=== PATIENT | male | born 1945 | race Caucasian/White ===

== ENCOUNTER 2022-03-11 09:35 | Outpatient (CLI) | payer MEDICARE, SELFPAY ==
[2022-03-11 15:05] LABS: Free T4 Free Thyroxine* 0.89 ng/dL (0.70-1.85)
== END 2022-03-11 09:36 | disposition home or self-care (01) ==
PROVIDERS: PCP Internal Medicine; Visit Provider Internal Medicine
DX: E03.9 Hypothyroidism, unspecified (principal)
CPT/HCPCS: 84439; 84443

== ENCOUNTER 2022-08-12 10:30 | Outpatient (RCR) | payer MEDICARE, SELFPAY ==
--- NOTE | 2022-08-12 12:43 | PT.OPDNX ---
[facility] DISCHARGE SUMMARY PT [facility] Daily Note Start: 07/01/22 09:29 Freq: Status: Active Protocol: Document 08/12/22 12:33 MAYRA (Rec: 08/12/22 12:41 MAYRA [id number]) E-signed By Shanti Doshi, PT PT OP Daily Progress Note Visit Information Note Type Discharge Note Visit Number 7 Insurance Information Recert Due Date 09/23/22 Insurance Name [facility] Insurance Information/Comments [facility] Medical Diagnosis LUMBAR DDD 51.16 Treating Diagnosis DORSALGIA M54.9 STIFFNESS M25.60 Subjective Subjective PATIENT RETURNS AFTER BEING OUT OF TOWN FOR SEVERAL DAYS AND NOT GETTING TO HIS HEP LIKE HAD BEEN. HE STATES, I KNOW I FEEL SO GOOD AFTER LEAVING HERE. Pain Comments 0/10 Preferred Name DAVINA Precautions Treatment Precautions/Contraindications PATIENT HAS ALZHEIMER'S DEMENTIA Home Exercise Home Exercise Comments 07/06/22: REVISED HEP TO EXCLUDE PRONE HE HAS A DIFFICULT TIME CONCEPTUALIZING. ADDED STDG ROW, S'EXT, SKTC, DKTC, BRIDGE Objective Other/Pertinent Objective Posture Assessment: INCREASED THORACIC KYPHOSIS FWD TRUNK POSTURING DURING STDG AND SLUMPED DURING SEATED LUMBAR ROM Flexion: UNREMARKABLE repeated flexion: UNREMARKABLE Extension: UNREMARKABLE repeated ext: INCREASED DISCOMFORT R/L FLANK Right Sidebend: UNREMARKABLE Left Sidebend: UNREMARKABLE LOWER QUARTER SCREEN MMT: BLE 4+/5 X HIP EXT 4-/5 JOINT MOBILITY/PALPATION: L2-5 MIN HYPOMOBILITY; TENDERNESS ABOUT THE QUADRATUS LUMBORUM SPECIAL TESTS: Straight leg raise: (-) Crossed straight leg raise: (- ) Slump test: (-) Quadrant test: (-) SI/HIPI tests : RASHAD (+) FADIR (-) SCOUR (-) Gillet Test: (+) Standing forward bend Test: (- ) Gapping and Compression test: (-) Patient Instructed in Risks/Benefits Yes Therapeutic Exercise Therapeutic Exercise Minutes (minutes) 45 Therapeutic Exercise: To Restore TM 2.2 MPH 7MIN Functional Status SUPINE TRUNK ROTATION 4 X 10 SEC R/L SUPINE DKTC 3 X 30 SEC SUPINE BRIDGE 2 X 10 HOLD 5 STDG TB ROW (BLUE) X 15 STDG TB S'EXT (BLUE) X 15 TRUNK EXT X 15 50# LEG PRESS X 15 110# KNEE EXT X 15 3P Neuromuscular Re-Ed Neuromuscular Reeducation Comments TANDEM WALK 20FT X 2 SIDE STEP R/L X 20FT EA TANDEM WALKING 20 FT X 4 WALKING ON COLORED STONES OF VARYING HEIGHTS Treatment Minutes Timed Code Treatment Minutes 45 Total Treatment Time 45 Billing Units Therapeutic Exercise Units 3 Plan of Care Physical Therapy Goals 1. PATIENT WILL TOLERATE 30 MIN OF AMB DAILY W/PAIN RATING <2/10 IN 4-6 WEEKS. GOAL MET 07/29 2. PATIENT WILL DEMONSTRATED IMPROVED POSTURE AWARENESS AND CORE STRENGTH TO STD OR SIT FOR >30 MIN IN 4-6 WEEKS. GOAL MET 3. PATIENT WILL BE INDEPENDENT WITH HIS HEP WITH SUPERVISION PROVIDED BY SPOUSE D/T COGNITIVE CHALLENGES IN 4-6 WEEKS. GOAL MET Daily Plan of Care Discharge Recertification Information Provider Signature Shows Agreement With POC & Medical Necessity Discharge Note Discharge Summary PATIENT IS A 77 YO MALE PATIENT OF DR. JACINTO ROLLINS REFERRED TO PHYSICAL THERAP D/T BACK PAIN. 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 MR. DOUGLAS HAS PARTICIPATED IN A COMPREHENSIVE AND INDIVIDUALIZED PROGRAM TO ADDRESS SYMPTOM MGMT, POSTURE STRENGTHENING AND AWARENESS, FLEXIBILITY, AND GT. HE IS NOW PARTICIPATING IN A DAILY HOME PROGRAM THAT HIS NEEDS TO POWER PRESS TENDER HIM THROUGH D/T HIS COGNITIVE DEFICITS AND WILL BEGIN WORKING OUT WITH HIS AT [address]. HE VERBALIZED THE UNDERSTANDING THAT HIS PROGRAM MUST BE PERFORM DAILY AND AGREEABLE TO TRANSITIONING TO MACHINES AT THE WORKOUT CENTER. WE DEVELOPED A CONCISE AND APPROPRIATE PLAN FOR HIM TO MAINTAINED AND WITH HIM PERFORMING EA WITH MIRRORING AND VC NEEDED FOR TECHNIQUE. HE HAS MET ALL GOALS FOR PHYSICAL THERAPY AND WILL BE DISCHARGED TODAY WITH HIS INDIVIDUALIZED AND WRITTEN HEP. BOTH AND PATIENT VERBALIZED UNDERSTANDING TO ALL SKILLED INSTRUCTION AND AGREEABLE TO DISCHARGE TODAY. Date of First Visit for Therapy 07/01/22 Date of Last Visit for Therapy 08/12/22 Interventions Provided During Treatment Gait Training,Manual Therapy, Neuromuscular Re-Ed, Therapeutic Activities, Therapeutic Exercise Recommendations/Reason for Discharge Met All Therapy Goals Discharge Instructions CONTINUE WITH HIS HEP AND THE ASSISTANCE OF HIS
== END 2022-08-13 10:23 | disposition home or self-care (01) ==
PROVIDERS: PCP Internal Medicine; Visit Provider Internal Medicine
DX: M54.9 Dorsalgia, unspecified (principal); Z51.89 Encounter for other specified aftercare
CPT/HCPCS: 97110; 97112; 97162

== ENCOUNTER 2023-01-18 14:43 | Outpatient (CLI) | payer MEDICARE, SELFPAY | END 2023-01-18 14:44 | disposition home or self-care (01) | PROVIDERS: PCP Internal Medicine; Visit Provider Internal Medicine | DX: E03.9 Hypothyroidism, unspecified (principal); G31.84 Mild cognitive impairment of uncertain or unknown etiology | CPT/HCPCS: 80053; 84443 ==

== ENCOUNTER 2023-03-24 09:54 | Outpatient (CLI) | payer MEDICARE, SELFPAY ==
--- NOTE | 2023-03-24 10:15 | CRLHL7_ITS ---
For Patients: As a result of the Century Cures Act, medical imaging exams and procedure reports are released immediately into your electronic medical record. You may view this report before your referring provider. If you have questions, please contact your health care provider. INDICATION: Difficulty swallowing TECHNIQUE: Modified barium swallow. Fluoroscopic time 1.7 minutes. COMPARISON: None FINDINGS/IMPRESSION: No aspiration. No significant penetration. Mild residual barium in the valleculae and piriform sinuses. Dictated by Yan Haas MD @ 03/24/2023 10:41:16 AM (Electronically Signed)
--- OUTSIDE RECORDS SUMMARY | 2023-03-24 10:25 | XMS_ITS | Clinical Summary ---
Author Name Unknown Organization [facility] Address [address] [address] Phone Care Team Providers Care Gun Stocker Name Role Phone Unavailable Primary Care Provider Unavailabl e Allergies No known active allergies Medications Medication Sig Dispensed Refills Start Date End Date Status CHILDRENS ASPIRIN 81 MG chewable tablet 81, mg, ORAL, DAILY, 0, 0, 01/25/08 9:05:41, Substitution Permitted, current med (Hx), Constant Indicator 81.000 0 01/25/2008 Active fluticasone propionate (FLONASE) 50 MCG/ACT nasal spray Instill 2 Sprays nasally one time a day. Shake well before use; administer to both nostrils. 16 g 0 08/19/2012 Active albuterol HFA (PROAIR HFA, VENTOLIN HFA) 108 (90 BASE) MCG/ACT inhaler Inhale 2 Puffs into the lungs four times a day. Shake before using. 1 Inhaler 0 08/19/2012 Active guaiFENesin (MUCINEX) 600 MG 12 hour tablet Take 600 mg by mouth two times a day. Take with a full glass of water. Do not crush. 0 Active LORazepam (ATIVAN) 0.5 MG tabletIndications: Anxiety Use one as needed for anxiety 60 Tab 1 08/01/2013 Active levothyroxine (SYNTHROID) 75 MCG tablet Take 1 Tab by mouth one time a day. 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 Block. 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 08/08/2011 Immunizations Name Administration Dates Next Due Pneumovax 23 08/10/2011,12/25/2005 Tdap (7 years and older) 08/10/2011 Zoster Zostavax (Shingles) 07/28/2012 Surgical History Surgery Date Site/Laterality Comments BONE MARROW BIOPSY COLONOSCOPY 2007 POLYPECTOMY 2004 INGUINAL HERNIA REPAIR COLONOSCOPY 09/16/2012 5 yr follow up Medical History Medical History Date Comments Hypothyroidism Social History Tobacco Use Types Packs/Day Years Used Date Smoking Tobacco: Former Cigarettes Q uit: 08/05/2003 Smokeless Tobacco: Never Alcohol Use Standard Drinks/Week Comments No 0 (1 standard drink = 0.6 oz pur e alcohol) Sex and Gender Information Value Date Recorded Sex Assigned at Not on file Gender Identity Not on file Sexual Orientation Not on file Obstetrics History Last Filed Vital Signs Vital Sign Reading Time Taken Comments Blood Pressure 120/76 08/01/2013 11:03 AM CDT Pulse 49 08/01/2013 11:03 AM CDT Temperature 36.6 ??C (97.8 ??F) 09/16/2012 10:39 AM C DT Respiratory Rate 16 08/01/2013 11:03 AM CDT Oxygen Saturation 93% 09/16/2012 12:04 PM CDT Inhaled Oxygen Concentration - - Weight 86.8 kg (191 lb 4 oz) 08/01/2013 11:03 AM CDT Height 182.9 cm (6') 08/01/2013 11:03 AM CDT Body Mass Index 25.94 08/01/2013 11:03 AM CDT Plan of Treatment Health Maintenance Due Date Last Done Comments MEDICARE AWV 1945 COVID-19 Vaccine (#1) 1945 RSV Vaccination (60+ yrs) (Abrysvo/Arexvy) (1 - 1-dose 60+ series) 2003 Pneumococcal Vaccine: 65+ yr s (Standing Order) (2 of 2 - PCV) 08/09/2012 08/10/2011, 12/25/2005 Shingrix (Zoster recombinant ) vaccine (Standing Order) (1 of 2) 09/22/2012 COLONOSCOPY Q 5 YRS 09/16/2017 09/16/2012, 08/05/2007 (Previously completed) TETANUS (Standing Order) 08/09/2021 08/10/2011 Influenza Vaccine Seasonal (Standing Order) (#1) 2022 PERTUSSIS (Standing Order) Completed 08/10/2011 HPV Vaccine (Standing Order) Aged Out No longer eligible based on patient's age to complete this topic Hepatitis B Vaccine (Standin g Order) Aged Out No longer eligible b ased on patient's age to complete this topic
--- OUTSIDE RECORDS SUMMARY | 2023-03-24 10:25 | XMS_ITS | Encounter Summary ---
Author Name Unknown Organization [facility] Address [address] [address] Phone Care Team Providers Care Sociology Research Assistant Name Role Phone Pérez Villafuerte MD Primary Care Provider [phone] Leida Rooney RN Unavailable [phone] Encounter Details Date Type Department Care Team (Late st Contact Info) Description 02/15/2010 Scanned - Medical Reports HISTORY DEPARTMENT Provider, Hx Social History Tobacco Use Types Packs/Day Years Used Date Smoking Tobacco: Never Assessed Sex and Gender Information Value Date Recorded Sex Assigned at Not on file Gender Identity Not on file Sexual Orientation Not on file documented as of this encounter Plan of Treatment Not on file documented as of this encounter Visit Diagnoses Not on filedocumented in this encounter Care Teams Sociology Research Assistant Relationship Specialty Start Date End Date Pé[place] [address] [place] [phone] PCP - General 07/30/10 03/07/15 Leida Rooney RN Logistics System Engineer 08/06/11 06/16/15 documented as of this encounter
--- OUTSIDE RECORDS SUMMARY | 2023-03-24 10:25 | XMS_ITS | Continuity of Care Document ---
Author Name [facility] Organization [facility] Care Team Providers [employer] Administrator Name Role Phone [facility] Unavailable Unavailable Problems Combined list of problems from Department of Defense and Veterans Affairs facilities. It does not include entries that were removed or entered in error. Problem Status Onset Date Problem Type Date of Resolution Comments Source Acquired hypothyroidism Active Condition [facility] Anxiety Active Condition [facility] Bilateral metatarsalgia Active Condition [facility] Carcinoma of parotid gland Active Condition [facility] Chronic obstructive lung disease Active Condition [facility] Chronic Obstructive Pulmonary Disease Active Condition Oct 05 Entered By: SOCORRO BYERS Comment: FEV1(L) % PRED= 88, FEV1/FVC% ACTUAL= 60 [facility] Chronic pain of left foot Active Condition [facility] Congestion of nasal sinus Active Condition [facility] Edema Active Condition Feb 14 Entered By: SOCORRO BYERS Comment: ideopathic-n ml full w/u 2007 [facility] Enthesopathy of left foot Active Condition [facility] Health maintenance alteration Active Condition [facility] Hypothyroidism * (ICD-9-CM 244.9) Active Condition [facility] Keratosis, seborrheic Active Condition [facility] Osteoarthritis of ankle Active Condition [facility] Osteopenia * (ICD-9-CM 733.90) Active Condition [facility] Paraesthesia of foot Active Condition [facility] Personal History of Colonic Polyps (ICD-9-CM V12.72) Active Condition Oct 01 09 Entered By: SOCORRO BYERS Comment: scope 2007 nml-due 2013 [facility] Postsurgical Status of Cataract Extraction Active Condition [facility] Presbyopia Active Condition [facility] Primary degenerative dementia of the Alzheimer type, senile onset, with delusion Active Condition [facility] Rhinitis * (ICD-9-CM 472.0) Active Condition [facility] salivary cancer Active Condition Sep 27, 2007 Entered By: SOCORRO BYERS Comment: radical neck + radiation [facility] SENSORNEUR HEARING LOSS NOS Active Condition [facility] Wheezing Active Condition [facility] Tobacco Use Disorder * (ICD-9-CM 305.1) Inactive Condition 09/27/2007 [facility] Diagnosis: ICD-10-CM Z00.8 Encounter for other general examination Active Diagnosis [facility] Medications Combined list of outpatient medications from Department of Defense and Veterans Affairs facilities.Medications provided include 1) outpatient medications from the last 15 months, and 2) patient-reported medications. Medication Details Route Status Patient Instructions Prescription Expires Prescription Number Last Dispense Date Ordering Provider Order Date Source ASPIRIN TAB,EC TAKE BY MOUTH ORAL ACTIVE SHEN SHRESTHA 2004 [facility] CYANOCOBALA MIN 1000MCG TAB TAKE ONE TABLET BY MOUTH EVERY DAY FOR VITAMIN B12, FOR RED BLOOD CELLS ORALLY ACTIVE 11/19/2023 [id number] MASSIEL NGUYEN 2022 [facility] CYANOCOBALA MIN 1000MCG TAB TAKE ONE TABLET BY MOUTH EVERY DAY FOR VITAMIN B12, FOR RED BLOOD CELLS ORALLY DISCONT INUED 01/15/2023 [id number] MASSIEL NGUYEN 2021 [facility] DONEPEZIL HCL 10MG TAB TAKE ONE TABLET BY MOUTH EVERY DAY ORALLY ACTIVE MASSIEL NGUYEN 2021 [facility] GUAIFENESIN TAB TAKE 600MG DM BY MOUTH DAILY ORAL ACTIVE Giovanni BYERS 2012 [facility] LEVOTHYROXI NE NA 75MCG TAB (SYNTHROID) TAKE ONE TABLET BY MOUTH ORAL ACTIVE Giovanni BYERS 2012 [facility] LEVOTHYROXI NE NA 75MCG TAB (SYNTHROID) TAKE ONE TABLET BY MOUTH EVERY DAY ORALLY ACTIVE MASSIEL NGUYEN 2021 [facility] LORAZEPAM 0.5MG TAB TAKE ONE TABLET BY MOUTH PRN ORALLY ACTIVE MASSIEL NGUYEN 2021 [facility] LORAZEPAM 0.5MG TAB TAKE ONE TABLET BY MOUTH PRN ORAL ACTIVE Giovanni BYERS 2007 [facility] MEMANTINE HCL 10MG TAB TAKE ONE TABLET BY MOUTH ORALLY ACTIVE MASSIEL NGUYEN 2022 [facility] MULTIVITAMI N/MINERALS SENIOR FORMULA TAB TAKE ONE TABLET BY MOUTH ORAL ACTIVE SHEN SHRESTHA 2004 [facility] PSYLLIUM PWDR,ORAL TAKE 1 TEASPOON FUL BY MOUTH EVERY DAY ORALLY ACTIVE MASSIEL NGUYEN 2022 [facility] Immunizations Combined list of available immunizations from the Department of Defense and Veterans Affairs facilities. Immunization Series Date Given Administered By Site Reaction Lot Number CVX Code [facility] Status Comments Source TDAP 2022 115 complet ed [facility] COVID-19, MRNA, LNP-S, BIVALENT BOOSTER, PF, 30 MCG/0.3 ML DOSE 1 2021 300 complet [facility] INFLUENZA, UNSPECIFIED FORMULATION 2021 88 complet ed [facility] COVID-19 (PFIZER), MRNA, LNP-S, PF, 30 MCG/0.3 ML DOSE 2 2021 208 complet [facility] COVID-19 (PFIZER), MRNA, LNP-S, PF, 30 MCG/0.3 ML DOSE, SHANTELL-SUCROSE (AGES 12+ YEARS) 2021 217 complet [facility] ZOSTER RECOMBINANT [address] [facility] ZOSTER RECOMBINANT [address] [facility] COVID-19 (PFIZER), MRNA, LNP-S, PF, 30 MCG/0.3 ML DOSE 3 2020 208 complet [facility] INFLUENZA, INJECTABLE, QUADRIVALENT, PRESERVATIVE FREE 2020 150 complet ed [facility] COVID-19 ([employer]), MRNA, LNP-S, PF, 30 MCG/0.3 ML DOSE 2 2020 208 complet ed [facility] COVID-19 ([employer]), MRNA, LNP-S, PF, 30 MCG/0.3 ML DOSE 1 2020 208 complet ed [facility] INFLUENZA, RECOMBINANT, QUADRIVALENT, INJECTABLE, PRESERVATIVE FREE 2019 185 complet ed [facility] INFLUENZA, HIGH DOSE SEASONAL 2018 135 complet ed [facility] INFLUENZA, HIGH DOSE SEASONAL 2016 135 complet ed [facility] INFLUENZA, HIGH DOSE SEASONAL 2015 135 complet ed [facility] INFLUENZA, HIGH DOSE SEASONAL 2014 135 complet ed [facility] PNEUMOCOCCAL CONJUGATE PCV 13 2014 133 complet ed [employer] Lot# [id number] Exp 03/2016 [facility] PNEUMOCOCCAL CONJUGATE PCV 13 2014 133 complet ed [facility] INFLUENZA, SEASONAL, INJECTABLE 2013 141 complet ed [facility] INFLUENZA, SEASONAL, INJECTABLE 2013 141 complet ed [facility] TDAP 2012 115 complet ed [facility] INFLUENZA, UNSPECIFIED FORMULATION 2012 88 complet ed [facility] ZOSTER LIVE 2012 121 complet ed [facility] PNEUMOCOCCAL POLYSACCHARID E PPV23 2012 33 complet ed [facility] PNEUMOCOCCAL, UNSPECIFIED FORMULATION 2012 109 complet ed [facility] ZOSTER LIVE 2012 121 complet ed [facility] INFLUENZA, UNSPECIFIED FORMULATION 2011 88 complet ed [facility] ZOSTER LIVE 2011 121 complet ed [employer] #[id number] exp 05-13-12 [facility] PNEUMOCOCCAL POLYSACCHARID E PPV23 2011 33 complet ed [facility] TDAP 2011 115 complet ed [facility] TDAP 2010 115 complet ed [facility] PNEUMOCOCCAL POLYSACCHARID E PPV23 2009 33 complet ed [facility] NOVEL INFLUENZA-H1N 1-09, ALL FORMULATIONS 2008 128 complet ed [employer] [facility] INFLUENZA (HISTORICAL) 2008 88 complet ed [facility] INFLUENZA, SEASONAL, INJECTABLE 2008 141 complet ed [facility] INFLUENZA, UNSPECIFIED FORMULATION 2007 88 complet ed [employer], Lot #[id number], exp 2008 JL [facility] INFLUENZA, UNSPECIFIED FORMULATION 2006 88 complet ed lot# [id number] exp 08/29/07 [employer] [facility] INFLUENZA, UNSPECIFIED FORMULATION 2006 88 complet ed [facility] INFLUENZA, UNSPECIFIED FORMULATION 2005 88 complet ed [facility] PNEUMOCOCCAL POLYSACCHARID E PPV23 2005 33 complet ed [facility] INFLUENZA, UNSPECIFIED FORMULATION 2004 88 complet ed [employer] [id number] [facility] PNEUMOCOCCAL, UNSPECIFIED FORMULATION 2004 109 complet ed [facility] TD(ADULT) UNSPECIFIED FORMULATION 2004 139 complet ed [facility] INFLUENZA, UNSPECIFIED FORMULATION 2003 88 complet ed [facility] INFLUENZA, UNSPECIFIED FORMULATION 2003 88 complet ed [facility] Results Combined list of recent chemistry, hematology and other laboratory results from Department of Defense and Veterans Affairs, ranging from 15 months to all on record, depending upon the facility. Order Name Results Value Reference Range Date Interpretation Specimen Comments Source B 12 COBALAMIN (VITAMIN B12) [MASS/VOLU ME] IN SERUM OR PLASMA >2000 213 - 816 11/18 H Specimen Type: SERUM No comment entered. Ordering Provider: KEELY NGUYEN Report Released Date/Time: Jan 14, 2022 08:41 AM Reporting Lab: [facility] [address] Performing Lab: [facility] [address] [facility] FOLATE FOLATE [MASS/VOLU ME] IN SERUM OR PLASMA 8.6 7.0 11/18 Specimen Type: SERUM No comment entered. Ordering Provider: KEELY NGUYEN Report Released Date/Time: Jan 14, 2022 08:41 AM Reporting Lab: [facility] [address] Performing Lab: [facility] [address] [facility] CBC & DIFF LEUKOCYTES [#/VOLUME] IN BLOOD BY AUTOMATED COUNT 4.77 4.0 - 11.0 11/18 Specimen Type: BLOOD Comment: Automated Differentia l Performed Ordering Provider: KEELY NGUYEN Report Released Date/Time: Jan 14, 2022 08:41 AM Reporting Lab: [facility] [address] Performing Lab: [facility] [address] [facility] CBC & DIFF ERYTHROCYT ES [#/VOLUME] IN BLOOD BY AUTOMATED COUNT 3.06 4.6 - 6.2 11/18 L Specimen Type: BLOOD Comment: Automated Differentia l Performed Ordering Provider: KEELY NGUYEN Report Released Date/Time: Jan 14, 2022 08:41 AM Reporting Lab: [facility] [address] Performing Lab: [facility] [address] [facility] CBC & DIFF HEMOGLOBIN [MASS/VOLU ME] IN BLOOD 10.5 13.5 - 17.9 11/18 L Specimen Type: BLOOD Comment: Automated Differentia l Performed Ordering Provider: KEELY NGUYEN Report Released Date/Time: Jan 14, 2022 08:41 AM Reporting Lab: [facility] [address] Performing Lab: [facility] [address] [facility] CBC & DIFF HEMATOCRIT [VOLUME FRACTION] OF BLOOD BY AUTOMATED COUNT 33.3 41 - 54 11/18 L Specimen Type: BLOOD Comment: Automated Differentia l Performed Ordering Provider: KEELY NGUYEN Report Released Date/Time: Jan 14, 2022 08:41 AM Reporting Lab: [facility] [address] Performing Lab: [facility] [address] [facility] CBC & DIFF MCV [ENTITIC VOLUME] BY AUTOMATED COUNT 108.8 80 - 100 11/18 H Specimen Type: BLOOD Comment: Automated Differentia l Performed Ordering Provider: KEELY NGUYEN Report Released Date/Time: Jan 14, 2022 08:41 AM Reporting Lab: [facility] [address] Performing Lab: [facility] [address] [facility] CBC & DIFF MCH [ENTITIC MASS] BY AUTOMATED COUNT 34.3 27 - 33 11/18 H Specimen Type: BLOOD Comment: Automated Differentia l Performed Ordering Provider: KEELY NGUYEN Report Released Date/Time: Jan 14, 2022 08:41 AM Reporting Lab: [facility] [address] Performing Lab: [facility] [address] [facility] CBC & DIFF MCHC [MASS/VOLU ME] BY AUTOMATED COUNT 31.5 32.0 - 37.5 11/18 L Specimen Type: BLOOD Comment: Automated Differentia l Performed Ordering Provider: KEELY NGUYEN Report Released Date/Time: Jan 14, 2022 08:41 AM Reporting Lab: [facility] [address] Performing Lab: [facility] [address] [facility] CBC & DIFF PLATELETS [#/VOLUME] IN BLOOD BY AUTOMATED COUNT 134 150 - 400 11/18 L Specimen Type: BLOOD Comment: Automated Differentia l Performed Ordering Provider: KEELY NGUYEN Report Released Date/Time: Jan 14, 2022 08:41 AM Reporting Lab: [facility] [address] Performing Lab: [facility] [address] [facility] CBC & DIFF PLATELET MEAN VOLUME [ENTITIC VOLUME] IN BLOOD BY AUTOMATED COUNT 10.5 7.4 - 10.4 11/18 H Specimen Type: BLOOD Comment: Automated Differentia l Performed Ordering Provider: KEELY NGUYEN Report Released Date/Time: Jan 14, 2022 08:41 AM Reporting Lab: [facility] [address] Performing Lab: [facility] [address] [facility] CBC & DIFF NEUTROPHIL S/100 LEUKOCYTES IN BLOOD BY MANUAL COUNT 70.1 40.0 - 80.0 11/18 Specimen Type: BLOOD Comment: Automated Differentia l Performed Ordering Provider: KEELY NGUYEN Report Released Date/Time: Jan 14, 2022 08:41 AM Reporting Lab: [facility] [address] Performing Lab: [facility] [address] [facility] CBC & DIFF LYMPHOCYTE S/100 LEUKOCYTES IN BLOOD BY MANUAL COUNT 15.3 15.0 - 45.0 11/18 Specimen Type: BLOOD Comment: Automated Differentia l Performed Ordering Provider: KEELY NGUYEN Report Released Date/Time: Jan 14, 2022 08:41 AM Reporting Lab: [facility] [address] Performing Lab: [facility] [address] [facility] CBC & DIFF MONOCYTES/ 100 LEUKOCYTES IN BLOOD BY AUTOMATED COUNT 10.9 2.0 - 12.0 11/18 Specimen Type: BLOOD Comment: Automated Differentia l Performed Ordering Provider: KEELY NGUYEN Report Released Date/Time: Jan 14, 2022 08:41 AM Reporting Lab: [facility] [address] Performing Lab: [facility] [address] [facility] CBC & DIFF EOSINOPHIL S/100 LEUKOCYTES IN BLOOD BY AUTOMATED COUNT 2.1 0.0 - 6.0 11/18 Specimen Type: BLOOD Comment: Automated Differentia l Performed Ordering Provider: KEELY NGUYEN Report Released Date/Time: Jan 14, 2022 08:41 AM Reporting Lab: [facility] [address] Performing Lab: [facility] [address] [facility] CBC & DIFF BASOPHILS/ 100 LEUKOCYTES IN BLOOD BY MANUAL COUNT 0.6 0.0 - 2.0 11/18 Specimen Type: BLOOD Comment: Automated Differentia l Performed Ordering Provider: KEELY NGUYEN Report Released Date/Time: Jan 14, 2022 08:41 AM Reporting Lab: [facility] [address] Performing Lab: [facility] [address] [facility] CBC & DIFF ERYTHROCYT E DISTRIBUTI ON WIDTH [RATIO] BY AUTOMATED COUNT 13.8 11.5 - 14.5 11/18 Specimen Type: BLOOD Comment: Automated Differentia l Performed Ordering Provider: KEELY NGUYEN Report Released Date/Time: Jan 14, 2022 08:41 AM Reporting Lab: [facility] [address] Performing Lab: [facility] [address] [facility] CBC & DIFF LYMPHOCYTE S [#/VOLUME] IN BLOOD BY AUTOMATED COUNT 0.73 1.0 - 4.0 11/18 L Specimen Type: BLOOD Comment: Automated Differentia l Performed Ordering Provider: KEELY NGUYEN Report Released Date/Time: Jan 14, 2022 08:41 AM Reporting Lab: [facility] [address] Performing Lab: [facility] [address] [facility] CBC & DIFF MONOCYTES [#/VOLUME] IN BLOOD BY AUTOMATED COUNT 0.52 0.1 - 1.0 11/18 Specimen Type: BLOOD Comment: Automated Differentia l Performed Ordering Provider: KEELY NGUYEN Report Released Date/Time: Jan 14, 2022 08:41 AM Reporting Lab: [facility] [address] Performing Lab: [facility] [address] [facility] CBC & DIFF NEUTROPHIL S [#/VOLUME] IN BLOOD BY AUTOMATED COUNT 3.34 2.0 - 7.7 11/18 Specimen Type: BLOOD Comment: Automated Differentia l Performed Ordering Provider: KEELY NGUYEN Report Released Date/Time: Jan 14, 2022 08:41 AM Reporting Lab: [facility] [address] Performing Lab: [facility] [address] [facility] CBC & DIFF EOSINOPHIL S [#/VOLUME] IN BLOOD BY AUTOMATED COUNT 0.10 0 - 0.5 11/18 Specimen Type: BLOOD Comment: Automated Differentia l Performed Ordering Provider: KEELY NGUYEN Report Released Date/Time: Jan 14, 2022 08:41 AM Reporting Lab: [facility] [address] Performing Lab: [facility] [address] [facility] CBC & DIFF BASOPHILS [#/VOLUME] IN BLOOD BY AUTOMATED COUNT 0.03 0 - 0.2 11/18 Specimen Type: BLOOD Comment: Automated Differentia l Performed Ordering Provider: KEELY NGUYEN Report Released Date/Time: Jan 14, 2022 08:41 AM Reporting Lab: [facility] [address] Performing Lab: [facility] [address] [facility] CBC & DIFF IG(META,MY MAYA,PRO) 1.0 11/18 Specimen Type: BLOOD Comment: Automated Differentia l Performed Ordering Provider: KEELY NGUYEN Report Released Date/Time: Jan 14, 2022 08:41 AM Reporting Lab: [facility] [address] Performing Lab: [facility] [address] [facility] CBC & DIFF IMMATURE GRANULOCYT ES [PRESENCE] IN BLOOD BY AUTOMATED COUNT 0.05 0 - 0.1 11/18 Specimen Type: BLOOD Comment: Automated Differentia l Performed Ordering Provider: KEELY NGUYEN Report Released Date/Time: Jan 14, 2022 08:41 AM Reporting Lab: [facility] [address] Performing Lab: [facility] [address] [facility] CBC & DIFF LEUKOCYTES [#/VOLUME] IN BLOOD BY AUTOMATED COUNT 4.72 4.0 - 11.0 11/18 Specimen Type: BLOOD Comment: Automated Differentia l Performed Ordering Provider: KEELY NGUYEN Report Released Date/Time: Nov 18, 2022 02:10 PM Reporting Lab: [facility] [address] Performing Lab: [facility] [address] [facility] CBC & DIFF ERYTHROCYT ES [#/VOLUME] IN BLOOD BY AUTOMATED COUNT 3.07 4.6 - 6.2 11/18 L Specimen Type: BLOOD Comment: Automated Differentia l Performed Ordering Provider: KEELY NGUYEN Report Released Date/Time: Nov 18, 2022 02:10 PM Reporting Lab: [facility] [address] Performing Lab: [facility] [address] [facility] CBC & DIFF HEMOGLOBIN [MASS/VOLU ME] IN BLOOD 10.7 13.5 - 17.9 11/18 L Specimen Type: BLOOD Comment: Automated Differentia l Performed Ordering Provider: KEELY NGUYEN Report Released Date/Time: Nov 18, 2022 02:10 PM Reporting Lab: [facility] [address] Performing Lab: [facility] [address] [facility] CBC & DIFF HEMATOCRIT [VOLUME FRACTION] OF BLOOD BY AUTOMATED COUNT 33.0 41 - 54 11/18 L Specimen Type: BLOOD Comment: Automated Differentia l Performed Ordering Provider: KEELY NGUYEN Report Released Date/Time: Nov 18, 2022 02:10 PM Reporting Lab: [facility] [address] Performing Lab: [facility] [address] [facility] CBC & DIFF MCV [ENTITIC VOLUME] BY AUTOMATED COUNT 107.5 80 - 100 11/18 H Specimen Type: BLOOD Comment: Automated Differentia l Performed Ordering Provider: KEELY NGUYEN Report Released Date/Time: Nov 18, 2022 02:10 PM Reporting Lab: [facility] [address] Performing Lab: [facility] [address] [facility] CBC & DIFF MCH [ENTITIC MASS] BY AUTOMATED COUNT 34.9 27 - 33 11/18 H Specimen Type: BLOOD Comment: Automated Differentia l Performed Ordering Provider: KEELY NGUYEN Report Released Date/Time: Nov 18, 2022 02:10 PM Reporting Lab: [facility] [address] Performing Lab: [facility] [address] [facility] CBC & DIFF MCHC [MASS/VOLU ME] BY AUTOMATED COUNT 32.4 32.0 - 37.5 11/18 Specimen Type: BLOOD Comment: Automated Differentia l Performed Ordering Provider: KEELY NGUYEN Report Released Date/Time: Nov 18, 2022 02:10 PM Reporting Lab: [facility] [address] Performing Lab: [facility] [address] [facility] CBC & DIFF PLATELETS [#/VOLUME] IN BLOOD BY AUTOMATED COUNT 139 150 - 400 11/18 L Specimen Type: BLOOD Comment: Automated Differentia l Performed Ordering Provider: KEELY NGUYEN Report Released Date/Time: Nov 18, 2022 02:10 PM Reporting Lab: [facility] [address] Performing Lab: [facility] [address] [facility] CBC & DIFF PLATELET MEAN VOLUME [ENTITIC VOLUME] IN BLOOD BY AUTOMATED COUNT 10.3 7.4 - 10.4 11/18 Specimen Type: BLOOD Comment: Automated Differentia l Performed Ordering Provider: KEELY NGUYEN Report Released Date/Time: Nov 18, 2022 02:10 PM Reporting Lab: [facility] [address] Performing Lab: [facility] [address] [facility] CBC & DIFF NEUTROPHIL S/100 LEUKOCYTES IN BLOOD BY MANUAL COUNT 70.8 40.0 - 80.0 11/18 Specimen Type: BLOOD Comment: Automated Differentia l Performed Ordering Provider: KEELY NGUYEN Report Released Date/Time: Nov 18, 2022 02:10 PM Reporting Lab: [facility] [address] Performing Lab: [facility] [address] [facility] CBC & DIFF LYMPHOCYTE S/100 LEUKOCYTES IN BLOOD BY MANUAL COUNT 14.6 15.0 - 45.0 11/18 L Specimen Type: BLOOD Comment: Automated Differentia l Performed Ordering Provider: KEELY NGUYEN Report Released Date/Time: Nov 18, 2022 02:10 PM Reporting Lab: [facility] [address] Performing Lab: [facility] [address] [facility] CBC & DIFF MONOCYTES/ 100 LEUKOCYTES IN BLOOD BY AUTOMATED COUNT 11.9 2.0 - 12.0 11/18 Specimen Type: BLOOD Comment: Automated Differentia l Performed Ordering Provider: KEELY NGUYEN Report Released Date/Time: Nov 18, 2022 02:10 PM Reporting Lab: [facility] [address] Performing Lab: [facility] [address] [facility] CBC & DIFF EOSINOPHIL S/100 LEUKOCYTES IN BLOOD BY AUTOMATED COUNT 1.5 0.0 - 6.0 11/18 Specimen Type: BLOOD Comment: Automated Differentia l Performed Ordering Provider: KEELY NGUYEN Report Released Date/Time: Nov 18, 2022 02:10 PM Reporting Lab: [facility] [address] Performing Lab: [facility] [address] [facility] CBC & DIFF BASOPHILS/ 100 LEUKOCYTES IN BLOOD BY MANUAL COUNT 0.6 0.0 - 2.0 11/18 Specimen Type: BLOOD Comment: Automated Differentia l Performed Ordering Provider: KEELY NGUYEN Report Released Date/Time: Nov 18, 2022 02:10 PM Reporting Lab: [facility] [address] Performing Lab: [facility] [address] [facility] CBC & DIFF ERYTHROCYT E DISTRIBUTI ON WIDTH [RATIO] BY AUTOMATED COUNT 13.9 11.5 - 14.5 11/18 Specimen Type: BLOOD Comment: Automated Differentia l Performed Ordering Provider: KEELY NGUYEN Report Released Date/Time: Nov 18, 2022 02:10 PM Reporting Lab: [facility] [address] Performing Lab: [facility] [address] [facility] CBC & DIFF LYMPHOCYTE S [#/VOLUME] IN BLOOD BY AUTOMATED COUNT 0.69 1.0 - 4.0 11/18 L Specimen Type: BLOOD Comment: Automated Differentia l Performed Ordering Provider: KEELY NGUYEN Report Released Date/Time: Nov 18, 2022 02:10 PM Reporting Lab: [facility] [address] Performing Lab: [facility] [address] [facility] CBC & DIFF MONOCYTES [#/VOLUME] IN BLOOD BY AUTOMATED COUNT 0.56 0.1 - 1.0 11/18 Specimen Type: BLOOD Comment: Automated Differentia l Performed Ordering Provider: KEELY NGUYEN Report Released Date/Time: Nov 18, 2022 02:10 PM Reporting Lab: [facility] [address] Performing Lab: [facility] [address] [facility] CBC & DIFF NEUTROPHIL S [#/VOLUME] IN BLOOD BY AUTOMATED COUNT 3.34 2.0 - 7.7 11/18 Specimen Type: BLOOD Comment: Automated Differentia l Performed Ordering Provider: KEELY NGUYEN Report Released Date/Time: Nov 18, 2022 02:10 PM Reporting Lab: [facility] [address] Performing Lab: [facility] [address] [facility] CBC & DIFF EOSINOPHIL S [#/VOLUME] IN BLOOD BY AUTOMATED COUNT 0.07 0 - 0.5 11/18 Specimen Type: BLOOD Comment: Automated Differentia l Performed Ordering Provider: KEELY NGUYEN Report Released Date/Time: Nov 18, 2022 02:10 PM Reporting Lab: [facility] [address] Performing Lab: [facility] [address] [facility] CBC & DIFF BASOPHILS [#/VOLUME] IN BLOOD BY AUTOMATED COUNT 0.03 0 - 0.2 11/18 Specimen Type: BLOOD Comment: Automated Differentia l Performed Ordering Provider: KEELY NGUYEN Report Released Date/Time: Nov 18, 2022 02:10 PM Reporting Lab: [facility] [address] Performing Lab: [facility] [address] [facility] CBC & DIFF IG(META,MY MAYA,PRO) 0.6 11/18 Specimen Type: BLOOD Comment: Automated Differentia l Performed Ordering Provider: KEELY NGUYEN Report Released Date/Time: Nov 18, 2022 02:10 PM Reporting Lab: [facility] [address] Performing Lab: [facility] [address] [facility] CBC & DIFF IMMATURE GRANULOCYT ES [PRESENCE] IN BLOOD BY AUTOMATED COUNT 0.03 0 - 0.1 11/18 Specimen Type: BLOOD Comment: Automated Differentia l Performed Ordering Provider: KEELY NGUYEN Report Released Date/Time: Nov 18, 2022 02:10 PM Reporting Lab: [facility] [address] Performing Lab: [facility] [address] [facility] TSH W/REFLEX TO FREE T4 THYROTROPI N [UNITS/VOL UME] IN SERUM OR PLASMA 1.85 0.35 - 4.94 11/18 Specimen Type: PLASMA No comment entered. Ordering Provider: KEELY NGUYEN Report Released Date/Time: Nov 18, 2022 02:10 PM Reporting Lab: [facility] [address] Performing Lab: [facility] [address] [facility] COMPREHEN SIVE METABOLIC PANEL+MG CREATININE [MASS/VOLU ME] IN SERUM OR PLASMA 1.4 0.7 - 1.2 11/18 H Specimen Type: PLASMA Comment: Automated Differentia l Performed Ordering Provider: KEELY NGUYEN Report Released Date/Time: Nov 18, 2022 02:10 PM Reporting Lab: [facility] [address] Performing Lab: [facility] [address] [facility] COMPREHEN SIVE METABOLIC PANEL+MG UREA NITROGEN [MASS/VOLU ME] IN SERUM OR PLASMA 29 8 - 26 11/18 H Specimen Type: PLASMA Comment: Automated Differentia l Performed Ordering Provider: KEELY NGUYEN Report Released Date/Time: Nov 18, 2022 02:10 PM Reporting Lab: [facility] [address] Performing Lab: [facility] [address] [facility] COMPREHEN SIVE METABOLIC PANEL+MG GLUCOSE [MASS/VOLU ME] IN SERUM OR PLASMA 79 70 - 100 11/18 Specimen Type: PLASMA Comment: Automated Differentia l Performed Ordering Provider: KEELY NGUYEN Report Released Date/Time: Nov 18, 2022 02:10 PM Reporting Lab: [facility] [address] Performing Lab: [facility] [address] [facility] COMPREHEN SIVE METABOLIC PANEL+MG SODIUM [MOLES/VOL UME] IN SERUM OR PLASMA 138 136 - 145 11/18 Specimen Type: PLASMA Comment: Automated Differentia l Performed Ordering Provider: KEELY NGUYEN Report Released Date/Time: Nov 18, 2022 02:10 PM Reporting Lab: [facility] [address] Performing Lab: [facility] [address] [facility] COMPREHEN SIVE METABOLIC PANEL+MG POTASSIUM [MOLES/VOL UME] IN SERUM OR PLASMA 4.8 3.5 - 5.1 11/18 Specimen Type: PLASMA Comment: Automated Differentia l Performed Ordering Provider: KEELY NGUYEN Report Released Date/Time: Nov 18, 2022 02:10 PM Reporting Lab: [facility] [address] Performing Lab: [facility] [address] [facility] COMPREHEN SIVE METABOLIC PANEL+MG CHLORIDE [MOLES/VOL UME] IN SERUM OR PLASMA 105 98 - 107 11/18 Specimen Type: PLASMA Comment: Automated Differentia l Performed Ordering Provider: KEELY NGUYEN Report Released Date/Time: Nov 18, 2022 02:10 PM Reporting Lab: [facility] [address] Performing Lab: [facility] [address] [facility] COMPREHEN SIVE METABOLIC PANEL+MG CARBON DIOXIDE, TOTAL [MOLES/VOL UME] IN SERUM OR PLASMA 30 22 - 29 11/18 H Specimen Type: PLASMA Comment: Automated Differentia l Performed Ordering Provider: KEELY NGUYEN Report Released Date/Time: Nov 18, 2022 02:10 PM Reporting Lab: [facility] [address] Performing Lab: [facility] [address] [facility] COMPREHEN SIVE METABOLIC PANEL+MG CALCIUM [MASS/VOLU ME] IN SERUM OR PLASMA 9.5 8.4 - 10.2 11/18 Specimen Type: PLASMA Comment: Automated Differentia l Performed Ordering Provider: KEELY NGUYEN Report Released Date/Time: Nov 18, 2022 02:10 PM Reporting Lab: [facility] [address] Performing Lab: [facility] [address] [facility] COMPREHEN SIVE METABOLIC PANEL+MG PROTEIN [MASS/VOLU ME] IN SERUM OR PLASMA 7.2 6.0 - 8.3 11/18 Specimen Type: PLASMA Comment: Automated Differentia l Performed Ordering Provider: KEELY NGUYEN Report Released Date/Time: Nov 18, 2022 02:10 PM Reporting Lab: [facility] [address] Performing Lab: [facility] [address] [facility] COMPREHEN SIVE METABOLIC PANEL+MG ALBUMIN [MASS/VOLU ME] IN SERUM OR PLASMA 4.0 3.5 - 5.2 11/18 Specimen Type: PLASMA Comment: Automated Differentia l Performed Ordering Provider: KEELY NGUYEN Report Released Date/Time: Nov 18, 2022 02:10 PM Reporting Lab: [facility] [address] Performing Lab: [facility] [address] [facility] COMPREHEN SIVE METABOLIC PANEL+MG BILIRUBIN. TOTAL [MASS/VOLU ME] IN SERUM OR PLASMA 0.4 0.2 - 1.2 11/18 Specimen Type: PLASMA Comment: Automated Differentia l Performed Ordering Provider: KEELY NGUYEN Report Released Date/Time: Nov 18, 2022 02:10 PM Reporting Lab: [facility] [address] Performing Lab: [facility] [address] [facility] COMPREHEN SIVE METABOLIC PANEL+MG MAGNESIUM [MASS/VOLU ME] IN SERUM OR PLASMA 2.0 1.6 - 2.6 11/18 Specimen Type: PLASMA Comment: Automated Differentia l Performed Ordering Provider: KEELY NGUYEN Report Released Date/Time: Nov 18, 2022 02:10 PM Reporting Lab: [facility] [address] Performing Lab: [facility] [address] [facility] COMPREHEN SIVE METABOLIC PANEL+MG ANION GAP IN SERUM OR PLASMA 3 5 - 15 11/18 L Specimen Type: PLASMA Comment: Automated Differentia l Performed Ordering Provider: KEELY NGUYEN Report Released Date/Time: Nov 18, 2022 02:10 PM Reporting Lab: [facility] [address] Performing Lab: [facility] [address] [facility] COMPREHEN SIVE METABOLIC PANEL+MG ALKALINE PHOSPHATAS E [ENZYMATIC ACTIVITY/V OLUME] IN SERUM OR PLASMA 54 40 - 150 11/18 Specimen Type: PLASMA Comment: Automated Differentia l Performed Ordering Provider: KEELY NGUYEN Report Released Date/Time: Nov 18, 2022 02:10 PM Reporting Lab: [facility] [address] Performing Lab: [facility] [address] [facility] COMPREHEN SIVE METABOLIC PANEL+MG ALANINE AMINOTRANS FERASE [ENZYMATIC ACTIVITY/V OLUME] IN SERUM OR PLASMA 14 <55 - 55 11/18 Specimen Type: PLASMA Comment: Automated Differentia l Performed Ordering Provider: KEELY NGUYEN Report Released Date/Time: Nov 18, 2022 02:10 PM Reporting Lab: [facility] [address] Performing Lab: [facility] [address] [facility] COMPREHEN SIVE METABOLIC PANEL+MG ASPARTATE AMINOTRANS FERASE [ENZYMATIC ACTIVITY/V OLUME] IN SERUM OR PLASMA 20 <34 - 34 11/18 Specimen Type: PLASMA Comment: Automated Differentia l Performed Ordering Provider: KEELY NGUYEN Report Released Date/Time: Nov 18, 2022 02:10 PM Reporting Lab: [facility] [address] Performing Lab: [facility] [address] [facility] COMPREHEN SIVE METABOLIC PANEL+MG GLOMERULAR FILTRATION RATE/1.73 SQ M.PREDICTE D [VOLUME RATE/AREA] IN SERUM, PLASMA OR BLOOD BY CREATININE -BASED FORMULA (CKD-EPI 2020) 51 60 11/18 L Specimen Type: PLASMA Comment: Automated Differentia l Performed Ordering Provider: KEELY NGUYEN Report Released Date/Time: Nov 18, 2022 02:10 PM Reporting Lab: [facility] [address] Performing Lab: [facility] [address] [facility] PERIPHERA L SMEAR PATHOLOGI ST REVIEW ERYTHROCYT E MORPHOLOGY FINDING [IDENTIFIE R] IN BLOOD SLIDES MADE 01/13 Specimen Type: BLOOD No comment entered. Ordering Provider: KEELY NGUYEN Report Released Date/Time: Nov 27, 2021 09:58 AM Reporting Lab: [facility] [address] Performing Lab: [facility] [address] [facility] CBC & DIFF LEUKOCYTES [#/VOLUME] IN BLOOD BY AUTOMATED COUNT 4.85 4.0 - 11.0 01/13 Specimen Type: BLOOD Comment: Automated Differentia l Performed Ordering Provider: KEELY NGUYEN Report Released Date/Time: Nov 27, 2021 09:58 AM Reporting Lab: [facility] [address] Performing Lab: [facility] [address] [facility] CBC & DIFF ERYTHROCYT ES [#/VOLUME] IN BLOOD BY AUTOMATED COUNT 3.32 4.6 - 6.2 01/13 L Specimen Type: BLOOD Comment: Automated Differentia l Performed Ordering Provider: KEELY NGUYEN Report Released Date/Time: Nov 27, 2021 09:58 AM Reporting Lab: [facility] [address] Performing Lab: [facility] [address] [facility] CBC & DIFF HEMOGLOBIN [MASS/VOLU ME] IN BLOOD 11.7 13.5 - 17.9 01/13 L Specimen Type: BLOOD Comment: Automated Differentia l Performed Ordering Provider: KEELY NGUYEN Report Released Date/Time: Nov 27, 2021 09:58 AM Reporting Lab: [facility] [address] Performing Lab: [facility] [address] [facility] CBC & DIFF HEMATOCRIT [VOLUME FRACTION] OF BLOOD BY AUTOMATED COUNT 35.7 41 - 54 01/13 L Specimen Type: BLOOD Comment: Automated Differentia l Performed Ordering Provider: KEELY NGUYEN Report Released Date/Time: Nov 27, 2021 09:58 AM Reporting Lab: [facility] [address] Performing Lab: [facility] [address] [facility] CBC & DIFF MCV [ENTITIC VOLUME] BY AUTOMATED COUNT 107.5 80 - 100 01/13 H Specimen Type: BLOOD Comment: Automated Differentia l Performed Ordering Provider: KEELY NGUYEN Report Released Date/Time: Nov 27, 2021 09:58 AM Reporting Lab: [facility] [address] Performing Lab: [facility] [address] [facility] CBC & DIFF MCH [ENTITIC MASS] BY AUTOMATED COUNT 35.2 27 - 33 01/13 H Specimen Type: BLOOD Comment: Automated Differentia l Performed Ordering Provider: KEELY NGUYEN Report Released Date/Time: Nov 27, 2021 09:58 AM Reporting Lab: [facility] [address] Performing Lab: [facility] [address] [facility] CBC & DIFF MCHC [MASS/VOLU ME] BY AUTOMATED COUNT 32.8 32.0 - 37.5 01/13 Specimen Type: BLOOD Comment: Automated Differentia l Performed Ordering Provider: KEELY NGUYEN Report Released Date/Time: Nov 27, 2021 09:58 AM Reporting Lab: [facility] [address] Performing Lab: [facility] [address] [facility] CBC & DIFF PLATELETS [#/VOLUME] IN BLOOD BY AUTOMATED COUNT 142 150 - 400 01/13 L Specimen Type: BLOOD Comment: Automated Differentia l Performed Ordering Provider: KEELY NGUYEN Report Released Date/Time: Nov 27, 2021 09:58 AM Reporting Lab: [facility] [address] Performing Lab: [facility] [address] [facility] CBC & DIFF PLATELET MEAN VOLUME [ENTITIC VOLUME] IN BLOOD BY AUTOMATED COUNT 10.0 7.4 - 10.4 01/13 Specimen Type: BLOOD Comment: Automated Differentia l Performed Ordering Provider: KEELY NGUYEN Report Released Date/Time: Nov 27, 2021 09:58 AM Reporting Lab: [facility] [address] Performing Lab: [facility] [address] [facility] CBC & DIFF NEUTROPHIL S/100 LEUKOCYTES IN BLOOD BY MANUAL COUNT 72.5 01/13 Specimen Type: BLOOD Comment: Automated Differentia l Performed Ordering Provider: KEELY NGUYEN Report Released Date/Time: Nov 27, 2021 09:58 AM Reporting Lab: [facility] [address] Performing Lab: [facility] [address] [facility] CBC & DIFF LYMPHOCYTE S/100 LEUKOCYTES IN BLOOD BY MANUAL COUNT 10.9 01/13 Specimen Type: BLOOD Comment: Automated Differentia l Performed Ordering Provider: KEELY NGUYEN Report Released Date/Time: Nov 27, 2021 09:58 AM Reporting Lab: [facility] [address] Performing Lab: [facility] [address] [facility] CBC & DIFF MONOCYTES/ 100 LEUKOCYTES IN BLOOD BY AUTOMATED COUNT 13.4 01/13 Specimen Type: BLOOD Comment: Automated Differentia l Performed Ordering Provider: KEELY NGUYEN Report Released Date/Time: Nov 27, 2021 09:58 AM Reporting Lab: [facility] [address] Performing Lab: [facility] [address] [facility] CBC & DIFF EOSINOPHIL S/100 LEUKOCYTES IN BLOOD BY AUTOMATED COUNT 1.4 01/13 Specimen Type: BLOOD Comment: Automated Differentia l Performed Ordering Provider: KEELY NGUYEN Report Released Date/Time: Nov 27, 2021 09:58 AM Reporting Lab: [facility] [address] Performing Lab: [facility] [address] [facility] CBC & DIFF BASOPHILS/ 100 LEUKOCYTES IN BLOOD BY MANUAL COUNT 0.8 01/13 Specimen Type: BLOOD Comment: Automated Differentia l Performed Ordering Provider: KEELY NGUYEN Report Released Date/Time: Nov 27, 2021 09:58 AM Reporting Lab: [facility] [address] Performing Lab: [facility] [address] [facility] CBC & DIFF ERYTHROCYT E DISTRIBUTI ON WIDTH [RATIO] BY AUTOMATED COUNT 13.5 11.5 - 14.5 01/13 Specimen Type: BLOOD Comment: Automated Differentia l Performed Ordering Provider: KEELY NGUYEN Report Released Date/Time: Nov 27, 2021 09:58 AM Reporting Lab: [facility] [address] Performing Lab: [facility] [address] [facility] CBC & DIFF LYMPHOCYTE S [#/VOLUME] IN BLOOD BY AUTOMATED COUNT 0.53 1.0 - 4.0 01/13 L Specimen Type: BLOOD Comment: Automated Differentia l Performed Ordering Provider: KEELY NGUYEN Report Released Date/Time: Nov 27, 2021 09:58 AM Reporting Lab: [facility] [address] Performing Lab: [facility] [address] [facility] CBC & DIFF MONOCYTES [#/VOLUME] IN BLOOD BY AUTOMATED COUNT 0.65 0.1 - 1.0 01/13 Specimen Type: BLOOD Comment: Automated Differentia l Performed Ordering Provider: KEELY NGUYEN Report Released Date/Time: Nov 27, 2021 09:58 AM Reporting Lab: [facility] [address] Performing Lab: [facility] [address] [facility] CBC & DIFF NEUTROPHIL S [#/VOLUME] IN BLOOD BY AUTOMATED COUNT 3.51 2.0 - 7.7 01/13 Specimen Type: BLOOD Comment: Automated Differentia l Performed Ordering Provider: KEELY NGUYEN Report Released Date/Time: Nov 27, 2021 09:58 AM Reporting Lab: [facility] [address] Performing Lab: [facility] [address] [facility] CBC & DIFF EOSINOPHIL S [#/VOLUME] IN BLOOD BY AUTOMATED COUNT 0.07 0 - 0.5 01/13 Specimen Type: BLOOD Comment: Automated Differentia l Performed Ordering Provider: KEELY NGUYEN Report Released Date/Time: Nov 27, 2021 09:58 AM Reporting Lab: [facility] [address] Performing Lab: [facility] [address] [facility] CBC & DIFF BASOPHILS [#/VOLUME] IN BLOOD BY AUTOMATED COUNT 0.04 0 - 0.2 01/13 Specimen Type: BLOOD Comment: Automated Differentia l Performed Ordering Provider: KEELY NGUYEN Report Released Date/Time: Nov 27, 2021 09:58 AM Reporting Lab: [facility] [address] Performing Lab: [facility] [address] [facility] CBC & DIFF IG(META,MY MAYA,PRO) 1.0 01/13 Specimen Type: BLOOD Comment: Automated Differentia l Performed Ordering Provider: KEELY NGUYEN Report Released Date/Time: Nov 27, 2021 09:58 AM Reporting Lab: [facility] [address] Performing Lab: [facility] [address] [facility] CBC & DIFF IMMATURE GRANULOCYT ES [PRESENCE] IN BLOOD BY AUTOMATED COUNT 0.05 0 - 0.1 01/13 Specimen Type: BLOOD Comment: Automated Differentia l Performed Ordering Provider: KEELY NGUYEN Report Released Date/Time: Nov 27, 2021 09:58 AM Reporting Lab: [facility] [address] Performing Lab: [facility] [address] [facility] PERIPHERA L SMEAR PATHOLOGI ST REVIEW ERYTHROCYT E MORPHOLOGY FINDING [IDENTIFIE R] IN BLOOD SLIDES MADE 11/25 Specimen Type: BLOOD No comment entered. Ordering Provider: KEELY NGUYEN Report Released Date/Time: Nov 18, 2021 10:19 AM Reporting Lab: [facility] [address] Performing Lab: [facility] [address] [facility] FOLATE FOLATE [MASS/VOLU ME] IN SERUM OR PLASMA 9.0 7.0 11/25 Specimen Type: SERUM No comment entered. Ordering Provider: KEELY NGUYEN Report Released Date/Time: Nov 18, 2021 10:19 AM Reporting Lab: [facility] [address] Performing Lab: [facility] [address] [facility] Vital Signs Combined list of inpatient and outpatient Vital Signs from Department of [facility] and [facility], ranging from 12 months to all on record, depending upon the facility. Vital Sign Value Date Comments Source PULSE OXIMETRY 97% 11/18/2022 13:41:37 [facility] WEIGHT 164 11/18/2022 13:41:37 [facility] BMI 23kg/m2 11/18/2022 13:41:37 [facility] PAIN 0 11/18/2022 13:41:37 [facility] HEIGHT 70.5 11/18/2022 13:41:37 [facility] TEMPERATURE 97.2 11/18/2022 13:41:37 [facility] PULSE 46 11/18/2022 13:41:37 [facility] RESPIRATION 16 11/18/2022 13:41:37 [facility] Encounters Combined list of: 1) Encounters from [facility] facilities going back up to thelast 18 months. 2) Encounters from the Department of [facility] facilities going back up to 280 months. Location Location Details Encounter Type Encounter Number Reason For Visit Attending Provider ADM Date DC Date Status Disposition Source [place] [facility] Outpatient Encounter [id number] 11/14 [facility] OFFICE O/P EST MOD 30-39 MIN [id number] Diagnos is: ICD-10- CM Z00.8 Encount er for other general examina tion
Stuart NGUYEN 11/17 [facility] [place] [facility] Outpatient Encounter [id number] ERICKSON HUERTA 11[facility]17 [facility] [place] [facility] Outpatient Encounter [id number] MIGUEL LEMUS 11/24 [place] [facility] [place] [facility] Outpatient Encounter [id number] ABBE CONTRERAS 11/26 [place] [facility] [place] [facility] Outpatient Encounter [id number] 11/27 [place] [facility] [place] [facility] Outpatient Encounter [id number] 01/14 [place] [facility] [place] [facility] Out[place] Encounter [id number] CIABBE GALLAGHER M 01/14 [place] [facility] [place] [facility] Out[place] Encounter [id number] 03/11 [place] [facility] [place] [facility] Outpatient Encounter [id number] 07/23 [place] [facility] [place] [facility] Out[place] Encounter [id number] 07/23 [facility] OFFICE O/P EST MOD 30-39 MIN [id number] Diagnos is: ICD-10- CM Z00.8 Encount er for other general examina tion
Stuart NGUYEN 11/18 [facility] [place] [facility] Outpatient Encounter [id number] 12/15 [place] [facility] [place] [facility] Out[place] Encounter [id number] 01/15 [place] [facility] [place] [facility] Outpatient Encounter [id number] 01/29 [place] [facility] [place] [facility] Out[place] Encounter [id number] 02/02 [place] [facility] [place] [facility] Out[place] Encounter [id number] 02/03 [place] [facility] [place] [facility] Outpatient Encounter [id number] SCARLETT HOPPER M 02/03 [place] [facility] [place] [facility] Out[place] Encounter [id number] SCARLETT HOPPER M 02/03 [place] [facility] [place] [facility] Out[place] Encounter [id number] 03/09 [place] [facility] [place] [facility] Out[place] Encounter [id number] 03/11 [place] [facility] Social History Combined list of available smoking, tobacco, and other social history from Department of Defense and Veterans Affairs facilities. Social History Type Response Date Comment Source Tobacco smoking status [facility]-TOBACCO FORMER USER 11/18/2022 [facility] History of tobacco use [place]-TOBAC[place] QUIT 15 YRS OR MORE 11/18/2022 [facility] [place] of tobacco use [place] FORMER US[place] 11/17/2021 [facility] [place] of tobacco use [place] QU[place] 15 YRS OR MORE 11/14/2020 [facility] History of tobacco use [place] QU[place] 15 YRS OR MORE 11/08/2019 [facility] History of tobacco use [place]-TO[place] QUIT 15 YRS OR MORE 10/07/2018 [facility] History of tobacco use FORMER TOBACCO USER 7Y OR GREATER 09/29/2017 [facility] History of tobacco use FORMER TOBACCO USER 7Y OR GREATER 11/13/2016 [facility] History of tobacco use FORMER TOBACCO USER 7Y OR GREATER 10/16/2015 [facility] History of tobacco use FORMER TOBACCO USER 7Y OR GREATER 10/19/2014 [facility] History of tobacco use FORMER TOBACCO USER 7Y OR GREATER 10/11/2013 [facility] History of tobacco use FORMER TOBACCO USER 7Y OR GREATER 09/07/2012 [facility] History of tobacco use FORMER TOBACCO USE >1Y <7Y 10/27/2011 [facility] History of tobacco use FORMER TOBACCO USE >1Y <7Y 10/08/2010 [facility] History of tobacco use FORMER TOBACCO USE >1Y <7Y 10/01/2009 [facility] History of tobacco use FORMER TOBACCO USE >1Y <7Y 10/01/2008 [facility] History of tobacco use FORMER TOBACCO USE >1Y <7Y 09/29/2007 [facility] History of tobacco use FORMER TOBACCO USE >1Y <7Y 10/01/2006 [facility] History of tobacco use NON-TOBACCO USER 11/04/2004 quit 7 days ago per pt. [facility] History of tobacco use CURRENT TOBACCO USER 10/22/2004 smokes 5 cigarettes per day [facility] Advance Directives List of completed, amended, or rescinded Advance Directives on record at Department of Veterans Affairs facilities. An actual copy of the Directive is not included. Date Advance Directive Provider Source 11/27/2021 [facility] DIRECT[facility]
--- NOTE | 2023-03-24 13:55 | SLP.EVAL ---
Dr. Blair Please review, sign and return Thank you Angie Harrell, CLIENT APPLICATION SUPPORT ENGINEER CLIENT APPLICATION SUPPORT ENGINEER Eval CLIENT APPLICATION SUPPORT ENGINEER Jennal Start: 03/24/23 10:47 Freq: Status: Active Protocol: Document 03/24/23 10:47 [facility] (Rec: 03/24/23 11:01 [facility] [id number]) E-signed By Angie Harrell, YAZAN, CLIENT APPLICATION SUPPORT ENGINEER CLIENT APPLICATION SUPPORT ENGINEER System Review History & Reason For Referral Type of Speech Evaluation Modified Barium Swallow Evaluation Rehabilitation Order Evaluation Date of Order 03/11/23 Reason for Referral swallowing difficulty Medical Diagnosis dysphagia Treatment Diagnosis dysphagia Hearing Information Hearing Status somewhat hard of hearing. Vision Information Vision Status Patient is wearing glasses. Patient Orientation Orientation & Mental Status Patient has dementia. He just moved to the [facility] yesterday. CLIENT APPLICATION SUPPORT ENGINEER Initial Assessment/POC Subjective Information Subjective/Pain Comment Patient independently ambulated to the xray suite. His is with him. Caregiver's Name Aury - Assessment & Impression Assessment/Impression Patient is an 78 year old male referred for a modified barium swallow study due to difficulty swallowing. Because of his dementia, he has some difficulty reporting his symptoms. His reports that he doesn't cough with eating or drinking anything but is coughing up phlegm often. This has been happening for about 6 months. He does not have a history of reflux that she is aware of. He does have mild COPD. ORAL MOTOR FUNCTION AND DENTITION Patient able to move tongue and lips adequately. He has all his natural dentition except for a couple lower left back teeth. THIN LIQUID Patient took sips of thin liquid by cup. He was able to swallow with no penetration or aspiration. No residue noted with liquids. PUREE Patient given a teaspoon of puree. He exhibited some tongue pumping and slight delay in initiating a swallow. No penetration or aspiration occurred. There was a mild amount of residue in the vallecula after the swallow. A sip of thin liquids helped to clear this. MUFFIN AND COOKIE WITH BARIUM PUREE Patient given separate trials of muffin and cookie each mixed with barium puree. He was able to chew and swallow each although again some tongue pumping noted. No penetration or aspiration occurred. Mild residue in the vallecula occurred which patient could clear with a sip of thin liquid. IMPRESSIONS AND RECOMMENDATIONS Patient did not have penetration or aspiration on any trials of food or liquid. He has some vallecular residue with solids that he is able to clear with a sip of water. Recommend a regular diet with thin liquids. Due to his dementia, patient will need frequent cues to drink more water both to clear residue and to help thin phlegm. He seems resistant to doing this. The images and recommendations were reviewed with patient and his and questions answered. Therapist Signature & License # I Certify That Therapy Services Provided Therapist Signature & License Number Angie Harrell, [facility]-CLIENT APPLICATION SUPPORT ENGINEER, # [id number] Physician Signature Signature of Physician Indicates Medically Needed Services Physician Signature & Date Required Please Sign/Date Here Speech/Language Pathology Billing Units Billing Units Eval Swallow Motion Fluoro 1
== END 2023-03-24 09:55 | disposition home or self-care (01) ==
PROVIDERS: PCP Internal Medicine; Visit Provider Internal Medicine
DX: R13.10 Dysphagia, unspecified (principal)
CPT/HCPCS: 74230; 92611

== ENCOUNTER 2023-04-26 14:00 | Outpatient (REF) | payer MEDICARE, SELFPAY ==
[2023-04-26 14:34] LABS: Appearance Urine Clear (Clear); Bilirubin Urine Negative (Negative); Blood Urine Negative (Negative); Color Urine Yellow (Yellow); Glucose Urine Negative (Negative); Ketones Urine Negative (Negative); Leukocyte Esterase Urine Negative (Negative); Nitrite Urine Negative (Negative); Protein Urine Negative (Negative); Urobilinogen Urine 0.2 (0.2-1.0)
[2023-04-26 14:47] LABS: RBC Urine 0-2 (0-2); WBC Urine 0-2 (0-5)
== END 2023-04-26 14:01 | disposition home or self-care (01) ==
LOC: NPINS 14:00
PROVIDERS: PCP Internal Medicine; Visit Provider Internal Medicine
DX: R29.6 Repeated falls (principal)
CPT/HCPCS: 81001; 87086

== ENCOUNTER 2023-05-03 14:34 | Outpatient (CLI) | payer MEDICARE, SELFPAY | END 2023-05-03 14:35 | disposition home or self-care (01) | LOC: AMB 05-08 17:53 | PROVIDERS: PCP Internal Medicine; Visit Provider Emergency Medicine | DX: S79.912A Unspecified injury of left hip, initial encounter (principal); W18.30XA Fall on same level, unspecified, initial encounter; Y92.129 Unspecified place in nursing home as the place of occurrence of the external cause | CPT/HCPCS: A0425; A0429 ==

== ENCOUNTER 2023-05-03 15:00 | Inpatient (IN) | payer MEDICARE, SELFPAY ==
[2023-05-03] VITALS (22 sets, daily range): BP systolic 125–165; BP diastolic 75–108; PULSE 50–66; RESP 12–20; TEMP 36.6–36.8; O2SAT 88–98; BMI 25.1; BMI 22.8
--- NOTE | 2023-05-03 15:14 | XR_ITS ---
Final Report Patient: DAVINA DOUGLAS Facility:?[facility] Patient ID:?[id number] Site Patient ID:?[id number]. Site :?[id number] Study:?XRay Hip Left -05/03/2023 3:39:17 PM Ordering Physician:CHAVEZ Final Report: Indication: Fall with hip pain Technique: Three views Comparison: None Findings/Impression: No dislocation. Prominent soft tissue artifact overlying the pelvis. No displaced fracture seen although a v-shaped lucency is noted at the level of the intertrochanteric line. Configuration appears somewhat unusual for an overlying soft tissue artifact although again no clear cortical break is seen. Suggest CT pelvis for further evaluation of this finding. Dictated by Tim Barber MD @ 05/03/2023 4:02:12 PM (Electronic Signature)
[2023-05-03] MEDS: MORPHINE 4 MG/ML INJ IVP ×2 (15:25→18:16)
--- NOTE | 2023-05-03 16:41 | CT_ITS ---
Patient: DAVINA DOUGLAS Facility:?[facility] Patient ID:?[id number] Site Patient ID:?[id number]. Site :?[id number] Study:?CT-Hip Left WO-05/03/2023 4:57:28 PM Ordering Physician:CHAVEZ Final Report: Indication: Fall, hip fracture Technique: Multiple axial noncontrast CT images were obtained of the left lower extremity. Images were reconstructed with bony and soft tissue algorithms and reformatted in the coronal and sagittal planes. Please note that all CT scans at this facility use dose modulation, iterative reconstruction, and/or weight-based dosing when appropriate to reduce radiation dose to as low as reasonably achievable. Comparison: Same day radiograph. Findings: Localizer image: Moderate multilevel degenerative changes of the visualized spine. Bones: Osteopenia. Moderately comminuted mildly displaced left femoral intertrochanteric fracture. Joints: [id number] degenerative changes of the bilateral hips. Soft tissues: Moderate vascular calcification. Mild sigmoid colonic diverticulosis without CT evidence of acute diverticulitis. Moderate stool burden. Moderate surrounding soft tissue edema of the proximal hip musculature. Additional findings: None. Impression: Moderately comminuted mildly displaced left femoral intertrochanteric fracture. Please note that all CT scans at this facility use dose modulation, iterative reconstruction, and/or weight-based dosing when appropriate to reduce radiation dose to as low as reasonably achievable. Dictated by Tad Avery MD @ 05/03/2023 5:35:14 PM Signed by:?Tad Avery MD @05/03/2023 5:35:14 PM (Electronic Signature)
--- NOTE | 2023-05-03 17:11 | ED.GENADULT ---
HPI - General Adult General Date Seen: 05/03/23 Chief complaint: Hip Injury/Pain Stated complaint: Hip pain Time Seen by Provider: 05/03/23 15:15 Source: patient, family and RN notes reviewed Mode of arrival: EMS Limitations: no limitations History of Present Illness HPI narrative: The patient is an 78-year-old who had a mechanical fall just prior to coming in. Brought in by EMS with left hip pain. He denies other injuries, no reported head injury. His is here with him, he does have some mild cognitive impairment although he answers questions appropriately. Medications reviewed, I do not see any anticoagulation. Other medical history reviewed. No allergies. Related Data Home Medications Medication Instructions Recorded Confirmed mecobalamin (vitamin B12) 1,000 1,000 mcg PO DAILY 03/11/22 05/04/23 mcg chewable tablet quetiapine 50 mg tablet 50 mg PO BID 05/03/23 05/03/23 olanzapine 5 mg tablet (Zyprexa) 5 mg PO DAILY 05/04/23 05/04/23 sertraline 100 mg tablet 100 mg PO DAILY Anxiety 05/04/23 05/04/23 trazodone 50 mg tablet 25 mg PO HS PRN insomnia 05/04/23 05/04/23 Previous Rx's Medication Instructions Recorded albuterol sulfate 90 mcg/actuation See Rx Instructions .Route 02/03/22 aerosol inhaler .COMPLEX #8.5 ea fluorouracil 5 % topical cream 1 applic topical .1xw #40 grams 07/29/22 donepezil 10 mg tablet 10 mg PO DAILY Cognitive 01/18/23 Impairment #90 tabs memantine 10 mg tablet (Namenda) 10 mg PO BID Memory Loss #180 tabs 01/18/23 levothyroxine 75 mcg tablet See Rx Instructions .Route 03/19/23 .COMPLEX #90 tabs lorazepam 0.5 mg tablet 0.5 mg PO BID PRN agitation #30 04/16/23 tabs naproxen 250 mg tablet 250 mg PO BID PRN pain #60 tabs 04/30/23 Allergies Allergy/AdvReac Type Severity Reaction Status Date / Time No Known Drug Allergies Allergy Verified 05/03/23 15:09 Review of Systems Status of ROS: Reports: 10 or more systems reviewed and unremarkable except as noted in History and below PFSH PFSH Medical History Alzheimer disease ?G30.9 - Alzheimer's disease, unspecified (ICD-10) ?F02.80 - Dementia in other diseases classified elsewhere, unspecified severity, without behavioral disturbance, psychotic disturbance, mood disturbance, and anxiety (ICD-10) Agitation ?R45.1 - Restlessness and agitation (ICD-10) Dysphagia ?R13.10 - Dysphagia, unspecified (ICD-10) Actinic keratosis ?L57.0 - Actinic keratosis (ICD-10) Rosacea ?L71.9 - Rosacea, unspecified (ICD-10) Back Pain ?M54.9 - Dorsalgia, unspecified (ICD-10) Asthma ?J45.909 - Unspecified asthma, uncomplicated (ICD-10) Anxiety ?F41.9 - Anxiety disorder, unspecified (ICD-10) Macrocytosis ?D75.89 - Other specified diseases of blood and blood-forming organs (ICD-10) Hearing loss ?H91.90 - Unspecified hearing loss, unspecified ear (ICD-10) 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 He later worked in [employer]. He smoked less than a pack a day for 30 or 40 years, having quit 20 years ago. He quit alcohol altogether in 1979. His family would like him to be full code for the purpose of this hospital stay, and are considering DNR DNI after that. What is your current living situation?: I presently have a place to live Problems where you live: no known problems Problems where you live details: n/a In the past 12 months, utilities in danger of being shut off: no In past 12 months, lack of transportation kept you from medical appts, meetings, work, or getting things needed for daily living: no In the past 12 mos, have been you worried that your food would run out before you had money to buy more?: never true In the past 12 mos, the food you bought just didn't last and you didn't have money to buy more?: never true Smoking Status: Former smoker How often does anyone, including family, friends and others, physically hurt you: unable to answer How often does anyone, including family, friends and others, insult or talk down to you: unable to answer How often does anyone, including family, friends and others, threaten you with harm: unable to answer How often does anyone, including family, friends and others, scream or curse at you: unable to answer Little interest or pleasure in doing things: more than half the days Feeling down, depressed, or hopeless: more than half the days Exam Narrative: Exam Narrative: Vital signs as noted above. In general, an alert, nontoxic elderly male. Complains of severe pain with movement of the left leg. Head: Normocephalic, atraumatic. Eyes: Pupils are equal reactive. Extraocular movements are full. Conjunctivae are normal. ENT: Mucous membranes are moist. Delete Neck: Supple without lymphadenopathy. Heart: Bradycardic, no significant murmur. Lungs: Clear bilaterally. No increased work of breathing, crackles or wheezes. Abdomen: Soft and nontender. No organomegaly. Extremities: Well perfused. No edema. No calf tenderness. Pulses intact. Left leg is held in external rotation, distal CMS is intact. No significant tenderness to palpation of the thigh or hip. No obvious deformity. Neurologic: Patient is alert and oriented to person and place. Speech is fluent. Face is symmetric. Moves all extremities equally. Affect: Normal. Skin: Warm and dry. Well perfused. Const: Vital Signs, click to edit/add: Vital Signs - 24 hr 05/03/23 15:06 05/03/23 15:20 05/03/23 15:36 Temperature 97.9 F Pulse Rate 50 L Pulse Rate [Left P ulse Oximeter] 53 L Respiratory Rate 16 Blood Pressure Blood Pressure [Le ft Upper Arm] 125/75 Pulse Oximetry 98 95 97 Oxygen Delivery Me thod Room Air 05/03/23 15:37 05/03/23 15:38 05/03/23 16:00 Temperature Pulse Rate 52 L 53 L 56 L Pulse Rate [Left P ulse Oximeter] Respiratory Rate Blood Pressure 143/81 H Blood Pressure [Le ft Upper Arm] Pulse Oximetry 94 95 89 Oxygen Delivery Me thod 05/03/23 16:15 05/03/23 16:20 05/03/23 16:32 Temperature Pulse Rate 55 L 57 L Pulse Rate [Left P ulse Oximeter] 50 L Respiratory Rate 12 Blood Pressure Blood Pressure [Le ft Upper Arm] 162/83 H Pulse Oximetry 97 93 96 Oxygen Delivery Me thod Room Air 05/03/23 16:53 05/03/23 17:00 05/03/23 17:02 Temperature Pulse Rate 56 L 61 61 Pulse Rate [Left P ulse Oximeter] Respiratory Rate Blood Pressure 163/108 H Blood Pressure [Le ft Upper Arm] Pulse Oximetry 95 94 88 Oxygen Delivery Me thod 05/03/23 17:22 Temperature Pulse Rate 54 L Pulse Rate [Left P ulse Oximeter] Respiratory Rate Blood Pressure Blood Pressure [Le ft Upper Arm] Pulse Oximetry 98 Oxygen Delivery Me thod Documenting provider has reviewed patient's vital signs: yes Course Course ED Course: An IV was placed and he was given 4 mg of morphine prior to x-rays. X-rays by my review show an unusual jagged lucency through the intratrochanteric region of the left hip, although that line seems to continue past the bone, and the cortex appears intact. This is lucency is seen only on one view. The frog-leg view looks normal. Radiology read this similarly as an unusual lucency, recommended CT. CT scan by my review shows a minimally displaced intertrochanteric fracture, final radiology read as follows:Findings: Localizer image: Moderate multilevel degenerative changes of the visualized spine. Bones: Osteopenia. Moderately comminuted mildly displaced left femoral intertrochanteric fracture. Joints: [id number] degenerative changes of the bilateral hips. Soft tissues: Moderate vascular calcification. Mild sigmoid colonic diverticulosis without CT evidence of acute diverticulitis. Moderate stool burden. Moderate surrounding soft tissue edema of the proximal hip musculature. Additional findings: None. Impression: Moderately comminuted mildly displaced left femoral intertrochanteric fracture. Patient had an EKG which shows a normal sinus rhythm, ventricular rate of 60, he is sometimes bradycardic into the low 50s upper 40s. He is asymptomatic with that. He has not required further medication for pain. Orthopedics consulted, plan for admission to hospitalist service. Labs notable primarily for hemoglobin of 10.6, which is down about a g from December of 2022. Electrolytes and renal function within normal limits. INR is 1.0 9. Vital Signs Vital signs: Initial Vital Signs Temperature 97.9 F 05/03/23 15:06 Temperature Source Temporal Artery Scan 05/03/23 15:06 Pulse Rate 53 L 05/03/23 15:06 Respiratory Rate 16 05/03/23 15:06 Blood Pressure 125/75 05/03/23 15:06 Blood Pressure Mean 91 05/03/23 15:06 Blood Pressure Position Supine 05/03/23 15:06 Pulse Oximetry 98 05/03/23 15:06 Oxygen Delivery Method Room Air 05/03/23 15:06 Vital Signs Temperature 97.9 F 05/03/23 15:06 Pulse Rate 53 L 05/03/23 15:06 Respiratory Rate 16 05/03/23 15:06 Blood Pressure 125/75 05/03/23 15:06 Pulse Oximetry 98 05/03/23 15:06 Oxygen Delivery Method Room Air 05/03/23 15:06 Temperature 98.2 F 05/06/23 03:00 Pulse Rate 105 H 05/06/23 03:00 Respiratory Rate 16 05/06/23 03:00 Blood Pressure 133/86 05/06/23 03:00 Pulse Oximetry 93 05/06/23 03:00 Oxygen Delivery Method Room Air 05/06/23 03:00 Oxygen Flow Rate 1 05/05/23 23:00 Medications Administered Medications: Generic Name Dose Route Start Last Admin Trade Name Freq PRN Reason Stop Dose Admin Acetaminophen 650 mg 05/04/23 18:00 05/06/23 05:28 Acetaminophen 325 Mg Tablet PO 650 mg Q6H KAMI Administration Cyanocobalamin 1,000 mcg 05/03/23 21:52 05/05/23 08:02 Cyanocobalamin (Vitamin B-12) 500 Mcg Tablet PO 1,000 mcg DAILY KAMI Administration Donepezil HCl 10 mg 05/04/23 09:00 05/05/23 08:01 Donepezil 10 Mg Tablet PO 10 mg DAILY KAMI Administration Levothyroxine Sodium 75 mcg 05/04/23 07:00 05/06/23 05:27 Levothyroxine 75 Mcg Tablet PO 75 mcg DAILY@0700 KAMI Administration Lorazepam 0.5 mg 05/03/23 20:37 05/06/23 02:11 Lorazepam 0.5 Mg Tablet PO 0.5 mg BID PRN Administration agitation Memantine 10 mg 05/03/23 21:00 05/05/23 20:44 Memantine Hcl 10 Mg Tablet PO 10 mg BID KAMI Administration Olanzapine 5 mg 05/04/23 09:00 05/05/23 08:01 Olanzapine 5 Mg Tab.Rapdis PO 5 mg DAILY KAMI Administration Oxycodone HCl 2.5 - 10 mg 05/04/23 15:36 05/06/23 05:27 Oxycodone 5 Mg Tablet PO 10 mg Q2H PRN Administration Pain Rivaroxaban 10 mg 05/05/23 09:00 05/05/23 08:01 Rivaroxaban 10 Mg Tablet PO 10 mg DAILY KAMI Administration Sennosides 2 tab 05/04/23 21:00 05/05/23 20:44 Sennosides 1 Tab Tablet PO 2 tab BID KAMI Administration Sertraline HCl 100 mg 05/04/23 09:00 05/05/23 08:01 Sertraline 100 Mg Tablet PO 100 mg DAILY KAMI Administration Sodium Chloride 5 ml 05/03/23 21:00 05/05/23 20:45 Sodium Chloride 0.9 % (Flush) 10 Ml Syringe IVF 5 ml BID KAMI Administration Sodium Chloride 500 ml 05/04/23 15:36 05/05/23 14:26 0.9 % Sodium Chloride 500 Ml IV 500 ml Q4H PRN Administration Oliguria Trazodone HCl 25 mg 05/04/23 07:12 05/05/23 20:45 Trazodone Hcl 50 Mg Tablet PO 25 mg HS PRN Administration insomnia Discontinued Medications Generic Name Dose Route Start Last Admin Trade Name Freq PRN Reason Stop Dose Admin Acetaminophen 975 mg 05/03/23 19:16 05/03/23 20:24 Acetaminophen 325 Mg Tablet PO 975 mg Q6H PRN Administration Cefazolin Sodium 2 gm 05/04/23 13:09 05/04/23 13:35 Cefazolin 2 Gm Inj IVP 05/04/23 13:10 1 gm ONCE ONE Administration Hydromorphone HCl 0.5 - 1 mg 05/03/23 19:16 05/04/23 10:53 Hydromorphone 0.5 Mg/0.5 Ml Inj IVP 0.5 mg Q1H PRN Administration MODERATE-SEVERE PAIN Hydroxyzine Pamoate 25 mg 05/04/23 09:31 05/04/23 13:18 Hydroxyzine Pamoate 25 Mg Capsule PO 05/04/23 09:32 Not Given ONCE ONE Lactated Ringer's 1,000 mls @ 75 mls/hr 05/03/23 19:25 05/06/23 07:08 Lactated Ringers 1000 Ml IV Infused .[id number] KAMI Infusion Lactated Ringer's 1,000 mls @ 100 mls/hr 05/04/23 09:35 05/06/23 07:11 Lactated Ringers 1000 Ml IV Not Given .Q10H KAMI Lactated Ringer's 1,000 mls @ 75 mls/hr 05/04/23 15:36 05/06/23 07:08 Lactated Ringers 1000 Ml IV Infused .[id number] KAMI Infusion Cefazolin Sodium 1 gm/ Sodium 100 mls @ 200 mls/hr 05/04/23 20:00 05/06/23 07:08 Chloride IVPB 05/05/23 04:29 Infused Q8H KAMI Infusion Morphine Sulfate 4 mg 05/03/23 15:19 05/03/23 15:25 Morphine 4 Mg/Ml Inj IVP 05/03/23 15:20 4 mg ONCE ONE Administration Morphine Sulfate 4 mg 05/03/23 18:09 05/03/23 18:16 Morphine 4 Mg/Ml Inj IVP 05/03/23 18:10 4 mg ONCE ONE Administration Medical Decision Making Lab Data Labs: Lab Results 05/03/23 Range/Units 17:10 WBC 4.84 (4.50-11.00) K/uL RBC 3.08 L (4.30-5.90) m/uL Hgb 10.6 L (13.5-17.5) gm/dL Hct 33.6 L (37.0-53.0) % MCV 109 H (80-100) fL MCH 34 (26-34) pg MCHC 32 (32-36) gm/dL RDW Coeff of Anthony 13.8 (11.5-15.5) % Plt Count 191 (140-440) K/uL Neut % (Auto) 76.1 H (42.0-72.0) % Lymph % (Auto) 10.7 L (20-44) % [place] % (Auto) 10.1 (0.0-11.0) % Eos % (Auto) 1.0 (0.0-7.0) % Baso % (Auto) 0.4 (0.0-3.0) % Neut # (Auto) 3.70 (1.7-7.0) K/uL Lymph # (Auto) 0.50 L (0.90-2.90) K/uL [place] # (Auto) 0.50 (0.00-0.90) K/UL Eos # (Auto) 0.05 (0.00-0.50) K/uL Baso # (Auto) 0.02 (0.00-0.30) K/uL Abs Immat Gran (auto) 0.08 (0.00-0.30) K/uL Imm/Tot Granulo (auto) 1.7 % INR 1.09 (0.91-1.10) Sodium 139 (135-149) mmol/L Potassium 3.9 (3.6-5.1) mmol/L Chloride 103 (96-114) mmol/L Carbon Dioxide 26 (20-32) mmol/L Anion Gap 10 (7-15) mEq/L BUN 34 H (7-30) mg/dL Creatinine 1.2 (0.5-1.5) mg/dL Estimated Creat Clear 50.69 Estimated GFR 61 ml/min Glucose 104 (60-115) mg/dL Calcium 9.2 (8.4-10.6) mg/dL Total Bilirubin 0.4 (0.1-1.5) mg/dL Direct Bilirubin 0.2 (0.0-0.5) mg/dL AST 37 H (12-35) U/L ALT 36 (4-50) U/L Alkaline Phosphatase 110 (40-150) U/L Total Protein 7.5 (6.0-8.3) g/dL Albumin 4.3 (3.3-5.0) g/dL Discharge Plan Discharge Clinical Impression: Closed intertrochanteric fracture of left femur Patient Disposition: Admitted As Observation Condition: Stable Activity Level: Activity as Tolerated, Weight Bearing as Tolerated and Use Walker Activity Detail: Wound: ? Dressing is waterproof. May shower. Dressing to remain in place x 1 week; this will be removed by nursing staff at SNF at 7 days postop to perform a wound check. Nursing staff will notify our clinic with any concerns. Remove this dressing sooner if becomes saturated. ? Sutures are under the skin, will dissolve; allow surgical glue to come off naturally; do not scrub the wound or apply ointments/lotions ? Call our office with any redness that streaks, excessive drainage from the wound, or wound gapping. Ice/Elevate: ? Ice as needed for swelling and discomfort (ice pack); elevate extremity frequently above the heart. Motion/Exercise: ? Weight bear as tolerated operative extremity (walker/cane for ambulation assistance as needed) ? Per PT/OT. ? Straight leg raises daily: 1-2 sets of 10 reps Pain Medications: ? Oral narcotic as prescribed. Wean as tolerated. Additional acetaminophen and ibuprofen as needed. MICHELLE socks: ? Wear for 1 month, remove for 1 hour 3 times per day ? These are frustrating to take on/off, but are important for blood clot prevention for 1 month after surgery Blood Clot Prevention (DVT): ? Medication: 30 days of Xarelto. Dental: ? No elective dental work for 6 months post-op. If there is an urgent/emergent dental need, contact our office for an antibiotic prescription. Smoking/Alcohol: ? Do not smoke; do no drink alcohol especially when taking postoperative oral narcotic medication Referrals: ? Outpatient PT, OT per patient preference. Vaccines: ? No vaccines until 4-6 weeks postop Follow up: ? Ortho surgeon follow-up in 6 weeks; repeat radiographs AP pelvis, cross table lateral operative hip If there are any acute concerns regarding your surgery, please call our orthopedic clinic ([phone]) Discharge Diet: Regular
[2023-05-03 17:20] LABS: Basophils Absolute Auto 0.02 K/uL (0.00-0.30); Basophils Percent Auto 0.4 % (0.0-3.0); Eosinophils Absolute Auto 0.05 K/uL (0.00-0.50); Hematocrit 33.6 % (37.0-53.0); Hemoglobin* 10.6 gm/dL (13.5-17.5); Immature Granulocytes Abs Auto 0.08 K/uL (0.00-0.30); Immature Granulocytes Pct Auto 1.7 %; Lymphocytes Percent Auto 10.7 % (20-44); Mean Corpuscular HGB Conc 32 gm/dL (32-36); Mean Corpuscular Hemoglobin 34 pg (26-34); Mean Corpuscular Volume 109 fL (80-100); Monocytes Percent Auto 10.1 % (0.0-11.0); Neutrophils Percent Auto 76.1 % (42.0-72.0); Platelet Count* 191 K/uL (140-440); RDW Coefficient of Variation % 13.8 % (11.5-15.5); Red Blood Count 3.08 m/uL (4.30-5.90); White Blood Count* 4.84 K/uL (4.50-11.00)
[2023-05-03 17:24] LABS: Slide Review Reflex No
[2023-05-03 17:37] LABS: Albumin* 4.3 g/dL (3.3-5.0); Chloride* 103 mmol/L (96-114)
[2023-05-03 17:38] LABS: Potassium* 3.9 mmol/L (3.6-5.1); Sodium* 139 mmol/L (135-149)
[2023-05-03 17:40] LABS: Anion Gap 10 mEq/L (7-15); Carbon Dioxide* 26 mmol/L (20-32); Creatinine* 1.2 mg/dL (0.5-1.5); Est. Creatinine Clearance* 50.69; Estimated Glomerular Filt Rate 61 ml/min; Total Protein* 7.5 g/dL (6.0-8.3)
[2023-05-03 17:41] LABS: Alanine Aminotransferase* 36 U/L (4-50); Alkaline Phosphatase* 110 U/L (40-150); Aspartate Amino Transferase* 37 U/L (12-35); Bilirubin Direct* 0.2 mg/dL (0.0-0.5); Bilirubin Total* 0.4 mg/dL (0.1-1.5); Blood Urea Nitrogen* 34 mg/dL (7-30); Calcium* 9.2 mg/dL (8.4-10.6); Glucose* 104 mg/dL (60-115)
[2023-05-03 17:43] LABS: INR 1.09 (0.91-1.10); Prothrombin Time 14.8 Seconds
--- NOTE | 2023-05-03 19:26 | PM.IMHP1 ---
Hospitalist- H&P: HPI History of Present Illness Time Seen by Provider: 19:26 Date Seen: 05/03/23 Chief complaint: Hip pain Narrative: Myke Abrams is a 78 year old male with Alzheimer's dementia and history of parotid cancer who was in his usual state of health today when his left him in his room around 2 or 2:30 p.m. at [facility]. He was sitting in his chair watching TV at that time. One of his friends came to the room shortly after that and he fell either just before around that time, but nobody saw him fall. They called an ambulance and brought him over to ER because he was complaining of left hip pain and was unable to get up or ambulate. Review of Systems Status of ROS: Reports: unobtainable due to medical condition (dementia) PFSH PFSH Medical History Alzheimer disease ?G30.9 - Alzheimer's disease, unspecified (ICD-10) ?F02.80 - Dementia in other diseases classified elsewhere, unspecified severity, without behavioral disturbance, psychotic disturbance, mood disturbance, and anxiety (ICD-10) Agitation ?R45.1 - Restlessness and agitation (ICD-10) Dysphagia ?R13.10 - Dysphagia, unspecified (ICD-10) Actinic keratosis ?L57.0 - Actinic keratosis (ICD-10) Rosacea ?L71.9 - Rosacea, unspecified (ICD-10) Back Pain ?M54.9 - Dorsalgia, unspecified (ICD-10) Asthma ?J45.909 - Unspecified asthma, uncomplicated (ICD-10) Anxiety ?F41.9 - Anxiety disorder, unspecified (ICD-10) Macrocytosis ?D75.89 - Other specified diseases of blood and blood-forming organs (ICD-10) Hearing loss ?H91.90 - Unspecified hearing loss, unspecified ear (ICD-10) 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 - Personal history of malignant neoplasm of other sites of lip, oral cavity, and pharynx (ICD-10) Hypothyroidism ?E03.9 - Hypothyroidism, unspecified (ICD-10) Health care directive on file (08/08/20) ?Z78.9 - Other specified health status (ICD-10) Surgical History History of parotid gland removal ?Z90.49 - Acquired absence of other specified parts of digestive tract (ICD-10) History of cataract surgery ?Z98.49 - Cataract extraction status, unspecified eye (ICD-10) Social History (Updated 05/03/23 @ 20:07 by Nina Chilel MD) Narrative: Moved to [facility] in January 2023. 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 He later worked in [employer]. He smoked less than a pack a day for 30 or 40 years, having quit 20 years ago. He quit alcohol altogether in 1979. His family would like him to be full code for the purpose of this hospital stay, and are considering DNR DNI after that. What is your current living situation?: I presently have a place to live Problems where you live: no known problems Problems where you live details: n/a In the past 12 months, utilities in danger of being shut off: no In past 12 months, lack of transportation kept you from medical appts, meetings, work, or getting things needed for daily living: no In the past 12 mos, have been you worried that your food would run out before you had money to buy more?: never true In the past 12 mos, the food you bought just didn't last and you didn't have money to buy more?: never true Smoking Status: Former smoker How often does anyone, including family, friends and others, physically hurt you: unable to answer How often does anyone, including family, friends and others, insult or talk down to you: unable to answer How often does anyone, including family, friends and others, threaten you with harm: unable to answer How often does anyone, including family, friends and others, scream or curse at you: unable to answer Little interest or pleasure in doing things: more than half the days Feeling down, depressed, or hopeless: more than half the days Meds Home Medications and Allergies Home Medications Medication Instructions Recorded Confirmed Type albuterol 90 mcg/actuation aerosol 2 spray inhalation Q4H PRN 10/10/21 05/03/23 History inhaler mecobalamin (vitamin B12) 1,000 1,000 mcg PO QDAY 03/11/22 05/03/23 History mcg chewable tablet quetiapine 50 mg tablet 50 mg PO BID 05/03/23 05/03/23 History Home Medication Comments: We have reached out to [employer] [facility]jonathan for a current medication list and have not received a response yet at the time of this dictation. Allergies Allergy/AdvReac Type Severity Reaction Status Date / Time No Known Drug Allergies Allergy Verified 05/03/23 15:09 Exam Narrative: Exam Narrative: General: No acute distress. Awake, alert, oriented to self, place, and situation. HEENT: Normocephalic atraumatic, pupils equally round and reactive to light and accommodation. Oropharynx clear. Mucous membranes are moist. No cervical lymphadenopathy, thyromegaly or carotid bruits. No JVD. Cardiovascular: Regular rate and rhythm. No murmurs, gallops, or rubs. Chest: No increased work of breathing. Clear to auscultation bilaterally. No crackles or wheezes. Abdomen: Bowel sounds present. Soft, nondistended, nontender. No hepatosplenomegaly or masses. Extremities: Left lower extremity is shortened and internally rotated. No edema, no cyanosis or clubbing. Skin: No jaundice, no pallor, no rashes. Const: Vital Signs, click to edit/add: Vital Signs - 24 hr 05/03/23 15:06 05/03/23 15:20 05/03/23 15:36 Temperature 97.9 F Pulse Rate 50 L Pulse Rate [Left P ulse Oximeter] 53 L Respiratory Rate 16 Blood Pressure Blood Pressure [Le ft Arm] Blood Pressure [Le ft Upper Arm] 125/75 Pulse Oximetry 98 95 97 Oxygen Delivery Me thod Room Air 05/03/23 15:37 05/03/23 15:38 05/03/23 16:00 Temperature Pulse Rate 52 L 53 L 56 L Pulse Rate [Left P ulse Oximeter] Respiratory Rate Blood Pressure 143/81 H Blood Pressure [Le ft Arm] Blood Pressure [Le ft Upper Arm] Pulse Oximetry 94 95 89 Oxygen Delivery Me thod 05/03/23 16:15 05/03/23 16:20 05/03/23 16:32 Temperature Pulse Rate 55 L 57 L Pulse Rate [Left P ulse Oximeter] 50 L Respiratory Rate 12 Blood Pressure Blood Pressure [Le ft Arm] Blood Pressure [Le ft Upper Arm] 162/83 H Pulse Oximetry 97 93 96 Oxygen Delivery [facility] Room Air 05/03/23 16:53 05/03/23 17:00 05/03/23 17:02 Temperature Pulse Rate 56 L 61 61 Pulse Rate [Left P ulse Oximeter] Respiratory Rate Blood Pressure 163/108 H Blood Pressure [Le ft Arm] Blood Pressure [Le ft Upper Arm] Pulse Oximetry 95 94 88 Oxygen Delivery [facility] 05/03/23 17:22 05/03/23 17:40 05/03/23 17:45 Temperature Pulse Rate 54 L 60 59 L Pulse Rate [Left P ulse Oximeter] Respiratory Rate Blood Pressure Blood Pressure [Le ft Arm] Blood Pressure [Le ft Upper Arm] Pulse Oximetry 98 96 92 Oxygen Delivery [facility] 05/03/23 18:02 05/03/23 18:03 05/03/23 18:16 Temperature Pulse Rate 57 L 55 L 55 L Pulse Rate [Left P ulse Oximeter] Respiratory Rate Blood Pressure 142/87 H Blood Pressure [Le ft Arm] Blood Pressure [Le ft Upper Arm] Pulse Oximetry 93 93 98 Oxygen Delivery [facility] 05/03/23 18:34 05/03/23 18:45 05/03/23 19:10 Temperature 98.2 F Pulse Rate 52 L 52 L Pulse Rate [Left P ulse Oximeter] 55 L Respiratory Rate 18 Blood Pressure Blood Pressure [Le ft Arm] 165/87 H Blood Pressure [Le ft Upper Arm] Pulse Oximetry 93 98 96 Oxygen Delivery [facility] Room Air Hospitalist - H&P: Result Labs Labs: Short CBC 05/03/23 Range/Units 17:10 WBC 4.84 (4.50-11.00) K/uL Hgb 10.6 L (13.5-17.5) gm/dL Hct 33.6 L (37.0-53.0) % Plt Count 191 (140-440) K/uL BMP 05/03/23 17:10 Sodium 139 Potassium 3.9 Chloride 103 Carbon Dioxide 26 BUN 34 H Creatinine 1.2 Glucose 104 Calcium 9.2 Liver Function 05/03/23 Range/Units 17:10 Total Bilirubin 0.4 (0.1-1.5) mg/dL Direct Bilirubin 0.2 (0.0-0.5) mg/dL AST 37 H (12-35) U/L ALT 36 (4-50) U/L Alkaline Phosphatase 110 (40-150) U/L Albumin 4.3 (3.3-5.0) g/dL Study: XRay Hip Left -05/03/2023 3:39:17 PM Ordering Physician: JOSH Final Report: Indication: Fall with hip pain Technique: Three views Comparison: None Findings/Impression: No dislocation. Prominent soft tissue artifact overlying the pelvis. No displaced fracture seen although a v-shaped lucency is noted at the level of the intertrochanteric line. Configuration appears somewhat unusual for an overlying soft tissue artifact although again no clear cortical break is seen. Suggest CT pelvis for further evaluation of this finding. Dictated by Tim Barber MD @ 05/03/2023 4:02:12 PM (Electronic Signature) Study: CT Hip Left WO-05/03/2023 4:57:28 PM Ordering Physician: JOSH Final Report: Indication: Fall, hip fracture Technique: Multiple axial noncontrast CT images were obtained of the left lower extremity. Images were reconstructed with bony and soft tissue algorithms and reformatted in the coronal and sagittal planes. Please note that all CT scans at this facility use dose modulation, iterative reconstruction, and/or weight-based dosing when appropriate to reduce radiation dose to as low as reasonably achievable. Comparison: Same day radiograph. Findings: Localizer image: Moderate multilevel degenerative changes of the visualized spine. Bones: Osteopenia. Moderately comminuted mildly displaced left femoral intertrochanteric fracture. Joints: [id number] degenerative changes of the bilateral hips. Soft tissues: Moderate vascular calcification. Mild sigmoid colonic diverticulosis without CT evidence of acute diverticulitis. Moderate stool burden. Moderate surrounding soft tissue edema of the proximal hip musculature. Additional findings: None. Impression: Moderately comminuted mildly displaced left femoral intertrochanteric fracture. Please note that all CT scans at this facility use dose modulation, iterative reconstruction, and/or weight-based dosing when appropriate to reduce radiation dose to as low as reasonably achievable. Dictated by Tad Avery MD @ 05/03/2023 5:35:14 PM (Electronic Signature) Assessment and Plan Assessment and plan (1) Closed intertrochanteric fracture of left femur: Problem comment: - NPO after midnight, planning surgery tomorrow. Will give gentle IVF overnight. Status: Acute (2) Fall: Problem comment: - Unwitnessed - place near the nurses station with fall precautions - may need rehab, have PT and OT evaluate after surgery Status: Acute (3) Alzheimer disease: Problem comment: - His states in the past he had been busy all night, pacing, anxious, no hitting or aggression, then recently started olanzapine and these behaviors have stopped. Status: Chronic (4) Anemia: Problem comment: - Macrocytic anemia of unclear etiology. Obtain B12, folate, iron studies. Recheck Hgb in the morning. Status: Acute
[2023-05-03] MEDS: HYDROmorphone 0.5 mg/0.5 ml inj IVP ×2 (20:19→21:28)
[2023-05-03] MEDS: ACETAMINOPHEN 325 MG TABLET 975 MG PO (20:24)
[2023-05-03] MEDS: LACTATED RINGERS 1000 ML 1,000 ML 75 ML IV (20:29)
[2023-05-03] MEDS: SODIUM CHLORIDE 0.9 % (FLUSH) 10 ML SYRINGE 5 ML IVF (21:30)
[2023-05-03] MEDS: MEMANTINE HCL 10 MG TABLET PO (23:34)
[2023-05-03] MEDS: CYANOCOBALAMIN (VITAMIN B-12) 500 MCG TABLET 1000 MCG PO (23:37)
[2023-05-04] VITALS (20 sets, daily range): BP systolic 85–144; BP diastolic 50–86; PULSE 52–82; RESP 12–16; TEMP 36–36.9; O2SAT 93–99
[2023-05-04] MEDS: HYDROmorphone 0.5 mg/0.5 ml inj IVP ×5 (00:09→10:53)
[2023-05-04 06:26] LABS: Basophils Absolute Auto 0.01 K/uL (0.00-0.30); Basophils Percent Auto 0.1 % (0.0-3.0); Eosinophils Absolute Auto 0.03 K/uL (0.00-0.50); Eosinophils Percent Auto 0.4 % (0.0-7.0); Hematocrit 30.8 % (37.0-53.0); Hemoglobin* 9.7 gm/dL (13.5-17.5); Immature Granulocytes Abs Auto 0.05 K/uL (0.00-0.30); Immature Granulocytes Pct Auto 0.6 %; Lymphocytes Percent Auto 2.8 % (20-44); Mean Corpuscular HGB Conc 32 gm/dL (32-36); Mean Corpuscular Hemoglobin 34 pg (26-34); Mean Corpuscular Volume 109 fL (80-100); Monocytes Percent Auto 11.6 % (0.0-11.0); Neutrophils Percent Auto 84.5 % (42.0-72.0); Platelet Count* 146 K/uL (140-440); RDW Coefficient of Variation % 13.7 % (11.5-15.5); Red Blood Count 2.84 m/uL (4.30-5.90); White Blood Count* 7.87 K/uL (4.50-11.00)
[2023-05-04 06:51] LABS: Slide Review Reflex No
[2023-05-04 06:55] LABS: Chloride* 103 mmol/L (96-114); Iron* 44 ug/dL (49-181); Sodium* 137 mmol/L (135-149)
[2023-05-04 06:56] LABS: Potassium* 3.7 mmol/L (3.6-5.1)
[2023-05-04 06:58] LABS: Creatinine* 0.7 mg/dL (0.5-1.5); Est. Creatinine Clearance* 60.97; Estimated Glomerular Filt Rate 93 ml/min
[2023-05-04 06:59] LABS: Anion Gap 5 mEq/L (7-15); Blood Urea Nitrogen* 28 mg/dL (7-30); Calcium* 9.1 mg/dL (8.4-10.6); Carbon Dioxide* 29 mmol/L (20-32); Glucose* 105 mg/dL (60-115)
[2023-05-04 07:04] LABS: Percent Iron Saturation 18 % (20-50); Total Iron Binding Capacity 251 ug/dL (261-462)
--- NOTE | 2023-05-04 07:31 | PC.NURSE ---
Patient alert, pleasant and cooperative. Baseline dementia. Arrived to med/surg at 1850 accompanied by his . Son and grandson visited.? Unable to rate pain. Moaned out in pain and grasped left hip with movement. PRN Dilauded given. Catheter placed. Patient pulled IV out of right forearm; catheter intact. New 20 gauge IV placed in right forearm with tubigrip applied. Patient slept well. NPO after midnight.?
[2023-05-04 07:48] LABS: Vitamin B12* > 1000 pg/mL (243-894)
--- NOTE | 2023-05-04 09:15 | P.IMPN_ITS ---
Progress Note: A&P Assessment and plan (1) Closed intertrochanteric fracture of left femur: Problem details: - scheduled for surgery with Dr. Muñiz late morning 05/04/23 Status: Acute (2) Fall: Problem details: - Unwitnessed - place near the nurses station with fall precautions - may need rehab, have PT and OT evaluate after surgery Status: Acute (3) Alzheimer disease: Problem details: - His states in the past he had been busy all night, pacing, anxious, no hitting or aggression, then recently started olanzapine and these behaviors have stopped - continue home medications Status: Chronic (4) Anemia: Problem details: - Macrocytic anemia of unclear etiology, follow B12/folate/iron studies, follow Hgb Status: Acute Plan - surgery today - updated at bedside, questions answered Subjective Date Seen: 05/04/23 Interval history: Myke is an 78 yo male with history of dementia who presented to the hospital yesterday after a fall at [facility]. Imaging exhibited a moderately comminuted mildly displaced left femoral intratrochanteric fracture. He will have surgery with Dr. Muñiz today. Patient is unable to provide any history today. is present and notes that he has never had any anesthetic or operative complications during previous procedures. EKG obtained upon admission shows no acute abnormalities. Overnight, patient noted to have clinical signs of WENDI, he is being monitored closely given need for narcotic pain medications. Exam Narrative: Exam Narrative: GEN: Patient is cachectic, laying in bed, sleeping and wearing supplemental O2 CV: RRR, No concerning murmurs R: Appears to have sleep apnea while laying in bed (vs iatrogenic from pain medications), no wheezing Skin: No concerning skin lesions or rashes on exposed skin, limited exam Const: Vital Signs, click to edit/add: Vital Signs - 24 hr 05/03/23 15:06 05/03/23 15:20 05/03/23 15:36 Temperature 97.9 F Pulse Rate 50 L Pulse Rate [Left P ulse Oximeter] 53 L Respiratory Rate 16 Blood Pressure Blood Pressure [Le ft Arm] Blood Pressure [Le ft Upper Arm] 125/75 Pulse Oximetry 98 95 97 Oxygen Delivery Me thod Room Air Oxygen Flow Rate 05/03/23 15:37 05/03/23 15:38 05/03/23 16:00 Temperature Pulse Rate 52 L 53 L 56 L Pulse Rate [Left P ulse Oximeter] Respiratory Rate Blood Pressure 143/81 H Blood Pressure [Le ft Arm] Blood Pressure [Le ft Upper Arm] Pulse Oximetry 94 95 89 Oxygen Delivery Me thod Oxygen Flow Rate 05/03/23 16:15 05/03/23 16:20 05/03/23 16:32 Temperature Pulse Rate 55 L 57 L Pulse Rate [Left P ulse Oximeter] 50 L Respiratory Rate 12 Blood Pressure Blood Pressure [Le ft Arm] Blood Pressure [Le ft Upper Arm] 162/83 H Pulse Oximetry 97 93 96 Oxygen Delivery Me thod Room Air Oxygen Flow Rate 05/03/23 16:53 05/03/23 17:00 05/03/23 17:02 Temperature Pulse Rate 56 L 61 61 Pulse Rate [Left P ulse Oximeter] Respiratory Rate Blood Pressure 163/108 H Blood Pressure [Le ft Arm] Blood Pressure [Le ft Upper Arm] Pulse Oximetry 95 94 88 Oxygen Delivery Me thod Oxygen Flow Rate 05/03/23 17:22 05/03/23 17:40 05/03/23 17:45 Temperature Pulse Rate 54 L 60 59 L Pulse Rate [Left P ulse Oximeter] Respiratory Rate Blood Pressure Blood Pressure [Le ft Arm] Blood Pressure [Le ft Upper Arm] Pulse Oximetry 98 96 92 Oxygen Delivery Me thod Oxygen Flow Rate 05/03/23 18:02 05/03/23 18:03 05/03/23 18:16 Temperature Pulse Rate 57 L 55 L 55 L Pulse Rate [Left P ulse Oximeter] Respiratory Rate Blood Pressure 142/87 H Blood Pressure [Le ft Arm] Blood Pressure [Le ft Upper Arm] Pulse Oximetry 93 93 98 Oxygen Delivery Me thod Oxygen Flow Rate 05/03/23 18:34 05/03/23 18:45 05/03/23 19:10 Temperature 98.2 F Pulse Rate 52 L 52 L Pulse Rate [Left P ulse Oximeter] 55 L Respiratory Rate 18 Blood Pressure Blood Pressure [Le ft Arm] 165/87 H Blood Pressure [Le ft Upper Arm] Pulse Oximetry 93 98 96 Oxygen Delivery Me thod Room Air Oxygen Flow Rate 05/03/23 23:00 05/03/23 23:00 05/04/23 02:21 Temperature 97.9 F 96.8 F L Pulse Rate Pulse Rate [Left P ulse Oximeter] 66 61 Respiratory Rate 16 20 16 Blood Pressure Blood Pressure [Le ft Arm] 151/93 H 144/86 H Blood Pressure [Le ft Upper Arm] Pulse Oximetry 96 96 94 Oxygen Delivery Me thod Room Air Room Air Room Air Oxygen Flow Rate 1 Labs Labs: Laboratory Results - last 24 hr 05/03/23 05/04/23 17:10 05:46 WBC 4.84 7.87 RBC 3.08 L 2.84 L Hgb 10.6 L 9.7 L Hct 33.6 L 30.8 L MCV 109 H 109 H MCH 34 34 MCHC 32 32 RDW Coeff of Anthony 13.8 13.7 Plt Count 191 146 Neut % (Auto) 76.1 H 84.5 H Lymph % (Auto) 10.7 L 2.8 L Braxton % (Auto) 10.1 11.6 H Eos % (Auto) 1.0 0.4 Baso % (Auto) 0.4 0.1 Neut # (Auto) 3.70 6.70 Lymph # (Auto) 0.50 L 0.20 L Braxton # (Auto) 0.50 0.90 Eos # (Auto) 0.05 0.03 Baso # (Auto) 0.02 0.01 Abs Immat Gran (auto) 0.08 0.05 Imm/Tot Granulo (auto) 1.7 0.6 INR 1.09 Sodium 139 137 Potassium 3.9 3.7 Chloride 103 103 Carbon Dioxide 26 29 Anion Gap 10 5 L BUN 34 H 28 Creatinine 1.2 0.7 Estimated Creat Clear 50.69 60.97 Estimated GFR 61 93 Glucose 104 105 Calcium 9.2 9.1 Iron 44 L TIBC 251 L % Saturation 18 L Total Bilirubin 0.4 Direct Bilirubin 0.2 AST 37 H ALT 36 Alkaline Phosphatase 110 Total Protein 7.5 Albumin 4.3 Vitamin B12 > 1000 H
[2023-05-04] MEDS: LACTATED RINGERS 1000 ML 1,000 ML 75 ML IV ×2 (10:07→18:50)
--- NOTE | 2023-05-04 11:41 | W.ANESCHARGE ---
Anesthesia Charges Start Date/Time Anesthesia Start Date: 05/04/23 Anesthesia Start Time: 13:17 Stop Date/Time Anesthesia Stop Date: 05/04/23 Anesthesia Stop Time: 14:46 Summary Extremes of Age - Over 70 or under 1: MDA
--- NOTE | 2023-05-04 12:45 | XR_ITS ---
Patient: DAVINA Appiah FLORESADAABBIE Facility:?[facility] Patient ID:?[id number] Site Patient ID:?[id number]. Site :?[id number] Study:?XRay-Extremity Left FEMUR-05/04/2023 2:35:57 PM Ordering Physician:ALEXANDRA Final Report: Indication: Intra op left femur Technique: Four fluoroscopic images of the left proximal femur. Fluoroscopic time 86.0 seconds. IMPRESSION: Fluoroscopic guidance for open reduction internal fixation of proximal left femoral fracture. Dictated by Yan Haas MD @ 05/05/2023 8:45:30 AM Signed by:?Yan Haas MD @05/05/2023 8:45:30 AM (Electronic Signature)
[2023-05-04] MEDS: CEFAZOLIN 2 GM INJ IVP (13:35)
--- NOTE | 2023-05-04 14:26 | P.NB_ITS ---
Nerve Block Nerve Block Time Seen by Provider: 13:33 Date Seen: 05/04/23 Type of block requested by surgeon for post-operative analgesia: JENSEN/LFCN Side: left Time out performed: Yes Verification of patient name: Yes Verification of date of : Yes Site marking: site marked Name of person performing procedure: Be Continuous monitoring Was continuous monitoring of O2 sat, B/P, monitor and storage bin tender, recorded every 15 minutes?: Yes Procedure Checklist: sterile prep, needles and gloves Ultrasound guided. Images saved: Yes Medications given in 5ml increments after negative aspiration: Ropivicaine %: 0.5 mL: 30 Needle gauge: 20 Decadron (mg): 10 Precedex (mcg): 25 Patient tolerated procedure well: Yes Additional comments: Needle noted below psoas tendon needle noted adjacent to LFCN Block Charges Block Charge (with Pro Fee): Other Periph Nerve Block Use of Ultrasound Machine for Block: Yes- US Guidance/pain block
--- NOTE | 2023-05-04 14:31 | PM.ORCN ---
History of Present Illness HPI Date Seen: 05/04/23 Chief complaint: Hip pain Narrative: The patient is an 78-year-old with dementia who fell yesterday sustaining a nondisplaced, incomplete left intertrochanteric hip fracture. He was admitted for treatment. He has been medically cleared for surgery today. He has never injured this hip for had surgery on it previously. His provides the history. Review of Systems Narrative: The patient's denies: Fever, night sweats, shaking chills, nausea, vomiting, diarrhea, chest pain, chest pressure, shortness of breath, no rash, no change in hearing or vision, no issues with bleeding or clotting PFSH PFSH Medical History Alzheimer disease ?G30.9 - Alzheimer's disease, unspecified (ICD-10) ?F02.80 - Dementia in other diseases classified elsewhere, unspecified severity, without behavioral disturbance, psychotic disturbance, mood disturbance, and anxiety (ICD-10) Agitation ?R45.1 - Restlessness and agitation (ICD-10) Dysphagia ?R13.10 - Dysphagia, unspecified (ICD-10) Actinic keratosis ?L57.0 - Actinic keratosis (ICD-10) Rosacea ?L71.9 - Rosacea, unspecified (ICD-10) Back Pain ?M54.9 - Dorsalgia, unspecified (ICD-10) Asthma ?J45.909 - Unspecified asthma, uncomplicated (ICD-10) Anxiety ?F41.9 - Anxiety disorder, unspecified (ICD-10) Macrocytosis ?D75.89 - Other specified diseases of blood and blood-forming organs (ICD-10) Hearing loss ?H91.90 - Unspecified hearing loss, unspecified ear (ICD-10) 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 He later worked in [employer]. He smoked less than a pack a day for 30 or 40 years, having quit 20 years ago. He quit alcohol altogether in 1979. His family would like him to be full code for the purpose of this hospital stay, and are considering DNR DNI after that. What is your current living situation?: I presently have a place to live Problems where you live: no known problems Problems where you live details: n/a In the past 12 months, utilities in danger of being shut off: no In past 12 months, lack of transportation kept you from medical appts, meetings, work, or getting things needed for daily living: no In the past 12 mos, have been you worried that your food would run out before you had money to buy more?: never true In the past 12 mos, the food you bought just didn't last and you didn't have money to buy more?: never true Smoking Status: Former smoker How often does anyone, including family, friends and others, physically hurt you: unable to answer How often does anyone, including family, friends and others, insult or talk down to you: unable to answer How often does anyone, including family, friends and others, threaten you with harm: unable to answer How often does anyone, including family, friends and others, scream or curse at you: unable to answer Little interest or pleasure in doing things: more than half the days Feeling down, depressed, or hopeless: more than half the days Meds Home Medications and Allergies Home Medications Medication Instructions Recorded Confirmed Type mecobalamin (vitamin B12) 1,000 1,000 mcg PO DAILY 03/11/22 05/04/23 History mcg chewable tablet quetiapine 50 mg tablet 50 mg PO BID 05/03/23 05/03/23 History olanzapine 5 mg tablet (Zyprexa) 5 mg PO DAILY 05/04/23 05/04/23 History sertraline 100 mg tablet 100 mg PO DAILY Anxiety 05/04/23 05/04/23 History trazodone 50 mg tablet 25 mg PO HS PRN insomnia 05/04/23 05/04/23 History Allergies Allergy/AdvReac Type Severity Reaction Status Date / Time No Known Drug Allergies Allergy Verified 05/03/23 15:09 Ortho Exam Narrative Exam Narrative: The patient is somnolent, supine in the hospital bed. The skin about the left hip is intact. The left foot is pink and warm. Const Vital Signs, click to edit/add: Vital Signs - 24 hr 05/03/23 15:06 05/03/23 15:20 05/03/23 15:36 Temperature 97.9 F Pulse Rate 50 L Pulse Rate [Left Pulse Oximeter] 53 L Respiratory Rate 16 Blood Pressure Blood Pressure [Left Arm] Blood Pressure [Left Upper Arm] 125/75 Pulse Oximetry 98 95 97 Oxygen Delivery Method Room Air Oxygen Flow Rate 05/03/23 15:37 05/03/23 15:38 05/03/23 16:00 Temperature Pulse Rate 52 L 53 L 56 L Pulse Rate [Left Pulse Oximeter] Respiratory Rate Blood Pressure 143/81 H Blood Pressure [Left Arm] Blood Pressure [Left Upper Arm] Pulse Oximetry 94 95 89 Oxygen Delivery Method Oxygen Flow Rate 05/03/23 16:15 05/03/23 16:20 05/03/23 16:32 Temperature Pulse Rate 55 L 57 L Pulse Rate [Left Pulse Oximeter] 50 L Respiratory Rate 12 Blood Pressure Blood Pressure [Left Arm] Blood Pressure [Left Upper Arm] 162/83 H Pulse Oximetry 97 93 96 Oxygen Delivery Method Room Air Oxygen Flow Rate 05/03/23 16:53 05/03/23 17:00 05/03/23 17:02 Temperature Pulse Rate 56 L 61 61 Pulse Rate [Left Pulse Oximeter] Respiratory Rate Blood Pressure 163/108 H Blood Pressure [Left Arm] Blood Pressure [Left Upper Arm] Pulse Oximetry 95 94 88 Oxygen Delivery Method Oxygen Flow Rate 05/03/23 17:22 05/03/23 17:40 05/03/23 17:45 Temperature Pulse Rate 54 L 60 59 L Pulse Rate [Left Pulse Oximeter] Respiratory Rate Blood Pressure Blood Pressure [Left Arm] Blood Pressure [Left Upper Arm] Pulse Oximetry 98 96 92 Oxygen Delivery Method Oxygen Flow Rate 05/03/23 18:02 05/03/23 18:03 05/03/23 18:16 Temperature Pulse Rate 57 L 55 L 55 L Pulse Rate [Left Pulse Oximeter] Respiratory Rate Blood Pressure 142/87 H Blood Pressure [Left Arm] Blood Pressure [Left Upper Arm] Pulse Oximetry 93 93 98 Oxygen Delivery Method Oxygen Flow Rate 05/03/23 18:34 05/03/23 18:45 05/03/23 19:10 Temperature 98.2 F Pulse Rate 52 L 52 L Pulse Rate [Left Pulse Oximeter] 55 L Respiratory Rate 18 Blood Pressure Blood Pressure [Left Arm] 165/87 H Blood Pressure [Left Upper Arm] Pulse Oximetry 93 98 96 Oxygen Delivery Method Room Air Oxygen Flow Rate 05/03/23 23:00 05/03/23 23:00 05/04/23 02:21 Temperature 97.9 F 96.8 F L Pulse Rate Pulse Rate [Left Pulse Oximeter] 66 61 Respiratory Rate 16 20 16 Blood Pressure Blood Pressure [Left Arm] 151/93 H 144/86 H Blood Pressure [Left Upper Arm] Pulse Oximetry 96 96 94 Oxygen Delivery Method Room Air Room Air Room Air Oxygen Flow Rate 1 05/04/23 07:45 05/04/23 07:45 05/04/23 07:45 Temperature 97.9 F Pulse Rate Pulse Rate [Left Pulse Oximeter] 61 52 L Respiratory Rate 16 16 16 Blood Pressure Blood Pressure [Left Arm] 114/76 Blood Pressure [Left Upper Arm] Pulse Oximetry 95 94 Oxygen Delivery Method OxyMask Room Air Oxygen Flow Rate 1 1 Results Labs Labs: Laboratory Results - last 48 hr 05/03/23 05/04/23 17:10 05:46 WBC 4.84 7.87 RBC 3.08 L 2.84 L Hgb 10.6 L 9.7 L Hct 33.6 L 30.8 L MCV 109 H 109 H MCH 34 34 MCHC 32 32 RDW Coeff of Anthony 13.8 13.7 Plt Count 191 146 Neut % (Auto) 76.1 H 84.5 H Lymph % (Auto) 10.7 L 2.8 L Arthur % (Auto) 10.1 11.6 H Eos % (Auto) 1.0 0.4 Baso % (Auto) 0.4 0.1 Neut # (Auto) 3.70 6.70 Lymph # (Auto) 0.50 L 0.20 L Arthur # (Auto) 0.50 0.90 Eos # (Auto) 0.05 0.03 Baso # (Auto) 0.02 0.01 Abs Immat Gran (auto) 0.08 0.05 Imm/Tot Granulo (auto) 1.7 0.6 INR 1.09 Sodium 139 137 Potassium 3.9 3.7 Chloride 103 103 Carbon Dioxide 26 29 Anion Gap 10 5 L BUN 34 H 28 Creatinine 1.2 0.7 Estimated Creat Clear 50.69 60.97 Estimated GFR 61 93 Glucose 104 105 Calcium 9.2 9.1 Iron 44 L TIBC 251 L % Saturation 18 L Total Bilirubin 0.4 Direct Bilirubin 0.2 AST 37 H ALT 36 Alkaline Phosphatase 110 Total Protein 7.5 Albumin 4.3 Vitamin B12 > 1000 H Diagnostic results Additional Comments: An AP pelvis and cross-table lateral view of the left hip show a nondisplaced, incomplete intertrochanteric fracture. CT scan of the pelvis confirms the fracture. There is no pre-existing hip joint arthritis, no obvious pathologic lesion. Assessment and Plan Assessment and plan (1) Closed intertrochanteric fracture of left femur: Problem comment: - scheduled for surgery with Dr. Muñiz late morning 05/04/23 Status: Acute Total time spent: Total time spent is greater than 50% in coordination of care (as documented) at patient's floor/unit and/or counseling patient: (2) Fall: Problem comment: - Unwitnessed - place near the nurses station with fall precautions - may need rehab, have PT and OT evaluate after surgery Status: Acute Total time spent: Total time spent is greater than 50% in coordination of care (as documented) at patient's floor/unit and/or counseling patient: (3) Alzheimer disease: Problem comment: - His states in the past he had been busy all night, pacing, anxious, no hitting or aggression, then recently started olanzapine and these behaviors have stopped - continue home medications Status: Chronic Total time spent: Total time spent is greater than 50% in coordination of care (as documented) at patient's floor/unit and/or counseling patient: (4) Anemia: Problem comment: - Macrocytic anemia of unclear etiology, follow B12/folate/iron studies, follow Hgb Status: Acute Total time spent: Total time spent is greater than 50% in coordination of care (as documented) at patient's floor/unit and/or counseling patient: Plan Assessment: Left hip nondisplaced, incomplete intertrochanteric fracture Plan: He has been medically cleared for surgery. Therefore, we will plan to take him to the operating room today for fixation of his hip fracture.
--- NOTE | 2023-05-04 14:34 | P.ORPRC_ITS ---
Procedure Note Date of procedure: 05/04/23 Procedure: PREOPERATIVE DIAGNOSIS: Left hip 2 part intertrochanteric fracture POSTOPERATIVE DIAGNOSIS: Left hip 2 part intertrochanteric fracture NAME OF OPERATION: Left hip fracture ORIF SURGEON: Ryan Muñiz MD COMMERCIAL PRODUCER: TABBY Hector IMPLANTS: Synthes intramedullary hip screw 12 mm x 170 mm with a 105 mm lag screw and a 40 mm distal interlocking screw ANESTHESIA: Spinal ESTIMATED BLOOD LOSS: 10 mL COMPLICATIONS: None SPECIMENS: None DRAINS: None PREOPERATIVE ANTIBIOTICS: Ancef 1 gram INDICATIONS: The patient is a 78-year-old who fell yesterday sustaining a nondisplaced, incomplete intertrochanteric fracture of the left hip. They were admitted for workup and care. They have been medically cleared for surgery. The risks, benefits and expected outcomes were discussed in detail. These included but were not limited to: Infection, bleeding, injury to blood vessel or nerve, venous thromboembolism. All questions were answered to their satisfaction. Use of an certified first assistant was necessary for patient positioning and safety, soft tissue retraction and closure, dressing application, and transfer of the patient to and from the hospital bed to the fracture table. PROCEDURE: Spinal anesthesia was administered. The patient was placed supine on the fracture table. The left lower extremity was prepped and draped in the usual sterile fashion. The limb was placed in longitudinal traction. Our provisional reduction was confirmed with the C-arm. The guide pin was placed percutaneously to the tip of the greater trochanter. It was advanced into the canal. Its placement was confirmed with the image intensifier in both AP and lateral views. We then made a stab incision around the guide pin. The soft tissue sleeve was advanced to the tip of the trochanter. The opening reamer was used. We made an incision over the flare of the greater trochanter. Dissection was carried with the Reddy elevator to the lateral cortex. A bone hook was placed over the calcar to obtain an anatomic reduction. The intramedullary nail was placed. We held the fracture reduced with the bone hook and the guide pin was taken to the subchondral bone of the femoral head on both the AP and lateral views. It was placed in the center, center aspect of the head. The drill and the tap were used. We placed the 105 mm lag screw. We removed the bone hook. Our reduction remains anatomic. Traction was released. The lag screw was set to dynamic mode. That is it was not locked. We placed a 40 mm distal interlocking screw. This construct was imaged in the AP and lateral views and was felt to be well placed with an anatomic reduction. The wounds were irrigated with normal saline. They were closed with Vicryl deep and Monocryl in the skin. A dry dressing was applied. Sponge and needle counts were correct x2. The patient tolerated the procedure well. There were no apparent complications. They were carefully transferred to the hospital bed and taken to the postanesthesia care unit in satisfactory condition. PLAN: The patient will be mobilized with physical therapy. They may weightbear as tolerates on the left lower extremity. Xarelto will be used for DVT prophylaxis. They will be discharged to a intermediate once medically appropriate.
--- NOTE | 2023-05-04 14:45 | W.ANESCHARGE ---
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
--- NOTE | 2023-05-04 15:11 | PC.SOCIAL ---
Discharge planning- Met with pt's to discuss discharge plans. Informed pt's that pt will have therapy evaluations tomorrow morning and recommendations will be made. Pt's anticipates that pt will need a higher level of care during pt's recovery time (SNF rehab). Provided pt's with a listing of area SNF's. Pt's will review the list this evening. Social work will follow up with pt and pt's tomorrow after discharge recommendations have been made.
--- NOTE | 2023-05-04 15:30 | SUR.PHASEI ---
patient discharged per anesthesia (hoa chavez)
[2023-05-04] MEDS: CEFAZOLIN 1 GM in 0.9 % SODIUM CHLORIDE Mini-bag 100 ML IVPB (19:34)
[2023-05-04] MEDS: MEMANTINE HCL 10 MG TABLET PO (21:56)
[2023-05-04] MEDS: SENNOSIDES 1 TAB TABLET 2 TAB PO (21:56)
[2023-05-04] MEDS: ACETAMINOPHEN 325 MG TABLET 650 MG PO (23:59)
[2023-05-05 03:30] VITALS: BP 120/83; PULSE 65; RESP 14; TEMP 37.1; O2SAT 93
[2023-05-05] MEDS: CEFAZOLIN 1 GM in 0.9 % SODIUM CHLORIDE Mini-bag 100 ML IVPB (03:34)
[2023-05-05] MEDS: ACETAMINOPHEN 325 MG TABLET 650 MG PO ×3 (06:00→18:07)
[2023-05-05] MEDS: LEVOTHYROXINE 75 MCG TABLET PO (06:01)
[2023-05-05 06:37] LABS: Immature Granulocytes Abs Auto 0.06 K/uL (0.00-0.30); Immature Granulocytes Pct Auto 0.9 %; Lymphocytes Percent Auto 4.7 % (20-44); Mean Corpuscular HGB Conc 32 gm/dL (32-36); Mean Corpuscular Hemoglobin 35 pg (26-34); Mean Corpuscular Volume 109 fL (80-100); Monocytes Percent Auto 9.6 % (0.0-11.0); Neutrophils Percent Auto 84.8 % (42.0-72.0); Platelet Count* 134 K/uL (140-440); RDW Coefficient of Variation % 13.6 % (11.5-15.5); Red Blood Count 2.58 m/uL (4.30-5.90); White Blood Count* 6.85 K/uL (4.50-11.00)
--- NOTE | 2023-05-05 06:38 | PC.NURSE ---
Pt alert and oriented to self only. Afebrile. Pt denies SOB, chest pain, and N/V. Pt denies pain but yells out when being repositioned, pain managed with scheduled medications. Pt?s aguilar is patent and draining. Pt?s left hip dressing is CDI. Pt titrated from 1L of O2 via nasal cannula to room air maintaining O2 stats 90-93%.?Pt was turned and repositioned throughout night. Pt slept throughout most of night.?
[2023-05-05 07:11] LABS: Chloride* 101 mmol/L (96-114); Potassium* 4.4 mmol/L (3.6-5.1); Sodium* 135 mmol/L (135-149)
[2023-05-05 07:13] LABS: Creatinine* 0.7 mg/dL (0.5-1.5); Est. Creatinine Clearance* 59.84; Estimated Glomerular Filt Rate 93 ml/min
[2023-05-05 07:14] LABS: Anion Gap 4 mEq/L (7-15); Blood Urea Nitrogen* 21 mg/dL (7-30); Carbon Dioxide* 30 mmol/L (20-32); Glucose* 103 mg/dL (60-115)
[2023-05-05 07:15] LABS: Calcium* 9.4 mg/dL (8.4-10.6)
[2023-05-05 07:27] LABS: Slide Review Reflex No
[2023-05-05 07:30] VITALS: BP 122/77; PULSE 71; RESP 18; TEMP 36.6; O2SAT 97
[2023-05-05] MEDS: OLANZapine 5 MG TAB.RAPDIS PO (08:01)
[2023-05-05] MEDS: SERTRALINE 100 MG TABLET PO (08:01)
[2023-05-05] MEDS: DONEPEZIL 10 MG TABLET PO (08:01)
[2023-05-05] MEDS: MEMANTINE HCL 10 MG TABLET PO ×2 (08:01→20:44)
[2023-05-05] MEDS: RIVAROXABAN 10 MG TABLET PO (08:01)
[2023-05-05] MEDS: CYANOCOBALAMIN (VITAMIN B-12) 500 MCG TABLET 1000 MCG PO (08:02)
[2023-05-05] MEDS: SENNOSIDES 1 TAB TABLET 2 TAB PO ×2 (08:03→20:44)
--- NOTE | 2023-05-05 09:15 | P.ORPN_ITS ---
Subjective Subjective Time Seen by Provider: 07:50 Date Seen: 05/05/23 Principal diagnosis: Day 1 s/p left hip fracture ORIF Interval history: Myke is resting comfortably in his bed. History is limited and unreliable due to dementia and Alzheimer disease. Patient reports no left hip pain. Pain is well managed with Tylenol and icing only. Denies: chest pain, SOB, fever, chills, numbness/tingling distally. Unsure on date of last BM. Denies flatulence postoperatively. Prior to this admission, patient resides at memory care unit at [facility]. No acute concerns. Ortho Exam Narrative Exam Narrative: Incision/Dressing: Dressing appears clean and dry. No drainage present. Mepilex intact. Left hip appears moderately swollen but supple with no obvious erythema, fluctuance or excessive warmth. No ecchymosis or erythematous streaking. Warmth around the wound is appropriate. Ice is being utilized as needed. CMS: Intact distally with 2+ Dorsalis pedis and Posterior Tibial pulses. 5/5 motor strength dorsal and plantar flexion. Confirmed sensation distally. Calf: Bilateral calves are supple, with no swelling, pain, tenderness, eryth osman, discoloration or coolness to the touch. Constitutional: Patient is alert and oriented x3. Patient is in no acute distress and converses without labored breathing. Patient is pleasant and cooperative. History is unreliable and unclear due to dementia status. Const Vital Signs, click to edit/add: Vital Signs - 24 hr 05/04/23 14:42 05/04/23 14:45 05/04/23 14:50 Temperature 97.9 F 97.9 F 97.9 F Pulse Rate 82 78 73 Pulse Rate [Left Pulse Oximeter] Respiratory Rate 12 12 12 Blood Pressure 93/54 L 85/50 L 94/63 Blood Pressure [Left Arm] Pulse Oximetry 99 95 97 Oxygen Delivery Method OxyMask OxyMask OxyMask Oxygen Flow Rate 6 6 6 05/04/23 14:55 05/04/23 15:00 05/04/23 15:05 Temperature 97.9 F 97.9 F 97.9 F Pulse Rate 72 71 72 Pulse Rate [Left Pulse Oximeter] Respiratory Rate 12 12 12 Blood Pressure 93/69 99/65 111/71 Blood Pressure [Left Arm] Pulse Oximetry 97 97 94 Oxygen Delivery Method OxyMask Nasal Cannula Nasal Cannula Oxygen Flow Rate 6 2 2 05/04/23 15:10 05/04/23 15:30 05/04/23 15:45 Temperature 97.4 F L 96.9 F L 97 F L Pulse Rate 72 67 60 Pulse Rate [Left Pulse Oximeter] Respiratory Rate 12 16 16 Blood Pressure 100/62 122/81 105/84 Blood Pressure [Left Arm] Pulse Oximetry 98 95 96 Oxygen Delivery Method Room Air Nasal Cannula Nasal Cannula Oxygen Flow Rate 1 1 05/04/23 16:00 05/04/23 16:15 05/04/23 16:30 Temperature 97 F L 97 F L 97.1 F L Pulse Rate 63 61 63 Pulse Rate [Left Pulse Oximeter] Respiratory Rate 16 16 16 Blood Pressure 119/82 117/80 106/71 Blood Pressure [Left Arm] Pulse Oximetry 99 99 97 Oxygen Delivery Method Nasal Cannula Nasal Cannula Nasal Cannula Oxygen Flow Rate 1 1 1 05/04/23 17:00 05/04/23 17:30 05/04/23 18:30 Temperature 97.5 F L 97.9 F 97.9 F Pulse Rate 62 67 66 Pulse Rate [Left Pulse Oximeter] Respiratory Rate 16 16 16 Blood Pressure 124/75 111/75 125/78 Blood Pressure [Left Arm] Pulse Oximetry 95 99 99 Oxygen Delivery Method Nasal Cannula Nasal Cannula Nasal Cannula Oxygen Flow Rate 1 1 1 05/04/23 20:22 05/04/23 21:02 05/04/23 23:55 Temperature 98 F 98.4 F Pulse Rate 57 L 62 Pulse Rate [Left Pulse Oximeter] Respiratory Rate 14 14 14 Blood Pressure 114/75 113/73 Blood Pressure [Left Arm] Pulse Oximetry 99 93 Oxygen Delivery Method Nasal Cannula Nasal Cannula Oxygen Flow Rate 1 1 05/04/23 23:55 05/05/23 03:30 Temperature 98.7 F Pulse Rate Pulse Rate [Left Pulse Oximeter] 65 Respiratory Rate 14 14 Blood Pressure Blood Pressure [Left Arm] 120/83 Pulse Oximetry 93 93 Oxygen Delivery Method Nasal Cannula Room Air Oxygen Flow Rate 0.5 Assessment and Plan Assessment and plan (1) Status post-operative repair of hip fracture: Problem details: DOS: 05/04/23, Dr. Muñiz Status: Acute Assessment and Plan: Myke is doing well and appears comfortable. No acute concerns. Discharge date and location is unknown at this time. Anticipate patient will required SNF placement. Wound: ? Dressing is waterproof. May shower. Dressing to remain in place x 1 week; this will be removed by nursing staff at [facility] at 7 days postop to perform a wound check. Nursing staff will notify our clinic with any concerns. Remove this dressing sooner if becomes saturated. ? Sutures are under the skin, will dissolve; allow surgical glue to come off naturally; do not scrub the wound or apply ointments/lotions ? Call our office with any redness that streaks, excessive drainage from the wound, or wound gapping. Ice/Elevate: ? Ice as needed for swelling and discomfort (ice pack); elevate extremity frequently above the heart. Motion/Exercise: ? Weight bear as tolerated operative extremity (walker/cane for ambulation assistance as needed) ? Per PT/OT. ? Straight leg raises daily: 1-2 sets of 10 reps Pain Medications: ? Oral narcotic as prescribed. Wean as tolerated. Additional acetaminophen as needed. MICHELLE socks: ? Wear for 1 month, remove for 1 hour 3 times per day ? These are frustrating to take on/off, but are important for blood clot prevention for 1 month after surgery Blood Clot Prevention (DVT): ? Medication: 30 days of Xarelto. Dental: ? No elective dental work for 6 months post-op. If there is an urgent/emergent dental need, contact our office for an antibiotic prescription. Smoking/Alcohol: ? Do not smoke; do no drink alcohol especially when taking postoperative oral narcotic medication Referrals: ? Outpatient PT, OT per patient preference. Vaccines: ? No vaccines until 4-6 weeks postop Follow up: ? Ortho surgeon follow-up in 6 weeks; repeat radiographs AP pelvis, cross table lateral operative hip If there are any acute concerns regarding your surgery, please call our orthopedic clinic ([phone])
--- NOTE | 2023-05-05 10:39 | P.IMPN_ITS ---
Progress Note: A&P Assessment and plan (1) Status post-operative repair of hip fracture: Problem details: - L intertrochanteric ORIF with Dr. Muñiz on 05/04/23 - pain control and prophylaxis per Orthopedic Surgery team Status: Acute (2) Alzheimer disease: Problem details: - His states in the past he had been busy all night, pacing, anxious, no hitting or aggression, then recently started olanzapine and these behaviors have stopped - continue home medications and redirection Status: Chronic Plan - per above, appreciate input from therapies regarding d/c planning - Aury updated at bedside, questions answered Subjective Date Seen: 05/05/23 Interval history: Myke was admitted to the hospital on 05/02 after a mechanical fall at home ([facility]), sustained a L intertochanteric fracture. Had an ORIF with Dr. Muñiz of Orthopedic Surgery on 05/04/23, no anesthetic or surgical complications during procedure. Preoperatively, patient was hypoxic with severe pain. This morning, patient is feeling much better and tolerating room air; he is awake and answering questions appropriately, cognitive impairment evident. Exam Narrative: Exam Narrative: GEN: Alert and oriented, sitting comfortably in bed HEENT: EOMIs bilaterally, no scleral icterus CV: RRR, No concerning murmurs R: LCTA bilaterally without concerning wheezing, air movement adequate Ext: wearing Eddie Hose bilaterally Skin: No concerning skin lesions or rashes on exposed skin Neuro: Nonfocal Psych: Appropriate for cognitive impairment, no agitation Const: Vital Signs, click to edit/add: Vital Signs - 24 hr 05/04/23 14:42 05/04/23 14:45 05/04/23 14:50 Temperature 97.9 F 97.9 F 97.9 F Pulse Rate 82 78 73 Pulse Rate [Left P ulse Oximeter] Respiratory Rate 12 12 12 Blood Pressure 93/54 L 85/50 L 94/63 Blood Pressure [Le ft Arm] Pulse Oximetry 99 95 97 Oxygen Delivery Me thod OxyMask OxyMask OxyMask Oxygen Flow Rate 6 6 6 05/04/23 14:55 05/04/23 15:00 05/04/23 15:05 Temperature 97.9 F 97.9 F 97.9 F Pulse Rate 72 71 72 Pulse Rate [Left P ulse Oximeter] Respiratory Rate 12 12 12 Blood Pressure 93/69 99/65 111/71 Blood Pressure [Le ft Arm] Pulse Oximetry 97 97 94 Oxygen Delivery Me thod OxyMask Nasal Cannula Nasal Cannula Oxygen Flow Rate 6 2 2 05/04/23 15:10 05/04/23 15:30 05/04/23 15:45 Temperature 97.4 F L 96.9 F L 97 F L Pulse Rate 72 67 60 Pulse Rate [Left P ulse Oximeter] Respiratory Rate 12 16 16 Blood Pressure 100/62 122/81 105/84 Blood Pressure [Le ft Arm] Pulse Oximetry 98 95 96 Oxygen Delivery Me thod Room Air Nasal Cannula Nasal Cannula Oxygen Flow Rate 1 1 05/04/23 16:00 05/04/23 16:15 05/04/23 16:30 Temperature 97 F L 97 F L 97.1 F L Pulse Rate 63 61 63 Pulse Rate [Left P ulse Oximeter] Respiratory Rate 16 16 16 Blood Pressure 119/82 117/80 106/71 Blood Pressure [Le ft Arm] Pulse Oximetry 99 99 97 Oxygen Delivery Me thod Nasal Cannula Nasal Cannula Nasal Cannula Oxygen Flow Rate 1 1 1 05/04/23 17:00 05/04/23 17:30 05/04/23 18:30 Temperature 97.5 F L 97.9 F 97.9 F Pulse Rate 62 67 66 Pulse Rate [Left P ulse Oximeter] Respiratory Rate 16 16 16 Blood Pressure 124/75 111/75 125/78 Blood Pressure [Le ft Arm] Pulse Oximetry 95 99 99 Oxygen Delivery Me thod Nasal Cannula Nasal Cannula Nasal Cannula Oxygen Flow Rate 1 1 1 05/04/23 20:22 05/04/23 21:02 05/04/23 23:55 Temperature 98 F 98.4 F Pulse Rate 57 L 62 Pulse Rate [Left P ulse Oximeter] Respiratory Rate 14 14 14 Blood Pressure 114/75 113/73 Blood Pressure [Le ft Arm] Pulse Oximetry 99 93 Oxygen Delivery Me thod Nasal Cannula Nasal Cannula Oxygen Flow Rate 1 1 05/04/23 23:55 05/05/23 03:30 Temperature 98.7 F Pulse Rate Pulse Rate [Left P ulse Oximeter] 65 Respiratory Rate 14 14 Blood Pressure Blood Pressure [Le ft Arm] 120/83 Pulse Oximetry 93 93 Oxygen Delivery Me thod Nasal Cannula Room Air Oxygen Flow Rate 0.5 Labs Labs: Laboratory Results - last 24 hr 05/05/23 05:36 WBC 6.85 RBC 2.58 L Hgb 9.0 L Hct 28.0 L MCV 109 H MCH 35 H MCHC 32 RDW Coeff of Anthony 13.6 Plt Count 134 L Neut % (Auto) 84.8 H Lymph % (Auto) 4.7 L Yates % (Auto) 9.6 Eos % (Auto) 0.0 Baso % (Auto) 0.0 Neut # (Auto) 5.80 Lymph # (Auto) 0.30 L Yates # (Auto) 0.70 Eos # (Auto) 0.00 Baso # (Auto) 0.00 Abs Immat Gran (auto) 0.06 Imm/Tot Granulo (auto) 0.9 Sodium 135 Potassium 4.4 Chloride 101 Carbon Dioxide 30 Anion Gap 4 L BUN 21 Creatinine 0.7 Estimated Creat Clear 59.84 Estimated GFR 93 Glucose 103 Calcium 9.4
[2023-05-05] MEDS: OXYCODONE 5 MG TABLET PO ×3 (10:47→20:44)
[2023-05-05 11:30] VITALS: BP 95/59; PULSE 59; RESP 18; TEMP 36.6; O2SAT 95
--- NOTE | 2023-05-05 13:38 | PC.SOCIAL ---
Discharge planning- Per therapy, Pt will need a SNF for rehab. Met with pt and pt's . Pt's would like SNF's in the following order 1. [facility], 2. [facility], 3. [facility]. Pt's is open to other SNF's if there isn't any openings at the discussed SNF's. Contacted the following SNF's for possible placement. 1. [facility]- No male beds this week. 2. [facility]- No male beds this week. 3. [facility]- Contacted Trino in admissions to inquire on bed availability. There are openings, faxed referral to [phone]. 4. [facility]- Contacted Lanie in admissions to inquire on bed availability. There are openings, faxed referral to [phone]. Social work will follow up as needed.
[2023-05-05] MEDS: 0.9 % SODIUM CHLORIDE 500 ML IV (14:26)
[2023-05-05 15:00] VITALS: BP 107/62; PULSE 63; RESP 16; TEMP 36.6; O2SAT 95
--- NOTE | 2023-05-05 15:23 | PC.NURSE ---
PATIENT AFEBRILE. DRESSING TO HIP CDI. ALERT THIS AM BUT ORIENTED TO SELF ONLY. FREQUENT REORIENTATION PROVIDED. PLEASANT AND COOPERATIVE. DENIED PAIN AT REST, BUT INCREASE IN PAIN WITH MOVEMENT. RECEIVING PRN OXYCODONE AND SCHEDULED TYLENOL. TOLERATING REGULAR DIET WITH NO C/O N/V. UP WITH A2, WALKER AND GAIT BELT. ABLE TO PIVOT TO RECLINER FROM BED WITH MAX ASSIST. PATIENT HESITANT TO BEAR WEIGHT TO LEFT LEG AND NEEDS REDIRECTION WITH WALKER USE. ACTIVE ICE TO HIP. PATIENT'S EMERY DC'D AT 1000. PATIENT'S STATES HE IS INCONTINENT BASELINE. AT 1400, PATIENT HAD NOT VOIDED AGAIN/ BLADDER SCAN SHOWED 35ML. NORMAL SALINE 500ML BOLUS STARTED.
[2023-05-05 19:00] VITALS: BP 112/64; PULSE 79; RESP 18; TEMP 36.8; O2SAT 95
--- NOTE | 2023-05-05 19:20 | PC.NURSE ---
End of Shift ([id number]): Patient pleasant and cooperative. Afebrile. Denies pain at rest. PRN Oxycodone x1 for pain with activity. Up to chair and commode with 2 assist and Helen Erazo. Tolerating regular diet with no nausea. Dressings to left hip C/D/I.
[2023-05-05] MEDS: SODIUM CHLORIDE 0.9 % (FLUSH) 10 ML SYRINGE 5 ML IVF (20:45)
[2023-05-05] MEDS: TRAZODONE HCL 50 MG TABLET 25 MG PO (20:45)
[2023-05-05 21:04] LABS: Folate, Serum 8.7 ng/mL (>=5.9)
[2023-05-05 23:00] VITALS: BP 101/64; PULSE 71; RESP 18; TEMP 36.6; O2SAT 95
[2023-05-06] MEDS: OXYCODONE 5 MG TABLET PO ×3 (02:10→09:44)
[2023-05-06] MEDS: LORazepam 0.5 MG TABLET PO (02:11)
[2023-05-06 03:00] VITALS: BP 133/86; PULSE 105; RESP 16; TEMP 36.8; O2SAT 93
[2023-05-06] MEDS: LEVOTHYROXINE 75 MCG TABLET PO (05:27)
[2023-05-06] MEDS: ACETAMINOPHEN 325 MG TABLET 650 MG PO ×2 (05:28→12:08)
[2023-05-06 06:20] LABS: Basophils Absolute Auto 0.03 K/uL (0.00-0.30); Basophils Percent Auto 0.5 % (0.0-3.0); Eosinophils Percent Auto 1.7 % (0.0-7.0); Hematocrit 29.7 % (37.0-53.0); Hemoglobin* 9.5 gm/dL (13.5-17.5); Immature Granulocytes Abs Auto 0.11 K/uL (0.00-0.30); Immature Granulocytes Pct Auto 1.8 %; Lymphocytes Percent Auto 8.9 % (20-44); Mean Corpuscular HGB Conc 32 gm/dL (32-36); Mean Corpuscular Hemoglobin 35 pg (26-34); Mean Corpuscular Volume 109 fL (80-100); Monocytes Percent Auto 8.9 % (0.0-11.0); Neutrophils Percent Auto 78.2 % (42.0-72.0); Platelet Count* 149 K/uL (140-440); RDW Coefficient of Variation % 13.8 % (11.5-15.5); Red Blood Count 2.72 m/uL (4.30-5.90); White Blood Count* 6.05 K/uL (4.50-11.00)
--- NOTE | 2023-05-06 06:20 | PC.NURSE ---
End of shift [id number]: Patient alert, oriented to self and date only. Restless throughout the shift, patient rolling around in bed, kicking of covers and mumbling. Pain to left hip reported, pain appears to be managed with medication and ice applied to hip. Patient did remove IV to hand, catheter intact, MD updated and ok to keep IV out. Patient also removed distal dressing to left hip, incision free of signs of infection and well approximated, new dressing applied by Michelle Hector RN. Transfers with min assist of 1-2 with Helen Fisher, remained continent of urine through the night. Requires frequent reorientation and redirection due to dementia.
[2023-05-06 06:34] LABS: Slide Review Reflex No
[2023-05-06 06:46] LABS: Chloride* 102 mmol/L (96-114)
[2023-05-06 06:47] LABS: Potassium* 4.3 mmol/L (3.6-5.1); Sodium* 136 mmol/L (135-149)
[2023-05-06 06:49] LABS: Est. Creatinine Clearance* 62.75; Estimated Glomerular Filt Rate 76 ml/min
[2023-05-06 06:50] LABS: Anion Gap 1 mEq/L (7-15); Blood Urea Nitrogen* 29 mg/dL (7-30); Calcium* 9.3 mg/dL (8.4-10.6); Carbon Dioxide* 33 mmol/L (20-32); Glucose* 80 mg/dL (60-115)
[2023-05-06 07:00] VITALS: BP 110/62; PULSE 56; RESP 18; TEMP 36.4; O2SAT 94
[2023-05-06] MEDS: DONEPEZIL 10 MG TABLET PO (09:43)
[2023-05-06] MEDS: CYANOCOBALAMIN (VITAMIN B-12) 500 MCG TABLET 1000 MCG PO (09:44)
[2023-05-06] MEDS: SERTRALINE 100 MG TABLET PO (09:44)
[2023-05-06] MEDS: MEMANTINE HCL 10 MG TABLET PO (09:44)
[2023-05-06] MEDS: RIVAROXABAN 10 MG TABLET PO (09:45)
[2023-05-06] MEDS: SENNOSIDES 1 TAB TABLET 2 TAB PO (09:45)
[2023-05-06 11:00] VITALS: BP 103/79; PULSE 62; RESP 18; TEMP 36.3; O2SAT 95
--- NOTE | 2023-05-06 11:39 | P.DS_ITS ---
"DS: Providers Provider Date Seen: 05/06/23 Date of admission: 05/03/23 19:16 Primary care physician: Ed Blair MD Admitting Clinician: Nina Chilel MD Consults: PT, OT, Orthopedic Surgery, Attending Physician on discharge: Yoli Morocho MD Date of Discharge: 05/06/23 DS: Diagnosis Discharge Diagnosis (1) Status post-operative repair of hip fracture: Status: Acute Problem details: - L intertrochanteric ORIF with Dr. Muñiz on 05/04/23 - pain control and prophylaxis per Orthopedic Surgery team (2) Alzheimer disease: Status: Chronic Problem details: - His states in the past he had been busy all night, pacing, anxious, no hitting or aggression, then recently started olanzapine and these behaviors have stopped - continue home medications and redirection, patient did well during stay (3) Anemia: Status: Acute Problem details: - chronic macrocytic anemia, mild decrease in baseline Hgb 2/2 acute blood loss from surgery DS: Summary Hospital Course Hospital Course: Myke is a pleasant 78 yo male who was admitted to the hospital on 05/02 after a mechanical fall at home ([id number] [employer] [facility]), sustaining a L intertochanteric fracture. He had an uncomplicated ORIF with Dr. Muñiz of Orthopedic Surgery on 05/04/23, no anesthetic or surgical complications during procedure. Preoperatively, patient had poor pain control and hypoxia. Postoperatively, patient has been doing exceptionally well. Pain has been well controlled and he did not require any supplemental oxygen. He will require TCU stay upon discharge, medically appropriate for [facility] on 05/06/23. Comorbidities remained stable, no evidence of aggression or agitation noted. Status at Discharge Functional status at discharge: uses cane/walker Overall status at discharge: patient is progressing back to baseline Time Spent with Patient Time attestation: Total time spent providing and/or coordinating discharge services: Time spent: Greater than 30 minutes Specific discharge activities: Consultation with multidisciplinary team, updates, medication reconciliation Exam Narrative: Exam Narrative: Myke is resting comfortably in bedside chair Pulse palpates as RRR Breathing comfortably without tachypnea or hypoxia Abdomen is soft and nontender Wearing Eddie hose bilaterally No focal neurological deficits No agitation or anxiety, pleasant and answering questions appropriately Const: Vital Signs, click to edit/add: Vital Signs - 24 hr 05/05/23 15:00 05/05/23 15:00 05/05/23 15:00 Temperature 97.8 F Pulse Rate [Left P ulse Oximeter] 63 63 Respiratory Rate 16 16 Blood Pressure [Le ft Arm] 107/62 Blood Pressure [Ri ght Arm] Pulse Oximetry 95 95 Oxygen Delivery Me thod Room Air Room Air Oxygen Flow Rate 05/05/23 19:00 05/05/23 23:00 05/05/23 23:00 Temperature 98.2 F Pulse Rate [Left P ulse Oximeter] 79 71 Respiratory Rate 18 18 18 Blood Pressure [Le ft Arm] 112/64 Blood Pressure [Ri ght Arm] Pulse Oximetry 95 95 Oxygen Delivery Me thod Room Air Nasal Cannula Oxygen Flow Rate 1 05/05/23 23:00 05/06/23 03:00 05/06/23 07:00 Temperature 97.9 F 98.2 F Pulse Rate [Left P ulse Oximeter] 71 105 H 56 L Respiratory Rate 18 16 18 Blood Pressure [Le ft Arm] 101/64 133/86 Blood Pressure [Ri ght Arm] Pulse Oximetry 95 93 Oxygen Delivery Me thod Nasal Cannula Room Air Oxygen Flow Rate 1 05/06/23 07:00 05/06/23 07:00 Temperature 97.5 F L Pulse Rate [Left P ulse Oximeter] 56 L Respiratory Rate 18 18 Blood Pressure [Le ft Arm] Blood Pressure [Ri ght Arm] 110/62 Pulse Oximetry 94 94 Oxygen Delivery Me thod Room Air Room Air Oxygen Flow Rate DS: Data Data Completed and Pending Labs on day of discharge: Labs from last 24 hours 05/06/23 05/04/23 05:50 05:46 WBC 6.05 RBC 2.72 L Hgb 9.5 L Hct 29.7 L MCV 109 H MCH 35 H MCHC 32 RDW Coeff of Anthony 13.8 Plt Count 149 Neut % (Auto) 78.2 H Lymph % (Auto) 8.9 L [place] % (Auto) 8.9 Eos % (Auto) 1.7 Baso % (Auto) 0.5 Neut # (Auto) 4.70 Lymph # (Auto) 0.50 L [place] # (Auto) 0.50 Eos # (Auto) 0.10 Baso # (Auto) 0.03 Abs Immat Gran (auto) 0.11 Imm/Tot Granulo (auto) 1.8 Sodium 136 Potassium 4.3 Chloride 102 Carbon Dioxide 33 H Anion Gap 1 L BUN 29 Creatinine 1.0 Estimated Creat Clear 62.75 Estimated GFR 76 Glucose 80 Calcium 9.3 RBC Fol Lora for Serum 8.7 Discharge Plan Discharge Disposition: Xfer [facility] Date of Admission: 05/03/23 19:16 Attending Provider on Discharge: Yoli Morocho Consulting Providers: Ryan Muñiz Primary Care Provider: Ed Blair Condition: Stable Anticipated Discharge Date/Time: 05/06/23 11:44 Discharge Medications: New trazodone 50 mg Tablet 25 mg PO HS PRN (Reason: insomnia) Qty: 30 0RF sertraline 100 mg Tablet 100 mg PO DAILY Qty: 30 0RF olanzapine 5 mg Tablet,Disintegrating 5 mg PO HS Qty: 30 0RF sennosides [Senna Lax] 8.6 mg Tablet 8.6 mg PO BID Qty: 20 0RF acetaminophen 325 mg Tablet 650 mg PO Q6H Qty: 60 0RF bisacodyl 10 mg Suppository 10 mg [place] DAILY PRN (Reason: Constipation) Qty: 30 0RF oxycodone 5 mg Tablet 2.5 - 10 mg PO Q2H PRN (Reason: Pain) Qty: 30 0RF Xarelto 10 mg Tablet 10 mg PO DAILY Qty: 28 0RF Rx Instructions: 28 days, stop on 4/3 Continued memantine [Namenda] 10 mg tablet 10 mg PO BID Qty: 180 3RF donepezil 10 mg tablet 10 mg PO DAILY Qty: 90 3RF quetiapine 50 mg tablet 50 mg PO BID albuterol sulfate 90 mcg/actuation HFA aerosol inhaler See Rx Instructions .ROUTE .COMPLEX Qty: 8.5 1RF Dose Instruction: INHALE 2 PUFFS BY MOUTH EVERY 6 HOURS NEEDED FOR SHORTNESS OF BREATH OR WHEEZING Rx Instructions: INHALE 2 PUFFS BY MOUTH EVERY 6 HOURS NEEDED FOR SHORTNESS OF BREATH OR WHEEZING levothyroxine 75 mcg tablet See Rx Instructions .ROUTE .COMPLEX Qty: 90 1RF Dose Instruction: TAKE 1 TABLET BY MOUTH EVERY DAY Rx Instructions: TAKE 1 TABLET BY MOUTH EVERY DAY lorazepam 0.5 mg tablet 0.5 mg PO BID PRN (Reason: agitation) Qty: 30 0RF Held fluorouracil 5 % cream 1 applic topical .1xw Qty: 40 0RF Hold Instructions: Resume on 06/07/23. [facility]: apply topically to affected area once every 7 days naproxen 250 mg tablet 250 mg PO BID PRN (Reason: pain) Qty: 60 0RF Hold Instructions: Resume on 06/07/23. Hold while on postoperative blood thinners Discontinued mecobalamin (vitamin B12) 1,000 mcg tablet,chewable 1,000 mcg PO DAILY trazodone 50 mg tablet 25 mg PO HS PRN (Reason: insomnia) sertraline 100 mg tablet 100 mg PO DAILY olanzapine [Zyprexa] 5 mg tablet 5 mg PO DAILY Discharge Orders: Discharge Order (Routine); Ordered 05/06/23 Ordered By: Yoli Morocho Activity Level: Activity as Tolerated, Weight Bearing as Tolerated and Use Walker Activity Detail: per therapies Discharge Diet: Regular Follow Up Appointments: Ed Blair MD [Primary Care Provider] - (Please have Aury make an appt with Dr. Blair 1-2 weeks after SNF stay) Forms: [employer] Info Instructions Admit to: SNF Discharge Potential: Fair Length of Stay: 30-90 days Can use facility standing orders?: Yes Code Status: DNR/DNI TEDs: Bilateral Knee Rehab Potential: Fair Therapy: Physical Therapy and Occupational Therapy Therapy Orders: Evaluate and Treat Therapy Orders Additional Information: ORIF of L intertrochanteric fracture on 05/03 Oxygen: No Urinary Catheter: No Glucose Checks: n/a Next INR: n/a Orders are good >30 days: Yes Signature: Yoli Morocho MD"
--- NOTE | 2023-05-06 11:56 | PC.SOCIAL ---
Addendum entered by POLLO Silverio 05/06/23 12:12: Discharge orders secure e-mailed to Miriam Urbina in admissions at [facility] at 12:05 pm. Charge nurse will set EMS transportation for 2:00 pm. Original Note: Discharge planning- Follow up phone call to [facility] and left a voicemail with Miriam Curiel in admissions at [phone]. Received a phone call from Miriam Curiel at [facility] informing that pt has been accepted for admission and they can take pt today. [facility] is offering a shared room. Phone call to pt's to provide update. Informed that pt will go in shared room. Pt's agrees to plan. Pt will qualify to transport via non-emergency EMS due to hip fracture. Informed pt's that this worker will provide her with an update on the time of transport, when time is available. Provided update to charge nurse and MD. Completed preadmission screening. Confirmation #[id number]. Provided copy of PAS to Trino at [facility]. Social work will follow up as needed.
--- NOTE | 2023-05-06 15:08 | PC.NURSE ---
Nursing discharge note [id number]: Pt is alert & oriented to self and birthday. Pt is aware he is not at home but forgetful on what hospital he is in and why he is here. Ax2 with gait belt and 2ww in the room. Pt has been continent of urine throughout the day. at bedside late morning. No IV access Ok?d by . Left hip dressing C/D/I no drainage noted. Ice applied intermittently throughout the morning. Pt reports left hip pain is better than it was yesterday but unable to rate it on the 1/10 scale. PRN oxycodone given last @ 0945. Scheduled Zyprexa order changed to be given at bedtime to hopefully reduce the confusion and restlessness overnight. Discharge education reviewed with patient?s who verbalized understanding. Pt discharged to [facility] via non-emergent EMS at 1500. ?
--- NOTE | 2023-05-06 15:15 | PC.NURSE ---
Called and spoke with Jade, the nurse at [facility]. Provided her with a nurse-nurse report on patient's medical condition and hospital stay following surgery. All of her questions were answered appropriately and she verbalized understanding.
== END 2023-05-06 15:00 | DRG 481 ==
LOC: ED 17:55 → MEDSURG 18:52
PROVIDERS: Family Medicine; Admitting Provider Orthopaedic Surgery; Emergency Provider Emergency Medicine; PCP Internal Medicine; Visit Provider Family Medicine
PROC: 0QS706Z Reposition Left Upper Femur with Intramedullary Internal Fixation Device, Open Approach (ICD-10-PCS; CPT 27245; principal; 2023-05-04 12:45)
DX: S72.142A Displaced intertrochanteric fracture of left femur, initial encounter for closed fracture (principal); D62 Acute posthemorrhagic anemia; G89.18 Other acute postprocedural pain; G30.9 Alzheimer's disease, unspecified; F02.80 Dementia in other diseases classified elsewhere, unspecified severity, without behavioral disturbance, psychotic disturbance, mood disturbance, and anxiety; W19.XXXA Unspecified fall, initial encounter; Y92.129 Unspecified place in nursing home as the place of occurrence of the external cause; D53.9 Nutritional anemia, unspecified; E03.9 Hypothyroidism, unspecified
CPT/HCPCS: 01210; 36415; 64450; 73502; 73551; 73700; 76000; 76942; 80048; 80076; 82607; 82746; 83540; 83550; 85025; 85610; 93005; 94761; 97116; 97161; 97165; 97530; 97535; 99100; 99284; 99285; A9270; C1713; J0690; J1100; J1170; J2250; J2270; J2371; J2405; J2704; J2795; J3490; J7030; J7120

== ENCOUNTER 2023-05-06 14:57 | Outpatient (CLI) | payer MEDICARE, SELFPAY | END 2023-05-06 14:58 | disposition home or self-care (01) | LOC: AMB 05-14 16:14 | PROVIDERS: PCP Internal Medicine; Visit Provider Emergency Medicine | DX: S72.142S Displaced intertrochanteric fracture of left femur, sequela (principal); Z98.890 Other specified postprocedural states | CPT/HCPCS: A0425; A0428 ==

== ENCOUNTER 2023-06-08 18:23 | Inpatient (IN) | payer MEDICARE, SELFPAY ==
[2023-06-08] VITALS (8 sets, daily range): BP systolic 66–113; BP diastolic 51–71; PULSE 60–92; RESP 13–20; TEMP 35.9–36.3; O2SAT 86–94; BMI 24.0; BMI 20.6
--- NOTE | 2023-06-08 18:43 | ED_ITS ---
HPI - Weakness General Time Seen by Provider: 18:43 Date Seen: 06/08/23 Chief complaint: Weakness Stated complaint: Weakness, High BP, altered mental status Time Seen by Provider: 06/08/23 18:43 Source: patient, family, RN notes reviewed and old records reviewed Mode of arrival: ambulatory Limitations: no limitations History of Present Illness HPI Narrative: 78-year-old male with history of Alzheimer's disease who comes in today with altered mental status. Reviewed most recent admission from May 02 when patient was admitted with left femur fracture status post ORIF, also chronic anemia. Spouse provides entire history. Apparently she was with him earlier today he was weaker than usual little bit confused, this evening much worse. Does have dementia but normally is ambulatory, conversant, hdls-no-vugaxozn symptoms and some sundowning. Today's quite different. She notes that he drank fluids today, he has a cough today which is not usual for him. No noted fever. No known falls. Related Data Home Medications Medication Instructions Recorded Confirmed quetiapine 50 mg tablet 50 mg PO BID 05/03/23 05/03/23 Previous Rx's Medication Instructions Recorded albuterol sulfate 90 mcg/actuation See Rx Instructions .Route 02/03/22 aerosol inhaler .COMPLEX #8.5 ea fluorouracil 5 % topical cream 1 applic topical .1xw #40 grams 07/29/22 donepezil 10 mg tablet 10 mg PO DAILY Cognitive 01/18/23 Impairment #90 tabs memantine 10 mg tablet (Namenda) 10 mg PO BID Memory Loss #180 tabs 01/18/23 levothyroxine 75 mcg tablet See Rx Instructions .Route 03/19/23 .COMPLEX #90 tabs lorazepam 0.5 mg tablet 0.5 mg PO BID PRN agitation #30 04/16/23 tabs naproxen 250 mg tablet 250 mg PO BID PRN pain #60 tabs 04/30/23 acetaminophen 325 mg tablet 650 mg (2 x 325 mg) PO Q6H #60 tabs 05/06/23 bisacodyl 10 mg rectal suppository 10 mg ND DAILY PRN Constipation 05/06/23 #30 ea oxycodone 5 mg tablet 2.5 - 10 mg (0.5 - 2 x 5 mg) PO 05/06/23 Q2H PRN Pain #30 tabs rivaroxaban 10 mg tablet (Xarelto) 10 mg PO DAILY #28 tabs 05/06/23 sennosides 8.6 mg tablet (Senna 8.6 mg PO BID #20 tabs 05/06/23 Lax) sertraline 100 mg tablet 100 mg PO DAILY #30 tabs 05/06/23 trazodone 50 mg tablet 25 mg (1/2 x 50 mg) PO HS PRN 05/06/23 insomnia #30 tabs olanzapine 5 mg disintegrating 5 mg PO HS #30 tabs 06/02/23 tablet Allergies Allergy/AdvReac Type Severity Reaction Status Date / Time No Known Drug [facility]ergies [facility]03[facility]23 [facility] Fall ?W19.XXXA - Unspecified fall, initial encounter (ICD-10) Anemia ?D64.9 - Anemia, unspecified (ICD-10) Alzheimer disease ?G30.9 - Alzheimer's disease, unspecified (ICD-10) ?F02.80 - Dementia in other diseases classified elsewhere, unspecified severity, without behavioral disturbance, psychotic disturbance, mood disturbance, and anxiety (ICD-10) Agitation ?R45.1 - Restlessness and agitation (ICD-10) Dysphagia ?R13.10 - Dysphagia, unspecified (ICD-10) Actinic keratosis ?L57.0 - Actinic keratosis (ICD-10) Rosacea ?L71.9 - Rosacea, unspecified (ICD-10) Back Pain ?M54.9 - Dorsalgia, unspecified (ICD-10) Asthma ?J45.909 - Unspecified asthma, uncomplicated (ICD-10) Anxiety ?F41.9 - Anxiety disorder, unspecified (ICD-10) Macrocytosis ?D75.89 - Other specified diseases of blood and blood-forming organs (ICD-10) Hearing loss ?H91.90 - Unspecified hearing loss, unspecified ear (ICD-10) 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 He later worked in [employer]. He smoked less than a pack a day for 30 or 40 years, having quit 20 years ago. He quit alcohol altogether in 1979. His family would like him to be full code for the purpose of this hospital stay, and are considering DNR DNI after that. What is your current living situation?: I presently have a place to live Problems where you live: no known problems Problems where you live details: n/a In the past 12 months, utilities in danger of being shut off: no In past 12 months, lack of transportation kept you from medical appts, meetings, work, or getting things needed for daily living: no In the past 12 mos, have been you worried that your food would run out before you had money to buy more?: never true In the past 12 mos, the food you bought just didn't last and you didn't have money to buy more?: never true Smoking Status: Former smoker How often does anyone, including family, friends and others, physically hurt you : unable to answer How often does anyone, including family, friends and others, insult or talk down to you: unable to answer How often does anyone, including family, friends and others, threaten you with harm: unable to answer How often does anyone, including family, friends and others, scream or curse at you: unable to answer Little interest or pleasure in doing things: more than half the days Feeling down, depressed, or hopeless: more than half the days Exam Narrative: Exam Narrative: General: Well-developed and well-nourished, no acute distress Head: Atraumatic and normocephalic Eyes: Pupils are equal reactive, extraocular motions intact, conjunctiva clear ENT: External nose and ears are normal, posterior pharynx without erythema or exudate Neck: No midline cervical tenderness, full spontaneous range of motion the neck, trachea midline, no adenopathy Heart: Regular rate and rhythm no murmurs or thrills Lungs: Clear to auscultation bilaterally without wheezes or crackles Abdomen: Soft, nontender, nondistended with active bowel sounds Musculoskeletal: No tenderness, deformity, or edema Neurologic: Resting with eyes closed, opens eyes to voice, cough no verbal responses but follows commands in 10 Psych: Mood and affect are appropriate Skin: No rashes Const: Vital Signs, click to edit/add: Vital Signs - 24 hr 06/08/23 18:34 06/08/23 18:45 06/08/23 19:10 Temperature 97.4 F L Pulse Rate [Right Pulse Oximeter] 91 75 Respiratory Rate 18 Blood Pressure [Ri ght Upper Arm] 66/51 L 98/55 L Pulse Oximetry 86 L 89 94 Oxygen Delivery Me thod Room Air Room Air Nasal Cannula Oxygen Flow Rate 2 06/08/23 20:10 Temperature Pulse Rate [Right Pulse Oximeter] Respiratory Rate Blood Pressure [Ri ght Upper Arm] 102/65 Pulse Oximetry Oxygen Delivery Me thod Oxygen Flow Rate Course Course ED Course: Patient seen and examined, reviewed prior admission record from April 2023. Patient presents today with altered mentation and decreased responsiveness alertness. On exam here, he will open eyes to voice but does not verbally express himself. He has a coarse cough but lungs are clear. No tachycardia but quite hypotensive on initial exam. Concern for possible sepsis, dehydration, electrolyte disturbance, GI bleed or anemia. Patient does have Xarelto in his medication list but spouse says he is not taking any blood thinners. Labs ordered along with CT scan of the head, chest, abdomen, and pelvis for source of possible GI bleed infection. Additionally IV fluids are initiated. Reevaluation(s) Time of Reevaluation #1: 19:24 Reevaluation #1: Labs ordered and independently interpreted by me with normal venous blood gas, lactate 2.7, creatinine 1.2. Patient is already given IV fluids, will order antibiotics due to hypotension, altered mentation, and elevated lactate with concern for sepsis. Time of Reevaluation #2: 19:53 Reevaluation #2: Labs ordered and independently interpreted by me with white blood cell count 29.7, hemoglobin 10.3. In conjunction with elevated lactate, patient does meet sepsis criteria. IV fluid bolus and antibiotics already initiated. CT scan of the chest independently interpreted by me with, there is a left lower lobe infiltrate consistent with pneumonia which likely is the source of patient's symptoms today. Discussed diagnosis and plan with patient's spouse. Confirmed DNR/DNI status. CT scan of the abdomen and pelvis independently interpreted by me with gallbladder distention but no stones or wall thickening, large volume of stool in the rectum, prostatic enlargement but no thickening of the bladder wall to suggest acute cystitis. Urinalysis is pending. Check with nursing, patient has not gotten any fluids yet nor have antibiotics been started. Time of Reevaluation #3: 20:11 Reevaluation #3: Care discussed with Kenna Ash PA-C hospitalist for admission. Additional Reevaluation(s): 20:34 Care discussed with radiologist, head CT demonstrates chronic hygroma versus chronic subdural, no acute findings. Patient did have a fall about a month ago, no head CT was done at that time but patient has not had abrupt c hange in his mentation recently. Vital Signs Vital signs: Initial Vital Signs Temperature 97.4 F L 06/08/23 18:34 Temperature Source Temporal Artery Scan 06/08/23 18:34 Pulse Rate 91 06/08/23 18:34 Pulse Rhythm Regular 06/08/23 18:34 Pulse Strength 3+ Normal 06/08/23 18:34 Respiratory Rate 18 06/08/23 18:34 Blood Pressure 66/51 L 06/08/23 18:34 Blood Pressure Mean 56 L 06/08/23 18:34 Blood Pressure Position Sitting 06/08/23 18:34 Pulse Oximetry 86 L 06/08/23 18:34 Oxygen Delivery Method Room Air 06/08/23 18:34 Vital Signs Temperature 97.4 F L 06/08/23 18:34 Pulse Rate 91 06/08/23 18:34 Respiratory Rate 18 06/08/23 18:34 Blood Pressure 66/51 L 06/08/23 18:34 Pulse Oximetry 86 L 06/08/23 18:34 Oxygen Delivery Method Room Air 06/08/23 18:34 Temperature 97.4 F L 06/08/23 18:34 Pulse Rate 75 06/08/23 18:45 Respiratory Rate 18 06/08/23 18:34 Blood Pressure 102/65 06/08/23 20:10 Pulse Oximetry 94 06/08/23 19:10 Oxygen Delivery Method Nasal Cannula 06/08/23 19:10 Oxygen Flow Rate 2 06/08/23 19:10 Medications Administered Medications: Generic Name Dose Route Start Last Admin Trade Name Freq PRN Reason Stop Dose Admin Piperacillin Sod/Tazobactam 100 mls @ 100 mls/hr 06/08/23 19:25 06/08/23 20:19 Sod 3.375 gm/ Sodium Chloride IVPB 06/08/23 19:26 100 mls/hr ONCE ONE Administration Sodium Chloride 1,000 mls @ 6,000 mls/hr 06/08/23 20:11 06/08/23 20:20 0.9 % Sodium Chloride 1000 Ml IV 06/08/23 20:20 6,000 mls/hr .Q10M KAMI Administration MDM - Weakness Lab Data Labs: Lab Results 06/08/23 06/08/23 06/08/23 Range/Units 18:55 18:59 19:05 WBC 29.70 H* (4.50-11.00) K/uL RBC 2.98 L (4.30-5.90) m/uL Hgb 10.3 L (13.5-17.5) gm/dL Hct 32.6 L (37.0-53.0) % MCV 109 H (80-100) fL MCH 35 H (26-34) pg MCHC 32 (32-36) gm/dL RDW Coeff of Anthony 14.6 (11.5-15.5) % Plt Count 224 (140-440) K/uL Neut % (Auto) 90.9 H (42.0-72.0) % Lymph % (Auto) 1.2 L (20-44) % [place] % (Auto) 6.9 (0.0-11.0) % Eos % (Auto) 0.0 (0.0-7.0) % Baso % (Auto) 0.1 (0.0-3.0) % Neut # (Auto) 27.00 H (1.7-7.0) K/uL Lymph # (Auto) 0.40 L (0.90-2.90) K/uL [place] # (Auto) 2.00 H (0.00-0.90) K/UL Eos # (Auto) 0.00 (0.00-0.50) K/uL Baso # (Auto) 0.00 (0.00-0.30) K/uL Abs Immat Gran (auto) 0.30 (0.00-0.30) K/uL Imm/Tot Granulo (auto) 0.9 % Diff Slide Review Acceptable Review (Acceptable) VBG pH 7.381 (7.32-7.43) VBG pCO2 45 (40-50) mmHG VBG pO2 53.1 H (25-47) mmHG VBG HCO3 27 (21-28) mmol/L Sodium 135 (135-149) mmol/L Potassium 3.8 (3.6-5.1) mmol/L Chloride 102 (96-114) mmol/L Carbon Dioxide 26 (20-32) mmol/L Anion Gap 7 (7-15) mEq/L BUN 28 (7-30) mg/dL Creatinine 1.0 (0.5-1.5) mg/dL Estimated Creat Clear 62.75 Estimated GFR 76 ml/min Glucose 141 H (60-115) mg/dL Lactate 2.7 H (0.5-1.9) mmol/L Calcium 9.5 (8.4-10.6) mg/dL Magnesium 1.7 (1.5-2.6) mg/dL Total Bilirubin 0.9 (0.1-1.5) mg/dL Direct Bilirubin 0.1 (0.0-0.5) mg/dL AST 35 (12-35) U/L ALT 29 (4-50) U/L Alkaline Phosphatase 126 (40-150) U/L NT-Pro-B Natriuret Pep 242 pg/mL Total Protein 7.2 (6.0-8.3) g/dL Albumin 3.8 (3.3-5.0) g/dL SARS-CoV-2 (PCR) Negative SARS-CoV-2 (Negative) Influenza Type A (PCR) Negative PCR FLU A (Negative) Influenza Type B (PCR) Negative PCR FLU B (Negative) RSV (PCR) Negative PCR RSV (Negative) POC Creatinine (0.6-1.3) mg/dl POC Troponin I 0.01 (0.01-0.04) ng/ml 06/08/23 Range/Units 19:15 WBC (4.50-11.00) K/uL RBC (4.30-5.90) m/uL Hgb (13.5-17.5) gm/dL Hct (37.0-53.0) % MCV (80-100) fL MCH (26-34) pg MCHC (32-36) gm/dL RDW Coeff of Anthony (11.5-15.5) % Plt Count (140-440) K/uL Neut % (Auto) (42.0-72.0) % Lymph % (Auto) (20-44) % [place] % (Auto) (0.0-11.0) % Eos % (Auto) (0.0-7.0) % Baso % (Auto) (0.0-3.0) % Neut # (Auto) (1.7-7.0) K/uL Lymph # (Auto) (0.90-2.90) K/uL [place] # (Auto) (0.00-0.90) K/UL Eos # (Auto) (0.00-0.50) K/uL Baso # (Auto) (0.00-0.30) K/uL Abs Immat Gran (auto) (0.00-0.30) K/uL Imm/Tot Granulo (auto) % Diff Slide Review (Acceptable) VBG pH (7.32-7.43) VBG pCO2 (40-50) mmHG VBG pO2 (25-47) mmHG VBG HCO3 (21-28) mmol/L Sodium (135-149) mmol/L Potassium (3.6-5.1) mmol/L Chloride (96-114) mmol/L Carbon Dioxide (20-32) mmol/L Anion Gap (7-15) mEq/L BUN (7-30) mg/dL Creatinine (0.5-1.5) mg/dL Estimated Creat Clear Estimated GFR ml/min Glucose (60-115) mg/dL Lactate (0.5-1.9) mmol/L Calcium (8.4-10.6) mg/dL Magnesium (1.5-2.6) mg/dL Total Bilirubin (0.1-1.5) mg/dL Direct Bilirubin (0.0-0.5) mg/dL AST (12-35) U/L ALT (4-50) U/L Alkaline Phosphatase (40-150) U/L NT-Pro-B Natriuret Pep pg/mL Total Protein (6.0-8.3) g/dL Albumin (3.3-5.0) g/dL SARS-CoV-2 (PCR) (Negative) Influenza Type A (PCR) (Negative) Influenza Type B (PCR) (Negative) RSV (PCR) (Negative) POC Creatinine 1.2 (0.6-1.3) mg/dl POC Troponin I (0.01-0.04) ng/ml Critical Care Time Critical Care Time Critical Care Time: Yes (Sepsis, multiple fluid boluses and multiple an tibiotics, admission) Attestation: The patient required my highest level preparedness to intervene emergently and I personally spent this critical care time directly and personally managing the patient. This critical care time included: Obtaining a history; Examining the patient; Pulse oximetry; Ordering and reviewing of studies; Arranging urgent treatment with development of a management plan; Evaluation of patients response to treatment; Frequent reassessment discussions with other providers. This critical care time was performed to assess and manage the high probability of imminent life-threatening deterioration that could result in multiorgan failure. It was exclusive of separate billable procedures and treating other patients and teaching time. Total Critical Care Time in Minutes: 90 Discharge Plan Discharge Clinical Impression: Dementia, Community acquired pneumonia, DNI (do not intubate), Sepsis Patient Disposition: Admitted As Observation Condition: Guarded
--- NOTE | 2023-06-08 18:58 | CT_ITS ---
Patient: DAVINA ROBINSZAY Facility:?[facility] RIS Patient ID:?[id number] Site Patient ID:?[id number]. Site :?[id number] Study:?CT-Chest/Abd/Pelvis w/ 84cc [id number] 8:01:01 PM Ordering Physician:Nell Nguyễn Final Report: INDICATION: Sepsis TECHNIQUE: CT chest, abdomen and pelvis acquired with 84 milliliters of Isovue 370 IV contrast. COMPARISON: None. FINDINGS: CHEST: Cardiovascular structures: Heart size is borderline enlarged. Right ventricular enlargement is noted.. Thoracic aorta and main pulmonary artery are normal in caliber. Mediastinum and willy: No mass or adenopathy. Lungs and pleura: Left lower lobe patchy consolidation. Diffuse subpleural subtle linear opacities likely scarring. No pleural effusion or pneumothorax. Chest wall and axilla: No mass or adenopathy. Bones: Subacute left 9th and 8th lateral rib fractures. Multiple subacute right posterior and lateral rib fractures in the lower ribs. ABDOMEN AND PELVIS: Liver: Unremarkable. Gallbladder and bile ducts: Gallbladder is distended. No gallstones identified. No significant wall thickening or enhancement. No significant pericholecystic fluid. No biliary ductal dilation. Pancreas: Unremarkable. Spleen: Unremarkable. Adrenal glands: Unremarkable. Kidneys: Probable bilateral parapelvic cysts. No definite hydronephrosis or hydroureter. No renal or ureteral stones. GI tract: Small rectal stool ball is noted. Scattered colonic diverticuli. No evidence of diverticulitis. Appendix is not well visualized. No bowel obstruction. Vascular structures: Dilated abdominal aorta measuring up to 34 millimeters in diameter. Moderate calcific atherosclerosis. Lymph nodes: Unremarkable. Miscellaneous: Unremarkable. No free air or significant free fluid. Pelvic Organs: Enlarged nodular prostate indenting the base of the bladder. Bladder is unremarkable. Enlarged seminal vesicles. Bones: Left proximal femoral fixation screw and mavis. Diffuse demineralization of the visualized bones. Moderate diffuse degenerative changes. IMPRESSION: 1. Left lower lobe consolidation likely related to pneumonia, or aspiration. 2. Distended gallbladder without gallstones. 3. Subacute left and right rib fractures. 4. Prostatomegaly. Please note that all CT scans at this facility use dose modulation, iterative reconstruction, and/or weight-based dosing when appropriate to reduce radiation dose to as low as reasonably achievable. Dictated by Kolby Lopez MD @ 06/08/2023 9:00:47 PM Signed by:?Kolby Lopez MD @06/08/2023 9:00:47 PM (Electronic Signature)
--- NOTE | 2023-06-08 18:58 | CT_ITS ---
Patient: DAVINA DOUGLAS Facility:?[facility] R[facility] Patient ID:?[id number] Site Patient ID:?[id number]. Site :?[id number] Study:?CT-Head w/o-06/08/2023 7:40:51 PM Ordering Physician:Nell Nguyễn Final Report: INDICATION: Altered mental status. TECHNIQUE: Noncontrast CT images of the brain. COMPARISON: None. FINDINGS: Artifact degrades image quality. Nearly holohemispheric, hypoattenuating subdural collections measuring up to 15mm on the left and 12 mm on the right. There is mass effect on subjacent parenchyma and 2 mm rightward midline shift. The supratentorial ventricular system is relatively diminutive in size. Meredith-white differentiation is maintained. Scattered hypoattenuation in the supratentorial white matter, typical for mild chronic microvascular ischemic changes. No acute intracranial hemorrhage. Intracranial atherosclerotic calcifications. Thinning of the ocular lenses. The calvarium is intact. The paranasal sinuses and mastoid air cells are clear. IMPRESSION: 1. 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 Mass effect results in 2 mm rightward midline shift. 2. No acute intracranial hemorrhage. Please note that all CT scans at this facility use dose modulation, iterative reconstruction, and/or weight-based dosing when appropriate to reduce radiation dose to as low as reasonably achievable. Dictated by Hermes Thompson MD @ 06/08/2023 8:38:16 PM Signed by:?Hermes Thompson MD @06/08/2023 8:38:16 PM (Electronic Signature)
--- OUTSIDE RECORDS SUMMARY | 2023-06-08 19:08 | XMS_ITS | Continuity of Care Document ---
Author Name [facility] Organization [facility] Care Team Providers Care Car Ferry Master Name Role Phone [facility] Unavailable Unavailable Problems Combined list of problems from Department of Defense and Veterans Affairs facilities. It does not include entries that were removed or entered in error. Problem Status Onset Date Problem Type Date of Resolution Comments Source Exposure to potentially hazardous substance ([facility] [id number]) Active 05/07/19 24 Condition May 07, 2023 Entered By: ABHILASH PETER [facility]: [facility] Documentation Initiative [facility] Acquired hypothyroidism Active Condition [facility] Anxiety Active Condition [facility] Bilateral metatarsalgia Active Condition [facility] Carcinoma of parotid gland Active Condition [facility] Chronic obstructive lung disease Active Condition [facility] Chronic Obstructive Pulmonary Disease Active Condition Oct 05 08 Entered By: ISIDRA BYERS Comment: FEV1(L) % PRED= 88, FEV1/FVC% ACTUAL= 60 [facility] Chronic pain of left foot Active Condition [facility] Congestion of nasal sinus Active Condition [facility] Edema Active Condition Feb 14 08 Entered By: ISIDRA BYERS Comment: ideopathic-nml full w/u 2007 [facility] Enthesopathy of left foot Active Condition [facility] Health maintenance alteration Active Condition [facility] Hypothyroidism * (ICD-9-CM 244.9) Active Condition [facility] Keratosis, seborrheic Active Condition [facility] Osteoarthritis of ankle Active Condition [facility] Osteopenia * (ICD-9-CM 733.90) Active Condition . [facility] Paraesthesia of foot Active Condition [facility] Personal History of Colonic Polyps (ICD-9-CM V12.72) Active Condition Oct 01 09 Entered By: IISDRA BYERS Comment: scope 2008 nml-due 2012 [facility] Postsurgical Status of Cataract Extraction Active Condition [facility] Presbyopia Active Condition [facility] Primary degenerative dementia of the Alzheimer type, senile onset, with delusion Active Condition [facility] Rhinitis * (ICD-9-CM 472.0) Active Condition [facility] salivary cancer Active Condition Sep 27, 2007 Entered By: ISIDRA BYERS Comment: radical neck + radiation [facility] SENSORNEUR HEARING LOSS NOS Active Condition [facility] Wheezing Active Condition [facility] Tobacco Use Disorder * (ICD-9-CM 305.1) Inactive Condition 09/27/2007 [facility] Diagnosis: ICD-10-CM R53.1 Weakness Active Diagnosis [facility] Diagnosis: ICD-10-CM Z00.8 Encounter for other general examination Active Diagnosis [facility] Medications Combined list of outpatient medications from Department of Defense and Veterans Affairs facilities.Medications provided include 1) outpatient medications from the last 15 months, and 2) patient-reported medications. Medication Details Route Status Patient Instructions Prescription Expires Prescription Number Last Dispense Date Ordering Provider Order Date Source ASPIRIN TAB,EC TAKE BY MOUTH ORAL ACTIVE SHEN SHRESTHA 2004 [facility] CYANOCOBALA MIN 1000MCG TAB TAKE ONE TABLET BY MOUTH EVERY DAY FOR VITAMIN B12, FOR RED BLOOD CELLS ORALLY ACTIVE 11/19/2023 [id number] MASSIEL NGUYEN 2022 [facility] DONEPEZIL HCL 10MG TAB TAKE ONE TABLET BY MOUTH EVERY DAY ORALLY ACTIVE MASSIEL NGUYEN 2021 [facility] GUAIFENESIN TAB TAKE 600MG DM BY MOUTH DAILY ORAL ACTIVE Giovanni BYERS 2012 [facility] LEVOTHYROXI NE NA 75MCG TAB (SYNTHROID) TAKE ONE TABLET BY MOUTH ORAL ACTIVE Giovanni BYERS 2012 [facility] LEVOTHYROXI NE NA 75MCG TAB (SYNTHROID) TAKE ONE TABLET BY MOUTH EVERY DAY ORALLY ACTIVE MASSIEL NGUYEN 2021 [facility] LORAZEPAM 0.5MG TAB TAKE ONE TABLET BY MOUTH PRN ORALLY ACTIVE MASSIEL NGUYEN 2021 [facility] LORAZEPAM 0.5MG TAB TAKE ONE TABLET BY MOUTH PRN ORAL ACTIVE Giovanni BYERS 2007 [facility] MEMANTINE HCL 10MG TAB TAKE ONE TABLET BY MOUTH ORALLY ACTIVE MASSIEL NGUYEN 2022 [facility] MULTIVITAMI N/MINERALS SENIOR FORMULA TAB TAKE ONE TABLET BY MOUTH ORAL ACTIVE SHEN SHRESTHA 2004 [facility] PSYLLIUM PWDR,ORAL TAKE 1 TEASPOON FUL BY MOUTH EVERY DAY ORALLY ACTIVE MASSIEL NGUYEN 2022 [facility] Immunizations Combined list of available immunizations from the Department of Defense and Veterans Affairs facilities. Immunization Series Date Given Administered By Site Reaction Lot Number CVX Code Drug Stitching Machine Setter Status Comments Source TDAP 2022 115 complet ed [facility] COVID-19, MRNA, LNP-S, BIVALENT BOOSTER, PF, 30 MCG/0.3 ML DOSE 1 2021 300 complet ed [facility] INFLUENZA, UNSPECIFIED FORMULATION 2021 88 complet ed [facility] COVID-19 (PFIZER), MRNA, LNP-S, PF, 30 MCG/0.3 ML DOSE 2 2021 208 complet ed [facility] COVID-19 (PFIZER), MRNA, LNP-S, PF, 30 MCG/0.3 ML DOSE, SHANTELL-SUCROSE (AGES 12+ YEARS) 2021 217 complet ed [facility] ZOSTER RECOMBINANT 2 2021 187 complet ed [facility] ZOSTER RECOMBINANT 1 2020 187 complet ed [facility] COVID-19 (PFIZER), MRNA, LNP-S, PF, 30 MCG/0.3 ML DOSE 3 2020 208 complet ed [facility] INFLUENZA, INJECTABLE, QUADRIVALENT, PRESERVATIVE FREE 2020 150 complet ed [facility] COVID-19 (TouchTen), MRNA, LNP-S, PF, 30 MCG/0.3 ML DOSE 2 2020 208 complet ed [facility] COVID-19 (TouchTen), MRNA, LNP-S, PF, 30 MCG/0.3 ML DOSE 1 2020 208 complet ed [facility] INFLUENZA, RECOMBINANT, QUADRIVALENT, INJECTABLE, PRESERVATIVE FREE 2019 185 complet ed [facility] INFLUENZA, HIGH DOSE SEASONAL 2018 135 complet ed [facility] INFLUENZA, HIGH DOSE SEASONAL 2016 135 complet ed [facility] INFLUENZA, HIGH DOSE SEASONAL 2015 135 complet ed [facility] INFLUENZA, HIGH DOSE SEASONAL 2014 135 complet ed [facility] PNEUMOCOCCAL CONJUGATE PCV 13 2014 133 complet ed [employer] Lot# [id number] Exp 03/2016 [facility] PNEUMOCOCCAL CONJUGATE PCV 13 2014 133 complet ed [facility] INFLUENZA, SEASONAL, INJECTABLE 2013 141 complet ed [facility] INFLUENZA, SEASONAL, INJECTABLE 2013 141 complet ed [facility] TDAP 2012 115 complet ed [facility] INFLUENZA, UNSPECIFIED FORMULATION 2012 88 complet ed [facility] ZOSTER LIVE 2012 121 complet ed [facility] PNEUMOCOCCAL POLYSACCHARID E PPV23 2012 33 complet ed [facility] PNEUMOCOCCAL, UNSPECIFIED FORMULATION 2012 109 complet ed [facility] ZOSTER LIVE 2012 121 complet ed [facility] INFLUENZA, UNSPECIFIED FORMULATION 2011 88 complet ed [facility] ZOSTER LIVE 2011 121 complet ed [employer] co #[id number] exp 05-13-12 [facility] PNEUMOCOCCAL POLYSACCHARID E PPV23 2011 33 complet ed [facility] TDAP 2011 115 complet ed [facility] TDAP 2010 115 complet ed [facility] PNEUMOCOCCAL POLYSACCHARID E PPV23 2009 33 complet ed [facility] NOVEL INFLUENZA-H1N 1-09, ALL FORMULATIONS 2008 128 complet ed [employer] [facility] INFLUENZA (HISTORICAL) 2008 88 complet ed [facility] INFLUENZA, SEASONAL, INJECTABLE 2008 141 complet ed [facility] INFLUENZA, UNSPECIFIED FORMULATION 2007 88 complet ed [employer], Lot #[id number] AA, exp 2008 JL [facility] INFLUENZA, UNSPECIFIED FORMULATION 2006 88 complet ed lot# [id number] exp 08/29/07 [employer] [facility] INFLUENZA, UNSPECIFIED FORMULATION 2006 88 complet ed [facility] INFLUENZA, UNSPECIFIED FORMULATION 2005 88 complet ed [facility] PNEUMOCOCCAL POLYSACCHARID E PPV23 2005 33 complet ed [facility] INFLUENZA, UNSPECIFIED FORMULATION 2004 88 complet ed [employer] [id number] [facility] PNEUMOCOCCAL, UNSPECIFIED FORMULATION 2004 109 complet ed [facility] TD(ADULT) UNSPECIFIED FORMULATION 2004 139 complet ed [facility] INFLUENZA, UNSPECIFIED FORMULATION 2003 88 complet ed [facility] INFLUENZA, UNSPECIFIED FORMULATION 2003 88 complet ed [facility] Results Combined list of recent chemistry, hematology [...] Jan 14, 2022 08:41 AM Reporting Lab: [facility] [address] Performing Lab: [facility] [address] [facility] FOLATE FOLATE [MASS/VOLU ME] IN SERUM OR PLASMA 8.6 7.0 11/18 Specimen Type: SERUM No comment entered. Ordering Provider: KEELY NGUYEN Report Released Date/Time: Jan 14, 2022 08:41 AM Reporting Lab: [facility] [address] Performing Lab: [facility] [address] [facility] CBC & DIFF LEUKOCYTES [#/VOLUME] IN BLOOD BY AUTOMATED COUNT 4.77 4.0 - 11.0 11/18 Specimen Type: BLOOD Comment: Automated Differentia l Performed Ordering Provider: KEELY NGUYEN Report Released Date/Time: Jan 14, 2022 08:41 AM Reporting Lab: [facility] [address] Performing Lab: [facility] [address] [facility] CBC & DIFF ERYTHROCYT ES [#/VOLUME] IN BLOOD BY AUTOMATED COUNT 3.06 4.6 - 6.2 11/18 L Specimen Type: BLOOD Comment: Automated Differentia l Performed Ordering Provider: KEELY NGUYEN Report Released Date/Time: Jan 14, 2022 08:41 AM Reporting Lab: [facility] [address] Performing Lab: [facility] [address] [facility] CBC & DIFF HEMOGLOBIN [MASS/VOLU ME] IN BLOOD 10.5 13.5 - 17.9 11/18 L Specimen Type: BLOOD Comment: Automated Differentia l Performed Ordering Provider: KEELY NGUYEN Report Released Date/Time: Jan 14, 2022 08:41 AM Reporting Lab: [facility] [address] Performing Lab: [facility] [address] [facility] CBC & DIFF HEMATOCRIT [VOLUME FRACTION] OF BLOOD BY AUTOMATED COUNT 33.3 41 - 54 11/18 L Specimen Type: BLOOD Comment: Automated Differentia l Performed Ordering Provider: KEELY NGUYEN Report Released Date/Time: Jan 14, 2022 08:41 AM Reporting Lab: [facility] [address] Performing Lab: [facility] [address] [facility] CBC & DIFF MCV [ENTITIC VOLUME] BY AUTOMATED COUNT 108.8 80 - 100 11/18 H Specimen Type: BLOOD Comment: Automated Differentia l Performed Ordering Provider: KEELY NGUYEN Report Released Date/Time: Jan 14, 2022 08:41 AM Reporting Lab: [facility] [address] Performing Lab: [facility] [address] [facility] CBC & DIFF MCH [ENTITIC MASS] BY AUTOMATED COUNT 34.3 27 - 33 11/18 H Specimen Type: BLOOD Comment: Automated Differentia l Performed Ordering Provider: KEELY NGUYEN Report Released Date/Time: Jan 14, 2022 08:41 AM Reporting Lab: [facility] [address] Performing Lab: [facility] [address] [facility] CBC & DIFF MCHC [MASS/VOLU ME] BY AUTOMATED COUNT 31.5 32.0 - 37.5 11/18 L Specimen Type: BLOOD Comment: Automated Differentia l Performed Ordering Provider: KEELY NGUYEN Report Released Date/Time: Jan 14, 2022 08:41 AM Reporting Lab: [facility] [address] Performing Lab: [facility] [address] [facility] CBC & DIFF PLATELETS [#/VOLUME] IN BLOOD BY AUTOMATED COUNT 134 150 - 400 11/18 L Specimen Type: BLOOD Comment: Automated Differentia l Performed Ordering Provider: KEELY NGUYEN Report Released Date/Time: Jan 14, 2022 08:41 AM Reporting Lab: [facility] [address] Performing Lab: [facility] [address] [facility] CBC & DIFF PLATELET MEAN VOLUME [ENTITIC VOLUME] IN BLOOD BY AUTOMATED COUNT 10.5 7.4 - 10.4 11/18 H Specimen Type: BLOOD Comment: Automated Differentia l Performed Ordering Provider: KEELY NGUYEN Report Released Date/Time: Jan 14, 2022 08:41 AM Reporting Lab: [facility] [address] Performing Lab: [facility] [address] [facility] CBC & DIFF NEUTROPHIL S/100 LEUKOCYTES IN BLOOD BY MANUAL COUNT 70.1 40.0 - 80.0 11/18 Specimen Type: BLOOD Comment: Automated Differentia l Performed Ordering Provider: KEELY NGUYEN Report Released Date/Time: Jan 14, 2022 08:41 AM Reporting Lab: [facility] [address] Performing Lab: [facility] [address] [facility] CBC & DIFF LYMPHOCYTE S/100 LEUKOCYTES IN BLOOD BY MANUAL COUNT 15.3 15.0 - 45.0 11/18 Specimen Type: BLOOD Comment: Automated Differentia l Performed Ordering Provider: KEELY NGUYEN Report Released Date/Time: Jan 14, 2022 08:41 AM Reporting Lab: [facility] [address] Performing Lab: [facility] [address] [facility] CBC & DIFF MONOCYTES/ 100 LEUKOCYTES IN BLOOD BY AUTOMATED COUNT 10.9 2.0 - 12.0 11/18 Specimen Type: BLOOD Comment: Automated Differentia l Performed Ordering Provider: KEELY NGUYEN Report Released Date/Time: Jan 14, 2022 08:41 AM Reporting Lab: [facility] [address] Performing Lab: [facility] [address] [facility] CBC & DIFF EOSINOPHIL S/100 LEUKOCYTES IN BLOOD BY AUTOMATED COUNT 2.1 0.0 - 6.0 11/18 Specimen Type: BLOOD Comment: Automated Differentia l Performed Ordering Provider: KEELY NGUYEN Report Released Date/Time: Jan 14, 2022 08:41 AM Reporting Lab: [facility] [address] Performing Lab: [facility] [address] [facility] CBC & DIFF BASOPHILS/ 100 LEUKOCYTES IN BLOOD BY MANUAL COUNT 0.6 0.0 - 2.0 11/18 Specimen Type: BLOOD Comment: Automated Differentia l Performed Ordering Provider: KEELY NGUYEN Report Released Date/Time: Jan 14, 2022 08:41 AM Reporting Lab: [facility] [address] Performing Lab: [facility] [address] [facility] CBC & DIFF ERYTHROCYT E DISTRIBUTI ON WIDTH [RATIO] BY AUTOMATED COUNT 13.8 11.5 - 14.5 11/18 Specimen Type: BLOOD Comment: Automated Differentia l Performed Ordering Provider: KEELY NGUYEN Report Released Date/Time: Jan 14, 2022 08:41 AM Reporting Lab: [facility] [address] Performing Lab: [facility] [address] [facility] CBC & DIFF LYMPHOCYTE S [#/VOLUME] IN BLOOD BY AUTOMATED COUNT 0.73 1.0 - 4.0 11/18 L Specimen Type: BLOOD Comment: Automated Differentia l Performed Ordering Provider: KEELY NGUYEN Report Released Date/Time: Jan 14, 2022 08:41 AM Reporting Lab: [facility] [address] Performing Lab: [facility] [address] [facility] CBC & DIFF MONOCYTES [#/VOLUME] IN BLOOD BY AUTOMATED COUNT 0.52 0.1 - 1.0 11/18 Specimen Type: BLOOD Comment: Automated Differentia l Performed Ordering Provider: KEELY NGUYEN Report Released Date/Time: Jan 14, 2022 08:41 AM Reporting Lab: [facility] [address] Performing Lab: [facility] [address] [facility] CBC & DIFF NEUTROPHIL S [#/VOLUME] IN BLOOD BY AUTOMATED COUNT 3.34 2.0 - 7.7 11/18 Specimen Type: BLOOD Comment: Automated Differentia l Performed Ordering Provider: KEELY NGUYEN Report Released Date/Time: Jan 14, 2022 08:41 AM Reporting Lab: [facility] [address] Performing Lab: [facility] [address] [facility] CBC & DIFF EOSINOPHIL S [#/VOLUME] IN BLOOD BY AUTOMATED COUNT 0.10 0 - 0.5 11/18 Specimen Type: BLOOD Comment: Automated Differentia l Performed Ordering Provider: KEELY NGUYEN Report Released Date/Time: Jan 14, 2022 08:41 AM Reporting Lab: [facility] [address] Performing Lab: [facility] [address] [facility] CBC & DIFF BASOPHILS [#/VOLUME] IN BLOOD BY AUTOMATED COUNT 0.03 0 - 0.2 11/18 Specimen Type: BLOOD Comment: Automated Differentia l Performed Ordering Provider: KEELY NGUYEN Report Released Date/Time: Jan 14, 2022 08:41 AM Reporting Lab: [facility] [address] Performing Lab: [facility] [address] [facility] CBC & DIFF IG(META,MY MAYA,PRO) 1.0 11/18 Specimen Type: BLOOD Comment: Automated Differentia l Performed Ordering Provider: KEELY NGUYEN Report Released Date/Time: Jan 14, 2022 08:41 AM Reporting Lab: [facility] [address] Performing Lab: [facility] [address] [facility] CBC & DIFF IMMATURE GRANULOCYT ES [PRESENCE] IN BLOOD BY AUTOMATED COUNT 0.05 0 - 0.1 11/18 Specimen Type: BLOOD Comment: Automated Differentia l Performed Ordering Provider: KEELY NGUYEN Report Released Date/Time: Jan 14, 2022 08:41 AM Reporting Lab: [facility] [address] Performing Lab: [facility] [address] [facility] CBC & DIFF LEUKOCYTES [#/VOLUME] IN BLOOD BY AUTOMATED COUNT 4.72 4.0 - 11.0 11/18 Specimen Type: BLOOD Comment: Automated Differentia l Performed Ordering Provider: KEELY NGUYEN Report Released Date/Time: Nov 18, 2022 02:10 PM Reporting Lab: [facility] [address] Performing Lab: [facility] [address] [facility] CBC & DIFF ERYTHROCYT ES [#/VOLUME] IN BLOOD BY AUTOMATED COUNT 3.07 4.6 - 6.2 11/18 L Specimen Type: BLOOD Comment: Automated Differentia l Performed Ordering Provider: KEELY NGUYEN Report Released Date/Time: Nov 18, 2022 02:10 PM Reporting Lab: [facility] [address] Performing Lab: [facility] [address] [facility] CBC & DIFF HEMOGLOBIN [MASS/VOLU ME] IN BLOOD 10.7 13.5 - 17.9 11/18 L Specimen Type: BLOOD Comment: Automated Differentia l Performed Ordering Provider: KEELY NGUYEN Report Released Date/Time: Nov 18, 2022 02:10 PM Reporting Lab: [facility] [address] Performing Lab: [facility] [address] [facility] CBC & DIFF HEMATOCRIT [VOLUME FRACTION] OF BLOOD BY AUTOMATED COUNT 33.0 41 - 54 11/18 L Specimen Type: BLOOD Comment: Automated Differentia l Performed Ordering Provider: KEELY NGUYEN Report Released Date/Time: Nov 18, 2022 02:10 PM Reporting Lab: [facility] [address] Performing Lab: [facility] [address] [facility] CBC & DIFF MCV [ENTITIC VOLUME] BY AUTOMATED COUNT 107.5 80 - 100 11/18 H Specimen Type: BLOOD Comment: Automated Differentia l Performed Ordering Provider: KEELY NGUYEN Report Released Date/Time: Nov 18, 2022 02:10 PM Reporting Lab: [facility] [address] Performing Lab: [facility] [address] [facility] CBC & DIFF MCH [ENTITIC MASS] BY AUTOMATED COUNT 34.9 27 - 33 11/18 H Specimen Type: BLOOD Comment: Automated Differentia l Performed Ordering Provider: KEELY NGUYEN Report Released Date/Time: Nov 18, 2022 02:10 PM Reporting Lab: [facility] [address] Performing Lab: [facility] [address] [facility] CBC & DIFF MCHC [MASS/VOLU ME] BY AUTOMATED COUNT 32.4 32.0 - 37.5 11/18 Specimen Type: BLOOD Comment: Automated Differentia l Performed Ordering Provider: KEELY NGUYEN Report Released Date/Time: Nov 18, 2022 02:10 PM Reporting Lab: [facility] [address] Performing Lab: [facility] [address] [facility] CBC & DIFF PLATELETS [#/VOLUME] IN BLOOD BY AUTOMATED COUNT 139 150 - 400 11/18 L Specimen Type: BLOOD Comment: Automated Differentia l Performed Ordering Provider: KEELY NGUYEN Report Released Date/Time: Nov 18, 2022 02:10 PM Reporting Lab: [facility] [address] Performing Lab: [facility] [address] [facility] CBC & DIFF PLATELET MEAN VOLUME [ENTITIC VOLUME] IN BLOOD BY AUTOMATED COUNT 10.3 7.4 - 10.4 11/18 Specimen Type: BLOOD Comment: Automated Differentia l Performed Ordering Provider: KEELY NGUYEN Report Released Date/Time: Nov 18, 2022 02:10 PM Reporting Lab: [facility] [address] Performing Lab: [facility] [address] [facility] CBC & DIFF NEUTROPHIL S/100 LEUKOCYTES IN BLOOD BY MANUAL COUNT 70.8 40.0 - 80.0 11/18 Specimen Type: BLOOD Comment: Automated Differentia l Performed Ordering Provider: KEELY NGUYEN Report Released Date/Time: Nov 18, 2022 02:10 PM Reporting Lab: [facility] [address] Performing Lab: [facility] [address] [facility] CBC & DIFF LYMPHOCYTE S/100 LEUKOCYTES IN BLOOD BY MANUAL COUNT 14.6 15.0 - 45.0 11/18 L Specimen Type: BLOOD Comment: Automated Differentia l Performed Ordering Provider: KEELY NGUYEN Report Released Date/Time: Nov 18, 2022 02:10 PM Reporting Lab: [facility] [address] Performing Lab: [facility] [address] [facility] CBC & DIFF MONOCYTES/ 100 LEUKOCYTES IN BLOOD BY AUTOMATED COUNT 11.9 2.0 - 12.0 11/18 Specimen Type: BLOOD Comment: Automated Differentia l Performed Ordering Provider: KEELY NGUYEN Report Released Date/Time: Nov 18, 2022 02:10 PM Reporting Lab: [facility] [address] Performing Lab: [facility] [address] [facility] CBC & DIFF EOSINOPHIL S/100 LEUKOCYTES IN BLOOD BY AUTOMATED COUNT 1.5 0.0 - 6.0 11/18 Specimen Type: BLOOD Comment: Automated Differentia l Performed Ordering Provider: KEELY NGUYEN Report Released Date/Time: Nov 18, 2022 02:10 PM Reporting Lab: [facility] [address] Performing Lab: [facility] [address] [facility] CBC & DIFF BASOPHILS/ 100 LEUKOCYTES IN BLOOD BY MANUAL COUNT 0.6 0.0 - 2.0 11/18 Specimen Type: BLOOD Comment: Automated Differentia l Performed Ordering Provider: KEELY NGUYEN Report Released Date/Time: Nov 18, 2022 02:10 PM Reporting Lab: [facility] [address] Performing Lab: [facility] [address] [facility] CBC & DIFF ERYTHROCYT E DISTRIBUTI ON WIDTH [RATIO] BY AUTOMATED COUNT 13.9 11.5 - 14.5 11/18 Specimen Type: BLOOD Comment: Automated Differentia l Performed Ordering Provider: KEELY NGUYEN Report Released Date/Time: Nov 18, 2022 02:10 PM Reporting Lab: [facility] [address] Performing Lab: [facility] [address] [facility] CBC & DIFF LYMPHOCYTE S [#/VOLUME] IN BLOOD BY AUTOMATED COUNT 0.69 1.0 - 4.0 11/18 L Specimen Type: BLOOD Comment: Automated Differentia l Performed Ordering Provider: KEELY NGUYEN Report Released Date/Time: Nov 18, 2022 02:10 PM Reporting Lab: [facility] [address] Performing Lab: [facility] [address] [facility] CBC & DIFF MONOCYTES [#/VOLUME] IN BLOOD BY AUTOMATED COUNT 0.56 0.1 - 1.0 11/18 Specimen Type: BLOOD Comment: Automated Differentia l Performed Ordering Provider: KEELY NGUYEN Report Released Date/Time: Nov 18, 2022 02:10 PM Reporting Lab: [facility] [address] Performing Lab: [facility] [address] [facility] CBC & DIFF NEUTROPHIL S [#/VOLUME] IN BLOOD BY AUTOMATED COUNT 3.34 2.0 - 7.7 11/18 Specimen Type: BLOOD Comment: Automated Differentia l Performed Ordering Provider: KEELY NGUYEN Report Released Date/Time: Nov 18, 2022 02:10 PM Reporting Lab: [facility] [address] Performing Lab: [facility] [address] [facility] CBC & DIFF EOSINOPHIL S [#/VOLUME] IN BLOOD BY AUTOMATED COUNT 0.07 0 - 0.5 11/18 Specimen Type: BLOOD Comment: Automated Differentia l Performed Ordering Provider: KEELY NGUYEN Report Released Date/Time: Nov 18, 2022 02:10 PM Reporting Lab: [facility] [address] Performing Lab: [facility] [address] [facility] CBC & DIFF BASOPHILS [#/VOLUME] IN BLOOD BY AUTOMATED COUNT 0.03 0 - 0.2 11/18 Specimen Type: BLOOD Comment: Automated Differentia l Performed Ordering Provider: KEELY NGUYEN Report Released Date/Time: Nov 18, 2022 02:10 PM Reporting Lab: [facility] [address] Performing Lab: [facility] [address] [facility] CBC & DIFF IG(META,MY MAYA,PRO) 0.6 11/18 Specimen Type: BLOOD Comment: Automated Differentia l Performed Ordering Provider: KEELY NGUYEN Report Released Date/Time: Nov 18, 2022 02:10 PM Reporting Lab: [facility] [address] Performing Lab: [facility] [address] [facility] CBC & DIFF IMMATURE GRANULOCYT ES [PRESENCE] IN BLOOD BY AUTOMATED COUNT 0.03 0 - 0.1 11/18 Specimen Type: BLOOD Comment: Automated Differentia l Performed Ordering Provider: KEELY NGUYEN Report Released Date/Time: Nov 18, 2022 02:10 PM Reporting Lab: [facility] [address] Performing Lab: [facility] [address] [facility] TSH W/REFLEX TO FREE T4 THYROTROPI N [UNITS/VOL UME] IN SERUM OR PLASMA 1.85 0.35 - 4.94 11/18 Specimen Type: PLASMA No comment entered. Ordering Provider: KEELY NGUYEN Report Released Date/Time: Nov 18, 2022 02:10 PM Reporting Lab: [facility] [address] Performing Lab: [facility] [address] [facility] COMPREHEN SIVE METABOLIC PANEL+MG CREATININE [MASS/VOLU ME] IN SERUM OR PLASMA 1.4 0.7 - 1.2 11/18 H Specimen Type: PLASMA Comment: Automated Differentia l Performed Ordering Provider: KEELY NGUYEN Report Released Date/Time: Nov 18, 2022 02:10 PM Reporting Lab: [facility] [address] Performing Lab: [facility] [address] [facility] COMPREHEN SIVE METABOLIC PANEL+MG UREA NITROGEN [MASS/VOLU ME] IN SERUM OR PLASMA 29 8 - 26 11/18 H Specimen Type: PLASMA Comment: Automated Differentia l Performed Ordering Provider: KEELY NGUYEN Report Released Date/Time: Nov 18, 2022 02:10 PM Reporting Lab: [facility] [address] Performing Lab: [facility] [address] [facility] COMPREHEN SIVE METABOLIC PANEL+MG GLUCOSE [MASS/VOLU ME] IN SERUM OR PLASMA 79 70 - 100 11/18 Specimen Type: PLASMA Comment: Automated Differentia l Performed Ordering Provider: KEELY NGUYEN Report Released Date/Time: Nov 18, 2022 02:10 PM Reporting Lab: [facility] [address] Performing Lab: [facility] [address] [facility] COMPREHEN SIVE METABOLIC PANEL+MG SODIUM [MOLES/VOL UME] IN SERUM OR PLASMA 138 136 - 145 11/18 Specimen Type: PLASMA Comment: Automated Differentia l Performed Ordering Provider: KEELY NGUYEN Report Released Date/Time: Nov 18, 2022 02:10 PM Reporting Lab: [facility] [address] Performing Lab: [facility] [address] [facility] COMPREHEN SIVE METABOLIC PANEL+MG POTASSIUM [MOLES/VOL UME] IN SERUM OR PLASMA 4.8 3.5 - 5.1 11/18 Specimen Type: PLASMA Comment: Automated Differentia l Performed Ordering Provider: KEELY NGUYEN Report Released Date/Time: Nov 18, 2022 02:10 PM Reporting Lab: [facility] [address] Performing Lab: [facility] [address] [facility] COMPREHEN SIVE METABOLIC PANEL+MG CHLORIDE [MOLES/VOL UME] IN SERUM OR PLASMA 105 98 - 107 11/18 Specimen Type: PLASMA Comment: Automated Differentia l Performed Ordering Provider: KEELY NGUYEN Report Released Date/Time: Nov 18, 2022 02:10 PM Reporting Lab: [facility] [address] Performing Lab: [facility] [address] [facility] COMPREHEN SIVE METABOLIC PANEL+MG CARBON DIOXIDE, TOTAL [MOLES/VOL UME] IN SERUM OR PLASMA 30 22 - 29 11/18 H Specimen Type: PLASMA Comment: Automated Differentia l Performed Ordering Provider: KEELY NGUYEN Report Released Date/Time: Nov 18, 2022 02:10 PM Reporting Lab: [facility] [address] Performing Lab: [facility] [address] [facility] COMPREHEN SIVE METABOLIC PANEL+MG CALCIUM [MASS/VOLU ME] IN SERUM OR PLASMA 9.5 8.4 - 10.2 11/18 Specimen Type: PLASMA Comment: Automated Differentia l Performed Ordering Provider: KEELY NGUYEN Report Released Date/Time: Nov 18, 2022 02:10 PM Reporting Lab: [facility] [address] Performing Lab: [facility] [address] [facility] COMPREHEN SIVE METABOLIC PANEL+MG PROTEIN [MASS/VOLU ME] IN SERUM OR PLASMA 7.2 6.0 - 8.3 11/18 Specimen Type: PLASMA Comment: Automated Differentia l Performed Ordering Provider: KEELY NGUYEN Report Released Date/Time: Nov 18, 2022 02:10 PM Reporting Lab: [facility] [address] Performing Lab: [facility] [address] [facility] COMPREHEN SIVE METABOLIC PANEL+MG ALBUMIN [MASS/VOLU ME] IN SERUM OR PLASMA 4.0 3.5 - 5.2 11/18 Specimen Type: PLASMA Comment: Automated Differentia l Performed Ordering Provider: KEELY NGUYEN Report Released Date/Time: Nov 18, 2022 02:10 PM Reporting Lab: [facility] [address] Performing Lab: [facility] [address] [facility] COMPREHEN SIVE METABOLIC PANEL+MG BILIRUBIN. TOTAL [MASS/VOLU ME] IN SERUM OR PLASMA 0.4 0.2 - 1.2 11/18 Specimen Type: PLASMA Comment: Automated Differentia l Performed Ordering Provider: KEELY NGUYEN Report Released Date/Time: Nov 18, 2022 02:10 PM Reporting Lab: [facility] [address] Performing Lab: [facility] [address] [facility] COMPREHEN SIVE METABOLIC PANEL+MG MAGNESIUM [MASS/VOLU ME] IN SERUM OR PLASMA 2.0 1.6 - 2.6 11/18 Specimen Type: PLASMA Comment: Automated Differentia l Performed Ordering Provider: KEELY NGUYEN Report Released Date/Time: Nov 18, 2022 02:10 PM Reporting Lab: [facility] [address] Performing Lab: [facility] [address] [facility] COMPREHEN SIVE METABOLIC PANEL+MG ANION GAP IN SERUM OR PLASMA 3 5 - 15 09/20 /2023 L Specimen Type: PLASMA Comment: Automated Differentia l Performed Ordering Provider: KEELY NGUYEN Report Released Date/Time: Nov 18, 2022 02:10 PM Reporting Lab: [facility] [address] Performing Lab: [facility] [address] [facility] COMPREHEN SIVE METABOLIC PANEL+MG ALKALINE PHOSPHATAS E [ENZYMATIC ACTIVITY/V OLUME] IN SERUM OR PLASMA 54 40 - 150 11/18 Specimen Type: PLASMA Comment: Automated Differentia l Performed Ordering Provider: KEELY NGUYEN Report Released Date/Time: Nov 18, 2022 02:10 PM Reporting Lab: [facility] [address] Performing Lab: [facility] [address] [facility] COMPREHEN SIVE METABOLIC PANEL+MG ALANINE AMINOTRANS FERASE [ENZYMATIC ACTIVITY/V OLUME] IN SERUM OR PLASMA 14 <55 - 55 11/18 Specimen Type: PLASMA Comment: Automated Differentia l Performed Ordering Provider: KEELY NGUYEN Report Released Date/Time: Nov 18, 2022 02:10 PM Reporting Lab: [facility] [address] Performing Lab: [facility] [address] [facility] COMPREHEN SIVE METABOLIC PANEL+MG ASPARTATE AMINOTRANS FERASE [ENZYMATIC ACTIVITY/V OLUME] IN SERUM OR PLASMA 20 <34 - 34 11/18 Specimen Type: PLASMA Comment: Automated Differentia l Performed Ordering Provider: KEELY NGUYEN Report Released Date/Time: Nov 18, 2022 02:10 PM Reporting Lab: [facility] [address] Performing Lab: [facility] [address] [facility] COMPREHEN SIVE METABOLIC PANEL+MG GLOMERULAR FILTRATION RATE/1.73 SQ M.PREDICTE D [VOLUME RATE/AREA] IN SERUM, PLASMA OR BLOOD BY CREATININE -BASED FORMULA (CKD-EPI 2020) 51 60 11/18 L Specimen Type: PLASMA Comment: Automated Differentia l Performed Ordering Provider: KEELY NGUYEN Report Released Date/Time: Nov 18, 2022 02:10 PM Reporting Lab: [facility] [address] Performing Lab: [facility] [address] [facility] PERIPHERA L SMEAR PATHOLOGI ST REVIEW ERYTHROCYT E MORPHOLOGY FINDING [IDENTIFIE R] IN BLOOD SLIDES MADE 01/13 Specimen Type: BLOOD No comment entered. Ordering Provider: KEELY NGUYEN Report Released Date/Time: Nov 27, 2021 09:58 AM Reporting Lab: [facility] [address] Performing Lab: [facility] [address] [facility] CBC & DIFF LEUKOCYTES [#/VOLUME] IN BLOOD BY AUTOMATED COUNT 4.85 4.0 - 11.0 01/13 Specimen Type: BLOOD Comment: Automated Differentia l Performed Ordering Provider: KEELY NGUYEN Report Released Date/Time: Nov 27, 2021 09:58 AM Reporting Lab: [facility] [address] Performing Lab: [facility] [address] [facility] CBC & DIFF ERYTHROCYT ES [#/VOLUME] IN BLOOD BY AUTOMATED COUNT 3.32 4.6 - 6.2 01/13 L Specimen Type: BLOOD Comment: Automated Differentia l Performed Ordering Provider: KEELY NGUYEN Report Released Date/Time: Nov 27, 2021 09:58 AM Reporting Lab: [facility] [address] Performing Lab: [facility] [address] [facility] CBC & DIFF HEMOGLOBIN [MASS/VOLU ME] IN BLOOD 11.7 13.5 - 17.9 01/13 L Specimen Type: BLOOD Comment: Automated Differentia l Performed Ordering Provider: KEELY NGUYEN Report Released Date/Time: Nov 27, 2021 09:58 AM Reporting Lab: [facility] [address] Performing Lab: [facility] [address] [facility] CBC & DIFF HEMATOCRIT [VOLUME FRACTION] OF BLOOD BY AUTOMATED COUNT 35.7 41 - 54 01/13 L Specimen Type: BLOOD Comment: Automated Differentia l Performed Ordering Provider: KEELY NGUYEN Report Released Date/Time: Nov 27, 2021 09:58 AM Reporting Lab: [facility] [address] Performing Lab: [facility] [address] [facility] CBC & DIFF MCV [ENTITIC VOLUME] BY AUTOMATED COUNT 107.5 80 - 100 01/13 H Specimen Type: BLOOD Comment: Automated Differentia l Performed Ordering Provider: KEELY NGUYEN Report Released Date/Time: Nov 27, 2021 09:58 AM Reporting Lab: [facility] [address] Performing Lab: [facility] [address] [facility] CBC & DIFF MCH [ENTITIC MASS] BY AUTOMATED COUNT 35.2 27 - 33 01/13 H Specimen Type: BLOOD Comment: Automated Differentia l Performed Ordering Provider: KEELY NGUYEN Report Released Date/Time: Nov 27, 2021 09:58 AM Reporting Lab: [facility] [address] Performing Lab: [facility] [address] [facility] CBC & DIFF MCHC [MASS/VOLU ME] BY AUTOMATED COUNT 32.8 32.0 - 37.5 01/13 Specimen Type: BLOOD Comment: Automated Differentia l Performed Ordering Provider: KEELY NGUYEN Report Released Date/Time: Nov 27, 2021 09:58 AM Reporting Lab: [facility] [address] Performing Lab: [facility] [address] [facility] CBC & DIFF PLATELETS [#/VOLUME] IN BLOOD BY AUTOMATED COUNT 142 150 - 400 01/13 L Specimen Type: BLOOD Comment: Automated Differentia l Performed Ordering Provider: KEELY NGUYEN Report Released Date/Time: Nov 27, 2021 09:58 AM Reporting Lab: [facility] [address] Performing Lab: [facility] [address] [facility] CBC & DIFF PLATELET MEAN VOLUME [ENTITIC VOLUME] IN BLOOD BY AUTOMATED COUNT 10.0 7.4 - 10.4 01/13 Specimen Type: BLOOD Comment: Automated Differentia l Performed Ordering Provider: KEELY NGUYEN Report Released Date/Time: Nov 27, 2021 09:58 AM Reporting Lab: [facility] [address] Performing Lab: [facility] [address] [facility] CBC & DIFF NEUTROPHIL S/100 LEUKOCYTES IN BLOOD BY MANUAL COUNT 72.5 01/13 Specimen Type: BLOOD Comment: Automated Differentia l Performed Ordering Provider: KEELY NGUYEN Report Released Date/Time: Nov 27, 2021 09:58 AM Reporting Lab: [facility] [address] Performing Lab: [facility] [address] [facility] CBC & DIFF LYMPHOCYTE S/100 LEUKOCYTES IN BLOOD BY MANUAL COUNT 10.9 01/13 Specimen Type: BLOOD Comment: Automated Differentia l Performed Ordering Provider: KEELY NGUYEN Report Released Date/Time: Nov 27, 2021 09:58 AM Reporting Lab: [facility] [address] Performing Lab: [facility] [address] [facility] CBC & DIFF MONOCYTES/ 100 LEUKOCYTES IN BLOOD BY AUTOMATED COUNT 13.4 01/13 Specimen Type: BLOOD Comment: Automated Differentia l Performed Ordering Provider: KEELY NGUYEN Report Released Date/Time: Nov 27, 2021 09:58 AM Reporting Lab: [facility] [address] Performing Lab: [facility] [address] [facility] CBC & DIFF EOSINOPHIL S/100 LEUKOCYTES IN BLOOD BY AUTOMATED COUNT 1.4 01/13 Specimen Type: BLOOD Comment: Automated Differentia l Performed Ordering Provider: KEELY NGUYEN Report Released Date/Time: Nov 27, 2021 09:58 AM Reporting Lab: [facility] [address] Performing Lab: [facility] [address] [facility] CBC & DIFF BASOPHILS/ 100 LEUKOCYTES IN BLOOD BY MANUAL COUNT 0.8 01/13 Specimen Type: BLOOD Comment: Automated Differentia l Performed Ordering Provider: KEELY NGUYEN Report Released Date/Time: Nov 27, 2021 09:58 AM Reporting Lab: [facility] [address] Performing Lab: [facility] [address] [facility] CBC & DIFF ERYTHROCYT E DISTRIBUTI ON WIDTH [RATIO] BY AUTOMATED COUNT 13.5 11.5 - 14.5 01/13 Specimen Type: BLOOD Comment: Automated Differentia l Performed Ordering Provider: KEELY NGUYEN Report Released Date/Time: Nov 27, 2021 09:58 AM Reporting Lab: [facility] [address] Performing Lab: [facility] [address] [facility] CBC & DIFF LYMPHOCYTE S [#/VOLUME] IN BLOOD BY AUTOMATED COUNT 0.53 1.0 - 4.0 01/13 L Specimen Type: BLOOD Comment: Automated Differentia l Performed Ordering Provider: KEELY NGUYEN Report Released Date/Time: Nov 27, 2021 09:58 AM Reporting Lab: [facility] [address] Performing Lab: [facility] [address] [facility] CBC & DIFF MONOCYTES [#/VOLUME] IN BLOOD BY AUTOMATED COUNT 0.65 0.1 - 1.0 01/13 Specimen Type: BLOOD Comment: Automated Differentia l Performed Ordering Provider: KEELY NGUYEN Report Released Date/Time: Nov 27, 2021 09:58 AM Reporting Lab: [facility] [address] Performing Lab: [facility] [address] [facility] CBC & DIFF NEUTROPHIL S [#/VOLUME] IN BLOOD BY AUTOMATED COUNT 3.51 2.0 - 7.7 01/13 Specimen Type: BLOOD Comment: Automated Differentia l Performed Ordering Provider: KEELY NGUYEN Report Released Date/Time: Nov 27, 2021 09:58 AM Reporting Lab: [facility] [address] Performing Lab: [facility] [address] [facility] CBC & DIFF EOSINOPHIL S [#/VOLUME] IN BLOOD BY AUTOMATED COUNT 0.07 0 - 0.5 01/13 Specimen Type: BLOOD Comment: Automated Differentia l Performed Ordering Provider: KEELY NGUYEN Report Released Date/Time: Nov 27, 2021 09:58 AM Reporting Lab: [facility] [address] Performing Lab: [facility] [address] [facility] CBC & DIFF BASOPHILS [#/VOLUME] IN BLOOD BY AUTOMATED COUNT 0.04 0 - 0.2 01/13 Specimen Type: BLOOD Comment: Automated Differentia l Performed Ordering Provider: KEELY NGUYEN Report Released Date/Time: Nov 27, 2021 09:58 AM Reporting Lab: [facility] [address] Performing Lab: [facility] [address] [facility] CBC & DIFF IG(META,MY MAYA,PRO) 1.0 01/13 Specimen Type: BLOOD Comment: Automated Differentia l Performed Ordering Provider: KEELY NGUYEN Report Released Date/Time: Nov 27, 2021 09:58 AM Reporting Lab: [facility] [address] Performing Lab: [facility] [address] [facility] CBC & DIFF IMMATURE GRANULOCYT ES [PRESENCE] IN BLOOD BY AUTOMATED COUNT 0.05 0 - 0.1 01/13 Specimen Type: BLOOD Comment: Automated Differentia l Performed Ordering Provider: KEELY NGUYEN Report Released Date/Time: Nov 27, 2021 09:58 AM Reporting Lab: [facility] [address] Performing Lab: [facility] [address] [facility] PERIPHERA L SMEAR PATHOLOGI ST REVIEW ERYTHROCYT E MORPHOLOGY FINDING [IDENTIFIE R] IN BLOOD SLIDES MADE 11/25 Specimen Type: BLOOD No comment entered. Ordering Provider: KEELY NGUYEN Report Released Date/Time: Nov 18, 2021 10:19 AM Reporting Lab: [facility] [address] Performing Lab: [facility] [address] [facility] B 12 COBALAMIN (VITAMIN B12) [MASS/VOLU ME] IN SERUM OR PLASMA 311 213 - 816 11/25 Specimen Type: SERUM No comment entered. Ordering Provider: KEELY NGUYEN Report Released Date/Time: Nov 18, 2021 10:19 AM Reporting Lab: [facility] [address] Performing Lab: [facility] [address] [facility] Vital Signs Combined list of inpatient and outpatient Vital Signs from [facility] and [facility], ranging from 12 months to all on [...] months. 2) Encounters from the Department of [facility] facilities going back up to 280 months. Location Location Details Encounter Type Encounter Number Reason For Visit Attending Provider ADM Date DC Date Status Disposition Source [facility] Outpatient Encounter [id number] 01/14 [facility] [place] [facility] Outpatient Encounter [id number] ABBE CONTRERAS 01/14 [facility] [place] [facility] Outpatient Encounter [id number] 03/11 [facility] [place] [facility] Outpatient Encounter [id number] 07/23 [facility] [place] [facility] [place] Encounter [id number] 07[facility]23 [facility] OFFICE O/P EST MOD 30-39 MIN [id number] Diagnos is: ICD-10- CM Z00.8 Encount er for other general examina tion
Stuart NGUYEN 11/18 [facility] [facility] Outpatient Encounter [id number] 12/15 [facility] [place] [facility]counter [id number] 01/15 [facility] [place] [facility] Encounter [id number] 01/29 [facility] [place] [facility] [place] Encounter [id number] 02/02 [place] [facility] [place] [facility] [place] Encounter [id number] 02/03 [facility] [place] [facility] Out[place] Encounter [id number] SCARLETT HOPPER 02/03 [place] [facility] [place] [facility] Outpatient Encounter [id number] RUCHI SCARLETT M 02/03 [facility] [place] [facility] Out[facility] Encounter [id number] 03/09 [place] [facility] [place] [facility] Out[place] Encounter [id number] 03/11 [place] [facility] [place] [facility] Outpatient Encounter [id number] 05/11 [facility] [place] [facility] CASE MANAGEMENT [id number] Diagnos is: ICD-10- CM R53.1 Lucretia s
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 Social History Type Response Date Comment Source Tobacco smoking status NHIS [facility] FORMER USER 11/18/2022 [facility] History of tobacco use VA-TOBACCO QUIT 15 YRS OR MORE 11/18/2022 [facility] History of tobacco use VA-TOBACCO FORMER USER 11/17/2021 [facility] History of tobacco use VA-TOBACCO QUIT 15 YRS OR MORE 11/14/2020 [facility] History of tobacco use VA-TOBACCO FORMER USER 11/08/2019 [facility] History of tobacco use VA-TOBACCO FORMER USER 10/07/2018 [facility] History of tobacco use FORMER TOBACCO USER 7Y OR GREATER 09/29/2017 [facility] History of tobacco use FORMER TOBACCO USER 7Y OR GREATER 11/13/2016 [facility] History of tobacco use FORMER TOBACCO USER 7Y OR GREATER 10/16/2015 [facility] History of tobacco use FORMER TOBACCO USER 7Y OR GREATER 10/19/2014 [facility] History of tobacco use FORMER TOBACCO USER 7Y OR GREATER 10/11/2013 [facility] History of tobacco use FORMER TOBACCO [...]
--- OUTSIDE RECORDS SUMMARY | 2023-06-08 19:08 | XMS_ITS | Encounter Summary ---
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 This section includes the names of all active insurance providers for the patient. Insurance Provider Type of Coverage Plan Name Start of Policy Coverage End of Policy Coverage Group Number Member ID Insurance Provider's Telephone Number Policy Roe's Name Patient's Relationship to Policy Roe MEDICARE PART D (WNR) MEDICARE (M) PART D Mar 01, 2010 PART D [id number] [phone] DAVINA RODAS PATIENT [facility]-[employer] [place] [employer] (WNR) MEDICARE ADVANTAGE [employer] (WNR) Mar 01, 2019 [id number] [phone] ALLEN COLLAZODAVINA PATIENT [employer] OF [place] [employer] (WNR) MEDICARE ADVANTAGE [employer] (WNR) Mar 01, 2015 [facility] [id number] DAVINA RODAS PATIENT [employer] (WNR) MEDICARE ADVANTAGE [employer] (WNR) Mar 01, 2010 [facility] [id number] [place] DAVINA COLLAZO PATIENT Selected Encounter This section includes the information on record at MA for the Encounter. Date/Time Encounter Type Encounter Description Reason Provider Source May 25, 2023 08:30 AM CASE MANAGEMENT OCCUPATIONAL THERAPY ICD-10-CM R53.1 SANTHOSH Walter Kin Encounter Template Text not used by MA Assessments - Encounter Diagnoses This section includes the primary and secondary diagnoses documented for the Encounter. Date/Time Primary/Secondary Diagnosis Diagnosis Name Provider Source May 25, 2023 08:33 AM PRIMARY Weakness SANTHOSH VALLEJO [facility] Social History: Smoking Status (Most current) and Tobacco Use (All prior to encounter date) This section includes the most current, and the historical, smoking and tobacco- related health factors from the [place] facility where the Encounter took place. Current Smoking Status This section includes the most current smoking, or tobacco-related health factor, from the [place] facility where the Encounter took place. Date/Time Current Smoking Status Comment Facil ity Nov 08, 2019 12:00 PM VA-TOBACCO FORMER USER [facility] Tobacco Use History This section includes a history of the smoking, or tobacco-related health factors, that were collected on or before the date of the Encounter. The data comes from the MA facility where the Encounter took place. Date/Time Smoking Status/Tobacco Use Comment F acility Nov 08, 2019 12:00 PM MA-TOBACCO QUIT [address] [facility] Advance Directives: All historical and current Section Date Range: From patient's date of to the date document was created. This section includes ALL of a patient's completed or amended [place] Advance and Rescinded Directives. The entries below indicate that a directive exists for the patient, but an actual copy is not included with this document. The data comes from all [place] facilities. Date Advance Directives Provider Source Nov 27, 2021 ADVANCE DIRECTIVE SCARLETT HOPPER CBELLIOTT Nov 27, 2021 ADVANCE DIRECTIVE DISCUSSION ENRIE HOPPER [facility] Encounter Notes: All associated encounter notes This section contains the clinical notes associated to the Encounter. Date/Time Encounter Note(s) Provider Source May 25, 2023 08:30 AM ATTENDING NOTE: LOCAL TITLE: REHAB MEDICINE CARE COORDINATION STANDARD TITLE: ATTENDING NOTE DATE OF NOTE: MAY 25, 2023@08:30 ENTRY DATE: MAY 25, 2023@08:30:20 AUTHOR: SANTHOSH VALLEJO EXP COSIGNER: URGENCY: STATUS: COMPLETED Placed prosth request for DME to be mail out to the [facility]. 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 Hospital bed and Halo to be mail out to the [facility]. This therapist talk with the social work coordinator x3 regarding status and alerted prosth rep as well. Pt is being D/C to the [facility] 05-31-2023. Case Management time: 30 minutes /bassem/ SANTHOSH VALLEJOOTR/L,BCPR,DYLAN OCCUPATIONAL THERAPIST Signed: 05/25/2023 08:[address] [facility]
--- OUTSIDE RECORDS SUMMARY | 2023-06-08 19:08 | XMS_ITS | Encounter Summary ---
Author Name Department of Vetera Affairs Organization Department of Vetera ns Affairs Address [address] [place] [address] Support Name Relationship Address Phone MARSHALL DOUGLAS Next of Kin [address] [place] [address] MOE DOUGLAS Emergency Contact [address] [place] [address] MARSHALL DOUGLAS Next of Kin [address] [place] [address] MOE DOUGLAS Emergency Contact [phone] [place] [address] Insurance Providers: All historical and [...] PART D Mar 01, 2010 PART D [id number] DAVINA RODAS PATIENT [facility]-[place]ARE OF [place] [facility] (WNR) MEDICARE ADVANTAGE [facility] (WNR) Mar 01, 2019 [id number] ALLEN COLLAZODAVINA PATIENT [facility] [place] [facility] (WNR) MEDICARE ADVANTAGE [facility] (WNR) Mar 01, 2015 [facility] [id number] [phone] DAVINA RODAS PATIENT [facility] (WNR) MEDICARE ADVANTAGE [facility] (WNR) Mar 01, 2010 [facility] [id number] FLORESLINH COLLAZODAVINA PATIENT Selected Encounter This section includes the information on record at ME for the Encounter. Date/Time Encounter Type Encounter Description Reason Pro vider Source May 12, 2023 04:00 PM Outpatient Encounter TELEPHONE PRIMARY CARE IHE Encounter Template Text not used by ME Social History: Smoking Status (Most current) and Tobacco Use (All prior to encounter date) This section includes the most current, and the historical, smoking and tobacco- related health factors from the ME facility where the Encounter took place. Current Smoking Status This section includes the most current smoking, or tobacco-related health factor, from the ME facility where the Encounter took place. Date/Time Current Smoking Status Comment Facil ity Nov 08, 2019 12:00 PM ME-TOBACCO QUIT 15 YRS OR MORE [facility] Tobacco Use History This section includes a history of the smoking, or tobacco-related health factors, that were collected on or before the date of the Encounter. The data comes from the ME facility where the Encounter took place. Date/Time Smoking Status/Tobacco Use Comment F acility Nov 08, 2019 12:00 PM ME-TOBACCO QUIT 15 YRS OR MORE [facility] Advance Directives: All historical and current Section Date Range: From patient's date of to the date document was created. This section includes ALL of a patient's completed or amended ME Advance and Rescinded Directives. The entries below indicate that a directive exists for the patient, but an actual copy is not included with this document. The data comes from all ME facilities. Date Advance Directives Provider Source Nov 27, 2021 ADVANCE DIRECTIVE SCARLETT HILLIARD CB Nov 27, 2021 ADVANCE DIRECTIVE DISCUSSION ERNIE HILLIARD CB Encounter Notes: All associated encounter notes This section contains the clinical notes associated to the Encounter. Date/Time Encounter Note(s) Provider Source May 12, 2023 04:00 PM SOCIAL WORK NOTE: LOCAL TITLE: [facility] SOCIAL WORK PROGRESS NOTE STANDARD TITLE: SOCIAL WORK NOTE DATE OF NOTE: MAY 12, 2023@16:00 ENTRY DATE: MAY 12, 2023@16:10:57 AUTHOR: SCARLETT HILLIARD EXP COSIGNER: URGENCY: STATUS: COMPLETED [facility] SOCIAL WORK PROGRESS NOTE Has ADDENDA Received call from [facility] Elizabeth Kang Direct: [phone] * (7min). is currently in TCU and plans to return to memory care in [place]. Facility requesting wheelchair and walker for [place]. Educated about Community Therapist request process and agreed to email forms to SWer. Also informed SWer [place] may/may not be able to obtain both devices, depending on clinical need. Caller appreciative. Emailed DME and Home Accessibility Evaluations forms to: [email or web address] Also included: Fax community care equipment requests to: [phone] If questions, you may contact: Santhosh ELIZONDO/Angel, ANGELA, DYLAN Community Landing Scaler Work: OR Nikole Alvarenga PT [phone] PCSW remains available. /bassem/ VINAY VELASQUEZ Turner Machine Signed: 05/12/2023 16:28 Receipt Acknowledged By: 05/21/2023 14:49 /es/ MIKHAIL DE LEON/Angel,DYLAN MILLER OCCUPATIONAL THERAPIST 05/21/2023 12:49 /bassem/ ZAFAR TRUJILLO RN REGISTERED NURSE 05/21/2023 ADDENDUM STATUS: COMPLETED From: Elizabeth Haywood <[email or web address]> Sent: Friday, May 19, 2023 5:01 PM To: Scarlett Hilliard (she/her/hers) < > Subject: [EXTERNAL] RE: Community therapist request Hi there, I have a discharge date for of 05/31. I am having the PT fill out the paperwork you sent for a wheelchair. Is it possible to also get his hospital bed through the [facility] and this form? How quickly can these items be delivered to his memory care once you receive the paperwork? Thanks, Elizabeth Haywood Turner Machine [facility] Direct: [phone] * From: Scarlett Hilliard (she/her/hers) < > Sent: April 10:01 AM To: Elizabeth Haywood <[email or web address]> Subject: RE: Community therapist request Good morning, Thank you. I'll let his care team know the planned DC date. Yes, hospital beds can be provided by the ME and are an option on the DME list. Delivery time will depend on processing and equipment availability. Please reach out to Santhosh Vallejo or Nikole Alvarenga with questions or for additional information. VINAY [facility] [place] [address] /bassem/ SCARLETT HILLIARDBICYCLE RENTAL CLERK [facility] Turner Machine Signed: 05/21/2023 08:27 05/21/2023 ADDENDUM STATUS: COMPLETED Spoke with social media job titles this morning regarding the DME and gave her the direct fax [phone] to fax the DME form to us for review. We have not gotten the fax as of 05-21-23 3:00PM. Once we receive the fax DME will order the equipment. /bassem/ SANTHOSH VALLEJO,OTR/L,BCPR,DRS OCCUPATIONAL THERAPIST Signed: 05/21/2023 14:48 SCARLETT HILLIARD [facility]
--- OUTSIDE RECORDS SUMMARY | 2023-06-08 19:08 | XMS_ITS | Encounter Summary ---
Author Name Unknown Organization [facility] Address [address] [address] Phone Care Team Providers Care Seed Cleaner Operator Name Role Phone Pérez Villafuerte MD Primary Care Provider [phone] Leida Rooney RN Unavailable [phone] Encounter Details Date Type Department Care Team [...] on filedocumented in this encounter Care Teams Seed Cleaner Operator Relationship Specialty Start Date End Date Pé[place] [address] [place] [phone] PCP - General 07/30/10 03/07/15 Leida Rooney RN Finance Consultant 08/06/11 06/16/15 documented as of this encounter
--- OUTSIDE RECORDS SUMMARY | 2023-06-08 19:08 | XMS_ITS | Clinical Summary ---
Author Name Unknown Organization [facility] Address [address] [address] Phone Care Team Providers Care Lumber Sorter Machine Name Role Phone Unavailable Primary Care Provider [...] Overview: Per 07/02/[address] Block. [id number] Anemia 08/04/2010 Seborrheic keratosis 08/04/2010 Hypothyroidism Resolved [...]
[2023-06-08 19:12] LABS: Troponin, Point-of-Care* 0.01 ng/ml (0.01-0.04)
[2023-06-08 19:14] LABS: HCO3 VBG 27 mmol/L (21-28); PCO2 VBG 45 mmHG (40-50); PO2 VBG 53.1 mmHG (25-47); pH VBG 7.381 (7.32-7.43)
[2023-06-08 19:16] LABS: Lactate* 2.7 mmol/L (0.5-1.9)
[2023-06-08 19:17] LABS: Basophils Percent Auto 0.1 % (0.0-3.0); Hematocrit 32.6 % (37.0-53.0); Hemoglobin* 10.3 gm/dL (13.5-17.5); Immature Granulocytes Pct Auto 0.9 %; Lymphocytes Percent Auto 1.2 % (20-44); Mean Corpuscular HGB Conc 32 gm/dL (32-36); Mean Corpuscular Hemoglobin 35 pg (26-34); Mean Corpuscular Volume 109 fL (80-100); Monocytes Percent Auto 6.9 % (0.0-11.0); Neutrophils Percent Auto 90.9 % (42.0-72.0); Platelet Count* 224 K/uL (140-440); RDW Coefficient of Variation % 14.6 % (11.5-15.5); Red Blood Count 2.98 m/uL (4.30-5.90)
[2023-06-08 19:22] LABS: Creatinine, Point-of-Care* 1.2 mg/dl (0.6-1.3)
[2023-06-08 19:32] LABS: Slide Review Reflex Yes
[2023-06-08 19:58] LABS: Slide Review Acceptable Review (Acceptable)
[2023-06-08 20:11] LABS: Albumin* 3.8 g/dL (3.3-5.0)
[2023-06-08 20:12] LABS: Chloride* 102 mmol/L (96-114); Potassium* 3.8 mmol/L (3.6-5.1); Sodium* 135 mmol/L (135-149)
[2023-06-08 20:14] LABS: Anion Gap 7 mEq/L (7-15); Aspartate Amino Transferase* 35 U/L (12-35); Bilirubin Direct* 0.1 mg/dL (0.0-0.5); Bilirubin Total* 0.9 mg/dL (0.1-1.5); Blood Urea Nitrogen* 28 mg/dL (7-30); Carbon Dioxide* 26 mmol/L (20-32); Est. Creatinine Clearance* 62.75; Estimated Glomerular Filt Rate 76 ml/min; Total Protein* 7.2 g/dL (6.0-8.3)
[2023-06-08 20:15] LABS: Alanine Aminotransferase* 29 U/L (4-50); Alkaline Phosphatase* 126 U/L (40-150); Calcium* 9.5 mg/dL (8.4-10.6); Glucose* 141 mg/dL (60-115); Magnesium* 1.7 mg/dL (1.5-2.6)
[2023-06-08] MEDS: PIPERACILLIN/TAZOBACTAM 3.375 GM in 0.9 % SODIUM CHLORIDE Mini-bag 100 ML IVPB (20:19)
[2023-06-08] MEDS: 0.9 % SODIUM CHLORIDE 1000 ml 1,000 ML 6000 ML IV (20:20)
[2023-06-08 20:24] LABS: NT Pro B Type NatriureticPept* 242 pg/mL
[2023-06-08 20:29] LABS: PCR FLU A Negative PCR FLU A (Negative); PCR FLU B Negative PCR FLU B (Negative); PCR RSV Negative PCR RSV (Negative); SARS PCR* Negative SARS-CoV-2 (Negative)
[2023-06-08 20:32] LABS: Procalcitonin* 0.38 ng/mL (<0.50)
[2023-06-08] MEDS: 0.9 % SODIUM CHLORIDE 1000 ml 1,000 ML IV (21:15)
--- NOTE | 2023-06-08 23:18 | PM.IMHP1 ---
Hospitalist- H&P: HPI History of Present Illness Date Seen: 06/08/23 Chief complaint: Weakness, High BP, altered mental status Narrative: Myke Abrams is a 78 year old male past medical history significant for asthma, hypothyroidism, anxiety, back pain, dysphagia, Alzheimer's dementia is admitted to the unit from the ED for further management sepsis pneumonia. Patient is seen at the bedside with his . Patient is sleeping. Would be a poor historian. provides details. She reports patient has been weaker than normal today and more confused than usual. This has worsened over the evening. At baseline, patient is typically ambulatory and conversant with mild to moderate symptoms and some sundowning. reports that he has not had much of an appetite today other than drinking some fluids. She has noted a coarse cough. No fevers. No vomiting or diarrhea. Most recent hospitalization was in April with a left femur fracture, status post ORIF. In the ED, patient is noted to have a significant leukocytosis with an elevated lactate and a CT which shows a left lower lobe infiltrate. Patient's pressures were initially noted to be 80/50s, improved with IVF. Patient's reports his normal systolics are 80-90s. Zosyn and vancomycin were initiated. Review of Systems Narrative: REVIEW OF SYSTEMS: Complete review of systems performed and negative unless otherwise stated in HPI or below. As reported per [facility] Medical History Fall ?W19.XXXA - Unspecified fall, initial encounter (ICD-10) Anemia ?D64.9 - Anemia, unspecified (ICD-10) Alzheimer disease ?G30.9 - Alzheimer's disease, unspecified (ICD-10) ?F02.80 - Dementia in other diseases classified elsewhere, unspecified severity, without behavioral disturbance, psychotic disturbance, mood disturbance, and anxiety (ICD-10) Agitation ?R45.1 - Restlessness and agitation (ICD-10) Dysphagia ?R13.10 - Dysphagia, unspecified (ICD-10) Actinic keratosis ?L57.0 - Actinic keratosis (ICD-10) Rosacea ?L71.9 - Rosacea, unspecified (ICD-10) Back Pain ?M54.9 - Dorsalgia, unspecified (ICD-10) Asthma ?J45.909 - Unspecified asthma, uncomplicated (ICD-10) Anxiety ?F41.9 - Anxiety disorder, unspecified (ICD-10) Macrocytosis ?D75.89 - Other specified diseases of blood and blood-forming organs (ICD-10) Hearing loss ?H91.90 - Unspecified hearing loss, unspecified ear (ICD-10) 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 He later worked in [employer]. He smoked less than a pack a day for 30 or 40 years, having quit 20 years ago. He quit alcohol altogether in 1979. His family would like him to be full code for the purpose of this hospital stay, and are considering DNR DNI after that. What is your current living situation?: I presently have a place to live Problems where you live: no known problems Problems where you live details: n/a In the past 12 months, utilities in danger of being shut off: no In past 12 months, lack of transportation kept you from medical appts, meetings, work, or getting things needed for daily living: no In the past 12 mos, have been you worried that your food would run out before you had money to buy more?: never true In the past 12 mos, the food you bought just didn't last and you didn't have money to buy more?: never true Smoking Status: Former smoker How often does anyone, including family, friends and others, physically hurt you: unable to answer How often does anyone, including family, friends and others, insult or talk down to you: unable to answer How often does anyone, including family, friends and others, threaten you with harm: unable to answer How often does anyone, including family, friends and others, scream or curse at you: unable to answer Little interest or pleasure in doing things: more than half the days Feeling down, depressed, or hopeless: more than half the days Meds Home Medications and Allergies Home Medications Medication Instructions Recorded Confirmed Type quetiapine 50 mg tablet 50 mg PO BID 05/03/23 05/03/23 History Allergies Allergy/AdvReac Type Severity Reaction Status Date / Time No Known Drug Allergies Allergy Verified 05/03/23 15:09 Exam Narrative: Exam Narrative: PHYSICAL EXAM General: Sleeping, appears in NAD HEENT: Normocephalic, atraumatic, sclera white, EOMI, oral mucosa dry Cardiovascular: RRR, S1S2. No pitting edema Pulmonary: Coarse breath sounds throughout with rhonchi, nasal cannula in place Abdominal: Soft, nondistended, NTTP Neurological: Calm, sleeping Extremities: No gross joint deformity or swelling. Neurovascularly intact Skin: Warm, dry. Const: Vital Signs, click to edit/add: Vital Signs - 24 hr 06/08/23 18:34 06/08/23 18:45 06/08/23 19:10 Temperature 97.4 F L Pulse Rate [Left D orsalis Pedis] Pulse Rate [Right Pulse Oximeter] 91 75 Respiratory Rate 18 Blood Pressure [Ri ght Arm] Blood Pressure [Ri ght Upper Arm] 66/51 L 98/55 L Pulse Oximetry 86 L 89 94 Oxygen Delivery Me thod Room Air Room Air Nasal Cannula Oxygen Flow Rate 2 06/08/23 20:10 06/08/23 21:02 06/08/23 21:37 Temperature 96.7 F L Pulse Rate [Left D orsalis Pedis] 92 Pulse Rate [Right Pulse Oximeter] 71 Respiratory Rate 16 20 Blood Pressure [Ri ght Arm] 98/60 Blood Pressure [Ri ght Upper Arm] 102/65 113/71 Pulse Oximetry 94 91 Oxygen Delivery Me thod Nasal Cannula Nasal Cannula Oxygen Flow Rate 2 2 Hospitalist - H&P: Result Labs Labs: Short CBC 06/08/23 Range/Units 18:55 WBC 29.70 H* (4.50-11.00) K/uL Hgb 10.3 L (13.5-17.5) gm/dL Hct 32.6 L (37.0-53.0) % Plt Count 224 (140-440) K/uL BMP 06/08/23 18:55 Sodium 135 Potassium 3.8 Chloride 102 Carbon Dioxide 26 BUN 28 Creatinine 1.0 Glucose 141 H Calcium 9.5 Liver Function 06/08/23 Range/Units 18:55 Total Bilirubin 0.9 (0.1-1.5) mg/dL Direct Bilirubin 0.1 (0.0-0.5) mg/dL AST 35 (12-35) U/L ALT 29 (4-50) U/L Alkaline Phosphatase 126 (40-150) U/L Albumin 3.8 (3.3-5.0) g/dL Imaging CT scan - chest: Attestation: I have reviewed the pertinent imaging results. Radiologist's impression: CT chest, abdomen and pelvis acquired with 84 milliliters of Isovue 370 IV contrast. COMPARISON: None. FINDINGS: CHEST: Cardiovascular structures: Heart size is borderline enlarged. Right ventricular enlargement is noted.. Thoracic aorta and main pulmonary artery are normal in caliber. Mediastinum and willy: No mass or adenopathy. Lungs and pleura: Left lower lobe patchy consolidation. Diffuse subpleural subtle linear opacities likely scarring. No pleural effusion or pneumothorax. Chest wall and axilla: No mass or adenopathy. Bones: Subacute left 9th and 8th lateral rib fractures. Multiple subacute right posterior and lateral rib fractures in the lower ribs. ABDOMEN AND PELVIS: Liver: Unremarkable. Gallbladder and bile ducts: Gallbladder is distended. No gallstones identified. No significant wall thickening or enhancement. No significant pericholecystic fluid. No biliary ductal dilation. Pancreas: Unremarkable. Spleen: Unremarkable. Adrenal glands: Unremarkable. Kidneys: Probable bilateral parapelvic cysts. No definite hydronephrosis or hydroureter. No renal or ureteral stones. GI tract: Small rectal stool ball is noted. Scattered colonic diverticuli. No evidence of diverticulitis. Appendix is not well visualized. No bowel obstruction. Vascular structures: Dilated abdominal aorta measuring up to 34 millimeters in diameter. Moderate calcific atherosclerosis. Lymph nodes: Unremarkable. Miscellaneous: Unremarkable. No free air or significant free fluid. Pelvic Organs: Enlarged nodular prostate indenting the base of the bladder. Bladder is unremarkable. Enlarged seminal vesicles. Bones: Left proximal femoral fixation screw and mavis. Diffuse demineralization of the visualized bones. Moderate diffuse degenerative changes. IMPRESSION: 1. Left lower lobe consolidation likely related to pneumonia, or aspiration. 2. Distended gallbladder without gallstones. 3. Subacute left and right rib fractures. 4. Prostatomegaly. Assessment and Plan Assessment and plan (1) Sepsis: Problem comment: Hypotension, hypoxia, afebrile, significant leukocytosis, left lower lobe consolidation, elevated lactate - will trend. BC x2 pending. UA ordered In setting of community-acquired pneumonia Continue IV fluids, bolus as needed Monitor pressures, telemetry Discussed with if need for pressors, she is in agreement Continue IV vancomycin and Zosyn Trend labs Status: Acute (2) Community acquired pneumonia: Problem comment: Left lower lobe consolidation, possible aspiration with history of dysphagia NPO for now, continue IV fluids IV vancomycin, pharmacy to dose, and Zosyn Strep pneumo, Legionella ordered. Sputum Gram stain and culture ordered Oxygen supplementation to maintain saturations > 92%, weaning as able ELECTRON BEAM WELDING MACHINE OPERATOR for swallow evaluation, review of previous barium swallow study - March 2023 showing no aspiration, no significant penetration, mild residual barium in the valleculae and piriform sinuses Status: Acute (3) Dysphagia: Problem comment: Previous study March 2023 as reviewed. Revisit with ELECTRON BEAM WELDING MACHINE OPERATOR NPO for now. Home meds to be ordered when safe to do so Status: Acute (4) Asthma: Problem comment: Hypoxic, oxygen saturations 86% on room air Continue oxygen supplementation, weaning as able RT for pulmonary support Status: Acute (5) Dementia: Problem comment: Continue home medications when reviewed by pharmacy and cleared for swallowing safety History of sundowning, agitation - monitor Status: Acute (6) Hypothyroidism: Problem comment: Continue levothyroxine when safe to do so Status: Acute Total Time Spent Total Time Spent: Total time spent caring for the patient today was 60 minutes. This includes time spent for the visit reviewing the chart, time spent during the visit, time spent after the visit and documentation and planning in coordination of care. > 30 minutes for critical care time
[2023-06-09] VITALS (18 sets, daily range): BP systolic 82–119; BP diastolic 45–72; PULSE 55–87; RESP 13–20; TEMP 36.2–36.7; O2SAT 90–98; BMI 20.5
[2023-06-09 00:35] LABS: Lactate* 0.9 mmol/L (0.5-1.9)
[2023-06-09] MEDS: 0.9 % SODIUM CHLORIDE 500 ML 500 ML IV (00:54)
[2023-06-09] MEDS: ENOXAPARIN 30 MG/0.3ML INJ SUBCUT (00:54)
[2023-06-09] MEDS: 0.9 % SODIUM CHLORIDE 1000 ml 1,000 ML 125 ML IV ×3 (00:54→19:58)
[2023-06-09] MEDS: PIPERACILLIN/TAZOBACTAM 3.375 GM in 0.9 % SODIUM CHLORIDE Mini-bag 100 ML IVPB ×4 (02:10→20:01)
--- NOTE | 2023-06-09 05:38 | PC.NURSE ---
Addendum entered by Sarah Borjas RN 06/09/23 06:25: PT RESPONDING MORE THIS MORNING. RESPIRATORY CONGESTION AUDIBLE. Original Note: END OF SHIFT NOTE: PT WITH ALZHEIMER?S DISEASE. SPORADICALLY RESPONDS TO NAME.?VSS ON 1-2L SUPPLEMENTAL OXYGEN VIA NC, SPO2 91-98%; AFEBRILE. EPISODES OF APNEA. PT WITH PRODUCTIVE COUGH WITH THICK, CREAM/YELLOW SPUTUM. USED [employer] x2 TO SUCTION PHLEGM FROM ORAL CAVITY.?IV TO RIGHT AC WITH NS@125ML RUNNING. PT HAS NOT AMBULATED THIS SHIFT; TURNED AND REPOSITIONED FOR OFFLOADING AND COMFORT. INCONTINENT OF BOWEL AND BLADDER. TELE READS NSR; FREQUENT PVC'S NOTED.
[2023-06-09 06:49] LABS: HCO3 VBG 28 mmol/L (21-28); Lactate* 0.8 mmol/L (0.5-1.9); PCO2 VBG 49 mmHG (40-50); PO2 VBG 69.7 mmHG (25-47); pH VBG 7.365 (7.32-7.43)
[2023-06-09 06:54] LABS: Hematocrit 29.7 % (37.0-53.0); Hemoglobin* 9.5 gm/dL (13.5-17.5); Mean Corpuscular HGB Conc 32 gm/dL (32-36); Mean Corpuscular Hemoglobin 35 pg (26-34); Mean Corpuscular Volume 111 fL (80-100); Platelet Count* 196 K/uL (140-440); Red Blood Count 2.68 m/uL (4.30-5.90)
[2023-06-09 07:22] LABS: Chloride* 107 mmol/L (96-114); Potassium* 4.1 mmol/L (3.6-5.1); Sodium* 136 mmol/L (135-149)
[2023-06-09 07:25] LABS: Anion Gap 3 mEq/L (7-15); Blood Urea Nitrogen* 22 mg/dL (7-30); Carbon Dioxide* 26 mmol/L (20-32); Creatinine* 0.7 mg/dL (0.5-1.5); Est. Creatinine Clearance* 55.64; Estimated Glomerular Filt Rate 93 ml/min; Glucose* 96 mg/dL (60-115)
[2023-06-09 07:26] LABS: Calcium* 8.5 mg/dL (8.4-10.6)
[2023-06-09 07:28] LABS: C Reactive Protein* 6.5 mg/dL (0.5-1.0)
[2023-06-09 07:39] LABS: Slide Review Reflex Yes
--- NOTE | 2023-06-09 07:48 | PC.NURSE ---
Later ordering box operator patient was a CCU status since admission.
[2023-06-09 07:56] LABS: Slide Review Acceptable Review (Acceptable)
[2023-06-09 08:02] LABS: Appearance Urine Clear (Clear); Bilirubin Urine Negative (Negative); Blood Urine Negative (Negative); Color Urine Yellow (Yellow); Glucose Urine Negative (Negative); Ketones Urine Negative (Negative); Leukocyte Esterase Urine Negative (Negative); Nitrite Urine Negative (Negative); Protein Urine Negative (Negative); Urobilinogen Urine 0.2 (0.2-1.0)
--- NOTE | 2023-06-09 08:17 | RESP.RT ---
Patient on 1 lpm nasal cannula with spo2 91-92. BS diminished. RR 20. at bedside stating he does not take respiratory medications on a daily basis. Sputum sample ordered, patient unable to produce sample at this time as he just coughed up sputum into kleenex. RN and aware of need and sputum container is placed at the bedside for capture.
[2023-06-09 09:07] LABS: RBC Urine 0-2 (0-2); Squamous Epithelial Cell Urine Few (None-Few); WBC Urine 0-2 (0-5)
[2023-06-09 11:31] LABS: Legionella pneumo Ag Urine L. pneumo Negative (Negative); S pneumo Ag Urine S. pneumo Negative (Negative)
--- NOTE | 2023-06-09 14:42 | RESP.RT ---
Patient achieving 2500ml on IS.
--- NOTE | 2023-06-09 16:08 | P.IMPN_ITS ---
Progress Note: A&P Assessment and plan (1) Hypoxic respiratory failure: Problem details: Stable on 2 L. pH normal. Status: Acute (2) Sepsis: Problem details: Hypotension (patient has history of a systolic being in the 90s), hypoxia 2 L, afebrile, significant leukocytosis, left lower lobe consolidation, elevated lactate - will trend. BC x2 pending. Continue Zosyn and changed vancomycin to azithromycin. In setting of community-acquired pneumonia Continue IV fluids, bolus as needed Monitor pressures, telemetry Discussed with if need for pressors, she is in agreement Continue IV antibiotic Trend labs Status: Acute (3) DNI (do not intubate): Problem details: is clear regarding goals of treatment Status: Acute (4) Community acquired pneumonia: Problem details: Left lower lobe consolidation, possible aspiration however patient's states his dysphagia has much improved Advanced diet as tolerated, continue IV fluids until eating a more normal amount IV azithromycin and Zosyn Negative strep pneumo and Legionella Sputum Gram stain and culture ordered Oxygen supplementation to maintain saturations > 92%, weaning as able Status: Acute (5) Dementia: Problem details: Continue home medications when reviewed by pharmacy and cleared for swallowing safety History of sundowning, agitation - monitor Status: Acute (6) Hearing loss: Status: Acute (7) Hypothyroidism: Problem details: Continue levothyroxine when safe to do so Status: Acute Subjective Date Seen: 06/09/23 Interval history: Daily Progress Note - Hospital Medicine #: 2 CC: OVERNIGHT UPDATES FROM STAFF & MED, LAB, IMAGING UPDATES Stable night. Patient has been weaned to 1-2 L per nasal cannula. His work of breathing has much improved. He looks more relaxed. Objective: He knows he is in the hospital when I gently awakened this morning. His is bedside. He says he is in the hospital because he has a cold. and gives most of his history. Vitals: see above Lungs: Decreased at the bases. Cardiac: S1S2. Disposition/Potential discharge - Likely to return to previous living situation. Exam Const: Vital Signs, click to edit/add: Vital Signs - 24 hr 06/08/23 18:34 06/08/23 18:45 06/08/23 19:10 Temperature 97.4 F L Pulse Rate Pulse Rate [Left D orsalis Pedis] Pulse Rate [Pulse Oximeter] Pulse Rate [Right Pulse Oximeter] 91 75 Respiratory Rate 18 Blood Pressure [Ri ght Arm] Blood Pressure [Ri ght Upper Arm] 66/51 L 98/55 L Pulse Oximetry 86 L 89 94 Oxygen Delivery Me thod Room Air Room Air Nasal Cannula Oxygen Flow Rate 2 06/08/23 20:10 06/08/23 21:02 06/08/23 21:37 Temperature 96.7 F L Pulse Rate Pulse Rate [Left D orsalis Pedis] 92 Pulse Rate [Pulse Oximeter] Pulse Rate [Right Pulse Oximeter] 71 Respiratory Rate 16 20 Blood Pressure [Ri ght Arm] 98/60 Blood Pressure [Ri ght Upper Arm] 102/65 113/71 Pulse Oximetry 94 91 Oxygen Delivery Me thod Nasal Cannula Nasal Cannula Oxygen Flow Rate 2 2 06/08/23 22:00 06/08/23 23:00 06/09/23 00:00 Temperature Pulse Rate Pulse Rate [Left D orsalis Pedis] Pulse Rate [Pulse Oximeter] 60 Pulse Rate [Right Pulse Oximeter] Respiratory Rate 20 13 13 Blood Pressure [Ri ght Arm] Blood Pressure [Ri ght Upper Arm] Pulse Oximetry 91 91 Oxygen Delivery Me thod Nasal Cannula Nasal Cannula Oxygen Flow Rate 2 2 06/09/23 00:00 06/09/23 02:00 06/09/23 03:20 Temperature 97.7 F 98.1 F Pulse Rate 72 Pulse Rate [Left D orsalis Pedis] Pulse Rate [Pulse Oximeter] 57 L 65 Pulse Rate [Right Pulse Oximeter] Respiratory Rate 16 14 Blood Pressure [Ri ght Arm] 98/57 L 112/69 Blood Pressure [Ri ght Upper Arm] Pulse Oximetry 96 91 Oxygen Delivery Me thod Nasal Cannula Nasal Cannula Oxygen Flow Rate 1 1 06/09/23 04:25 06/09/23 05:45 06/09/23 07:00 Temperature 97.7 F 97.4 F L Pulse Rate 57 L Pulse Rate [Left D orsalis Pedis] Pulse Rate [Pulse Oximeter] 56 L 68 Pulse Rate [Right Pulse Oximeter] Respiratory Rate 16 16 Blood Pressure [Ri ght Arm] 100/52 L 119/66 Blood Pressure [Ri ght Upper Arm] Pulse Oximetry 98 90 Oxygen Delivery Me thod Nasal Cannula Nasal Cannula Oxygen Flow Rate 2 1 06/09/23 07:45 06/09/23 11:09 06/09/23 11:10 Temperature 97.2 F L 97.8 F Pulse Rate Pulse Rate [Left D orsalis Pedis] Pulse Rate [Pulse Oximeter] 74 58 L 58 L Pulse Rate [Right Pulse Oximeter] Respiratory Rate 20 18 Blood Pressure [Ri ght Arm] 118/72 99/54 L 99/54 L Blood Pressure [Ri ght Upper Arm] Pulse Oximetry 92 91 Oxygen Delivery Me thod Nasal Cannula Nasal Cannula Oxygen Flow Rate 1 2 06/09/23 13:25 06/09/23 14:00 Temperature Pulse Rate Pulse Rate [Left D orsalis Pedis] Pulse Rate [Pulse Oximeter] 58 L 58 L Pulse Rate [Right Pulse Oximeter] Respiratory Rate Blood Pressure [Ri ght Arm] 82/45 L 82/51 L Blood Pressure [Ri ght Upper Arm] Pulse Oximetry Oxygen Delivery Me thod Oxygen Flow Rate Labs Labs: Laboratory Results - last 24 hr 06/08/23 06/08/23 06/08/23 18:55 18:59 19:05 WBC 29.70 H* RBC 2.98 L Hgb 10.3 L Hct 32.6 L MCV 109 H MCH 35 H MCHC 32 RDW Coeff of Anthony 14.6 Plt Count 224 Neut % (Auto) 90.9 H Lymph % (Auto) 1.2 L [place] % (Auto) 6.9 Eos % (Auto) 0.0 Baso % (Auto) 0.1 Neut # (Auto) 27.00 H Lymph # (Auto) 0.40 L [place] # (Auto) 2.00 H Eos # (Auto) 0.00 Baso # (Auto) 0.00 Abs Immat Gran (auto) 0.30 Imm/Tot Granulo (auto) 0.9 Diff Slide Review Acceptable Review VBG pH 7.381 VBG pCO2 45 VBG pO2 53.1 H VBG HCO3 27 Sodium 135 Potassium 3.8 Chloride 102 Carbon Dioxide 26 Anion Gap 7 BUN 28 Creatinine 1.0 Estimated Creat Clear 62.75 Estimated GFR 76 Glucose 141 H Lactate 2.7 H Calcium 9.5 Magnesium 1.7 Total Bilirubin 0.9 Direct Bilirubin 0.1 AST 35 ALT 29 Alkaline Phosphatase 126 C-Reactive Protein NT-Pro-B Natriuret Pep 242 Total Protein 7.2 Albumin 3.8 Procalcitonin 0.38 Urine Color Urine Appearance Urine pH Ur Specific [place] Urine Protein Urine Glucose (UA) Urine Ketones Urine Blood Urine Nitrite Urine Bilirubin Urine Urobilinogen Ur Leukocyte Esterase Urine RBC Urine WBC Ur Squamous Epith Cells Urine Bacteria Urine L. pneumophilia Ag Urine Strep pneumoniae Ag SARS-CoV-2 (PCR) Negative SARS-CoV-2 Influenza Type A (PCR) Negative PCR FLU A Influenza Type B (PCR) Negative PCR FLU B RSV (PCR) Negative PCR RSV Ur Strep pneumoniae Ag POC Creatinine POC Troponin I 0.01 06/08/23 06/08/23 06/09/23 19:15 23:09 00:20 WBC RBC Hgb Hct MCV MCH MCHC RDW Coeff of Anthony Plt Count Neut % (Auto) Lymph % (Auto) [place] % (Auto) Eos % (Auto) Baso % (Auto) Neut # (Auto) Lymph # (Auto) [place] # (Auto) Eos # (Auto) Baso # (Auto) Abs Immat Gran (auto) Imm/Tot Granulo (auto) Diff Slide Review VBG pH VBG pCO2 VBG pO2 VBG HCO3 Sodium Potassium Chloride Carbon Dioxide Anion Gap BUN Creatinine Estimated Creat Clear Estimated GFR Glucose Lactate 0.9 Calcium Magnesium Total Bilirubin Direct Bilirubin AST ALT Alkaline Phosphatase C-Reactive Protein NT-Pro-B Natriuret Pep Total Protein Albumin Procalcitonin Urine Color Urine Appearance Urine pH Ur Specific [place] Urine Protein Urine Glucose (UA) Urine Ketones Urine Blood Urine Nitrite Urine Bilirubin Urine Urobilinogen Ur Leukocyte Esterase Urine RBC Urine WBC Ur Squamous Epith Cells Urine Bacteria Urine L. pneumophilia Ag L. pneumo Negative Urine Strep pneumoniae Ag S. pneumo Negative SARS-CoV-2 (PCR) Influenza Type A (PCR) Influenza Type B (PCR) RSV (PCR) Ur Strep pneumoniae Ag Cancelled POC Creatinine 1.2 POC Troponin I 06/09/23 06/09/23 05:48 08:30 WBC 29.40 H* RBC 2.68 L Hgb 9.5 L Hct 29.7 L MCV 111 H MCH 35 H MCHC 32 RDW Coeff of Anthony Plt Count 196 Neut % (Auto) Lymph % (Auto) [place] % (Auto) Eos % (Auto) Baso % (Auto) Neut # (Auto) Lymph # (Auto) [place] # (Auto) Eos # (Auto) Baso # (Auto) Abs Immat Gran (auto) Imm/Tot Granulo (auto) Diff Slide Review Acceptable Review VBG pH 7.365 VBG pCO2 49 VBG pO2 69.7 H VBG HCO3 28 Sodium 136 Potassium 4.1 Chloride 107 Carbon Dioxide 26 Anion Gap 3 L BUN 22 Creatinine 0.7 Estimated Creat Clear 55.64 Estimated GFR 93 Glucose 96 Lactate 0.8 Calcium 8.5 Magnesium Total Bilirubin Direct Bilirubin AST ALT Alkaline Phosphatase C-Reactive Protein 6.5 H NT-Pro-B Natriuret Pep Total Protein Albumin Procalcitonin Urine Color Yellow Urine Appearance Clear Urine pH 5.0 Ur Specific [place] 1.020 Urine Protein Negative Urine Glucose (UA) Negative Urine Ketones Negative Urine Blood Negative Urine Nitrite Negative Urine Bilirubin Negative Urine Urobilinogen 0.2 Ur Leukocyte Esterase Negative Urine RBC 0-2 Urine WBC 0-2 Ur Squamous Epith Cells Few Urine Bacteria None Urine L. pneumophilia Ag Urine Strep pneumoniae Ag SARS-CoV-2 (PCR) Influenza Type A (PCR) Influenza Type B (PCR) RSV (PCR) Ur Strep pneumoniae Ag POC Creatinine POC Troponin I
--- NOTE | 2023-06-09 16:41 | PC.SOCIAL ---
Discharge planning- Per therapy, recommendation is return to prior living situation, when medically stable. Phone call to pt's Patricia and discussed discharge plans. Patricia gives permission to send progress notes to Josephine at [facility]. Will keep pt's updated on discharge plan. Secure e-mail to Josephine Erickson ([facility], building construction ironworker) providing an update on pt. Sent progress and therapy notes for review. Requested information on whether [facility] will need to assess prior to pt's return. Social work will continue to follow up as needed.
--- NOTE | 2023-06-09 18:40 | PC.NURSE ---
shift note: pt oriented to self & . Pt up 1/walker to recliner for meals. LS with crkls bibasilar posteriorly and RML exp wheezing. cough productive with creamy guillen phlegm. BP this afternoon 82/45,82/51. Dr. Dawson notified. pt asymptomatic of hypotension. pt voided x1 400cc. IV patent x2.
[2023-06-09] MEDS: SODIUM CHLORIDE 0.9 % (FLUSH) 10 ML SYRINGE 5 ML IVF (21:05)
[2023-06-09] MEDS: OLANZapine 5 MG TAB.RAPDIS PO (21:05)
[2023-06-10] VITALS (7 sets, daily range): BP systolic 105–120; BP diastolic 56–79; PULSE 58–79; RESP 18–20; TEMP 36.5–36.8; O2SAT 92–96
[2023-06-10] MEDS: PIPERACILLIN/TAZOBACTAM 3.375 GM in 0.9 % SODIUM CHLORIDE Mini-bag 100 ML IVPB ×3 (03:00→15:36)
--- NOTE | 2023-06-10 05:21 | PC.NURSE ---
Pt sleeping at this time. 2330 pt was desating into the 70's on 2L NC. Oxymask put on with 2L and pt has kept sats in the mid 90's. voided x2 in 12hrs. VSS. Afebrile.
[2023-06-10] MEDS: 0.9 % SODIUM CHLORIDE 1000 ml 1,000 ML 125 ML IV (05:37)
[2023-06-10 06:58] LABS: Hematocrit 28.9 % (37.0-53.0); Hemoglobin* 9.1 gm/dL (13.5-17.5); Mean Corpuscular HGB Conc 32 gm/dL (32-36); Mean Corpuscular Hemoglobin 35 pg (26-34); Mean Corpuscular Volume 112 fL (80-100); Platelet Count* 186 K/uL (140-440); Red Blood Count 2.59 m/uL (4.30-5.90); White Blood Count* 17.16 K/uL (4.50-11.00)
[2023-06-10 07:01] LABS: Slide Review Reflex No
[2023-06-10 07:16] LABS: Chloride* 110 mmol/L (96-114)
[2023-06-10 07:17] LABS: Sodium* 137 mmol/L (135-149)
[2023-06-10 07:19] LABS: Creatinine* 0.8 mg/dL (0.5-1.5); Est. Creatinine Clearance* 55.64; Estimated Glomerular Filt Rate 89 ml/min
[2023-06-10 07:20] LABS: Anion Gap 1 mEq/L (7-15); Blood Urea Nitrogen* 18 mg/dL (7-30); Calcium* 8.7 mg/dL (8.4-10.6); Carbon Dioxide* 26 mmol/L (20-32); Glucose* 81 mg/dL (60-115)
[2023-06-10 07:31] LABS: Potassium* 3.5 mmol/L (3.6-5.1)
[2023-06-10 07:38] LABS: C Reactive Protein* 8.8 mg/dL (0.5-1.0)
[2023-06-10] MEDS: SERTRALINE 100 MG TABLET PO (08:40)
[2023-06-10] MEDS: AZITHROMYCIN 500 MG in 0.9 % SODIUM CHLORIDE 250 ml 250 ML 255 MG IVPB (09:34)
--- NOTE | 2023-06-10 10:19 | NUTR.NU ---
Nutrition F/U: Met with patient's spouse this morning. She reports patient did have a weight loss following his hip fracture and SNF stay for rehab. This was a significant weight loss of 8.6% in 30 days. Patient's spouse reports that since patient has returned home to [facility] approximately one week ago he has been eating well (3 meals per day with intake of 75-100%). They are working on increasing weight back to usual weight of approximately 160#. Spouse is planning to get some Boost/Ensure supplements for patient to have at home. She will mix ice cream in them and bring them for him to have at [facility] for an afternoon snack as he enjoys sweets. She also reports patient has not had any swallowing difficulty. He is currently tolerating a regular diet with intake of 3 meals at 75-100%. Continue with current POC and follow up as needed.
--- NOTE | 2023-06-10 13:41 | PM.IMPN1 ---
Progress Note: A&P Assessment and plan (1) Hypoxic respiratory failure: Problem details: Stable on 2 L. pH normal. 2/2 pneumonia, LLL continue treatment Status: Acute (2) Sepsis: Problem details: Hypotension (patient has history of a systolic being in the 90s), hypoxia 2 L, afebrile, significant leukocytosis, left lower lobe consolidation, elevated lactate - will trend. BC x2 pending. Continue Zosyn and changed vancomycin to azithromycin. In setting of community-acquired pneumonia Continue IV fluids, bolus as needed Monitor pressures, telemetry Discussed with if need for pressors, she is in agreement will de-escalate abx therapy Trend labs Status: Acute (3) DNI (do not intubate): Problem details: is clear regarding goals of treatment Status: Acute (4) Community acquired pneumonia: Problem details: Left lower lobe consolidation, possible aspiration however patient's states his dysphagia has much improved Advanced diet as tolerated, continue IV fluids until eating a more normal amount IV azithromycin and Zosyn Negative strep pneumo and Legionella Sputum Gram stain and culture normal Oxygen supplementation to maintain saturations > 92%, weaning as able Status: Acute (5) Dementia: Problem details: Continue home medications when reviewed by pharmacy and cleared for swallowing safety History of sundowning, agitation - monitor Status: Acute (6) Hearing loss: Status: Acute (7) Hypothyroidism: Problem details: Continue levothyroxine when safe to do so Status: Acute Subjective Date Seen: 06/10/23 Interval history: Daily Progress Note - Hospital Medicine #: 3 CC: LLL pneumonia, sepsis. OVERNIGHT UPDATES FROM STAFF & MED, LAB, IMAGING UPDATES stable night, improving in alertness and able to move with stand-by assist. much less lethargic. hungry this morning. remains on 2L to keep sats >90 I reviewed his labs. I am happy is white blood cell count is down trending. His electrolytes are essentially stable. There is a slight uptake in his CRP. His blood cultures are negative to date. His sputum culture was negative. Objective: up in the bedside chair; no resp distress. glasses on, ready to eat. Vitals: see above Lungs: Decreased at the bases. Cardiac: S1S2. Disposition/Potential discharge - Likely to return to previous living situation. Exam Const: Vital Signs, click to edit/add: Vital Signs - 24 hr 06/09/23 14:00 06/09/23 15:00 06/09/23 15:00 Temperature 97.7 F Pulse Rate 56 L Pulse Rate [Pulse Oximeter] 58 L 58 L Respiratory Rate 18 Blood Pressure [Ri ght Arm] 82/51 L 97/56 L Pulse Oximetry 98 Oxygen Delivery Me thod Nasal Cannula Oxygen Flow Rate 2 06/09/23 16:00 06/09/23 18:00 06/09/23 20:07 Temperature 98.1 F 97.7 F 98.1 F Pulse Rate Pulse Rate [Pulse Oximeter] 56 L 58 L 87 Respiratory Rate 16 18 18 Blood Pressure [Ri ght Arm] 97/56 L 97/56 L 103/62 Pulse Oximetry 98 98 91 Oxygen Delivery Me thod Nasal Cannula Nasal Cannula Nasal Cannula Oxygen Flow Rate 2 2 2 06/09/23 20:41 06/09/23 22:37 06/09/23 23:00 Temperature 98 F Pulse Rate 61 55 L Pulse Rate [Pulse Oximeter] 61 Respiratory Rate 20 Blood Pressure [Ri ght Arm] 97/71 Pulse Oximetry 96 Oxygen Delivery Me thod Nasal Cannula Oxygen Flow Rate 2 06/10/23 02:00 06/10/23 03:17 06/10/23 08:09 Temperature 97.7 F 98 F Pulse Rate 62 Pulse Rate [Pulse Oximeter] 79 59 L Respiratory Rate 20 18 Blood Pressure [Ri ght Arm] 120/79 105/66 Pulse Oximetry 95 95 Oxygen Delivery Me thod OxyMask Nasal Cannula Oxygen Flow Rate 2 2 Labs Labs: Laboratory Results - last 24 hr 06/08/23 06/10/23 23:09 06:27 WBC 17.16 H RBC 2.59 L Hgb 9.1 L Hct 28.9 L MCV 112 H MCH 35 H MCHC 32 Plt Count 186 Sodium 137 Potassium 3.5 L Chloride 110 Carbon Dioxide 26 Anion Gap 1 L BUN 18 Creatinine 0.8 Estimated Creat Clear 55.64 Estimated GFR 89 Glucose 81 Calcium 8.7 C-Reactive Protein 8.8 H Ur Strep pneumoniae Ag Cancelled
--- NOTE | 2023-06-10 15:19 | PC.SOCIAL ---
Addendum entered by POLLO Silverio 06/10/23 16:56: Received an e-mail from Josephine at [facility] informing that pt can return if he is no more than a 1 assist for transfer and eating independently. Josephine also asks if pt is discharging with oxygen and what the plan is to get the oxygen ordered before returning to [facility]. Original Note: Discharge planning- Received a automatic e-mail from Josephine Erickson ([facility], piece dyeing machine tender) informing that she will be out of office until Wednesday and to contact Andressa on . Phone call to Andressa at [phone] and left voicemail. Secure e-mailed updated notes to Andressa at [email or web address] and faxed to [phone]. Received a phone call from Andressa asking if pt would discharge with oxygen. Transferred call to charge nurse to discuss. Andressa will check with DON and see if they can accept pt back with oxygen. Social work will follow up as needed.
[2023-06-10] MEDS: LEVOTHYROXINE 75 MCG TABLET PO (15:37)
[2023-06-10] MEDS: SODIUM CHLORIDE 0.9 % (FLUSH) 10 ML SYRINGE 5 ML IVF ×2 (15:38→22:46)
[2023-06-10] MEDS: levoFLOXacin 500 MG TABLET PO (17:53)
--- NOTE | 2023-06-10 18:40 | PC.NURSE ---
shift note: LS dim with crkls bibasilar posteriorly. pt denies sob. Pt using 2L O2 when asleep and 0.5L when up in chair to keep sats> 90%. IV x2 patent.
[2023-06-10] MEDS: OLANZapine 5 MG TAB.RAPDIS PO (22:46)
[2023-06-10] MEDS: TRAZODONE HCL 50 MG TABLET 25 MG PO (22:51)
[2023-06-11 00:05] VITALS: BP 145/96; PULSE 51; PULSE 52; RESP 14; TEMP 36.8; O2SAT 93
[2023-06-11 03:10] VITALS: BP 148/85; PULSE 59; RESP 16; TEMP 36.8; O2SAT 92
[2023-06-11] MEDS: LEVOTHYROXINE 75 MCG TABLET PO (06:41)
[2023-06-11 07:01] VITALS: PULSE 70
[2023-06-11 07:06] LABS: Basophils Absolute Auto 0.03 K/uL (0.00-0.30); Basophils Percent Auto 0.3 % (0.0-3.0); Eosinophils Absolute Auto 0.12 K/uL (0.00-0.50); Eosinophils Percent Auto 1.2 % (0.0-7.0); Hematocrit 28.8 % (37.0-53.0); Hemoglobin* 9.1 gm/dL (13.5-17.5); Immature Granulocytes Abs Auto 0.53 K/uL (0.00-0.30); Immature Granulocytes Pct Auto 5.2 %; Lymphocytes Percent Auto 5.1 % (20-44); Mean Corpuscular HGB Conc 32 gm/dL (32-36); Mean Corpuscular Hemoglobin 35 pg (26-34); Mean Corpuscular Volume 111 fL (80-100); Monocytes Percent Auto 6.6 % (0.0-11.0); Neutrophils Percent Auto 81.6 % (42.0-72.0); Platelet Count* 179 K/uL (140-440); RDW Coefficient of Variation % 14.8 % (11.5-15.5); White Blood Count* 10.28 K/uL (4.50-11.00)
[2023-06-11 07:23] LABS: Chloride* 109 mmol/L (96-114); Sodium* 139 mmol/L (135-149)
[2023-06-11 07:24] LABS: Potassium* 3.5 mmol/L (3.6-5.1)
[2023-06-11 07:26] LABS: Creatinine* 0.8 mg/dL (0.5-1.5); Est. Creatinine Clearance* 55.64; Estimated Glomerular Filt Rate 89 ml/min
[2023-06-11 07:27] LABS: Anion Gap 0 mEq/L (7-15); Blood Urea Nitrogen* 13 mg/dL (7-30); Calcium* 8.6 mg/dL (8.4-10.6); Carbon Dioxide* 30 mmol/L (20-32); Glucose* 75 mg/dL (60-115)
[2023-06-11 07:30] LABS: C Reactive Protein* 6.5 mg/dL (0.5-1.0)
[2023-06-11 07:32] LABS: Slide Review Reflex Yes
[2023-06-11 07:40] VITALS: BP 147/90; PULSE 68; RESP 18; TEMP 36.7; O2SAT 94
--- NOTE | 2023-06-11 07:50 | PC.NURSE ---
END OF SHIFT NOTE: PT PLEASANT AND COOPERATIVE WITH CARES. PT WITH ALZHEIMER'S DEMENTIA. VSS ON RA; AFEBRILE. PT HAS FREQUENT APNEIC EPISODES AND WILL DESAT INTO 70'S THEN RECOVER INTO LOW 90'S. PT REPOSITIONED FOR COMFORT THIS SHIFT. NOT USING CALL LIGHT APPROPRIATELY. INCONTINENT OF BLADDER. TELE NSR WITH PVC'S; MULTIPLE EPISODES OF APPROXIMATELY 20-30 SECOND RUNS OF V-TACH.??
[2023-06-11 08:17] LABS: Slide Review Acceptable Review (Acceptable)
[2023-06-11] MEDS: SERTRALINE 100 MG TABLET PO (08:35)
[2023-06-11] MEDS: CYANOCOBALAMIN (VITAMIN B-12) 500 MCG TABLET 1000 MCG PO (08:35)
[2023-06-11] MEDS: SODIUM CHLORIDE 0.9 % (FLUSH) 10 ML SYRINGE 5 ML IVF ×2 (08:36)
--- NOTE | 2023-06-11 16:05 | P.DS_ITS ---
DS: Providers Provider Date Seen: 06/11/23 Date of admission: 06/09/23 04:04 Primary care physician: Ed Blair MD Admitting Clinician: Christina Dawson MD Consults: 06/08/23 23:14 Consult to Occupational Therapy [CONS] Routine Comment: Reason(s) for OT Consult:: Evaluate and Treat Any Restrictions?:: No Restrictions Consult to Physical Therapy [CONS] Routine Comment: Reason(s) for PT Consult:: Evaluate and Treat Any Restrictions?:: No Restrictions Consult to Respiratory Therapy [CONS] Routine Comment: Reason(s) for RT Consult:: Consult Consult to Commodities Trader [CONS] Routine Comment: Reason for Consult:: Social Service Consult Consult to Speech Therapy [CONS] Routine Comment: Reason(s) for Speech Consult:: Speech/Swallowing Eval Attending Physician on discharge: Christina Dawson MD Date of Discharge: 06/11/23 DS: Diagnosis Discharge Diagnosis (1) Community acquired pneumonia: Status: Acute Problem details: Left lower lobe consolidation - improved quickly. Weaned from oxygen. Discharged on Levaquin 500 mg daily for 7 days. Negative strep pneumo and Legionella Sputum Gram stain and culture normal (2) Dementia: Status: Acute Problem details: Continue home medications when reviewed by pharmacy and cleared for swallowing safety History of sundowning, agitation - monitor DS: Summary Hospital Course Hospital Course: FINAL DIAGNOSIS/FOLLOW UP ISSUES: Parkinson's disease, dysautonomia: He has a relatively low blood pressure at baseline. I have asked them to see Dr. Blair and discuss midodrine or Florinef in regards to his blood pressure. Pneumonia - sepsis cleared quickly. He was weaned from oxygen. He did well and was discharged back to [facility] with a 7 days of Levaquin. BRIEF HOSPITAL COURSE: Patient was admitted for 4 days. Synopsis of acute inpatient issues are outlined above. Chronic medical conditions with notable findings outlined above. Myke was weak and up tended when he 1st arrived. He looks septic. He had a left lower lobe pneumonia. He was treated with IV Zosyn and azithromycin. His strep pneumo and Legionella were negative. His blood cultures remained negative. His sputum culture was negative. He improved quickly. He was back to baseline by the end of day 2. Condition to him to oral Levaquin. OT and PT worked with him. He was appropriate for discharge on 06/10 back to [facility]. DISCHARGE MEDICATIONS: See Reconciled list - SIGNIFICANT CHANGES: Levaquin x7 days, 500 mg Specific instructions to the patient and follow-up are outlined below. REVIEW OF SYSTEMS No new chest pain or dyspnea Pain controlled No voiding difficulties Tolerating diet challenge PHYSICAL EXAM: CONSTITUTIONAL: VITAL SIGNS: see record. HEENT: Normocephalic, atraumatic. PERRL, EOMI, conjunctivae pink, no scleral icterus. Ears and nose externally normal. Pharynx normal. NECK: No JVD. No carotid bruit, no thyromegaly, no adenopathy. CHEST: Clear to auscultation bilaterally. HEART: S1 and S2 normal. Edema ABDOMEN: Soft, nontender. Normal bowel sounds. MUSCULOSKELETAL: No gross joint deformity or swelling. NEURO: Cranial nerves intact. Grossly intact. No asymmetric findings. SKIN: No rashes, petechiae, concerning changes PSYCHIATRIC: Mood euthymic. DISPOSITION: memory care, transport Time spent on discharge 37 minutes. Status at Discharge Functional status at discharge: uses cane/walker Overall status at discharge: patient is progressing back to baseline Time Spent with Patient Time attestation: Total time spent providing and/or coordinating discharge services: Time spent: Greater than 30 minutes Exam Const: Vital Signs, click to edit/add: Vital Signs - 24 hr 06/10/23 16:39 06/10/23 19:00 06/11/23 00:05 Temperature 97.8 F 98.3 F Pulse Rate 51 L Pulse Rate [Pulse Oximeter] 62 62 Respiratory Rate 18 18 Blood Pressure [Ri t Arm] 115/74 117/77 Pulse Oximetry 92 95 Oxygen Delivery Me thod Nasal Cannula Nasal Cannula Oxygen Flow Rate 0.5 06/11/23 00:05 06/11/23 00:05 06/11/23 03:10 Temperature 98.3 F 98.2 F Pulse Rate Pulse Rate [Pulse Oximeter] 52 L 52 L 59 L Respiratory Rate 14 14 16 Blood Pressure [Ri t Arm] 145/96 H 148/85 H Pulse Oximetry 93 92 Oxygen Delivery Me thod Nasal Cannula Room Air Oxygen Flow Rate 06/11/23 07:01 06/11/23 07:40 Temperature 98.1 F Pulse Rate 70 Pulse Rate [Pulse Oximeter] 68 Respiratory Rate 18 Blood Pressure [Ri ght Arm] 147/90 H Pulse Oximetry 94 Oxygen Delivery Me thod Room Air Oxygen Flow Rate DS: Data Data Completed and Pending Completed studies during hospitalization: Procedures Reposition Left Upper Femur with Intramedullary Internal Fixation Device, Open Approach (05/03/23) Labs on day of discharge: Labs from last 24 hours 06/11/23 06:20 WBC 10.28 RBC 2.60 L Hgb 9.1 L Hct 28.8 L MCV 111 H MCH 35 H MCHC 32 RDW Coeff of Anthony 14.8 Plt Count 179 Neut % (Auto) 81.6 H Lymph % (Auto) 5.1 L [place] % (Auto) 6.6 Eos % (Auto) 1.2 Baso % (Auto) 0.3 Neut # (Auto) 8.40 H Lymph # (Auto) 0.50 L [place] # (Auto) 0.70 Eos # (Auto) 0.12 Baso # (Auto) 0.03 Abs Immat Gran (auto) 0.53 H Imm/Tot Granulo (auto) 5.2 Diff Slide Review Acceptable Review Sodium 139 Potassium 3.5 L Chloride 109 Carbon Dioxide 30 Anion Gap 0 L BUN 13 Creatinine 0.8 Estimated Creat Clear 55.64 Estimated GFR 89 Glucose 75 Calcium 8.6 C-Reactive Protein 6.5 H Preliminary micro results at discharge 06/08/23 19:31 Blood Culture - Preliminary Blood NO GROWTH AFTER 48 HOURS 06/08/23 18:55 Blood Culture - Preliminary Blood NO GROWTH AFTER 48 HOURS Discharge Plan Discharge Disposition: Xfer Other Date of Admission: 06/09/23 04:04 Attending Provider on Discharge: Christina Dawson Primary Care Provider: Ed Blair Condition: Guarded Discharge Medications: New levofloxacin 500 mg Tablet 500 mg PO Q24H Qty: 7 0RF Continued olanzapine 5 mg tablet,disintegrating 5 mg PO HS acetaminophen 325 mg tablet 650 mg PO QID albuterol sulfate 90 mcg/actuation HFA aerosol inhaler 2 inh inhalation Q6H PRN Patient Comments: PT JUST KEEPS ON HAND - HAS NOT USED cyanocobalamin (vitamin B-12) [Vitamin B-12] 500 mcg tablet 1,000 mcg PO DAILY sennosides [senna] 8.6 mg tablet 8.6 mg PO BID PRN trazodone 50 mg Tablet 25 mg PO HS PRN (Reason: insomnia) Qty: 30 0RF Patient Comments: IF NEEDED FOR SLEEP/ANXIETY sertraline 100 mg Tablet 100 mg PO DAILY Qty: 30 0RF levothyroxine 75 mcg tablet See Rx Instructions .ROUTE .COMPLEX Qty: 90 1RF Dose Instruction: TAKE 1 TABLET BY MOUTH EVERY DAY Rx Instructions: TAKE 1 TABLET BY MOUTH EVERY DAY Discharge Orders: Discharge Order (Routine); Ordered 06/11/23 Ordered By: Christina Dawson Additional Instructions: -Ask Dr. Blair: would Myke benefit from midodrine or florinef for BP support? It would be nice if you have BPs every day or every other day to write down and take with you to appointment. -Take one week of oral antibiotics, continue pushing fluids for mucus reduction. consider adding a humidifier. Activity Level: Activity as Tolerated Discharge Diet: Regular Follow Up Appointments: [facility] [Outside] (Patient is being discharge to [facility]) Ed Blair MD [Primary Care Provider] - (2-3 weeks, hospital f/u) Forms: [employer] Info Instructions
--- NOTE | 2023-06-11 16:50 | PC.SOCIAL ---
Discharge plans: late entry: prior to discharge faxed information to [facility] and confirmed receipt with nurse Burton. Met with pt and in room regarding d/c plan. is planning to bring pt back in her own vehicle and has already discussed with [facility] staff that they will help get him out of the car and into the building. and pt are pleased with this discharge plan.
--- OUTSIDE RECORDS SUMMARY | 2023-06-18 10:42 | XMS_ITS | Clinical Summary ---
Author Name Unknown Organization [facility] Address [address] [address] Phone Care Team Providers Care Claim Attorney Name Role Phone Unavailable Primary Care Provider [...] full glass of water. Do not crush. Active LORazepam (ATIVAN) 0.5 MG tabletIndications: Anxiety Use one as needed for anxiety 60 Tab 1 08/01/2013 Active levothyroxine (SYNTHROID) 75 MCG tablet Take 1 Tab by mouth one time a day. 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 Block. [id number] Anemia 08/04/2010 Seborrheic keratosis 08/04/2010 Hypothyroidism Resolved [...] Date Last Done Comments MEDICARE AWV 1945 RSV Vaccination (60+ yrs) (Abrysvo/Arexvy) (1 - 1-dose 60+ series) 2003 Pneumococcal Vaccine: 65+ yr s (Standing Order) (2 of 2 - PCV) 08/09/2012 08/10/2011, 12/25/2005 Shingrix (Zoster recombinant ) vaccine (Standing Order) (1 of 2) 09/22/2012 COLONOSCOPY Q 5 YRS 09/16/2017 09/16/2012, 08/05/2007 (Previously completed) TETANUS (Standing Order) 08/09/2021 08/10/2011 COVID-19 Vaccine (2022-2 4 season) 2022 Influenza Vaccine Seasonal (Standing Order) (#1) 2022 PERTUSSIS (Standing Order) Completed 08/10/2011 HPV Vaccine (Standing Order) Aged Out No longer eligible based on patient's age to complete this topic Hepatitis B Vaccine (Standin g Order) Aged Out No longer eligible b ased on patient's age to complete this topic Procedures Procedure Name Priority Date/Time Associated Diagnosis Comments COLONOSCOPY Routine 09/16/2012 12:00 AM CDT Colon polyps from Last 3 Months or Most Recently Relevant to Health Maintenance Results * COLONOSCOPY (09/16/2012 12:00 AM CDT) 09/16/2012 Narrative Transcriptions Jam Puckett MD - 09/16/2012 11:34 AM CDT [facility] ADDENDED COPY Patient Name: MYKE DOUGLAS Date of Service: 09/16/2012 : 1945 Age: 67Y Sex: M DC Site MRN: Patient Loc/Room #: [facility]/ Provider: Jam Puckett MD, Gastroenterology GI PROCEDURE SITE: [facility] ORDERED BY: COLONOSCOPY DATE OF PROCEDURE: 09/16/2012. PRIMARY CARE PHYSICIAN: Pérez Villafuerte MD INDICATION FOR PROCEDURE: Mr. Douglas is a 67-year-old male presentingfor a 5-year surveillance interval. History of adenomatous polyps. The risks and benefits of the procedure, including risk of perforation,bleeding, and missed lesions, were discussed with the patient. Informedconsent was obtained. After a brief cardiopulmonary physical examination,the patient was found to be an acceptable candidate for conscioussedation. He is an ASA class II. PROCEDURE: The patient was placed in the left lateral decubitus position.He received fentanyl 100 mcg and Versed 5 mg IV in a titrated fashion.Rectal examination was unremarkable. The Olympus pediatricvariable-stiffness colonoscope was inserted through the anus and advancedthrough the colon under direct vision to the cecum, as identified by theileocecal valve and appendiceal orifice. The quality of the prep was good.The entire colon was carefully examined, including the proximal aspect ofthe colonic folds, around the flexured areas, and in retroflexed view inthe rectum. FINDINGS: The colon was quite redundant. Moderate diverticula were notedin the sigmoid colon. A 4 mm sessile polyp was identified in the midtransverse colon. Polypectomy was performed with the cold polypectomysnare. The lesions were resected and retrieved. IMPRESSION: 1. Small transverse colon polyp, resected and retrieved. 2. Redundant colon. 3. Sigmoid diverticulosis. RECOMMENDATION: 1. Check pathology of resected polyp. Barring any advanced histology, a5-year surveillance interval would be appropriate, given the history ofadenomatous polyps. 2. A 2-day prep would be more adventitious. POST CONSCIOUS SEDATION/ANESTHESIA NOTE The patient was monitored post IV conscious sedation with continuous EKGand pulse monitoring, as well as periodic blood pressure monitoring. Uponthe patient regaining an alert level of sustained consciousness and thecontinuous O2 saturation and blood pressure monitoring confirming recoveryfrom the anesthetic effect of the intravenous medications, the patient wasdischarged in the care of an adult attendant. Guidelines for immediate medical attention post procedure were given tothe patient in a verbal and written format. ADDENDUM The transverse colon polyp was a tubular adenoma. Five-year surveillanceis recommended. The patient will be notified of these results andrecommendations via letter. Jam Puckett MD [facility] Gastroenterology cc: Pérez Villafuerte MD /CASI Job ID: [id number] /nichol/kendall(ord) Document ID: [id number] A: 09/21/2012 miguel(add) Jam Puckett MD EC PROCEDURES from Last 3 Months or Most Recently Relevant to Health Maintenance
--- OUTSIDE RECORDS SUMMARY | 2023-06-18 10:42 | XMS_ITS | Encounter Summary ---
Author Name Unknown Organization [facility] Address [address] [address] Phone Care Team Providers Care Chiseler Head Name Role Phone Pérez Villafuerte MD Primary Care Provider [phone] Leida Rooney RN Unavailable [phone] Encounter Details Date Type Department Care Team [...] on filedocumented in this encounter Care Teams Chiseler Head Relationship Specialty Start Date End Date Pé[place] [address] [place] [phone] PCP - General 07/30/10 03/07/15 Leida Rooney RN Sap Abap Developer 08/06/11 06/16/15 documented as of this encounter
== END 2023-06-11 13:05 | disposition other institution (70) | DRG 871 ==
LOC: ED 20:09 → MEDSURG 06-11 10:48
PROVIDERS: Physician Assistant; Admitting Provider Family Medicine; Emergency Provider Family Medicine; PCP Internal Medicine; Visit Provider Family Medicine
DX: A41.9 Sepsis, unspecified organism (principal); J18.1 Lobar pneumonia, unspecified organism; J96.01 Acute respiratory failure with hypoxia; S22.43XA Multiple fractures of ribs, bilateral, initial encounter for closed fracture; R13.0 Aphagia; J45.909 Unspecified asthma, uncomplicated; E03.9 Hypothyroidism, unspecified; G30.9 Alzheimer's disease, unspecified; F02.80 Dementia in other diseases classified elsewhere, unspecified severity, without behavioral disturbance, psychotic disturbance, mood disturbance, and anxiety; Z85.818 Personal history of malignant neoplasm of other sites of lip, oral cavity, and pharynx; H91.93 Unspecified hearing loss, bilateral
CPT/HCPCS: 36415; 70450; 71260; 74177; 80048; 80076; 81001; 82565; 82803; 83605; 83735; 83880; 84145; 84484; 85025; 85027; 86140; 87040; 87070; 87449; 87631; 87899; 92610; 93005; 94761; 97116; 97162; 97165; 97530; 97535; 99285; 99291; 99292; A9270; J0456; J1650; J2543; J3370; J7030; J7050; Q9967

== ENCOUNTER 2023-09-16 22:31 | Outpatient (REF) | payer MEDICARE, SELFPAY ==
--- OUTSIDE RECORDS SUMMARY | 2023-09-16 22:33 | XMS_ITS | Encounter Summary ---
Author Name [facility] [facility] [place] [facility] [place] Address [address] [place] [address] Care Team Providers Care Toolroom Checker Name Role Phone MASSIEL NGUYEN Primary Care Provider Unavailondina ble Insurance Providers: All historical and current Section [...] PART D Mar 01, 2010 PART D [id number] ALLEN COLLAZODAVINA PATIENT [facility] ([place]NR) MEDICARE ADVANTAGE [facility] (WNR) Mar 01, 2019 [id number] ALLEN DAVINA COLLAZO PATIENT [facility] ([place]NR) MEDICARE ADVANTAGE [facility] (WNR) Mar 01, 2015 [id number] [phone] ALLEN DAVINA COLLAZO PATIENT [facility] ([place]NR) MEDICARE ADVANTAGE [facility] (WNR) Mar 01, 2010 [id number] [phone] DAVINA DEVLIN PATIENT Selected Encounter This section includes the information on record at [place] for the Encounter. Date/Time Encounter Type Encounter Description Reason Provider Source Sep 13, 2023 11:28 AM Outpatient Encounter TELEPHONE TRIAGE STACEY SWANSNO Encounter Template Text not used by [place] Social History: Smoking Status (Most current) and Tobacco Use (All prior to encounter date) This section includes the most current, and the historical, smoking and tobacco- related health factors from the [place] facility where the Encounter took place. Current Smoking Status This section includes the most current smoking, or tobacco-related health factor, from the [place] facility where the Encounter took place. Date/Time Current Smoking Status Comment Facil ity Nov 08, 2019 12:00 PM VA-TOBACCO FORMER USER [facility] Tobacco Use History This section includes a history of the smoking, or tobacco-related health factors, that were collected on or before the date of the Encounter. The data comes from the [place] facility where the Encounter took place. Date/Time Smoking Status/Tobacco Use Comment F acility Nov 08, 2019 12:00 PM VA-TOBACCO QUIT 15 YRS OR MORE [facility] Advance Directives: All historical and current Section Date Range: From patient's date of to the date document was created. This section includes ALL of a patient's completed or amended [place] Advance and Rescinded Directives. The entries below indicate that a directive exists for the patient, but an actual copy is not included with this document. The data comes from all [place] facilities. Date Advance Directives Provider Source Nov 27, 2021 ADVANCE DIRECTIVE SCARLETT HOPPER [facility] Nov 27, 2021 ADVANCE DIRECTIVE DISCUSSION ERNIE HOPPER [facility] Encounter Notes: All associated encounter notes This section contains the clinical notes associated to the Encounter. Date/Time Encounter Note(s) Provider Source Sep 13, 2023 11:28 AM RN PROGRESS NOTE: LOCAL TITLE: CCC: CLINICAL TRIAGE STANDARD TITLE: RN PROGRESS NOTE DATE OF NOTE: SEP 13, 2023@11:28:06 ENTRY DATE: SEP 13, 2023@11:28:06 AUTHOR: STACEY SWANSON EXP COSIGNER: URGENCY: STATUS: COMPLETED Patient Demographics Patient Name: DAVINA DOUGLAS Patient Primary [address]: [address] [place] [address] Patient Primary Phone: [phone] Patient : 1945 Patient Age: 78 Caller/Recipient Relation to Patient: Other If Other Describe Relation to Patient: [facility] Caller Name: LEONARD Dillon Emergency Contact: MARSHALL DOUGLAS Nursing Plan and Disposition Other course(s) of action Generated msg to PACT/Provider Nurse Summary Nurse Summary: not available for this telephone call, triage assessment based on report of caller. Caller able to provide 3 identifiers. Caller is not listed as E-Contact or Next of kin. Caller is LEONARD Dillon with [facility]. CALLER CONCERN/DURATION/ONSET: LEONARD Dillon is needing signed medication list faxed back (faxed last week) for to save $100/month from [facility] pharmacy but also to know if can obtain medications from [place] pharmacy. Please follow up with her. HISTORY/PREVIOUS TREATMENT: WHAT IS CALER GOAL FOR THE CALL: LEONARD Dillon is needing follow up regarding 's medications. [employer] OFFICER DISPOSITION: Triage not completed at time of call as caller is following up on medications from fax sent last week. Advised caller note placed and Message Build Technician sent to appropriate team for follow-up. Caller verbalized understanding through teach back method at time of call. This note was created by a [address] computer training specialist. Please do not alert this nurse by adding as a signer for future communications. Alerts are not monitored by this user, please reach out to [facility] instead if indicated. Clinical Contact Center Codes Clinic/Location: V23 [facility] PHONE YAZAN RN /bassem/ STACEY SWANSON RN, V23 [place] [facility] Signed: 09/13/2023 11:28 STACEY SWANSON [facility]
--- OUTSIDE RECORDS SUMMARY | 2023-09-16 22:33 | XMS_ITS | Clinical Summary ---
Author Organization [facility] Address [address] [address] Phone Care Team Providers Care Realtime Court Reporter Name Role Phone Unavailable Primary Care Provider [...] Overview: Per 07/02/[address] Block. [id number] Anemia 08/04/2010 Seborrheic keratosis 08/04/2010 Hypothyroidism Resolved [...] 08/09/2021 08/10/2011 Influenza Vaccine Seasonal (Standing Order) (Season Ended) 2023 PERTUSSIS (Standing Order) Completed 08/10/2011 HPV Vaccine [...] Puckett MD - 09/16/2012 11:34 AM CDT [facility] ADDENDED COPY Patient Name: MYKE DOUGLAS Date of Service: 09/16/2012 : 1945 Age: 67Y Sex: M DC Site MRN: Patient Loc/Room #: [facility]/ Provider: Jam Puckett MD, Gastroenterology GI PROCEDURE SITE: [facility] [address] ORDERED BY: COLONOSCOPY DATE OF PROCEDURE: 09/16/2012. [...] results andrecommendations via letter. Jam Puckett MD [facility] Gastroenterology cc: Pérez Villafuerte MD /CASI Job ID: [id number] /ak/kendall(ord) Document ID: [id number] A: 09/21/2012 miguel(add) Jam Puckett MD EC PROCEDURES from Last 3 Months or Most Recently Relevant to Health Maintenance
--- OUTSIDE RECORDS SUMMARY | 2023-09-16 22:33 | XMS_ITS | Encounter Summary ---
Author Name [facility] [facility] [place] [facility] [place] [facility] [place] Address [address] [place] [address] Care Team Providers Care Substation Wireman Name Role Phone MASSIEL NGUYEN Primary Care Provider [facility] Insurance Providers: All historical and current Section [...] PART D Mar 01, 2010 PART D [phone] DAVINA RODAS PATIENT [facility] (WNR) MEDICARE ADVANTAGE [facility] (WNR) Mar 01, 2019 [id number] ALLEN COLLAZODAVINA PATIENT [facility] (WNR) MEDICARE ADVANTAGE [facility] (WNR) Mar 01, 2015 RIESIA [id number] [phone] ALLEN [place]AVINA [facility] (WNR) Mar 01, 2010 [facility] [id number] DAVINA RODAS PATIENT Selected Encounter This section includes the information on record at [place] for the Encounter. Date/Time Encounter Type Encounter Description Reason Provider Source Nov 18, 2022 01:30 PM OFFICE O/P EST MOD 30-39 MIN PRIMARY CARE/MEDICINE ICD-10-CM Z00.8 Encounter for other general examination KARI NGUYEN IHE Encounter Template Text not used by [facility] Assessments - Encounter Diagnoses This section includes the primary and secondary diagnoses documented for the Encounter. Date/Time Primary/Secondary Diagnosis Diagnosis Name Provider Source Nov 18, 2022 02:27 PM PRIMARY Encounter for other general examination [facility]I [facility]GU[facility] Nov 18, 2022 02:27 PM SECONDARY Alzheimer's disease, unspecified KARI NGUYEN[place] CB Nov 18, 2022 02:27 PM SECONDARY Contact with and exposure to other hazardous substances KARI NGUY[place] CB Nov 18, 2022 02:27 PM SECONDARY Malignant neoplasm of parotid gland KARI NGUYEN [facility] Nov 18, 2022 02:27 PM SECONDARY Other specified hypothyroidism KARI NGUYEN [facility] Plan of Treatment: Future Appointments (+ 6 months) and Future Tests (+/- 45 days) The Plan of Treatment section includes future care activities for the patient from all [place] treatmentfacilities. This section includes future appointments and future orders which are active, pending or scheduled. Future Appointments This section includes appointments that were scheduled to occur 6 months from the date of the Encounter, up to a maximum of 20 appointments. The data comes from all [place] treatment facilities. Appointment Date/Time Appointment Type Appointme nt Facility Name Feb 08, 2023 07:00 AM AMBULATORY - NONE [facility] Lab Results: +/- 30 days of the encounter This section includes the Chemistry and Hematology Lab Results on record with [place] for the patient. Radiology Reports and Pathology Reports are provided separately, in subsequent sections. Lab Results This section contains the Chemistry/Hematology Results that were resulted 30 days before or 30 daysafter the date of the Encounter. Date/Time Source Result Type Result - Unit Interpretation Reference Range Comment Nov 18, 2022 02:25 PM ARLINE MORAN B 12 Specimen Type: SERUM No comment entered. Ordering Provider: KARI NGUYEN Report Released Date/Time: Jan 14, 2022 08:41 AM Reporting Lab: [facility] [id number] Performing Lab: [facility] [id number] B 12 >2000 pg/mL H 213-816 Nov 18, 2022 02:25 PM [facility] FOLATE Specimen Type: SERUM No comment entered. Ordering Provider: KARI NGUYEN Report Released Date/Time: Jan 14, 2022 08:41 AM Reporting Lab: [facility] [id number] Performing Lab: [facility] [id number] FOLATE 8.6 ng/mL >7.0 Nov 18, 2022 02:25 PM [facility] CBC & DIFF Specimen Type: BLOOD Comment: Automated Differential Performed Ordering Provider: KARI NGUYEN Report Released Date/Time: Jan 14, 2022 08:41 AM Reporting Lab: [facility] [id number] Performing Lab: [facility] [address] WBC 4.77 10*3/uL 4.0-11.0 RBC 3.06 10*6/uL L 4.6-6.2 HGB 10.5 g/dL L 13.5-17.9 HCT 33.3 L 41-54 MCV 108.8 fL H 80-100 MCH 34.3 pg H 27-33 MCHC 31.5 g/dL L 32.0-37.5 PLT 134 10*3/uL L 150-400 MPV 10.5 fL H 7.4-10.4 NEUT 70.1 40.0-80.0 LYMPHS 15.3 15.0-45.0 MONO 10.9 2.0-12.0 EOSINO 2.1 0.0-6.0 BASO 0.6 0.0-2.0 RDW 13.8 11.5-14.5 ABS LYMPH 0.73 10*3/uL L 1.0-4.0 ABS MONO 0.52 10*3/uL 0.1-1.0 ABS NEUT 3.34 10*3/uL 2.0-7.7 ABS EOS 0.10 10*3/uL 0-0.5 ABS BASO 0.03 10*3/uL 0-0.2 IG(META,MYELO,P RO) 1.0 ABS IMMATURE GRAN 0.05 10*3/uL 0-0.1 Nov 18, 2022 02:25 PM [facility] CBC & DIFF Specimen Type: BLOOD Comment: Automated Differential Performed Ordering Provider: KARI NGUYEN Report Released Date/Time: Nov 18, 2022 02:10 PM Reporting Lab: [facility] [id number] Performing Lab: [facility] [address] WBC 4.72 10*3/uL 4.0-11.0 RBC 3.07 10*6/uL L 4.6-6.2 HGB 10.7 g/dL L 13.5-17.9 HCT 33.0 L 41-54 MCV 107.5 fL H 80-100 MCH 34.9 pg H 27-33 MCHC 32.4 g/dL 32.0-37.5 PLT 139 10*3/uL L 150-400 MPV 10.3 fL 7.4-10.4 NEUT 70.8 40.0-80.0 LYMPHS 14.6 L 15.0-45.0 MONO 11.9 2.0-12.0 EOSINO 1.5 0.0-6.0 BASO 0.6 0.0-2.0 RDW 13.9 11.5-14.5 ABS LYMPH 0.69 10*3/uL L 1.0-4.0 ABS MONO 0.56 10*3/uL 0.1-1.0 ABS NEUT 3.34 10*3/uL 2.0-7.7 ABS EOS 0.07 10*3/uL 0-0.5 ABS BASO 0.03 10*3/uL 0-0.2 IG(META,MYELO,P RO) 0.6 ABS IMMATURE GRAN 0.03 10*3/uL 0-0.1 Nov 18, 2022 02:25 PM [facility] TSH W/REFLEX TO FREE T4 Specimen Type: PLASMA No comment entered. Ordering Provider: KARI NGUYEN Report Released Date/Time: Nov 18, 2022 02:10 PM Reporting Lab: [facility] [address] Performing Lab: [facility] [address] TSH 1.85 u[IU]/mL 0.35-4.94 Nov 18, 2022 02:25 PM ARLINE HOPE COMPREHENSIVE METABOLIC PANEL+MG Specimen Type: PLASMA Comment: Automated Differential Performed Ordering Provider: KARI NGUYEN Report Released Date/Time: Nov 18, 2022 02:10 PM Reporting Lab: [facility] [address] Performing Lab: [facility] [address] CREATININE 1.4 mg/dL H 0.7-1.2 UREA NITROGEN 29 mg/dL H 8-26 GLUCOSE 79 mg/dL 70-100 SODIUM 138 mmol/L 136-145 POTASSIUM 4.8 mmol/L 3.5-5.1 CHLORIDE 105 mmol/L 98-107 CO2 30 mmol/L H 22-29 CALCIUM 9.5 mg/dL 8.4-10.2 PROTEIN,TOTAL 7.2 g/dL 6.0-8.3 ALBUMIN 4.0 g/dL 3.5-5.2 BILIRUBIN, TOTAL 0.4 mg/dL 0.2-1.2 MAGNESIUM 2.0 mg/dL 1.6-2.6 ANION GAP 3 mmol/L L 5-15 ALKALINE PHOSPHATASE 54 U/L 40-150 ALT/SGPT 14 U/L <55 AST/SGOT 20 U/L <34 .CREAT EGFR(CKD-EPI) 51 L >60 Vital Signs: All taken on the encounter date This section contains inpatient and outpatient Vital Signs collected on the date of the Encounter. Date/Time Temperature Pulse Blood Pressure Respiratory Rate SP02 Pain Height Weight Body Mass Index Source Nov 18, 2022 01:45 PM 82/52 mm[Hg] LEONILA HOPE Nov 18, 2022 01:41 PM 97.2 F 46 /min 16 /min 97 % 0 70.5 in 164 lb 23 LEONILA HOPE Social History: Smoking Status (Most current) and Tobacco Use (All prior to encounter date) This section includes the most current, and the historical, smoking and tobacco- related health factors from the [place] facility where the Encounter took place. Current Smoking Status This section includes the most current smoking, or tobacco-related health factor, from the [place] facility where the Encounter took place. Date/Time Current Smoking Status Comment Facil gladys Nov 18, 2022 01:30 PM VA-TOBACCO FORMER USER [facility] Tobacco Use History This section includes a history of the smoking, or tobacco-related health factors, that were collected on or before the date of the Encounter. The data comes from the [place] facility where the Encounter took place. Date/Time Smoking Status/Tobacco Use Comment F acility Nov 18, 2022 01:30 PM VA-TOBACCO QUIT 15 YRS OR MORE [facility] Nov 17, 2021 10:00 AM VA-TOBACCO FORMER USER [facility] Nov 17, 2021 10:00 AM VA-TOBACCO QUIT 5 TO < 15 YRS [facility] Nov 14, 2020 10:00 AM VA-TOBACCO FORMER USER [facility] Nov 14, 2020 10:00 AM VA-TOBACCO QUIT 15 YRS OR MORE [facility] Oct 07, 2018 12:13 PM VA-TOBACCO FORMER USER [facility] Oct 07, 2018 12:13 PM VA-TOBACCO QUIT 15 YRS OR MORE [facility] Sep 29, 2017 02:26 PM FORMER TOBACCO USER 7Y OR GREATE R [facility] Nov 13, 2016 12:58 PM FORMER TOBACCO USER 7Y OR GREATE R [facility] Oct 16, 2015 05:00 AM FORMER TOBACCO USER 7Y OR GREATE R [facility] Oct 19, 2014 06:19 AM FORMER TOBACCO USER 7Y OR GREATE R [facility] Oct 11, 2013 01:36 PM FORMER TOBACCO USER 7Y OR GREATE R [facility] Advance Directives: All historical and current Section Date Range: From patient's date of to the date document was created. This section includes ALL of a patient's completed or amended [place] Advance and Rescinded Directives. The entries below indicate that a directive exists for the patient, but an actual copy is not included with this document. The data comes from all [place] facilities. Date Advance Directives Provider Source Nov 27, 2021 ADVANCE DIRECTIVE SCARLETT HOPPER [facility] Nov 27, 2021 ADVANCE DIRECTIVE DISCUSSION ERNIE HOPPER [facility] Encounter Notes: All associated encounter notes This section contains the clinical notes associated to the Encounter. Date/Time Encounter Note(s) Provider Source Nov 19, 2022 09:45 AM LETTERS: LOCAL TITLE: FOLLOW UP RESULTS LETTER STANDARD TITLE: LETTERS DATE OF NOTE: NOV 19, 2022@09:45 ENTRY DATE: NOV 19, 2022@09:45:43 AUTHOR: MASSIEL NGUYEN COSIGNER: URGENCY: STATUS: COMPLETED [facility] [address] [place] [address] Oct DAVINA PAEZIVETTE [address] [facility] [address] Dear : I am writing to inform you of the results of testing that you had done recently at the [facility]. - Complete Blood Count (red/white blood cell counts and platelets) White count: WBC 4.77 (11/18/22) (normal is 4.0-11.0) Hemoglobin: HGB 10.5 L (11/18/22) (normal Male is 13.5-17.9; Female is 11.5-16) Hematocrit: HCT 33.3 L (11/18/22) (normal Male is 41-54; Female is 34.5-48) Platelets: PLT 134 L (11/18/22) (normal is 150-400) - Electrolytes including sodium and potassium SODIUM 138 (11/18/22) (normal is 136-145) POTASSIUM 4.8 (11/18/22) (normal is 3.5-5.1) - Calcium CALCIUM 9.5 (11/18/22) (normal is 8.5-10.1) - Kidney function CREATININE 1.4 H (11/18/22)(normal Male = less than 1.2; normal Female = less than 1.0)) UREA NITROGEN 29 H (11/18/22) (normal Male is 8-26; normal Female is 10-20) - Blood Sugar GLUCOSE 79 (11/18/22) (normal is 70 - 100 if fasting) - Liver function Tests AST/SGOT 20 (11/18/22) (normal 15-37) ALT/SGPT 14 (11/18/22) (normal 13-61) ALK PHOSPHATASE 54 (11/18/22) (normal 45-117) BILIRUBIN, TOTAL 0.4 (11/18/22) (normal 0.2-1.0) - Hemoglobin A1C (normal 4.0-6.0) Collection DT Spec HGBA1C 11/14/2020 10:59 BLOOD 5.2 11/11/2017 11:49 BLOOD 5.2 11/13/2016 13:39 BLOOD 5.3 - Thyroid Function: TSH 1.85 (11/18/22) (normal 0.3-5.0) Additional Comments: Your hgb is low but stale. ou iron and vitamin levels are adequat so not dana why youu are anemic. If you would like to see a patent leather sorter ( blood specialist) about this we can arange that. Please let my nurse know if you are intrested. yor creatiine is little higher than it has been . You should drink more flis every day to bring it down. Everything else looks good. If you have any further questions or problems, please contact our nursing staff or provider at the following number: [phone]. Sincerely, MASSIEL NGUYEN PHYSICIAN MASSIEL NGUYEN CB Nov 18, 2022 02:27 PM MEDICATION MGT NOT E: LOCAL TITLE: MEDICATION RECONCILIATION NOTE STANDARD TITLE: MEDICATION MGT NOTE DATE OF NOTE: NOV 18, 2022@14:27 ENTRY DATE: NOV 18, 2022@14:27:57 AUTHOR: MASSIEL NGUYEN EXP COSIGNER: URGENCY: STATUS: COMPLETED MEDICATION RECONCILIATION Active Outpatient Medications (excluding Supplies): Outpatient Medications Status 1) CYANOCOBALAMIN 1000MCG TAB TAKE ONE TABLET BY MOUTH ACTIVE EVERY DAY FOR VITAMIN B12, FOR RED BLOOD CELLS 2) CYANOCOBALAMIN 1000MCG TAB TAKE ONE TABLET BY MOUTH PENDING EVERY DAY FOR VITAMIN B12, FOR RED BLOOD CELLS Non-VA Medications Status 1) Non-VA DONEPEZIL HCL 10MG TAB 10MG MOUTH EVERY DAY ACTIVE 2) Non-VA LEVOTHYROXINE NA (SYNTHROID) 75MCG TAB 75MCG ACTIVE MOUTH EVERY DAY 3) Non-VA LORAZEPAM 0.5MG TAB 0.5MG MOUTH NEEDED ACTIVE 4) Non-VA MEMANTINE HCL 10MG TAB 10MG MOUTH ACTIVE 5) Non-VA PSYLLIUM ORAL PWD 1 TEASPOONFUL MOUTH EVERY ACTIVE DAY 7 Total Medications Medications listed above are accurate and should continue as ordered. /bassem/ MASSIEL NGUYEN PHYSICIAN Signed: 11/18/2022 14:28 [facility] NGUYEN [facility] Nov 18, 2022 02:00 PM H & P NOTE: LOCAL TITLE: [facility] ANNUAL VISIT STANDARD TITLE: H & P NOTE DATE OF NOTE: NOV 18, 2022@14:00 ENTRY DATE: NOV 18, 2022@14:00:50 AUTHOR: MASSIEL NGUYEN EXP COSIGNER: URGENCY: STATUS: COMPLETED Annual visit Non VA Providers: [facility] and [facility] Chief complaint: Patient is here for a routine annual visit. HPI:Since we last saw patient hs has completed his work up at [facility] and was diagnosed with alzheimers. keeps him active and i in charge of his medication. Right now they have not had too many issues at home but woudl like to speak with the social services manager. They have been working with the O regarding his time at [facility] and the possibility that his paratid cancer could be related. He had the cancer many years aago and it was treated at [facility]. So I suggested the speak with the oncology department and see if someone could review his records and send a statement regarding the possibiity that they are linked. Assessment/Plan: 1. Routine labs today 2. ophtho sees regularly 3. denitst sees regularly 4. Audio bilat aides 2 years old 5 Medicatiosn reviewed, updated, Labs and medications reviewed with patient. Discussed plan of care, patient verbalized understanding and agrees with plan. FU in 1 year for annual exam, sooner with any concerns. Clinical Reminders: Toxic Exposure Screening Follow-Up: Exposure Concern(s): 11/18/2022 [place] Related Exposures - Toxic Exposure Concern Follow-up Question(s): 11/18/2022 Health/Medical Questions - Toxic Exposure Concern [place]/caregiver has health or medical concerns related to their concern of environmental exposure. Concern: [place], paroatid cancer The following connections were provided to the [place]/caregiver: No connections needed at this time Past Medical History: Computerized Problem List is the source for the followin. Carcinoma of parotid gland ACTIVE 2. Chronic obstructive lung disease ACTIVE 3. Acquired hypothyroidism ACTIVE 4. Congestion of nasal sinus ACTIVE 5. Wheezing ACTIVE 6. Health maintenance alteration ACTIVE 7. Osteoarthritis of ankle ACTIVE 8. Anxiety ACTIVE 9. Bilateral metatarsalgia ACTIVE 10. Paraesthesia of foot ACTIVE 11. Enthesopathy of left foot ACTIVE 12. Chronic pain of left foot ACTIVE PSH: SURGERIES - s/p cyst removal on right chest, s/p hernia repair, s/p catarct bilat, Social History: Alcohol: none Tobacco: none Marital Status:, lives iwth Occupation: retired Family History: mom 80's dad 83 1 brother deceawsed 1 sisters BRANCH OF SERVICE: [place] VENTRAL HERNIA 0% SC RESIDUALS OF FOOT INJURY 10% SC SERVICE CONNECTED % - 10 ROS: CONS: negative for fever HEENT: negative CV: neg for acute chest pain, palpitation, RESPIRATORY: neg for acute dyspnea, cough, wheeze GI: neg for n/v, diarrhea, constipation : neg for dysuria, hematuria, MSK:neg for new difficulty with joint discomfort, myalgias, weakness. NEURO: neg for new motor or sensory complains SKIN: neg for new rash, lesion Physical Exam: Vitals: Blood Pressure: 82/52 (11/18/2022 13:45) Pulse: 46 (11/18/2022 13:41) Pulse Oximetry: 97% (11/18/2022 13:41) Resp: 16 (11/18/2022 13:41) Temp: 97.2 F [36.2 C] (11/18/2022 13:41) Height: 70.5 in [179.1 cm] (11/18/2022 13:41) Weight: 164 lb [74.39 kg] (11/18/2022 13:41) BMI:23.2 GENERAL:well developed, well nourished pt in nad. EYES:PERRLA,EOMI, conjuntiva clear, no discharge,wears glasses. EARS:canals clear, TMs intact NOSE:Nostrils patent, no discharge, THROAT:No enlarged tonsils, no inflammation, no exudate or ulcers. NECK: supple, no obvious thyromegaly HEART:Regular rate and rhythm , no obvious murmurs/rubs RESPIRATORY: Lungs clear to auscultation b/l, no rales or wheezes. ABDOMEN:soft, nontender, nondistended, no organomegaly, normal bs. MSK:normal gait, moves all extremities, no joints swelling, rom normal. NEURO:alert and oriented, cranial nerves II-XII intact, speech clear, strength equal b/l, normal gait and movement, PSYCH: normal affect, well groomed SKIN:warm adn dry, pale, no rash or suspicious lesions EXT: no cyanosis, no edema lower ext b/l Allergies: Patient has answered NKA SLT - Lab Tests Selected No data available for: REGIONAL ALLERGY PROFILE Vaccinations: IM - Immunizations Immunization Series Date Facility Reaction Info COVID-19 (PFIZER), MRNA, LNP-S, B* 1 11/14/2021 [facility]* COVID-19 (PFIZER), MRNA, LNP-S, P* 2 06/21/2021 [facility]* 3 11/22/2020 [facility]* 2 05/04/2020 [facility] 1 04/10/2020 [facility] COVID-19 (PFIZER), MRNA, LNP-S, P* 06/21/2021 [facility] [facility] INFLUENZA, HIGH DOSE SEASONAL 11/29/2018 [facility] [facility] 11/25/2016 [facility] [facility] 11/26/2015 [facility] [facility] 12/04/2014 [facility] [facility] INFLUENZA, INJECTABLE, QUADRIVALE* 11/14/2020 [facility]* INFLUENZA, RECOMBINANT, QUADRIVAL* 12/05/2019 [facility] [facility] INFLUENZA, SEASONAL, INJECTABLE 12/03/2013 [facility] [facility] 11/14/2008 [facility] [facility] INFLUENZA, UNSPECIFIED FORMULATIO* 11/14/2021 [facility]* [facility]* PNEUMOCOCCAL CONJUGATE PCV 13 10/19/2014 [facility]* <C> 07/24/2014 [facility] [facility] PNEUMOCOCCAL POLYSACCHARIDE PPV23 No Site <C> 08/10/2011 [facility] [facility] 03/15/2009 [facility] [facility] 12/25/2005 [facility] [facility] PNEUMOCOCCAL, UNSPECIFIED FORMULA* No Site TDAP 03/11/2022 [facility] [facility]* 08/10/2011 [facility] [facility] 03/15/2010 [facility] [facility]OST[facility] LIVE [facility]* 07/28/2012 [facility] [facility] ZOST[facility] RECOMBINANT 2 06/05/2021 [facility]* <C> 1 12/14/2020 [facility]* <C> <C> See the Detailed Immunizations Health Summary Component[DIM] for Comments Labs: pending /bassem/ MASSIEL NGUYEN PHYSICIAN Signed: 11/18/2022 14:27 MASSIEL NGUYEN [facility] Nov 18, 2022 01:46 PM PRIMARY CARE NURSI NG NOTE: LOCAL TITLE: [facility] NURSING PROGRESS NOTE STANDARD TITLE: PRIMARY CARE NURSING NOTE DATE OF NOTE: NOV 18, 2022@13:46 ENTRY DATE: NOV 18, 2022@13:47 AUTHOR: TYLER HUERTA EXP COSIGNER: URGENCY: STATUS: COMPLETED TYPE OF VISIT: Appointment Check In Type of appointment: In-person appointment REASON FOR VISIT: Annual ALLERGIES: Patient has answered NKA VITAL SIGNS: Blood Pressure: 82/52 (11/18/2022 13:45) Pulse: 46 (11/18/2022 13:41) Respiration: 16 (11/18/2022 13:41) Temperature: 97.2 F [36.2 C] (11/18/2022 13:41) Weight: 164 lb [74.39 kg] (11/18/2022 13:41) Height: 70.5 in [179.1 cm] (11/18/2022 13:41) BMI: 23.2 O2 Sat: 97% (11/18/2022 13:41) Pain: 0 (11/18/2022 13:41) PAIN SCREEN: Patient is not having significant pain that they wish to discuss with their provider today. MEDICATION Active Outpatient Medications (including Supplies): CYANOCOBALAMIN 1000MCG TAB TAKE ONE TABLET BY MOUTH EVERY ACTIVE DAY FOR VITAMIN B12, FOR RED BLOOD CELLS CYANOCOBALAMIN 1000MCG TAB TAKE ONE TABLET BY MOUTH EVERY PENDING DAY FOR VITAMIN B12, FOR RED BLOOD CELLS Non-VA DONEPEZIL HCL 10MG TAB 10MG MOUTH EVERY DAY ACTIVE Non-VA LEVOTHYROXINE NA (SYNTHROID) 75MCG TAB 75MCG MOUTH ACTIVE EVERY DAY Non-VA LORAZEPAM 0.5MG TAB 0.5MG MOUTH NEEDED ACTIVE Non-VA NON VA MED NOT LISTED MISCELLANEOUS MUCINEX 600MG ACTIVE MOUTH EVERY MORNING Non-VA NON VA MED NOT LISTED MISCELLANEOUS MUCINEX HD 600 ACTIVE TIME RELEASE CAP Over the Counter/Herbal Medications: The patient states that they take some outside medications and/or herbals. ADV DIR Notification and Screening: ADVANCE DIRECTIVE NOTIFICATION: Patient was given written notification of the following rights: 1. Accept or refuse any medical treatment. 2. Complete a durable power of bankruptcy attorney for health care. 3. Complete a living will. ADVANCE DIRECTIVE SCREENING: Does patient have an Advance Directive? The patient has an Advance Directive. Does the patient wish to make any changes or revoke their current Advance Directive? No changes requested at this time. Toxic Exposure Screening: The [place]/caregiver was asked if they believe the experienced any toxic exposure(s), such as Airborne Hazards and [place], [place] related exposures, Agent [place], Radiation, contaminated water at [place] or other such exposures, while serving in the [employer]. /caregiver believes the was exposed to the following while serving in the [employer]: [place] contaminated water exposure: /caregiver was made aware of educational resources that includes information on presumptive conditions and how to file a claim. Printed information was offered and provided if desired. Health/Medical Questions All patients who report a health/medical concern will receive follow-up from a clinician. For urgent or emergent concerns, they were advised to follow local facility policy. Contact information for local resources: - Veterans Benefits for claims submission: Have the call or have them visit the following web address for online scheduling: [email or web address] - [place] Healthcare Enrollment: [phone] ([phone]) - Find a Volunteer Services Coordinator (VSO): Have the call 4-466-CQJVDVO or look up their VSO at: [email or web address] - [facility] Navigators: Dr. Logan Saez: [phone] Dr. Cj De La Garza: [phone] Toxic Exposure Screening Follow-Up reminder is needed. Name of person notified: [facility] pcp Suicide Screen: C-SSRS Screening [place] Suicide Severity Rating Scale (C-SSRS) screener 1. Over the past month, have you wished you were or wished you could go to sleep and not wake up? No 2. Over the past month, have you had any actual thoughts of killing yourself? No 3. Over the past month, have you been thinking about how you might do this? Response not required due to responses to other questions. 4. Over the past month, have you had these thoughts and had some intention of acting on them? Response not required due to responses to other questions. 5. Over the past month, have you started to work out or worked out the details of how to kill yourself? Response not required due to responses to other questions. 6. If yes, at any time in the past month did you intend to carry out this plan? Response not required due to responses to other questions. 7. In your lifetime, have you ever done anything, started to do anything, or prepared to do anything to end your life (for example, collected pills, obtained a gun, gave away valuables, went to the roof but didn't jump)? No 8. If YES, was this within the past 3 months? Response not required due to responses to other questions. Depression Screening: Perform PHQ-2 A PHQ-2 screen was performed. The score was 0 which is a negative screen for depression. Over the past two weeks, how often have you been bothered by the following problems? 1. Little interest or pleasure in doing things Not at all 2. Feeling down, depressed, or hopeless Not at all Alcohol Use Screen (AUDIT-C): Alcohol Screen: SCREEN FOR ALCOHOL (AUDIT-C) An alcohol screening test (AUDIT-C) was negative (score=0). 1. How often did you have a drink containing alcohol in the past year? Never 2. How many drinks containing alcohol did you have on a typical day when you were drinking in the past year? Response not required due to responses to other questions. 3. How often did you have six or more drinks on one occasion in the past year? Response not required due to responses to other questions. Tobacco Use Screening: The patient is a former tobacco user. The patient quit fifteen or more years ago. 20+ yrs Nursing Annual Screening: Fall History Screen During the past 12 months, have you had any falls? Patient does not report any falls in the past 12 months. MEDICATIONS: Patient does not have an active prescription for one of the following medications: Antihypertensives, Antidepressants, Antipsychotics, Diuretics, or Opioid Analgesics (Contolled Substance medications used for pain). FALL RISK ADVICE: Fall Risk Advice provided. Handout entitled Fall Prevention At Home reviewed and given to patient and/or significant other. Script Talk Screen Are you able to read your prescription bottles with your glasses, magnifiers or other aids? Yes or patient not taking any prescriptions. Skin Screen Patient reports any current pressure ulcers, a history of pressure ulcers, or a wound from a medical record technician or Patient is bed-confined or a wheelchair-user or Patient requires assistance to transfer/change position No, Skin Screen is Negative Home Abuse/Violence Screen Is your home free of abuse and violence? Yes MOVE! Program Screen Body Mass Index (BMI)= 23.2 [place]: Collection DT Specimen Test Name Result Units Ref Range 11/14/2020 10:59 BLOOD HEMOGLOBIN A1C 5.2 % 4.0 - 6.0 [place] Hgb A1C: No data available [place] Hgb A1C: No data available Point of Care Hgb A1C: POC HGB A1C____ Outpatient Nutrition Screen Body Mass Index (BMI)= 23.2 [place]: Collection DT Specimen Test Name Result Units Ref Range 11/14/2020 10:59 BLOOD HEMOGLOBIN A1C 5.2 % 4.0 - 6.0 [place] Hgb A1C: No data available [place] Hgb A1C: No data available Point of Care Hgb A1C: POC HGB A1C____ Is patient's BMI less than 18.5? No Does patient have swallowing, coughing, or chewing problems affecting oral intake? No Has patient experienced unplanned weight loss or gain greater than 10 pounds over the last 2 months? No Is patient's Hgb A1C (Glycosylated Hemoglobin) greater than 9.5? Information not available Is patient receiving Total Parenteral Nutrition (TPN) or Tube Feedings? No Patient Health Education Screen BARRIERS/SPECIAL NEEDS: Hearing limitations Visual limitations Cognitive limitations Other need or barrier (specify): dx: dememtia of the [place] type PREFERRED STYLE OF LEARNING: Watching something Listening Reading Client Assistive Service (PHILLIP) Screen Does the patient require assistance with outpatient visit? No Will wait on Flu at this time per /bassem/ MURTAZA ROPER LPN [facility] Signed: 11/18/2022 16:01 TYLER HUERTA OC
--- OUTSIDE RECORDS SUMMARY | 2023-09-16 22:33 | XMS_ITS | Continuity of Care Document ---
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 It does not include entries that were removed or entered in error. Problem Status Onset Date Problem Type Date of Resolution Comments Source Exposure to potentially hazardous substance ([facility] [id number]) Active 05/07/19 24 Condition May 07, 2023 Entered By: ABHILASH PETER [facility]: [facility] Documentation Initiative [facility] Acquired hypothyroidism Active Condition [facility] Anxiety Active Condition [facility] Bilateral metatarsalgia Active Condition [facility] Carcinoma of parotid gland Active Condition [facility] Chronic obstructive lung disease Active Condition [facility] Chronic Obstructive Pulmonary Disease Active Condition Oct 05 08 Entered By: ISIDRA BYERS Comment: FEV1(L) % PRED= 88, FEV1/FVC% ACTUAL= 60 [facility] Chronic pain of left foot Active Condition [facility] Congestion of nasal sinus Active Condition [facility] Edema Active Condition Feb 14 08 Entered By: ISIDRA BYERS Comment: ideopathic-nml full w/u [address] [facility] Enthesopathy of left foot Active Condition [facility] Health maintenance alteration Active Condition [facility] Hypothyroidism * (ICD-9-CM 244.9) Active Condition [facility] Keratosis, seborrheic Active Condition [facility] Osteoarthritis of ankle Active Condition [facility] Osteopenia * (ICD-9-CM 733.90) Active Condition [facility] Paraesthesia of foot Active Condition [facility] Personal History of Colonic Polyps (ICD-9-CM V12.72) Active Condition Oct 01 09 Entered By: ISIDRA BYERS Comment: scope 2008 nml-due 2012 [facility] Postsurgical Status of Cataract Extraction Active Condition [facility] Presbyopia Active Condition . [facility] Primary degenerative dementia of the Alzheimer type, senile onset, with delusion Active Condition [facility] Rhinitis * (ICD-9-CM 472.0) Active Condition [facility] salivary cancer Active Condition Sep 27, 2007 Entered By: ISIDRA BYERS Comment: radical neck + radiation [facility] SENSORNEUR HEARING LOSS NOS Active Condition [facility] Wheezing Active Condition [facility] Tobacco Use Disorder * (ICD-9-CM 305.1) Inactive Condition 09/27/2007 [facility] Diagnosis: ICD-10-CM R53.1 Weakness Active Diagnosis [facility] Diagnosis: ICD-10-CM Z00.8 Encounter for other general examination Active Diagnosis [facility] Medications Combined list of outpatient medications from Department of Defense and Veterans Affairs facilities.Medications provided include 1) outpatient medications from the last 15 months, and 2) patient-reported medications. Medication Details Route Status Patient Instructions Prescription Expires Prescription Number Last Dispense Date Ordering Provider Order Date Order Qty Source ASPIRIN TAB,EC ASPIRIN TAB,EC Non-VA TAKE BY MOUTH Oct 22, 2004 Non-VA Document ed by: Luis Fernando MARCUS Document ed at: [facility] ORAL ACTIVE SHEN SHRESTHA 2004 [facility] CYANOCOBALA MIN 1000MCG TAB CYANOCOB ALAMIN 1000MCG TAB Active TAKE ONE TABLET BY MOUTH EVERY DAY FOR VITAMIN B12, FOR RED BLOOD CELLS Nov 18, 2022 100 Nov 19, 2023 [id number] A Nov 19, 2022 [facility] ORAL [facility]IVE 11/19/2023 [id number] MASSIEL NGUYEN 2022 100 [facility] DONEPEZIL HCL 10MG TAB DONEPEZI L HCL 10MG TAB Non-VA TAKE ONE TABLET BY MOUTH EVERY DAY Nov 17, 2021 Non-VA Document ed by: MASSIEL NGUYEN Document ed at: [facility] ORAL ACTIVE MASSIEL NGUYEN 2021 [place] [facility] GUAIFENESIN TAB GUAIFENE SIN TAB Non-VA TAKE 600MG DM BY MOUTH DAILY Sep 07, 2012 Non-VA Document ed by: ISIDRA BYERS Document ed at: [facility] ORAL ACTIVE Giovanni BYERS 2012 [facility] LEVOTHYROXI NE NA 75MCG TAB (SYNTHROID) LEVOTHYR OXINE NA 75MCG TAB (SYNTHRO ID) Non-VA TAKE ONE TABLET BY MOUTH Sep 19, 2012 Non-VA Document ed by: ISIDRA BYERS Document ed at: [facility] ORAL ACTIVE Giovanni BYERS 2012 [facility] LEVOTHYROXI NE NA 75MCG TAB (SYNTHROID) LEVOTHYR OXINE NA 75MCG TAB (SYNTHRO ID) Non-VA TAKE ONE TABLET BY MOUTH EVERY DAY Nov 17, 2021 Non-VA Document ed by: MASSIEL NGUYEN Document ed at: [facility] ORAL ACTIVE MASSIEL NGUYEN 2021 [facility] LORAZEPAM 0.5MG TAB LORAZEPA M 0.5MG TAB Non-VA TAKE ONE TABLET BY MOUTH PRN Nov 17, 2021 Non-VA Document ed by: MASSIEL NGUYEN Document ed at: [facility] ORAL ACTIVE MASSIEL NGUYEN 2021 [place] [facility] LORAZEPAM 0.5MG TAB LORAZEPA M 0.5MG TAB Non-VA TAKE ONE TABLET BY MOUTH PRN Sep 29, 2007 Non-VA Document ed by: ISIDRA BYERS Document ed at: [facility] ORAL ACTIVE Giovanni BYERS 2007 [facility] MEMANTINE HCL 10MG TAB MEMANTIN E HCL 10MG TAB Non-VA TAKE ONE TABLET BY MOUTH Nov 18, 2022 Non-VA Document ed by: MASSIEL NGUYEN Document ed at: [facility] ORAL ACTIVE MASSIEL NGUYEN 2022 [place] [facility] MULTIVITAMI N/MINERALS SENIOR FORMULA TAB MULTIVIT BARTON/MIN ERALS SENIOR FORMULA TAB Non-VA TAKE ONE TABLET BY MOUTH Oct 22, 2004 Non-VA Document ed by: Luis Fernando MARCUS Document ed at: [facility] ORAL ACTIVE SHEN SHRESTHA 2004 [facility] PSYLLIUM PWDR,ORAL PSYLLIUM PWDR,ORA L Non-VA TAKE 1 TEASPOON FUL BY MOUTH EVERY DAY FOR REGULAR BOWEL MOVEMENT S Nov 18, 2022 Non-VA Document ed by: MASSIEL NGUYEN Document ed at: [facility] ORAL ACTIVE MASSIEL NGUYEN 2022 [facility] Immunizations Combined list of available immunizations from the Department of Defense and Veterans Affairs facilities. Immunization Series Date Given Administered By Site Reaction Lot Number CVX Code Drug Rod Tape Operator Status Comments Source TDAP 2022 115 complet ed [facility] COVID-19, MRNA, LNP-S, BIVALENT BOOSTER, PF, 30 MCG/0.3 ML DOSE 1 2021 300 complet ed [facility] INFLUENZA, UNSPECIFIED FORMULATION 2021 88 complet ed [facility] COVID-19 (PFIZER), MRNA, LNP-S, PF, 30 MCG/0.3 ML DOSE 2 2021 208 complet ed [facility] COVID-19 (PFIZER), MRNA, LNP-S, PF, 30 MCG/0.3 ML DOSE, SHANTELL-SUCROSE (AGES 12+ YEARS) 2021 217 complet ed [facility] ZOSTER RECOMBINANT 2 2021 187 complet ed [facility] ZOSTER RECOMBINANT 1 2020 187 complet ed [facility] COVID-19 (PFIZER), MRNA, LNP-S, PF, 30 MCG/0.3 ML DOSE 3 2020 208 complet ed [facility] INFLUENZA, INJECTABLE, QUADRIVALENT, PRESERVATIVE FREE 2020 150 complet ed [facility] COVID-19 ([email or web address]), MRNA, LNP-S, PF, 30 MCG/0.3 ML DOSE 2 2020 208 complet ed [facility] COVID-19 (PFIZER), MRNA, LNP-S, PF, 30 MCG/0.3 ML DOSE 1 2020 208 complet ed [facility] INFLUENZA, RECOMBINANT, QUADRIVALENT, INJECTABLE, PRESERVATIVE FREE 2019 185 complet ed [facility] INFLUENZA, HIGH DOSE SEASONAL 2018 135 complet ed [facility] INFLUENZA, HIGH DOSE SEASONAL 2016 135 complet ed [facility] INFLUENZA, HIGH DOSE SEASONAL 2015 135 complet ed [facility] INFLUENZA, HIGH DOSE SEASONAL 2014 135 complet ed [facility] PNEUMOCOCCAL CONJUGATE PCV 13 2014 133 complet ed [employer] Lot# [id number] Exp 03/2016 [facility] PNEUMOCOCCAL CONJUGATE PCV 13 2014 133 complet ed [facility] INFLUENZA, SEASONAL, INJECTABLE 2013 141 complet ed [facility] INFLUENZA, SEASONAL, INJECTABLE 2013 141 complet ed [facility] TDAP 2012 115 complet ed [facility] INFLUENZA, UNSPECIFIED FORMULATION 2012 88 complet ed [facility] ZOSTER LIVE 2012 121 complet ed [facility] PNEUMOCOCCAL POLYSACCHARID E PPV23 2012 33 complet ed [facility] PNEUMOCOCCAL, UNSPECIFIED FORMULATION 2012 109 complet ed [facility] ZOSTER LIVE 2012 121 complet ed [facility] INFLUENZA, UNSPECIFIED FORMULATION 2011 88 complet ed [facility] ZOSTER LIVE 2011 121 complet ed [employer] #[id number] exp 05-13-12 [facility] PNEUMOCOCCAL POLYSACCHARID E PPV23 2011 33 complet ed [facility] TDAP 2011 115 complet ed [facility] TDAP 2010 115 complet ed [facility] PNEUMOCOCCAL POLYSACCHARID E PPV23 2009 33 complet ed [facility] NOVEL INFLUENZA-H1N 1-09, ALL FORMULATIONS 2008 128 complet ed [employer] [facility] INFLUENZA (HISTORICAL) 2008 88 complet ed [facility] INFLUENZA, SEASONAL, INJECTABLE 2008 141 complet ed [facility] INFLUENZA, UNSPECIFIED FORMULATION 2007 88 complet ed [employer], Lot #[id number], exp 2008 [facility] INFLUENZA, UNSPECIFIED FORMULATION 2006 88 complet ed lot# [id number] exp 08/29/07 [employer] [facility] INFLUENZA, UNSPECIFIED FORMULATION 2006 88 complet ed [facility] INFLUENZA, UNSPECIFIED FORMULATION 2005 88 complet ed [facility] PNEUMOCOCCAL POLYSACCHARID E PPV23 2005 33 complet ed [facility] INFLUENZA, UNSPECIFIED FORMULATION 2004 88 complet ed [employer] [id number] [facility] PNEUMOCOCCAL, UNSPECIFIED FORMULATION 2004 109 complet ed [facility] TD(ADULT) UNSPECIFIED FORMULATION 2004 139 complet ed [facility] INFLUENZA, UNSPECIFIED FORMULATION 2003 88 complet ed [facility] INFLUENZA, UNSPECIFIED FORMULATION 2003 88 complet ed [facility] Results Combined list of recent chemistry, hematology and other laboratory results from Department of Defense and Veterans Affairs, ranging from 15 months to all on record, depending upon the facility. Order Name Results Value Reference Range Date Interpretation Specimen Comments Source B 12 COBALAMIN (VITAMIN B12) [MASS/VOLU ME] IN SERUM OR PLASMA >2000pg /mL 213 - 816 11/18 H Specimen Type: SERUM No comment entered. Ordering Provider: KEELY NGUYEN Report Released Date/Time: Jan 14, 2022 08:41 AM Reporting Lab: [facility] [address] Performing Lab: [facility] [address] [facility] FOLATE FOLATE [MASS/VOLU ME] IN SERUM OR PLASMA 8.6 ng/mL 7.0 11/18 Specimen Type: SERUM No comment entered. Ordering Provider: KEELY NGUYEN Report Released Date/Time: Jan 14, 2022 08:41 AM Reporting Lab: [facility] [address] Performing Lab: [facility] [address] [facility] CBC & DIFF LEUKOCYTES [#/VOLUME] IN BLOOD BY AUTOMATED COUNT 4.77 10*3/uL 4.0 - 11.0 11/18 Specimen Type: BLOOD Comment: Automated Differentia l Performed Ordering Provider: KEELY NGUYEN Report Released Date/Time: Jan 14, 2022 08:41 AM Reporting Lab: [facility] [phone] Performing Lab: [facility] [address] [facility] CBC & DIFF ERYTHROCYT ES [#/VOLUME] IN BLOOD BY AUTOMATED COUNT 3.06 10*6/uL 4.6 - 6.2 11/18 L Specimen Type: BLOOD Comment: Automated Differentia l Performed Ordering Provider: KEELY NGUYEN Report Released Date/Time: Jan 14, 2022 08:41 AM Reporting Lab: [facility] [address] Performing Lab: [facility] [address] [facility] CBC & DIFF HEMOGLOBIN [MASS/VOLU ME] IN BLOOD 10.5 g/dL 13.5 - 17.9 11/18 L Specimen Type: BLOOD Comment: Automated Differentia l Performed Ordering Provider: KEELY NGUYEN Report Released Date/Time: Jan 14, 2022 08:41 AM Reporting Lab: [facility] [address] Performing Lab: [facility] [address] [facility] CBC & DIFF HEMATOCRIT [VOLUME FRACTION] OF BLOOD BY AUTOMATED COUNT 33.3 41 - 54 11/18 L Specimen Type: BLOOD Comment: Automated Differentia l Performed Ordering Provider: KEELY NGUYEN Report Released Date/Time: Jan 14, 2022 08:41 AM Reporting Lab: [facility] [address] Performing Lab: [facility] [address] [facility] CBC & DIFF MCV [ENTITIC VOLUME] BY AUTOMATED COUNT 108.8 fL 80 - 100 11/18 H Specimen Type: BLOOD Comment: Automated Differentia l Performed Ordering Provider: KEELY NGUYEN Report Released Date/Time: Jan 14, 2022 08:41 AM Reporting Lab: [facility] [phone] Performing Lab: [facility] [address] [facility] CBC & DIFF MCH [ENTITIC MASS] BY AUTOMATED COUNT 34.3 pg 27 - 33 11/18 H Specimen Type: BLOOD Comment: Automated Differentia l Performed Ordering Provider: KEELY NGUYEN Report Released Date/Time: Jan 14, 2022 08:41 AM Reporting Lab: [facility] [address] Performing Lab: [facility] [address] [facility] CBC & DIFF MCHC [MASS/VOLU ME] BY AUTOMATED COUNT 31.5 g/dL 32.0 - 37.5 11/18 L Specimen Type: BLOOD Comment: Automated Differentia l Performed Ordering Provider: KEELY NGUYEN Report Released Date/Time: Jan 14, 2022 08:41 AM Reporting Lab: [facility] [address] Performing Lab: [facility] [address] [facility] CBC & DIFF PLATELETS [#/VOLUME] IN BLOOD BY AUTOMATED COUNT 134 10*3/uL 150 - 400 11/18 L Specimen Type: BLOOD Comment: Automated Differentia l Performed Ordering Provider: KEELY NGUYEN Report Released Date/Time: Jan 14, 2022 08:41 AM Reporting Lab: [facility] [phone] Performing Lab: [facility] [phone] [facility] CBC & DIFF PLATELET MEAN VOLUME [ENTITIC VOLUME] IN BLOOD BY AUTOMATED COUNT 10.5 fL 7.4 - 10.4 11/18 H Specimen Type: BLOOD Comment: Automated Differentia l Performed Ordering Provider: KEELY NGUYEN Report Released Date/Time: Jan 14, 2022 08:41 AM Reporting Lab: [facility] [address] Performing Lab: [facility] [address] [facility] CBC & DIFF NEUTROPHIL S/100 LEUKOCYTES IN BLOOD BY MANUAL COUNT 70.1 40.0 - 80.0 11/18 Specimen Type: BLOOD Comment: Automated Differentia l Performed Ordering Provider: KEELY NGUYEN Report Released Date/Time: Jan 14, 2022 08:41 AM Reporting Lab: [facility] [address] Performing Lab: [facility] [address] [facility] CBC & DIFF LYMPHOCYTE S/100 LEUKOCYTES IN BLOOD BY MANUAL COUNT 15.3 15.0 - 45.0 11/18 Specimen Type: BLOOD Comment: Automated Differentia l Performed Ordering Provider: KEELY NGUYEN Report Released Date/Time: Jan 14, 2022 08:41 AM Reporting Lab: [facility] [address] Performing Lab: [facility] [address] [facility] CBC & DIFF MONOCYTES/ 100 LEUKOCYTES IN BLOOD BY AUTOMATED COUNT 10.9 2.0 - 12.0 11/18 Specimen Type: BLOOD Comment: Automated Differentia l Performed Ordering Provider: KEELY NGUYEN Report Released Date/Time: Jan 14, 2022 08:41 AM Reporting Lab: [facility] [address] Performing Lab: [facility] [address] [facility] CBC & DIFF EOSINOPHIL S/100 LEUKOCYTES IN BLOOD BY AUTOMATED COUNT 2.1 0.0 - 6.0 11/18 Specimen Type: BLOOD Comment: Automated Differentia l Performed Ordering Provider: KEELY NGUYEN Report Released Date/Time: Jan 14, 2022 08:41 AM Reporting Lab: [facility] [phone] Performing Lab: [facility] [address] [facility] CBC & DIFF BASOPHILS/ 100 LEUKOCYTES IN BLOOD BY MANUAL COUNT 0.6 0.0 - 2.0 11/18 Specimen Type: BLOOD Comment: Automated Differentia l Performed Ordering Provider: KEELY NGUYEN Report Released Date/Time: Jan 14, 2022 08:41 AM Reporting Lab: [facility] [address] Performing Lab: [facility] [address] [facility] CBC & DIFF ERYTHROCYT E DISTRIBUTI ON WIDTH [RATIO] BY AUTOMATED COUNT 13.8 11.5 - 14.5 11/18 Specimen Type: BLOOD Comment: Automated Differentia l Performed Ordering Provider: KEELY NGUYEN Report Released Date/Time: Jan 14, 2022 08:41 AM Reporting Lab: [facility] [address] Performing Lab: [facility] [address] [facility] CBC & DIFF LYMPHOCYTE S [#/VOLUME] IN BLOOD BY AUTOMATED COUNT 0.73 10*3/uL 1.0 - 4.0 11/18 L Specimen Type: BLOOD Comment: Automated Differentia l Performed Ordering Provider: KEELY NGUYEN Report Released Date/Time: Jan 14, 2022 08:41 AM Reporting Lab: [facility] [address] Performing Lab: [facility] [address] [facility] CBC & DIFF MONOCYTES [#/VOLUME] IN BLOOD BY AUTOMATED COUNT 0.52 10*3/uL 0.1 - 1.0 11/18 Specimen Type: BLOOD Comment: Automated Differentia l Performed Ordering Provider: KEELY NGUYEN Report Released Date/Time: Jan 14, 2022 08:41 AM Reporting Lab: [facility] [address] Performing Lab: [facility] [address] [facility] CBC & DIFF NEUTROPHIL S [#/VOLUME] IN BLOOD BY AUTOMATED COUNT 3.34 10*3/uL 2.0 - 7.7 11/18 Specimen Type: BLOOD Comment: Automated Differentia l Performed Ordering Provider: KEELY NGUYEN Report Released Date/Time: Jan 14, 2022 08:41 AM Reporting Lab: [facility] [address] Performing Lab: [facility] [address] [facility] CBC & DIFF EOSINOPHIL S [#/VOLUME] IN BLOOD BY AUTOMATED COUNT 0.10 10*3/uL 0 - 0.5 11/18 Specimen Type: BLOOD Comment: Automated Differentia l Performed Ordering Provider: KEELY NGUYEN Report Released Date/Time: Jan 14, 2022 08:41 AM Reporting Lab: [facility] [address] Performing Lab: [facility] [address] [facility] CBC & DIFF BASOPHILS [#/VOLUME] IN BLOOD BY AUTOMATED COUNT 0.03 10*3/uL 0 - 0.2 11/18 Specimen Type: BLOOD Comment: Automated Differentia l Performed Ordering Provider: KEELY NGUYEN Report Released Date/Time: Jan 14, 2022 08:41 AM Reporting Lab: [facility] [address] Performing Lab: [facility] [address] [facility] CBC & DIFF IG(META,MY MAYA,PRO) 1.0 11/18 Specimen Type: BLOOD Comment: Automated Differentia l Performed Ordering Provider: KEELY NGUYEN Report Released Date/Time: Jan 14, 2022 08:41 AM Reporting Lab: [facility] [address] Performing Lab: [facility] [address] [facility] CBC & DIFF IMMATURE GRANULOCYT ES [PRESENCE] IN BLOOD BY AUTOMATED COUNT 0.05 10*3/uL 0 - 0.1 11/18 Specimen Type: BLOOD Comment: Automated Differentia l Performed Ordering Provider: KEELY NGUYEN Report Released Date/Time: Jan 14, 2022 08:41 AM Reporting Lab: [facility] [address] Performing Lab: [facility] [address] [facility] CBC & DIFF LEUKOCYTES [#/VOLUME] IN BLOOD BY AUTOMATED COUNT 4.72 10*3/uL 4.0 - 11.0 11/18 Specimen Type: BLOOD Comment: Automated Differentia l Performed Ordering Provider: KEELY NGUYEN Report Released Date/Time: Nov 18, 2022 02:10 PM Reporting Lab: [facility] [address] Performing Lab: [facility] [address] [facility] CBC & DIFF ERYTHROCYT ES [#/VOLUME] IN BLOOD BY AUTOMATED COUNT 3.07 10*6/uL 4.6 - 6.2 11/18 L Specimen Type: BLOOD Comment: Automated Differentia l Performed Ordering Provider: KEELY NGUYEN Report Released Date/Time: Nov 18, 2022 02:10 PM Reporting Lab: [facility] [address] Performing Lab: [facility] [address] [facility] CBC & DIFF HEMOGLOBIN [MASS/VOLU ME] IN BLOOD 10.7 g/dL 13.5 - 17.9 11/18 L Specimen Type: BLOOD Comment: Automated Differentia l Performed Ordering Provider: KEELY NGUYEN Report Released Date/Time: Nov 18, 2022 02:10 PM Reporting Lab: [facility] [address] Performing Lab: [facility] [address] [facility] CBC & DIFF HEMATOCRIT [VOLUME FRACTION] OF BLOOD BY AUTOMATED COUNT 33.0 41 - 54 11/18 L Specimen Type: BLOOD Comment: Automated Differentia l Performed Ordering Provider: KEELY NGUYEN Report Released Date/Time: Nov 18, 2022 02:10 PM Reporting Lab: [facility] [address] Performing Lab: [facility] [address] [facility] CBC & DIFF MCV [ENTITIC VOLUME] BY AUTOMATED COUNT 107.5 fL 80 - 100 11/18 H Specimen Type: BLOOD Comment: Automated Differentia l Performed Ordering Provider: KEELY NGUYEN Report Released Date/Time: Nov 18, 2022 02:10 PM Reporting Lab: [facility] [address] Performing Lab: [facility] [address] [facility] CBC & DIFF MCH [ENTITIC MASS] BY AUTOMATED COUNT 34.9 pg 27 - 33 11/18 H Specimen Type: BLOOD Comment: Automated Differentia l Performed Ordering Provider: KEELY NGUYEN Report Released Date/Time: Nov 18, 2022 02:10 PM Reporting Lab: [facility] [address] Performing Lab: [facility] [address] [facility] CBC & DIFF MCHC [MASS/VOLU ME] BY AUTOMATED COUNT 32.4 g/dL 32.0 - 37.5 11/18 Specimen Type: BLOOD Comment: Automated Differentia l Performed Ordering Provider: KEELY NGUYEN Report Released Date/Time: Nov 18, 2022 02:10 PM Reporting Lab: [facility] [address] Performing Lab: [facility] [address] [facility] CBC & DIFF PLATELETS [#/VOLUME] IN BLOOD BY AUTOMATED COUNT 139 10*3/uL 150 - 400 11/18 L Specimen Type: BLOOD Comment: Automated Differentia l Performed Ordering Provider: KEELY NGUYEN Report Released Date/Time: Nov 18, 2022 02:10 PM Reporting Lab: [facility] [address] Performing Lab: [facility] [address] [facility] CBC & DIFF PLATELET MEAN VOLUME [ENTITIC VOLUME] IN BLOOD BY AUTOMATED COUNT 10.3 fL 7.4 - 10.4 11/18 Specimen Type: BLOOD Comment: Automated Differentia l Performed Ordering Provider: KEELY NGUYEN Report Released Date/Time: Nov 18, 2022 02:10 PM Reporting Lab: [facility] [address] Performing Lab: [facility] [address] [facility] CBC & DIFF NEUTROPHIL S/100 LEUKOCYTES IN BLOOD BY MANUAL COUNT 70.8 40.0 - 80.0 11/18 Specimen Type: BLOOD Comment: Automated Differentia l Performed Ordering Provider: KEELY NGUYEN Report Released Date/Time: Nov 18, 2022 02:10 PM Reporting Lab: [facility] [address] Performing Lab: [facility] [address] [facility] CBC & DIFF LYMPHOCYTE S/100 LEUKOCYTES IN BLOOD BY MANUAL COUNT 14.6 15.0 - 45.0 11/18 L Specimen Type: BLOOD Comment: Automated Differentia l Performed Ordering Provider: KEELY NGUYEN Report Released Date/Time: Nov 18, 2022 02:10 PM Reporting Lab: [facility] [address] Performing Lab: [facility] [address] [facility] CBC & DIFF MONOCYTES/ 100 LEUKOCYTES IN BLOOD BY AUTOMATED COUNT 11.9 2.0 - 12.0 11/18 Specimen Type: BLOOD Comment: Automated Differentia l Performed Ordering Provider: KEELY NGUYEN Report Released Date/Time: Nov 18, 2022 02:10 PM Reporting Lab: [facility] [address] Performing Lab: [facility] [address] [facility] CBC & DIFF EOSINOPHIL S/100 LEUKOCYTES IN BLOOD BY AUTOMATED COUNT 1.5 0.0 - 6.0 11/18 Specimen Type: BLOOD Comment: Automated Differentia l Performed Ordering Provider: KEELY NGUYEN Report Released Date/Time: Nov 18, 2022 02:10 PM Reporting Lab: [facility] [id number] Performing Lab: [facility] [id number] [facility] CBC & DIFF BASOPHILS/ 100 LEUKOCYTES IN BLOOD BY MANUAL COUNT 0.6 0.0 - 2.0 11/18 Specimen Type: BLOOD Comment: Automated Differentia l Performed Ordering Provider: KEELY NGUYEN Report Released Date/Time: Nov 18, 2022 02:10 PM Reporting Lab: [facility] [address] Performing Lab: [facility] [address] [facility] CBC & DIFF ERYTHROCYT E DISTRIBUTI ON WIDTH [RATIO] BY AUTOMATED COUNT 13.9 11.5 - 14.5 11/18 Specimen Type: BLOOD Comment: Automated Differentia l Performed Ordering Provider: KEELY NGUYEN Report Released Date/Time: Nov 18, 2022 02:10 PM Reporting Lab: [facility] [address] Performing Lab: [facility] [address] [facility] CBC & DIFF LYMPHOCYTE S [#/VOLUME] IN BLOOD BY AUTOMATED COUNT 0.69 10*3/uL 1.0 - 4.0 11/18 L Specimen Type: BLOOD Comment: Automated Differentia l Performed Ordering Provider: KEELY NGUYEN Report Released Date/Time: Nov 18, 2022 02:10 PM Reporting Lab: [facility] [address] Performing Lab: [facility] [address] [facility] CBC & DIFF MONOCYTES [#/VOLUME] IN BLOOD BY AUTOMATED COUNT 0.56 10*3/uL 0.1 - 1.0 11/18 Specimen Type: BLOOD Comment: Automated Differentia l Performed Ordering Provider: KEELY NGUYEN Report Released Date/Time: Nov 18, 2022 02:10 PM Reporting Lab: [facility] [address] Performing Lab: [facility] [address] [facility] CBC & DIFF NEUTROPHIL S [#/VOLUME] IN BLOOD BY AUTOMATED COUNT 3.34 10*3/uL 2.0 - 7.7 11/18 Specimen Type: BLOOD Comment: Automated Differentia l Performed Ordering Provider: KEELY NGUYEN Report Released Date/Time: Nov 18, 2022 02:10 PM Reporting Lab: [facility] [address] Performing Lab: [facility] [address] [facility] CBC & DIFF EOSINOPHIL S [#/VOLUME] IN BLOOD BY AUTOMATED COUNT 0.07 10*3/uL 0 - 0.5 11/18 Specimen Type: BLOOD Comment: Automated Differentia l Performed Ordering Provider: KEELY NGUYEN Report Released Date/Time: Nov 18, 2022 02:10 PM Reporting Lab: [facility] [address] Performing Lab: [facility] [address] [facility] CBC & DIFF BASOPHILS [#/VOLUME] IN BLOOD BY AUTOMATED COUNT 0.03 10*3/uL 0 - 0.2 11/18 Specimen Type: BLOOD Comment: Automated Differentia l Performed Ordering Provider: KEELY NGUYEN Report Released Date/Time: Nov 18, 2022 02:10 PM Reporting Lab: [facility] [address] Performing Lab: [facility] [address] [facility] CBC & DIFF IG(META,MY MAYA,PRO) 0.6 11/18 Specimen Type: BLOOD Comment: Automated Differentia l Performed Ordering Provider: KEELY NGUYEN Report Released Date/Time: Nov 18, 2022 02:10 PM Reporting Lab: [facility] [address] Performing Lab: [facility] [address] [facility] CBC & DIFF IMMATURE GRANULOCYT ES [PRESENCE] IN BLOOD BY AUTOMATED COUNT 0.03 10*3/uL 0 - 0.1 11/18 Specimen Type: BLOOD Comment: Automated Differentia l Performed Ordering Provider: KEELY NGUYEN Report Released Date/Time: Nov 18, 2022 02:10 PM Reporting Lab: [facility] [address] Performing Lab: [facility] [address] [facility] TSH W/REFLEX TO FREE T4 THYROTROPI N [UNITS/VOL UME] IN SERUM OR PLASMA 1.85 u[IU]/m L 0.35 - 4.94 11/18 Specimen Type: PLASMA No comment entered. Ordering Provider: KEELY NGUYEN Report Released Date/Time: Nov 18, 2022 02:10 PM Reporting Lab: [facility] [address] Performing Lab: [facility] [address] [facility] COMPREHEN SIVE METABOLIC PANEL+MG CREATININE [MASS/VOLU ME] IN SERUM OR PLASMA 1.4 mg/dL 0.7 - 1.2 11/18 H Specimen Type: PLASMA Comment: Automated Differentia l Performed Ordering Provider: KEELY NGUYEN Report Released Date/Time: Nov 18, 2022 02:10 PM Reporting Lab: [facility] [address] Performing Lab: [facility] [address] [facility] COMPREHEN SIVE METABOLIC PANEL+MG UREA NITROGEN [MASS/VOLU ME] IN SERUM OR PLASMA 29 mg/dL 8 - 26 11/18 H Specimen Type: PLASMA Comment: Automated Differentia l Performed Ordering Provider: KEELY NGUYEN Report Released Date/Time: Nov 18, 2022 02:10 PM Reporting Lab: [facility] [address] Performing Lab: [facility] [address] [facility] COMPREHEN SIVE METABOLIC PANEL+MG GLUCOSE [MASS/VOLU ME] IN SERUM OR PLASMA 79 mg/dL 70 - 100 11/18 Specimen Type: PLASMA Comment: Automated Differentia l Performed Ordering Provider: KEELY NGUYEN Report Released Date/Time: Nov 18, 2022 02:10 PM Reporting Lab: [facility] [address] Performing Lab: [facility] [address] [facility] COMPREHEN SIVE METABOLIC PANEL+MG SODIUM [MOLES/VOL UME] IN SERUM OR PLASMA 138 mmol/L 136 - 145 11/18 Specimen Type: PLASMA Comment: Automated Differentia l Performed Ordering Provider: KEELY NGUYEN Report Released Date/Time: Nov 18, 2022 02:10 PM Reporting Lab: [facility] [address] Performing Lab: [facility] [address] [facility] COMPREHEN SIVE METABOLIC PANEL+MG POTASSIUM [MOLES/VOL UME] IN SERUM OR PLASMA 4.8 mmol/L 3.5 - 5.1 11/18 Specimen Type: PLASMA Comment: Automated Differentia l Performed Ordering Provider: KEELY NGUYEN Report Released Date/Time: Nov 18, 2022 02:10 PM Reporting Lab: [facility] [address] Performing Lab: [facility] [address] [facility] COMPREHEN SIVE METABOLIC PANEL+MG CHLORIDE [MOLES/VOL UME] IN SERUM OR PLASMA 105 mmol/L 98 - 107 11/18 Specimen Type: PLASMA Comment: Automated Differentia l Performed Ordering Provider: KEELY NGUYEN Report Released Date/Time: Nov 18, 2022 02:10 PM Reporting Lab: [facility] [address] Performing Lab: [facility] [address] [facility] COMPREHEN SIVE METABOLIC PANEL+MG CARBON DIOXIDE, TOTAL [MOLES/VOL UME] IN SERUM OR PLASMA 30 mmol/L 22 - 29 11/18 H Specimen Type: PLASMA Comment: Automated Differentia l Performed Ordering Provider: KEELY NGUYEN Report Released Date/Time: Nov 18, 2022 02:10 PM Reporting Lab: [facility] [address] Performing Lab: [facility] [address] [facility] COMPREHEN SIVE METABOLIC PANEL+MG CALCIUM [MASS/VOLU ME] IN SERUM OR PLASMA 9.5 mg/dL 8.4 - 10.2 11/18 Specimen Type: PLASMA Comment: Automated Differentia l Performed Ordering Provider: KEELY NGUYEN Report Released Date/Time: Nov 18, 2022 02:10 PM Reporting Lab: [facility] [address] Performing Lab: [facility] [address] [facility] COMPREHEN SIVE METABOLIC PANEL+MG PROTEIN [MASS/VOLU ME] IN SERUM OR PLASMA 7.2 g/dL 6.0 - 8.3 11/18 Specimen Type: PLASMA Comment: Automated Differentia l Performed Ordering Provider: KEELY NGUYEN Report Released Date/Time: Nov 18, 2022 02:10 PM Reporting Lab: [facility] [address] Performing Lab: [facility] [address] [facility] COMPREHEN SIVE METABOLIC PANEL+MG ALBUMIN [MASS/VOLU ME] IN SERUM OR PLASMA 4.0 g/dL 3.5 - 5.2 11/18 Specimen Type: PLASMA Comment: Automated Differentia l Performed Ordering Provider: KEELY NGUYEN Report Released Date/Time: Nov 18, 2022 02:10 PM Reporting Lab: [facility] [address] Performing Lab: [facility] [address] [facility] COMPREHEN SIVE METABOLIC PANEL+MG BILIRUBIN. TOTAL [MASS/VOLU ME] IN SERUM OR PLASMA 0.4 mg/dL 0.2 - 1.2 11/18 Specimen Type: PLASMA Comment: Automated Differentia l Performed Ordering Provider: KEELY NGUYEN Report Released Date/Time: Nov 18, 2022 02:10 PM Reporting Lab: [facility] [address] Performing Lab: [facility] [address] [facility] COMPREHEN SIVE METABOLIC PANEL+MG MAGNESIUM [MASS/VOLU ME] IN SERUM OR PLASMA 2.0 mg/dL 1.6 - 2.6 11/18 Specimen Type: PLASMA Comment: Automated Differentia l Performed Ordering Provider: KEELY NGUYEN Report Released Date/Time: Nov 18, 2022 02:10 PM Reporting Lab: [facility] [address] Performing Lab: [facility] [address] [facility] COMPREHEN SIVE METABOLIC PANEL+MG ANION GAP IN SERUM OR PLASMA 3 mmol/L 5 - 15 11/18 L Specimen Type: PLASMA Comment: Automated Differentia l Performed Ordering Provider: KEELY NGUYEN Report Released Date/Time: Nov 18, 2022 02:10 PM Reporting Lab: [facility] [address] Performing Lab: [facility] [address] [facility] COMPREHEN SIVE METABOLIC PANEL+MG ALKALINE PHOSPHATAS E [ENZYMATIC ACTIVITY/V OLUME] IN SERUM OR PLASMA 54 U/L 40 - 150 11/18 Specimen Type: PLASMA Comment: Automated Differentia l Performed Ordering Provider: KEELY NGUYEN Report Released Date/Time: Nov 18, 2022 02:10 PM Reporting Lab: [facility] [address] Performing Lab: [facility] [address] [facility] COMPREHEN SIVE METABOLIC PANEL+MG ALANINE AMINOTRANS FERASE [ENZYMATIC ACTIVITY/V OLUME] IN SERUM OR PLASMA 14 U/L <55 - 55 11/18 Specimen Type: PLASMA Comment: Automated Differentia l Performed Ordering Provider: KEELY NGUYEN Report Released Date/Time: Nov 18, 2022 02:10 PM Reporting Lab: [facility] [address] Performing Lab: [facility] [address] [facility] COMPREHEN SIVE METABOLIC PANEL+MG ASPARTATE AMINOTRANS FERASE [ENZYMATIC ACTIVITY/V OLUME] IN SERUM OR PLASMA 20 U/L <34 - 34 11/18 Specimen Type: PLASMA Comment: Automated Differentia l Performed Ordering Provider: KEELY NGUYEN Report Released Date/Time: Nov 18, 2022 02:10 PM Reporting Lab: [facility] [address] Performing Lab: [facility] [address] [facility] COMPREHEN SIVE METABOLIC PANEL+MG GLOMERULAR FILTRATION RATE/1.73 SQ M.PREDICTE D [VOLUME RATE/AREA] IN SERUM, PLASMA OR BLOOD BY CREATININE -BASED FORMULA (CKD-EPI 2020) 51 60 11/18 L Specimen Type: PLASMA Comment: Automated Differentia l Performed Ordering Provider: KEELY NGUYEN Report Released Date/Time: Nov 18, 2022 02:10 PM Reporting Lab: [facility] [address] Performing Lab: [facility] [address] [facility] PERIPHERA L SMEAR PATHOLOGI ST REVIEW ERYTHROCYT E MORPHOLOGY FINDING [IDENTIFIE R] IN BLOOD SLIDES MADE 01/13 Specimen Type: BLOOD No comment entered. Ordering Provider: KEELY NGUYEN Report Released Date/Time: Nov 27, 2021 09:58 AM Reporting Lab: [facility] [address] Performing Lab: [facility] [address] [facility] CBC & DIFF LEUKOCYTES [#/VOLUME] IN BLOOD BY AUTOMATED COUNT 4.85 10*3/uL 4.0 - 11.0 01/13 Specimen Type: BLOOD Comment: Automated Differentia l Performed Ordering Provider: KEELY NGUYEN Report Released Date/Time: Nov 27, 2021 09:58 AM Reporting Lab: [facility] [address] Performing Lab: [facility] [address] [facility] CBC & DIFF ERYTHROCYT ES [#/VOLUME] IN BLOOD BY AUTOMATED COUNT 3.32 10*6/uL 4.6 - 6.2 01/13 L Specimen Type: BLOOD Comment: Automated Differentia l Performed Ordering Provider: KEELY NGUYEN Report Released Date/Time: Nov 27, 2021 09:58 AM Reporting Lab: [facility] [address] Performing Lab: [facility] [address] [facility] CBC & DIFF HEMOGLOBIN [MASS/VOLU ME] IN BLOOD 11.7 g/dL 13.5 - 17.9 01/13 L Specimen Type: BLOOD Comment: Automated Differentia l Performed Ordering Provider: KEELY NGUYEN Report Released Date/Time: Nov 27, 2021 09:58 AM Reporting Lab: [facility] [address] Performing Lab: [facility] [address] [facility] CBC & DIFF HEMATOCRIT [VOLUME FRACTION] OF BLOOD BY AUTOMATED COUNT 35.7 41 - 54 01/13 L Specimen Type: BLOOD Comment: Automated Differentia l Performed Ordering Provider: KEELY NGUYEN Report Released Date/Time: Nov 27, 2021 09:58 AM Reporting Lab: [facility] [address] Performing Lab: [facility] [address] [facility] CBC & DIFF MCV [ENTITIC VOLUME] BY AUTOMATED COUNT 107.5 fL 80 - 100 01/13 H Specimen Type: BLOOD Comment: Automated Differentia l Performed Ordering Provider: KEELY NGUYEN Report Released Date/Time: Nov 27, 2021 09:58 AM Reporting Lab: [facility] [address] Performing Lab: [facility] [address] [facility] CBC & DIFF MCH [ENTITIC MASS] BY AUTOMATED COUNT 35.2 pg 27 - 33 01/13 H Specimen Type: BLOOD Comment: Automated Differentia l Performed Ordering Provider: KEELY NGUYEN Report Released Date/Time: Nov 27, 2021 09:58 AM Reporting Lab: [facility] [address] Performing Lab: [facility] [address] [facility] CBC & DIFF MCHC [MASS/VOLU ME] BY AUTOMATED COUNT 32.8 g/dL 32.0 - 37.5 01/13 Specimen Type: BLOOD Comment: Automated Differentia l Performed Ordering Provider: KEELY NGUYEN Report Released Date/Time: Nov 27, 2021 09:58 AM Reporting Lab: [facility] [address] Performing Lab: [facility] [address] [facility] CBC & DIFF PLATELETS [#/VOLUME] IN BLOOD BY AUTOMATED COUNT 142 10*3/uL 150 - 400 01/13 L Specimen Type: BLOOD Comment: Automated Differentia l Performed Ordering Provider: KEELY NGUYEN Report Released Date/Time: Nov 27, 2021 09:58 AM Reporting Lab: [facility] [address] Performing Lab: [facility] [address] [facility] CBC & DIFF PLATELET MEAN VOLUME [ENTITIC VOLUME] IN BLOOD BY AUTOMATED COUNT 10.0 fL 7.4 - 10.4 01/13 Specimen Type: BLOOD Comment: Automated Differentia l Performed Ordering Provider: KEELY NGUYEN Report Released Date/Time: Nov 27, 2021 09:58 AM Reporting Lab: [facility] [address] Performing Lab: [facility] [address] [facility] CBC & DIFF NEUTROPHIL S/100 LEUKOCYTES IN BLOOD BY MANUAL COUNT 72.5 01/13 Specimen Type: BLOOD Comment: Automated Differentia l Performed Ordering Provider: KEELY NGUYEN Report Released Date/Time: Nov 27, 2021 09:58 AM Reporting Lab: [facility] [address] Performing Lab: [facility] [address] [facility] CBC & DIFF LYMPHOCYTE S/100 LEUKOCYTES IN BLOOD BY MANUAL COUNT 10.9 01/13 Specimen Type: BLOOD Comment: Automated Differentia l Performed Ordering Provider: KEELY NGUYEN Report Released Date/Time: Nov 27, 2021 09:58 AM Reporting Lab: [facility] [address] Performing Lab: [facility] [address] [facility] CBC & DIFF MONOCYTES/ 100 LEUKOCYTES IN BLOOD BY AUTOMATED COUNT 13.4 01/13 Specimen Type: BLOOD Comment: Automated Differentia l Performed Ordering Provider: KEELY NGUYEN Report Released Date/Time: Nov 27, 2021 09:58 AM Reporting Lab: [facility] [address] Performing Lab: [facility] [address] [facility] CBC & DIFF EOSINOPHIL S/100 LEUKOCYTES IN BLOOD BY AUTOMATED COUNT 1.4 01/13 Specimen Type: BLOOD Comment: Automated Differentia l Performed Ordering Provider: KEELY NGUYEN Report Released Date/Time: Nov 27, 2021 09:58 AM Reporting Lab: [facility] [address] Performing Lab: [facility] [address] [facility] CBC & DIFF BASOPHILS/ 100 LEUKOCYTES IN BLOOD BY MANUAL COUNT 0.8 01/13 Specimen Type: BLOOD Comment: Automated Differentia l Performed Ordering Provider: KEELY NGUYEN Report Released Date/Time: Nov 27, 2021 09:58 AM Reporting Lab: [facility] [address] Performing Lab: [facility] [address] [facility] CBC & DIFF ERYTHROCYT E DISTRIBUTI ON WIDTH [RATIO] BY AUTOMATED COUNT 13.5 11.5 - 14.5 01/13 Specimen Type: BLOOD Comment: Automated Differentia l Performed Ordering Provider: KEELY NGUYEN Report Released Date/Time: Nov 27, 2021 09:58 AM Reporting Lab: [facility] [address] Performing Lab: [facility] [address] [facility] CBC & DIFF LYMPHOCYTE S [#/VOLUME] IN BLOOD BY AUTOMATED COUNT 0.53 10*3/uL 1.0 - 4.0 01/13 L Specimen Type: BLOOD Comment: Automated Differentia l Performed Ordering Provider: KEELY NGUYEN Report Released Date/Time: Nov 27, 2021 09:58 AM Reporting Lab: [facility] [address] Performing Lab: [facility] [address] [facility] CBC & DIFF MONOCYTES [#/VOLUME] IN BLOOD BY AUTOMATED COUNT 0.65 10*3/uL 0.1 - 1.0 01/13 Specimen Type: BLOOD Comment: Automated Differentia l Performed Ordering Provider: KEELY NGUYEN Report Released Date/Time: Nov 27, 2021 09:58 AM Reporting Lab: [facility] [address] Performing Lab: [facility] [address] [facility] CBC & DIFF NEUTROPHIL S [#/VOLUME] IN BLOOD BY AUTOMATED COUNT 3.51 10*3/uL 2.0 - 7.7 01/13 Specimen Type: BLOOD Comment: Automated Differentia l Performed Ordering Provider: KEELY NGUYEN Report Released Date/Time: Nov 27, 2021 09:58 AM Reporting Lab: [facility] [address] Performing Lab: [facility] [address] [facility] CBC & DIFF EOSINOPHIL S [#/VOLUME] IN BLOOD BY AUTOMATED COUNT 0.07 10*3/uL 0 - 0.5 01/13 Specimen Type: BLOOD Comment: Automated Differentia l Performed Ordering Provider: KEELY NGUYEN Report Released Date/Time: Nov 27, 2021 09:58 AM Reporting Lab: [facility] [address] Performing Lab: [facility] [address] [facility] CBC & DIFF BASOPHILS [#/VOLUME] IN BLOOD BY AUTOMATED COUNT 0.04 10*3/uL 0 - 0.2 01/13 Specimen Type: BLOOD Comment: Automated Differentia l Performed Ordering Provider: KEELY NGUYEN Report Released Date/Time: Nov 27, 2021 09:58 AM Reporting Lab: [facility] [address] Performing Lab: [facility] [address] [facility] CBC & DIFF IG(META,MY MAYA,PRO) 1.0 01/13 Specimen Type: BLOOD Comment: Automated Differentia l Performed Ordering Provider: KEELY NGUYEN Report Released Date/Time: Nov 27, 2021 09:58 AM Reporting Lab: [facility] [address] Performing Lab: [facility] [address] [facility] CBC & DIFF IMMATURE GRANULOCYT ES [PRESENCE] IN BLOOD BY AUTOMATED COUNT 0.05 10*3/uL 0 - 0.1 01/13 Specimen Type: BLOOD Comment: Automated Differentia l Performed Ordering Provider: KEELY NGUYEN Report Released Date/Time: Nov 27, 2021 09:58 AM Reporting Lab: [facility] [address] Performing Lab: [facility] [address] [facility] PERIPHERA L SMEAR PATHOLOGI ST REVIEW ERYTHROCYT E MORPHOLOGY FINDING [IDENTIFIE R] IN BLOOD SLIDES MADE 11/25 Specimen Type: BLOOD No comment entered. Ordering Provider: KEELY NGUYEN Report Released Date/Time: Nov 18, 2021 10:19 AM Reporting Lab: [facility] [address] Performing Lab: [facility] [address] [facility] B 12 COBALAMIN (VITAMIN B12) [MASS/VOLU ME] IN SERUM OR PLASMA 311 pg/mL 213 - 816 11/25 Specimen Type: SERUM No comment entered. Ordering Provider: KEELY NGUYEN Report Released Date/Time: Nov 18, 2021 10:19 AM Reporting Lab: [facility] [address] Performing Lab: [facility] [address] [facility] Vital Signs Combined list of inpatient and outpatient Vital Signs from Department of Defense and Veterans Affairs, ranging from 12 months to all on record, depending upon the facility. 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 2) Encounters from the Department of [facility] facilities going back up to 280 months. Location Location Details Encounter Type Encounter Number Reason For Visit Attending Provider ADM Date DC Date Status Disposition Source [facility] Outpatient Encounter [id number] 07/23 [place] [facility] [place] Encounter [id number] 07[facility]23 [place] [facility] OFFICE O/P EST MOD 30-39 MIN [id number] Diagnos is: ICD-10- CM Z00.8 Encount er for other general examina tion
Stuart NGUYEN 11/18 [facility] [facility] Outpatient Encounter [id number] 12/15 [place] [facility] [place] [facility] [place] Encounter [id number] 01/15 [place] [facility] [place] [facility] Out[place] [facility]counter [id number] 01/29 [place] [facility] Outpatient Encounter [id number] 02/02 [place] [facility] [place] [facility] [place] Encounter [id number] 02/03 [place] [facility] [place] Out[facility] Encounter [id number] SCARLETT HOPPER 02/03 [place] [facility] Out[facility] Encounter [id number] SCARLETT HOPPER 02/03 [place] [facility] Out[facility] Encounter [id number] 03/09 [place] [facility] [place] Encounter [id number] 03/11 [place] [facility] Out[facility] Encounter [id number] 05/11 [place] [facility] CASE MANAGEMENT [id number] Diagnos is: ICD-10- CM R53.1 Lucretia del cid
SANTHOSH VALLEJO 05/24 [place] [facility] [place] [facility] Outpatient Encounter [id number] CALEB SWANSON 09/12 [place] [facility] Social History Combined list of available smoking, tobacco, and other social history from Department of Defense and Veterans Affairs facilities. Social History Type Response Date Comment Source Tobacco smoking status [facility] NM-TOBACCO FORMER USER 11/18/2022 [facility] History of tobacco use NM-TOBACCO QUIT 15 YRS OR MORE 11/18/2022 [facility] History of tobacco use VA-TOBACCO FORMER USER 11/17/2021 [facility] History of tobacco use VA-TOBACCO FORMER USER 11/14/2020 [facility] History of tobacco use VA-TOBACCO FORMER USER 11/08/2019 [facility] History of tobacco use VA-TOBACCO QUIT 15 YRS OR MORE 10/07/2018 [facility] History of tobacco use FORMER TOBACCO USER 7Y OR GREATER 09/29/2017 [facility] History of tobacco use FORMER TOBACCO USER 7Y OR GREATER 11/13/2016 [facility] History of tobacco use FORMER TOBACCO USER 7Y OR GREATER 10/16/2015 [facility] History of tobacco use FORMER TOBACCO USER 7Y OR GREATER 10/19/2014 [facility] History of tobacco use FORMER TOBACCO USER 7Y OR GREATER 10/11/2013 [facility] History of tobacco use FORMER TOBACCO [...]
--- OUTSIDE RECORDS SUMMARY | 2023-09-16 22:33 | XMS_ITS | Encounter Summary ---
Author Organization [facility] Address [address] [address] Phone Care Team Providers Care Dry Color Tester Name Role Phone Pérez Villafuerte MD Primary Care Provider [phone] Leida Rooney RN Unavailable [phone] Encounter Details Date Type Department Care Team [...] on filedocumented in this encounter Care Teams Dry Color Tester Relationship Specialty Start Date End Date Pé[place] [address] [place] [phone] PCP - General 07/30/10 03/07/15 Leida Rooney, RN [employer] 08/06/11 06/16/15 documented as of this encounter
[2023-09-16 23:04] LABS: Bilirubin Urine 1+ (Negative); Blood Urine Negative (Negative); Color Urine Yellow (Yellow); Glucose Urine Negative (Negative); Ketones Urine Trace (Negative); Leukocyte Esterase Urine Negative (Negative); Nitrite Urine Negative (Negative); Protein Urine Trace (Negative); Specific Gravity Urine >= 1.030 (1.000-1.030); Urobilinogen Urine 0.2 (0.2-1.0); pH Urine 5.5 (5.0-8.5)
[2023-09-16 23:17] LABS: Appearance Urine Cloudy (Clear)
[2023-09-16 23:18] LABS: RBC Urine 0-2 (0-2); WBC Urine 0-2 (0-5)
[2023-09-16 23:19] LABS: Amorphous Sediment Urine Many
== END 2023-09-16 22:32 | disposition home or self-care (01) ==
LOC: NPINS 22:31
PROVIDERS: PCP Internal Medicine; Visit Provider Nurse Practitioner Gerontology
DX: R45.1 Restlessness and agitation (principal); R82.90 Unspecified abnormal findings in urine
CPT/HCPCS: 81001; 81003; 87086

== ENCOUNTER 2023-10-21 16:28 | Emergency (ER) | payer MEDICARE, SELFPAY ==
[2023-10-21 16:45] VITALS: BP 136/86; PULSE 57; RESP 18; TEMP 36.3; O2SAT 94; BMI 21.2
--- OUTSIDE RECORDS SUMMARY | 2023-10-21 17:23 | XMS_ITS | Continuity of Care Document ---
Author Name [facility] Organization [facility] Care Team Providers Care Bioprocessing Manufacturing Technician Name Role Phone [facility] Unavailable Unavailable Problems Combined list of problems from Department of Defense and Veterans Affairs facilities. It does not include entries that were removed or entered in error. Problem Status Onset Date Problem Type Date of Resolution Comments Source Exposure to potentially hazardous substance ([facility] [id number]) Active 05/07/19 24 Condition May 07, 2023 Entered By: ABHILASH PETER [facility]: [facility] Documentation Initiative [facility] Acquired hypothyroidism Active Condition [facility] Anxiety Active Condition [facility] Bilateral metatarsalgia Active Condition [facility] Carcinoma of parotid gland Active Condition [facility] Chronic obstructive lung disease Active Condition [facility] Chronic Obstructive Pulmonary Disease Active Condition Oct 05 08 Entered By: ISIDRA BYERS Comment: FEV1(L) % PRED= 88, FEV1/FVC% ACTUAL= 60 [facility] Chronic pain of left foot Active Condition [facility] Congestion of nasal sinus Active Condition [facility] Edema Active Condition Feb 14 08 Entered By: ISIDRA BYERS Comment: ideopathic-nml full w/u 2007 . [facility] Enthesopathy of left foot Active Condition [facility] Health maintenance alteration Active Condition [facility] Hypothyroidism * (ICD-9-CM 244.9) Active Condition [facility] Keratosis, seborrheic Active Condition [facility] Osteoarthritis of ankle Active Condition [facility] Osteopenia * (ICD-9-CM 733.90) Active Condition . [facility] Paraesthesia of foot Active Condition [facility] Personal History of Colonic Polyps (ICD-9-CM V12.72) Active Condition Oct 01 09 Entered By: ISIDRA BYERS Comment: scope 2008 nml-due 2012 [facility] Postsurgical Status of Cataract Extraction Active Condition [facility] Presbyopia Active Condition [facility] Primary degenerative dementia of the Alzheimer type, senile onset, with delusion Active Condition [facility] Rhinitis * (ICD-9-CM 472.0) Active Condition [facility] salivary cancer Active Condition Sep 27, 2007 Entered By: ISIDRA BYERS Comment: radical neck + radiation [facility] SENSORNEUR HEARING LOSS NOS Active Condition [facility] Wheezing Active Condition [facility] Tobacco Use Disorder * (ICD-9-CM 305.1) Inactive Condition 09/27/2007 [facility] Diagnosis: ICD-10-CM R53.1 Weakness Active Diagnosis [facility] Diagnosis: ICD-10-CM Z00.8 Encounter for other general examination Active Diagnosis [facility] Medications Combined list of outpatient medications from Department of Defense and Veterans Affairs facilities.Medications provided include 1) outpatient medications from the last 15 months, and 2) patient-reported medications. Medication Details Route Status Patient Instructions Prescription Expires Prescription Number Last Dispense Date Ordering Provider Order Date Order Qty Source ACETAMINOPH EN 500MG TAB ACETAMIN OPHEN 500MG TAB Active TAKE ONE TABLET BY MOUTH THREE TIMES A DAY FOR PAIN FOR PAIN Oct 20, 2023 300 Oct 20, 2024 [id number] Oct 20, 2023 [facility] ORAL ACTIVE 10/20/2024 [id number] MASSI[facility] NGUY[facility] 2023 300 [facility] ASPIRIN TAB,EC ASPIRIN TAB,EC Non-VA TAKE BY MOUTH Oct 22, 2004 Non-VA Document ed by: Luis Fernando MARCUS Document ed at: [facility] ORAL ACTIVE SHEN SHRESTHA 2004 [facility] CYANOCOBALA MIN 1000MCG TAB CYANOCOB ALAMIN 1000MCG TAB Active TAKE ONE TABLET BY MOUTH EVERY DAY FOR VITAMIN B12, FOR RED BLOOD CELLS Nov 18, 2022 100 Nov 19, 2023 [id number] Nov 19, 2022 [facility] ORAL ACTIVE 11/19/2023 [id number] MASSIEL NGUYEN 2022 100 [facility] GUAIFENESIN TAB GUAIFENE SIN TAB Non-VA TAKE 600MG DM BY MOUTH DAILY Sep 07, 2012 Non-VA Document ed by: ISIDRA BYERS Document ed at: [facility] ORAL ACTIVE Giovanni BYERS 2012 [facility] LEVOTHYROXI NE NA 75MCG TAB (SYNTHROID) LEVOTHYR OXINE NA 75MCG TAB (SYNTHRO ID) Active TAKE ONE TABLET BY MOUTH EVERY DAY FOR THYROID FOR THYROID Oct 20, 2023 90 Oct 20, 2024 [id number] Oct 20, 2023 [facility] ORAL ACTIVE 10/20/2024 [id number] MAS[facility] N[facility] 2023 90 [facility] LEVOTHYROXI NE NA 75MCG TAB (SYNTHROID) LEVOTHYR OXINE NA 75MCG TAB (SYNTHRO ID) Non-VA TAKE ONE TABLET BY MOUTH Sep 19, 2012 Non-VA Document ed by: ISIDRA BYERS Document ed at: [facility] ORAL ACTIVE Giovanni BYERS 2012 [facility] LORAZEPAM 0.5MG TAB LORAZEPA M 0.5MG TAB Non-VA TAKE ONE TABLET BY MOUTH PRN Sep 29, 2007 Non-VA Document ed by: ISIDRA BYERS Document ed at: [facility] ORAL ACTIVE Giovanni BYERS 2007 [facility] MULTIVITAMI N/MINERALS SENIOR FORMULA TAB MULTIVIT BARTON/MIN ERALS SENIOR FORMULA TAB Non-VA TAKE ONE TABLET BY MOUTH Oct 22, 2004 Non-VA Document ed by: Luis Fernando MARCUS Document ed at: [facility] ORAL ACTIVE SHEN SHRESTHA 2004 [facility] OLANZAPINE 2.5MG TAB OLANZAPI NE 2.5MG TAB Active TAKE ONE AND ONE-HALF TABLETS (3.75MG) BY MOUTH TWICE A DAY AND TAKE ONE TABLET THREE TIMES A DAY NEEDED FOR AGITATIO N FOR AGITATIO N Oct 20, 2023 180 Oct 20, 2024 [id number] Oct 20, 2023 [facility] ORAL ACTIVE 10/20/2024 [id number] MASSIEL NGUYEN 2023 180 [facility] OLANZAPINE 2.5MG TAB OLANZAPI NE 2.5MG TAB Disconti nued TAKE ONE TABLET BY MOUTH THREE TIMES A DAY NEEDED FOR AGITATIO N FOR AGITATIO N Oct 20, 2023 90 Oct 20, 2024 [id number] Oct 20, 2023 [facility] ORAL DISCONT INUED 10/20/2024 [id number] MASSIEL NGUYEN 2023 90 [facility] SENNOSIDES 8.6MG TAB SENNOSID ES 8.6MG TAB Active TAKE ONE TABLET BY MOUTH TWICE A DAY FOR CONSTIPA TION FOR CONSTIPA TION Oct 20, 2023 200 Oct 20, 2024 [id number] Oct 20, 2023 [facility] ORAL ACTIVE 10/20/2024 [id number] MASSIEL NGUYEN 2023 200 [facility] SERTRALINE HCL 100MG TAB SERTRALI NE HCL 100MG TAB Active TAKE ONE TABLET BY MOUTH EVERY DAY FOR ANXIETY FOR ANXIETY Oct 20, 2023 90 Oct 20, 2024 [id number] Oct 20, 2023 [facility] ORAL ACTIVE 10/20/2024 [id number] MASSIEL NGUYEN 2023 90 [facility] Immunizations Combined list of available immunizations from the Department of Defense and Veterans Affairs facilities. Immunization Series Date Given Administered By Site Reaction Lot Number CVX Code Drug Bottled Beverage Inspector Status Comments Source TDAP 2022 115 complet ed [facility] COVID-19, MRNA, LNP-S, BIVALENT BOOSTER, PF, 30 MCG/0.3 ML DOSE 1 2021 300 complet ed [facility] INFLUENZA, UNSPECIFIED FORMULATION 2021 88 complet ed [facility] COVID-19 (PFIZER), MRNA, LNP-S, PF, 30 MCG/0.3 ML DOSE 2 2021 208 complet ed [facility] COVID-19 (PFIZER), MRNA, LNP-S, PF, 30 MCG/0.3 ML DOSE, SHANTELL-SUCROSE (AGES 12+ YEARS) 2021 217 complet ed [facility] ZOSTER RECOMBINANT 2 2021 187 complet ed [facility] ZOSTER RECOMBINANT 1 2020 187 complet ed [facility] COVID-19 (PFIZER), MRNA, LNP-S, PF, 30 MCG/0.3 ML DOSE 3 2020 208 complet ed [facility] INFLUENZA, INJECTABLE, QUADRIVALENT, PRESERVATIVE FREE 2020 150 complet ed [facility] COVID-19 ([employer]), MRNA, LNP-S, PF, 30 MCG/0.3 ML DOSE 2 2020 208 complet ed [facility] COVID-19 (PFIZER), MRNA, LNP-S, PF, 30 MCG/0.3 ML DOSE 1 2020 208 complet ed [facility] INFLUENZA, RECOMBINANT, QUADRIVALENT, INJECTABLE, PRESERVATIVE FREE 2019 185 complet ed [facility] INFLUENZA, HIGH DOSE SEASONAL 2018 135 complet ed [facility] INFLUENZA, HIGH DOSE SEASONAL 2016 135 complet ed [facility] INFLUENZA, HIGH DOSE SEASONAL 2015 135 complet ed [facility] INFLUENZA, HIGH DOSE SEASONAL 2014 135 complet ed [facility] PNEUMOCOCCAL CONJUGATE PCV 13 2014 133 complet ed [facility] Lot# [id number] Exp 03/2016 [facility] PNEUMOCOCCAL CONJUGATE PCV 13 2014 133 complet ed [facility] INFLUENZA, SEASONAL, INJECTABLE 2013 141 complet ed [facility] INFLUENZA, SEASONAL, INJECTABLE 2013 141 complet ed [facility] TDAP 2012 115 complet ed [facility] INFLUENZA, UNSPECIFIED FORMULATION 2012 88 complet ed [facility] ZOSTER LIVE 2012 121 complet ed [facility] PNEUMOCOCCAL POLYSACCHARID E PPV23 2012 33 complet ed [facility] PNEUMOCOCCAL, UNSPECIFIED FORMULATION 2012 109 complet ed [facility] ZOSTER LIVE 2012 121 complet ed [facility] INFLUENZA, UNSPECIFIED FORMULATION 2011 88 complet ed [facility] ZOSTER LIVE 2011 121 complet ed [employer] #[id number] exp 05-13-12 [facility] PNEUMOCOCCAL POLYSACCHARID E PPV23 2011 33 complet ed [facility] TDAP 2011 115 complet ed [facility] TDAP 2010 115 complet ed [facility] PNEUMOCOCCAL POLYSACCHARID E PPV23 2009 33 complet ed [facility] NOVEL INFLUENZA-H1N 1-09, ALL FORMULATIONS 2008 128 complet ed [employer] [facility] INFLUENZA (HISTORICAL) 2008 88 complet ed [facility] INFLUENZA, SEASONAL, INJECTABLE 2008 141 complet ed [facility] INFLUENZA, UNSPECIFIED FORMULATION 2007 88 complet ed [employer], Lot #[id number], exp 2008 [employer] [facility] INFLUENZA, UNSPECIFIED FORMULATION 2006 88 complet ed lot# [id number] exp 08/29/07 [employer] [facility] INFLUENZA, UNSPECIFIED FORMULATION 2006 88 complet ed [facility] INFLUENZA, UNSPECIFIED FORMULATION 2005 88 complet ed [facility] PNEUMOCOCCAL POLYSACCHARID E PPV23 2005 33 complet ed [facility] INFLUENZA, UNSPECIFIED FORMULATION 2004 88 complet ed [employer] [id number] [facility] PNEUMOCOCCAL, UNSPECIFIED FORMULATION 2004 109 complet ed [facility] TD(ADULT) UNSPECIFIED FORMULATION 2004 139 complet ed [facility] INFLUENZA, UNSPECIFIED FORMULATION 2003 88 complet ed [facility] INFLUENZA, UNSPECIFIED FORMULATION 2003 88 complet ed [facility] Results Combined list of recent chemistry, hematology [...] Jan 14, 2022 08:41 AM Reporting Lab: [facility] [phone] Performing Lab: [facility] [address] [facility] FOLATE FOLATE [MASS/VOLU ME] IN SERUM OR PLASMA 8.6 ng/mL 7.0 11/18 Specimen Type: SERUM No comment entered. Ordering Provider: KEELY NGUYEN Report Released Date/Time: Jan 14, 2022 08:41 AM Reporting Lab: [facility] [address] Performing Lab: [facility] [address] [facility] CBC & DIFF LEUKOCYTES [#/VOLUME] IN BLOOD BY AUTOMATED COUNT 4.77 10*3/uL 4.0 - 11.0 11/18 Specimen Type: BLOOD Comment: Automated Differentia l Performed Ordering Provider: KEELY NGUYEN Report Released Date/Time: Jan 14, 2022 08:41 AM Reporting Lab: [facility] [address] Performing Lab: [facility] [address] [facility] CBC & DIFF ERYTHROCYT ES [#/VOLUME] IN BLOOD BY AUTOMATED COUNT 3.06 10*6/uL 4.6 - 6.2 11/18 L Specimen Type: BLOOD Comment: Automated Differentia l Performed Ordering Provider: KEELY NGUYEN Report Released Date/Time: Jan 14, 2022 08:41 AM Reporting Lab: [facility] [address] Performing Lab: [facility] [phone] [facility] CBC & DIFF HEMOGLOBIN [MASS/VOLU ME] IN BLOOD 10.5 g/dL 13.5 - 17.9 11/18 L Specimen Type: BLOOD Comment: Automated Differentia l Performed Ordering Provider: KEELY NGUYEN Report Released Date/Time: Jan 14, 2022 08:41 AM Reporting Lab: [facility] [address] Performing Lab: [facility] [address] [facility] CBC & DIFF HEMATOCRIT [VOLUME FRACTION] OF BLOOD BY AUTOMATED COUNT 33.3 41 - 54 11/18 L Specimen Type: BLOOD Comment: Automated Differentia l Performed Ordering Provider: KEELY NGUYEN Report Released Date/Time: Jan 14, 2022 08:41 AM Reporting Lab: [facility] [address] Performing Lab: [facility] [address] [facility] CBC & DIFF MCV [ENTITIC VOLUME] BY AUTOMATED COUNT 108.8 fL 80 - 100 11/18 H Specimen Type: BLOOD Comment: Automated Differentia l Performed Ordering Provider: KEELY NGUYEN Report Released Date/Time: Jan 14, 2022 08:41 AM Reporting Lab: [facility] [address] Performing Lab: [facility] [address] [facility] CBC & DIFF MCH [ENTITIC MASS] BY AUTOMATED COUNT 34.3 pg 27 - 33 11/18 H Specimen Type: BLOOD Comment: Automated Differentia l Performed Ordering Provider: KEELY NGUYEN Report Released Date/Time: Jan 14, 2022 08:41 AM Reporting Lab: [facility] [address] Performing Lab: [facility] [address] [facility] CBC & DIFF MCHC [MASS/VOLU ME] BY AUTOMATED COUNT 31.5 g/dL 32.0 - 37.5 11/18 L Specimen Type: BLOOD Comment: Automated Differentia l Performed Ordering Provider: KEELY NGUYEN Report Released Date/Time: Jan 14, 2022 08:41 AM Reporting Lab: [facility] [address] Performing Lab: [facility] [address] [facility] CBC & DIFF PLATELETS [#/VOLUME] IN BLOOD BY AUTOMATED COUNT 134 10*3/uL 150 - 400 11/18 L Specimen Type: BLOOD Comment: Automated Differentia l Performed Ordering Provider: KEELY NGUYEN Report Released Date/Time: Jan 14, 2022 08:41 AM Reporting Lab: [facility] [address] Performing Lab: [facility] [address] [facility] CBC & DIFF PLATELET MEAN VOLUME [ENTITIC VOLUME] IN BLOOD BY AUTOMATED COUNT 10.5 fL 7.4 - 10.4 11/18 H Specimen Type: BLOOD Comment: Automated Differentia l Performed Ordering Provider: KEELY NGUYEN Report Released Date/Time: Jan 14, 2022 08:41 AM Reporting Lab: [facility] [address] Performing Lab: [facility] [address] [facility] CBC & DIFF NEUTROPHIL S/100 LEUKOCYTES IN BLOOD BY MANUAL COUNT 70.1 40.0 - 80.0 11/18 Specimen Type: BLOOD Comment: Automated Differentia l Performed Ordering Provider: KEELY NGUYEN Report Released Date/Time: Jan 14, 2022 08:41 AM Reporting Lab: [facility] [address] Performing Lab: [facility] [address] [facility] CBC & DIFF LYMPHOCYTE S/100 LEUKOCYTES IN BLOOD BY MANUAL COUNT 15.3 15.0 - 45.0 11/18 Specimen Type: BLOOD Comment: Automated Differentia l Performed Ordering Provider: KEELY NGUYEN Report Released Date/Time: Jan 14, 2022 08:41 AM Reporting Lab: [facility] [address] Performing Lab: [facility] [address] [facility] CBC & DIFF MONOCYTES/ 100 LEUKOCYTES IN BLOOD BY AUTOMATED COUNT 10.9 2.0 - 12.0 11/18 Specimen Type: BLOOD Comment: Automated Differentia l Performed Ordering Provider: KEELY NGUYEN Report Released Date/Time: Jan 14, 2022 08:41 AM Reporting Lab: [facility] [address] Performing Lab: [facility] [address] [facility] CBC & DIFF EOSINOPHIL S/100 LEUKOCYTES IN BLOOD BY AUTOMATED COUNT 2.1 0.0 - 6.0 11/18 Specimen Type: BLOOD Comment: Automated Differentia l Performed Ordering Provider: KEELY NGUYEN Report Released Date/Time: Jan 14, 2022 08:41 AM Reporting Lab: [facility] [address] Performing Lab: [facility] [address] [facility] CBC & DIFF BASOPHILS/ 100 LEUKOCYTES IN BLOOD BY MANUAL COUNT 0.6 0.0 - 2.0 11/18 Specimen Type: BLOOD Comment: Automated Differentia l Performed Ordering Provider: KEELY NGUYEN Report Released Date/Time: Jan 14, 2022 08:41 AM Reporting Lab: [facility] [address] Performing Lab: [facility] [address] [facility] CBC & DIFF ERYTHROCYT E DISTRIBUTI ON WIDTH [RATIO] BY AUTOMATED COUNT 13.8 11.5 - 14.5 11/18 Specimen Type: BLOOD Comment: Automated Differentia l Performed Ordering Provider: KEELY NGUYEN Report Released Date/Time: Jan 14, 2022 08:41 AM Reporting Lab: [facility] [address] Performing Lab: [facility] [address] [facility] CBC & DIFF LYMPHOCYTE S [#/VOLUME] IN BLOOD BY AUTOMATED COUNT 0.73 10*3/uL 1.0 - 4.0 11/18 L Specimen Type: BLOOD Comment: Automated Differentia l Performed Ordering Provider: KEELY NGUYEN Report Released Date/Time: Jan 14, 2022 08:41 AM Reporting Lab: [facility] [address] Performing Lab: [facility] [address] [facility] CBC & DIFF MONOCYTES [#/VOLUME] IN BLOOD BY AUTOMATED COUNT 0.52 10*3/uL 0.1 - 1.0 11/18 Specimen Type: BLOOD Comment: Automated Differentia l Performed Ordering Provider: KEELY NGUYEN Report Released Date/Time: Jan 14, 2022 08:41 AM Reporting Lab: [facility] [address] Performing Lab: [facility] [address] [facility] CBC & DIFF NEUTROPHIL S [#/VOLUME] IN BLOOD BY AUTOMATED COUNT 3.34 10*3/uL 2.0 - 7.7 11/18 Specimen Type: BLOOD Comment: Automated Differentia l Performed Ordering Provider: KEELY NGUYEN Report Released Date/Time: Jan 14, 2022 08:41 AM Reporting Lab: [facility] [address] Performing Lab: [facility] [address] [facility] CBC & DIFF EOSINOPHIL S [#/VOLUME] IN BLOOD BY AUTOMATED COUNT 0.10 10*3/uL 0 - 0.5 11/18 Specimen Type: BLOOD Comment: Automated Differentia l Performed Ordering Provider: KEELY NGUYEN Report Released Date/Time: Jan 14, 2022 08:41 AM Reporting Lab: [facility] [address] Performing Lab: [facility] [address] [facility] CBC & DIFF BASOPHILS [#/VOLUME] IN BLOOD BY AUTOMATED COUNT 0.03 10*3/uL 0 - 0.2 11/18 Specimen Type: BLOOD Comment: Automated Differentia l Performed Ordering Provider: KEELY NGUYEN Report Released Date/Time: Jan 14, 2022 08:41 AM Reporting Lab: [facility] [address] Performing Lab: [facility] [address] [facility] CBC & DIFF IG(META,MY MAYA,PRO) 1.0 11/18 Specimen Type: BLOOD Comment: Automated Differentia l Performed Ordering Provider: KEELY NGUYEN Report Released Date/Time: Jan 14, 2022 08:41 AM Reporting Lab: [facility] [address] Performing Lab: [facility] [address] [facility] CBC & DIFF IMMATURE GRANULOCYT ES [PRESENCE] IN BLOOD BY AUTOMATED COUNT 0.05 10*3/uL 0 - 0.1 11/18 Specimen Type: BLOOD Comment: Automated Differentia l Performed Ordering Provider: KEELY NGUYEN Report Released Date/Time: Jan 14, 2022 08:41 AM Reporting Lab: [facility] [address] Performing Lab: [facility] [address] [facility] CBC & DIFF LEUKOCYTES [#/VOLUME] IN BLOOD BY AUTOMATED COUNT 4.72 10*3/uL 4.0 - 11.0 11/18 Specimen Type: BLOOD Comment: Automated Differentia l Performed Ordering Provider: KEELY NGUYEN Report Released Date/Time: Nov 18, 2022 02:10 PM Reporting Lab: [facility] [address] Performing Lab: [facility] [address] [facility] CBC & DIFF ERYTHROCYT ES [#/VOLUME] IN BLOOD BY AUTOMATED COUNT 3.07 10*6/uL 4.6 - 6.2 11/18 L Specimen Type: BLOOD Comment: Automated Differentia l Performed Ordering Provider: KEELY NGUYEN Report Released Date/Time: Nov 18, 2022 02:10 PM Reporting Lab: [facility] [address] Performing Lab: [facility] [address] [facility] CBC & DIFF HEMOGLOBIN [MASS/VOLU ME] IN BLOOD 10.7 g/dL 13.5 - 17.9 11/18 L Specimen Type: BLOOD Comment: Automated Differentia l Performed Ordering Provider: KEELY NGUYEN Report Released Date/Time: Nov 18, 2022 02:10 PM Reporting Lab: [facility] [address] Performing Lab: [facility] [address] [facility] CBC & DIFF HEMATOCRIT [VOLUME FRACTION] OF BLOOD BY AUTOMATED COUNT 33.0 41 - 54 11/18 L Specimen Type: BLOOD Comment: Automated Differentia l Performed Ordering Provider: KEELY NGUYEN Report Released Date/Time: Nov 18, 2022 02:10 PM Reporting Lab: [facility] [address] Performing Lab: [facility] [address] [facility] CBC & DIFF MCV [ENTITIC VOLUME] BY AUTOMATED COUNT 107.5 fL 80 - 100 11/18 H Specimen Type: BLOOD Comment: Automated Differentia l Performed Ordering Provider: KEELY NGUYEN Report Released Date/Time: Nov 18, 2022 02:10 PM Reporting Lab: [facility] [address] Performing Lab: [facility] [address] [facility] CBC & DIFF MCH [ENTITIC MASS] BY AUTOMATED COUNT 34.9 pg 27 - 33 11/18 H Specimen Type: BLOOD Comment: Automated Differentia l Performed Ordering Provider: KEELY NGUYEN Report Released Date/Time: Nov 18, 2022 02:10 PM Reporting Lab: [facility] [address] Performing Lab: [facility] [address] [facility] CBC & DIFF MCHC [MASS/VOLU ME] BY AUTOMATED COUNT 32.4 g/dL 32.0 - 37.5 11/18 Specimen Type: BLOOD Comment: Automated Differentia l Performed Ordering Provider: KEELY NGUYEN Report Released Date/Time: Nov 18, 2022 02:10 PM Reporting Lab: [facility] [address] Performing Lab: [facility] [address] [facility] CBC & DIFF PLATELETS [#/VOLUME] IN BLOOD BY AUTOMATED COUNT 139 10*3/uL 150 - 400 11/18 L Specimen Type: BLOOD Comment: Automated Differentia l Performed Ordering Provider: KEELY NGUYEN Report Released Date/Time: Nov 18, 2022 02:10 PM Reporting Lab: [facility] [address] Performing Lab: [facility] [address] [facility] CBC & DIFF PLATELET MEAN VOLUME [ENTITIC VOLUME] IN BLOOD BY AUTOMATED COUNT 10.3 fL 7.4 - 10.4 11/18 Specimen Type: BLOOD Comment: Automated Differentia l Performed Ordering Provider: KEELY NGUYEN Report Released Date/Time: Nov 18, 2022 02:10 PM Reporting Lab: [facility] [address] Performing Lab: [facility] [address] [facility] CBC & DIFF NEUTROPHIL S/100 LEUKOCYTES IN BLOOD BY MANUAL COUNT 70.8 40.0 - 80.0 11/18 Specimen Type: BLOOD Comment: Automated Differentia l Performed Ordering Provider: KEELY NGUYEN Report Released Date/Time: Nov 18, 2022 02:10 PM Reporting Lab: [facility] [address] Performing Lab: [facility] [address] [facility] CBC & DIFF LYMPHOCYTE S/100 LEUKOCYTES IN BLOOD BY MANUAL COUNT 14.6 15.0 - 45.0 11/18 L Specimen Type: BLOOD Comment: Automated Differentia l Performed Ordering Provider: KEELY NGUYEN Report Released Date/Time: Nov 18, 2022 02:10 PM Reporting Lab: [facility] [id number] Performing Lab: [facility] [phone] [facility] CBC & DIFF MONOCYTES/ 100 LEUKOCYTES IN BLOOD BY AUTOMATED COUNT 11.9 2.0 - 12.0 11/18 Specimen Type: BLOOD Comment: Automated Differentia l Performed Ordering Provider: KEELY NGUYEN Report Released Date/Time: Nov 18, 2022 02:10 PM Reporting Lab: [facility] [phone] Performing Lab: [facility] [id number] [facility] CBC & DIFF EOSINOPHIL S/100 LEUKOCYTES IN BLOOD BY AUTOMATED COUNT 1.5 0.0 - 6.0 11/18 Specimen Type: BLOOD Comment: Automated Differentia l Performed Ordering Provider: KEELY NGUYEN Report Released Date/Time: Nov 18, 2022 02:10 PM Reporting Lab: [facility] [address] Performing Lab: [facility] [address] [facility] CBC & DIFF BASOPHILS/ 100 LEUKOCYTES IN BLOOD BY MANUAL COUNT 0.6 0.0 - 2.0 11/18 Specimen Type: BLOOD Comment: Automated Differentia l Performed Ordering Provider: KEELY NGUYEN Report Released Date/Time: Nov 18, 2022 02:10 PM Reporting Lab: [facility] [address] Performing Lab: [facility] [address] [facility] CBC & DIFF ERYTHROCYT E DISTRIBUTI ON WIDTH [RATIO] BY AUTOMATED COUNT 13.9 11.5 - 14.5 11/18 Specimen Type: BLOOD Comment: Automated Differentia l Performed Ordering Provider: KEELY NGUYEN Report Released Date/Time: Nov 18, 2022 02:10 PM Reporting Lab: [facility] [address] Performing Lab: [facility] [address] [facility] CBC & DIFF LYMPHOCYTE S [#/VOLUME] IN BLOOD BY AUTOMATED COUNT 0.69 10*3/uL 1.0 - 4.0 11/18 L Specimen Type: BLOOD Comment: Automated Differentia l Performed Ordering Provider: KEELY NGUYEN Report Released Date/Time: Nov 18, 2022 02:10 PM Reporting Lab: [facility] [address] Performing Lab: [facility] [address] [facility] CBC & DIFF MONOCYTES [#/VOLUME] IN BLOOD BY AUTOMATED COUNT 0.56 10*3/uL 0.1 - 1.0 11/18 Specimen Type: BLOOD Comment: Automated Differentia l Performed Ordering Provider: KEELY NGUYEN Report Released Date/Time: Nov 18, 2022 02:10 PM Reporting Lab: [facility] [address] Performing Lab: [facility] [address] [facility] CBC & DIFF NEUTROPHIL S [#/VOLUME] IN BLOOD BY AUTOMATED COUNT 3.34 10*3/uL 2.0 - 7.7 11/18 Specimen Type: BLOOD Comment: Automated Differentia l Performed Ordering Provider: KEELY NGUYEN Report Released Date/Time: Nov 18, 2022 02:10 PM Reporting Lab: [facility] [address] Performing Lab: [facility] [address] [facility] CBC & DIFF EOSINOPHIL S [#/VOLUME] IN BLOOD BY AUTOMATED COUNT 0.07 10*3/uL 0 - 0.5 11/18 Specimen Type: BLOOD Comment: Automated Differentia l Performed Ordering Provider: KEELY NGUYEN Report Released Date/Time: Nov 18, 2022 02:10 PM Reporting Lab: [facility] [address] Performing Lab: [facility] [address] [facility] CBC & DIFF BASOPHILS [#/VOLUME] IN BLOOD BY AUTOMATED COUNT 0.03 10*3/uL 0 - 0.2 11/18 Specimen Type: BLOOD Comment: Automated Differentia l Performed Ordering Provider: KEELY NGUYEN Report Released Date/Time: Nov 18, 2022 02:10 PM Reporting Lab: [facility] [address] Performing Lab: [facility] [address] [facility] CBC & DIFF IG(META,MY MAYA,PRO) 0.6 11/18 Specimen Type: BLOOD Comment: Automated Differentia l Performed Ordering Provider: KEELY NGUYEN Report Released Date/Time: Nov 18, 2022 02:10 PM Reporting Lab: [facility] [address] Performing Lab: [facility] [address] [facility] CBC & DIFF IMMATURE GRANULOCYT ES [PRESENCE] IN BLOOD BY AUTOMATED COUNT 0.03 10*3/uL 0 - 0.1 11/18 Specimen Type: BLOOD Comment: Automated Differentia l Performed Ordering Provider: KEELY NGUYEN Report Released Date/Time: Nov 18, 2022 02:10 PM Reporting Lab: [facility] [address] Performing Lab: [facility] [address] [facility] TSH W/REFLEX TO FREE T4 THYROTROPI N [UNITS/VOL UME] IN SERUM OR PLASMA 1.85 u[IU]/m L 0.35 - 4.94 11/18 Specimen Type: PLASMA No comment entered. Ordering Provider: KEELY NGUYEN Report Released Date/Time: Nov 18, 2022 02:10 PM Reporting Lab: [facility] [address] Performing Lab: [facility] [address] [facility] COMPREHEN SIVE METABOLIC PANEL+MG CREATININE [MASS/VOLU ME] IN SERUM OR PLASMA 1.4 mg/dL 0.7 - 1.2 11/18 H Specimen Type: PLASMA Comment: Automated Differentia l Performed Ordering Provider: KEELY NGUYEN Report Released Date/Time: Nov 18, 2022 02:10 PM Reporting Lab: [facility] [address] Performing Lab: [facility] [address] [facility] COMPREHEN SIVE METABOLIC PANEL+MG UREA NITROGEN [MASS/VOLU ME] IN SERUM OR PLASMA 29 mg/dL 8 - 26 11/18 H Specimen Type: PLASMA Comment: Automated Differentia l Performed Ordering Provider: KEELY NGUYEN Report Released Date/Time: Nov 18, 2022 02:10 PM Reporting Lab: [facility] [address] Performing Lab: [facility] [address] [facility] COMPREHEN SIVE METABOLIC PANEL+MG GLUCOSE [MASS/VOLU ME] IN SERUM OR PLASMA 79 mg/dL 70 - 100 11/18 Specimen Type: PLASMA Comment: Automated Differentia l Performed Ordering Provider: KEELY NGUYEN Report Released Date/Time: Nov 18, 2022 02:10 PM Reporting Lab: [facility] [address] Performing Lab: [facility] [address] [facility] COMPREHEN SIVE METABOLIC PANEL+MG SODIUM [MOLES/VOL UME] IN SERUM OR PLASMA 138 mmol/L 136 - 145 11/18 Specimen Type: PLASMA Comment: Automated Differentia l Performed Ordering Provider: KEELY NGUYEN Report Released Date/Time: Nov 18, 2022 02:10 PM Reporting Lab: [facility] [address] Performing Lab: [facility] [address] [facility] COMPREHEN SIVE METABOLIC PANEL+MG POTASSIUM [MOLES/VOL UME] IN SERUM OR PLASMA 4.8 mmol/L 3.5 - 5.1 11/18 Specimen Type: PLASMA Comment: Automated Differentia l Performed Ordering Provider: KEELY NGUYEN Report Released Date/Time: Nov 18, 2022 02:10 PM Reporting Lab: [facility] [address] Performing Lab: [facility] [address] [facility] COMPREHEN SIVE METABOLIC PANEL+MG CHLORIDE [MOLES/VOL UME] IN SERUM OR PLASMA 105 mmol/L 98 - 107 11/18 Specimen Type: PLASMA Comment: Automated Differentia l Performed Ordering Provider: KEELY NGUYEN Report Released Date/Time: Nov 18, 2022 02:10 PM Reporting Lab: [facility] [address] Performing Lab: [facility] [address] [facility] COMPREHEN SIVE METABOLIC PANEL+MG CARBON DIOXIDE, TOTAL [MOLES/VOL UME] IN SERUM OR PLASMA 30 mmol/L 22 - 29 11/18 H Specimen Type: PLASMA Comment: Automated Differentia l Performed Ordering Provider: KEELY NGUYEN Report Released Date/Time: Nov 18, 2022 02:10 PM Reporting Lab: [facility] [address] Performing Lab: [facility] [address] [facility] COMPREHEN SIVE METABOLIC PANEL+MG CALCIUM [MASS/VOLU ME] IN SERUM OR PLASMA 9.5 mg/dL 8.4 - 10.2 11/18 Specimen Type: PLASMA Comment: Automated Differentia l Performed Ordering Provider: KEELY NGUYEN Report Released Date/Time: Nov 18, 2022 02:10 PM Reporting Lab: [facility] [address] Performing Lab: [facility] [address] [facility] COMPREHEN SIVE METABOLIC PANEL+MG PROTEIN [MASS/VOLU ME] IN SERUM OR PLASMA 7.2 g/dL 6.0 - 8.3 11/18 Specimen Type: PLASMA Comment: Automated Differentia l Performed Ordering Provider: KEELY NGUYEN Report Released Date/Time: Nov 18, 2022 02:10 PM Reporting Lab: [facility] [address] Performing Lab: [facility] [address] [facility] COMPREHEN SIVE METABOLIC PANEL+MG ALBUMIN [MASS/VOLU ME] IN SERUM OR PLASMA 4.0 g/dL 3.5 - 5.2 11/18 Specimen Type: PLASMA Comment: Automated Differentia l Performed Ordering Provider: KEELY NGUYEN Report Released Date/Time: Nov 18, 2022 02:10 PM Reporting Lab: [facility] [address] Performing Lab: [facility] [address] [facility] COMPREHEN SIVE METABOLIC PANEL+MG BILIRUBIN. TOTAL [MASS/VOLU ME] IN SERUM OR PLASMA 0.4 mg/dL 0.2 - 1.2 11/18 Specimen Type: PLASMA Comment: Automated Differentia l Performed Ordering Provider: KEELY NGUYEN Report Released Date/Time: Nov 18, 2022 02:10 PM Reporting Lab: [facility] [address] Performing Lab: [facility] [address] [facility] COMPREHEN SIVE METABOLIC PANEL+MG MAGNESIUM [MASS/VOLU ME] IN SERUM OR PLASMA 2.0 mg/dL 1.6 - 2.6 11/18 Specimen Type: PLASMA Comment: Automated Differentia l Performed Ordering Provider: KEELY NGUYEN Report Released Date/Time: Nov 18, 2022 02:10 PM Reporting Lab: [facility] [address] Performing Lab: [facility] [address] [facility] COMPREHEN SIVE METABOLIC PANEL+MG ANION GAP IN SERUM OR PLASMA 3 mmol/L 5 - 15 11/18 L Specimen Type: PLASMA Comment: Automated Differentia l Performed Ordering Provider: KEELY NGUYEN Report Released Date/Time: Nov 18, 2022 02:10 PM Reporting Lab: [facility] [address] Performing Lab: [facility] [address] [facility] COMPREHEN SIVE METABOLIC PANEL+MG ALKALINE PHOSPHATAS E [ENZYMATIC ACTIVITY/V OLUME] IN SERUM OR PLASMA 54 U/L 40 - 150 11/18 Specimen Type: PLASMA Comment: Automated Differentia l Performed Ordering Provider: KEELY NGUYEN Report Released Date/Time: Nov 18, 2022 02:10 PM Reporting Lab: [facility] [address] Performing Lab: [facility] [address] [facility] COMPREHEN SIVE METABOLIC PANEL+MG ALANINE AMINOTRANS FERASE [ENZYMATIC ACTIVITY/V OLUME] IN SERUM OR PLASMA 14 U/L <55 - 55 11/18 Specimen Type: PLASMA Comment: Automated Differentia l Performed Ordering Provider: KEELY NGUYEN Report Released Date/Time: Nov 18, 2022 02:10 PM Reporting Lab: [facility] [address] Performing Lab: [facility] [address] [facility] COMPREHEN SIVE METABOLIC PANEL+MG ASPARTATE AMINOTRANS FERASE [ENZYMATIC ACTIVITY/V OLUME] IN SERUM OR PLASMA 20 U/L <34 - 34 11/18 Specimen Type: PLASMA Comment: Automated Differentia l Performed Ordering Provider: KEELY NGUYEN Report Released Date/Time: Nov 18, 2022 02:10 PM Reporting Lab: [facility] [address] Performing Lab: [facility] [address] [facility] COMPREHEN SIVE METABOLIC PANEL+MG GLOMERULAR FILTRATION RATE/1.73 SQ M.PREDICTE D [VOLUME RATE/AREA] IN SERUM, PLASMA OR BLOOD BY CREATININE -BASED FORMULA (CKD-EPI 2020) 51 60 11/18 L Specimen Type: PLASMA Comment: Automated Differentia l Performed Ordering Provider: KEELY NGUYEN Report Released Date/Time: Nov 18, 2022 02:10 PM Reporting Lab: [facility] [address] Performing Lab: [facility] [address] ARLINE MORANOC PERIPHERA L SMEAR PATHOLOGI ST REVIEW ERYTHROCYT E MORPHOLOGY FINDING [IDENTIFIE R] IN BLOOD SLIDES MADE 01/13 Specimen Type: BLOOD No comment entered. Ordering Provider: KEELY NGUYEN Report Released Date/Time: Nov 27, 2021 09:58 AM Reporting Lab: [facility] [address] Performing Lab: [facility] [address] [facility] CBC & DIFF LEUKOCYTES [#/VOLUME] IN BLOOD BY AUTOMATED COUNT 4.85 10*3/uL 4.0 - 11.0 01/13 Specimen Type: BLOOD Comment: Automated Differentia l Performed Ordering Provider: KEELY NGUYEN Report Released Date/Time: Nov 27, 2021 09:58 AM Reporting Lab: [facility] [address] Performing Lab: [facility] [address] [facility] CBC & DIFF ERYTHROCYT ES [#/VOLUME] IN BLOOD BY AUTOMATED COUNT 3.32 10*6/uL 4.6 - 6.2 01/13 L Specimen Type: BLOOD Comment: Automated Differentia l Performed Ordering Provider: KEELY NGUYEN Report Released Date/Time: Nov 27, 2021 09:58 AM Reporting Lab: [facility] [address] Performing Lab: [facility] [address] [facility] CBC & DIFF HEMOGLOBIN [MASS/VOLU ME] IN BLOOD 11.7 g/dL 13.5 - 17.9 01/13 L Specimen Type: BLOOD Comment: Automated Differentia l Performed Ordering Provider: KEELY NGUYEN Report Released Date/Time: Nov 27, 2021 09:58 AM Reporting Lab: [facility] [address] Performing Lab: [facility] [address] [facility] CBC & DIFF HEMATOCRIT [VOLUME FRACTION] OF BLOOD BY AUTOMATED COUNT 35.7 41 - 54 01/13 L Specimen Type: BLOOD Comment: Automated Differentia l Performed Ordering Provider: KEELY NGUYEN Report Released Date/Time: Nov 27, 2021 09:58 AM Reporting Lab: [facility] [address] Performing Lab: [facility] [address] [facility] CBC & DIFF MCV [ENTITIC VOLUME] BY AUTOMATED COUNT 107.5 fL 80 - 100 01/13 H Specimen Type: BLOOD Comment: Automated Differentia l Performed Ordering Provider: KEELY NGUYEN Report Released Date/Time: Nov 27, 2021 09:58 AM Reporting Lab: [facility] [address] Performing Lab: [facility] [address] [facility] CBC & DIFF MCH [ENTITIC MASS] BY AUTOMATED COUNT 35.2 pg 27 - 33 01/13 H Specimen Type: BLOOD Comment: Automated Differentia l Performed Ordering Provider: KEELY NGUYEN Report Released Date/Time: Nov 27, 2021 09:58 AM Reporting Lab: [facility] [address] Performing Lab: [facility] [address] [facility] CBC & DIFF MCHC [MASS/VOLU ME] BY AUTOMATED COUNT 32.8 g/dL 32.0 - 37.5 01/13 Specimen Type: BLOOD Comment: Automated Differentia l Performed Ordering Provider: KEELY NGUYEN Report Released Date/Time: Nov 27, 2021 09:58 AM Reporting Lab: [facility] [address] Performing Lab: [facility] [address] [facility] CBC & DIFF PLATELETS [#/VOLUME] IN BLOOD BY AUTOMATED COUNT 142 10*3/uL 150 - 400 01/13 L Specimen Type: BLOOD Comment: Automated Differentia l Performed Ordering Provider: KEELY NGUYEN Report Released Date/Time: Nov 27, 2021 09:58 AM Reporting Lab: [facility] [address] Performing Lab: [facility] [address] [facility] CBC & DIFF PLATELET MEAN VOLUME [ENTITIC VOLUME] IN BLOOD BY AUTOMATED COUNT 10.0 fL 7.4 - 10.4 01/13 Specimen Type: BLOOD Comment: Automated Differentia l Performed Ordering Provider: KEELY NGUYEN Report Released Date/Time: Nov 27, 2021 09:58 AM Reporting Lab: [facility] [address] Performing Lab: [facility] [address] [facility] CBC & DIFF NEUTROPHIL S/100 LEUKOCYTES IN BLOOD BY MANUAL COUNT 72.5 01/13 Specimen Type: BLOOD Comment: Automated Differentia l Performed Ordering Provider: KEELY NGUYEN Report Released Date/Time: Nov 27, 2021 09:58 AM Reporting Lab: [facility] [address] Performing Lab: [facility] [address] [facility] CBC & DIFF LYMPHOCYTE S/100 LEUKOCYTES IN BLOOD BY MANUAL COUNT 10.9 01/13 Specimen Type: BLOOD Comment: Automated Differentia l Performed Ordering Provider: KEELY NGUYEN Report Released Date/Time: Nov 27, 2021 09:58 AM Reporting Lab: [facility] [address] Performing Lab: [facility] [address] [facility] CBC & DIFF MONOCYTES/ 100 LEUKOCYTES IN BLOOD BY AUTOMATED COUNT 13.4 01/13 Specimen Type: BLOOD Comment: Automated Differentia l Performed Ordering Provider: KEELY NGUYEN Report Released Date/Time: Nov 27, 2021 09:58 AM Reporting Lab: [facility] [address] Performing Lab: [facility] [address] [facility] CBC & DIFF EOSINOPHIL S/100 LEUKOCYTES IN BLOOD BY AUTOMATED COUNT 1.4 01/13 Specimen Type: BLOOD Comment: Automated Differentia l Performed Ordering Provider: KEELY NGUYEN Report Released Date/Time: Nov 27, 2021 09:58 AM Reporting Lab: [facility] [address] Performing Lab: [facility] [address] [facility] CBC & DIFF BASOPHILS/ 100 LEUKOCYTES IN BLOOD BY MANUAL COUNT 0.8 01/13 Specimen Type: BLOOD Comment: Automated Differentia l Performed Ordering Provider: KEELY NGUYEN Report Released Date/Time: Nov 27, 2021 09:58 AM Reporting Lab: [facility] [address] Performing Lab: [facility] [address] [facility] CBC & DIFF ERYTHROCYT E DISTRIBUTI ON WIDTH [RATIO] BY AUTOMATED COUNT 13.5 11.5 - 14.5 01/13 Specimen Type: BLOOD Comment: Automated Differentia l Performed Ordering Provider: KEELY NGUYEN Report Released Date/Time: Nov 27, 2021 09:58 AM Reporting Lab: [facility] [address] Performing Lab: [facility] [address] [facility] CBC & DIFF LYMPHOCYTE S [#/VOLUME] IN BLOOD BY AUTOMATED COUNT 0.53 10*3/uL 1.0 - 4.0 01/13 L Specimen Type: BLOOD Comment: Automated Differentia l Performed Ordering Provider: KEELY NGUYEN Report Released Date/Time: Nov 27, 2021 09:58 AM Reporting Lab: [facility] [address] Performing Lab: [facility] [address] [facility] CBC & DIFF MONOCYTES [#/VOLUME] IN BLOOD BY AUTOMATED COUNT 0.65 10*3/uL 0.1 - 1.0 01/13 Specimen Type: BLOOD Comment: Automated Differentia l Performed Ordering Provider: KEELY NGUYEN Report Released Date/Time: Nov 27, 2021 09:58 AM Reporting Lab: [facility] [address] Performing Lab: [facility] [address] [facility] CBC & DIFF NEUTROPHIL S [#/VOLUME] IN BLOOD BY AUTOMATED COUNT 3.51 10*3/uL 2.0 - 7.7 01/13 Specimen Type: BLOOD Comment: Automated Differentia l Performed Ordering Provider: KEELY NGUYEN Report Released Date/Time: Nov 27, 2021 09:58 AM Reporting Lab: [facility] [address] Performing Lab: [facility] [address] [facility] CBC & DIFF EOSINOPHIL S [#/VOLUME] IN BLOOD BY AUTOMATED COUNT 0.07 10*3/uL 0 - 0.5 01/13 Specimen Type: BLOOD Comment: Automated Differentia l Performed Ordering Provider: KEELY NGUYEN Report Released Date/Time: Nov 27, 2021 09:58 AM Reporting Lab: [facility] [address] Performing Lab: [facility] [address] [facility] CBC & DIFF BASOPHILS [#/VOLUME] IN BLOOD BY AUTOMATED COUNT 0.04 10*3/uL 0 - 0.2 01/13 Specimen Type: BLOOD Comment: Automated Differentia l Performed Ordering Provider: KEELY NGUYEN Report Released Date/Time: Nov 27, 2021 09:58 AM Reporting Lab: [facility] [address] Performing Lab: [facility] [address] [facility] CBC & DIFF IG(META,MY MAYA,PRO) 1.0 01/13 Specimen Type: BLOOD Comment: Automated Differentia l Performed Ordering Provider: KEELY NGUYEN Report Released Date/Time: Nov 27, 2021 09:58 AM Reporting Lab: [facility] [address] Performing Lab: [facility] [address] [facility] CBC & DIFF IMMATURE GRANULOCYT ES [PRESENCE] IN BLOOD BY AUTOMATED COUNT 0.05 10*3/uL 0 - 0.1 01/13 Specimen Type: BLOOD Comment: Automated Differentia l Performed Ordering Provider: KEELY NGUYEN Report Released Date/Time: Nov 27, 2021 09:58 AM Reporting Lab: [facility] [address] Performing Lab: [facility] [address] [facility] PERIPHERA L SMEAR PATHOLOGI ST REVIEW ERYTHROCYT E MORPHOLOGY FINDING [IDENTIFIE R] IN BLOOD SLIDES MADE 11/25 Specimen Type: BLOOD No comment entered. Ordering Provider: KEELY NGUYEN Report Released Date/Time: Nov 18, 2021 10:19 AM Reporting Lab: [facility] [address] Performing Lab: [facility] [address] [facility] B 12 COBALAMIN (VITAMIN B12) [MASS/VOLU ME] IN SERUM OR PLASMA 311 pg/mL 213 - 816 11/25 Specimen Type: SERUM No comment entered. Ordering Provider: KEELY NGUYEN Report Released Date/Time: Nov 18, 2021 10:19 AM Reporting Lab: [facility] [address] Performing Lab: [facility] [address] [facility] Vital Signs Combined list of inpatient and outpatient Vital Signs from Department of [facility] and [facility], ranging from 12 months to all on record, depending upon the facility. 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 2) Encounters from the Department of [facility] facilities going back up to 280 months. Location Location Details Encounter Type Encounter Number Reason For Visit Attending Provider ADM Date DC Date Status Disposition Source [place] [facility] Outpatient Encounter [id number] 07/23 [facility] [place] [facility] Outpatient Encounter [id number] 07/23 [facility] OFFICE O/P EST MOD 30-39 MIN [id number] Diagnos is: ICD-10- CM Z00.8 Encount er for other general examina tion
Stuart NGUYEN 11/18 [facility] [place] [facility] Outpatient Encounter [id number] [facility] [place] [facility] Outpatient [facility]counter [id number] 01/15 [facility] [place] [facility] Outpatient Encounter [id number] 01/29 [facility] [place] [facility] Outpatient Encounter [id number] 02/02 [facility] [place] [facility] Outpatient Encounter [id number] 02/03 [facility] [place] [facility] Outpatient Encounter [id number] SCARLETT HOPPER 02/03 [place] [facility] [place] [facility] Outpatient Encounter [id number] [facility] HOPPER [facility] [place] [facility] Out[facility] Encounter [id number] 03/09 [facility] [place] [facility] Outpatient Encounter [id number] 03/11 [place] [place] [facility] Outpatient Encounter [id number] 05/11 [place] [facility] [place] [facility] CASE MANAGEMENT [id number] Diagnos is: ICD-10- CM R53.1 Lucretia del cid
YONISANTHOSH 05/24 [place] [facility] [place] [facility] Outpatient Encounter [id number] CALEB SWANSON 09/12 [facility] Social History Combined list of available smoking, tobacco, and other social history from [facility] of Defense and [facility] Affairs facilities. Social History Type Response Date Comment Source Tobacco smoking status [facility]-TOBACCO FORMER USER 11/18/2022 [facility] History of tobacco use MS-TOBACCO QUIT 15 YRS OR MORE 11/18/2022 [facility] History of tobacco use MS-TOBACCO FORMER USER 11/17/2021 [facility] History of tobacco use MS-TOBACCO QUIT 15 YRS OR MORE 11/14/2020 [facility] History of tobacco use MS-TOBACCO FORMER USER 11/08/2019 [facility] History of tobacco use MS-TOBACCO FORMER USER 10/07/2018 [facility] History of tobacco use FORMER TOBACCO USER 7Y OR GREATER 09/29/2017 [facility] History of tobacco use FORMER TOBACCO USER 7Y OR GREATER 11/13/2016 [facility] History of tobacco use FORMER TOBACCO USER 7Y OR GREATER 10/16/2015 [facility] History of tobacco use FORMER TOBACCO USER 7Y OR GREATER 10/19/2014 [facility] History of tobacco use FORMER TOBACCO USER 7Y OR GREATER 10/11/2013 [facility] History of tobacco use FORMER TOBACCO [...] Provider Source 11/27/2021 ADVANCE DIRECTIVE SCARLETT HOPPER CB
--- OUTSIDE RECORDS SUMMARY | 2023-10-21 17:23 | XMS_ITS | Encounter Summary ---
Author Name [facility] [facility] [place] Address [address] [place] [address] Care Team Providers Care Cutter Operator Tile Name Role Phone MASSIEL NGUYEN Primary Care Provider Unavaila ble Insurance Providers: All historical and current [...] PART D Mar 01, 2010 PART D [id number] DAVINA RODAS PATIENT [facility] [place]) MEDICARE [facility]ANTAGE [facility] [place]) Mar 01, 2019 [id number] [phone] ALLEN COLLAZODAVINA PATIENT [facility] [place]) MEDICARE [facility]AGE [facility] ([place]) Mar 01, 2015 RIESMT [id number] ALLEN COLLAZODAVINA PATIENT [facility] ([place]) MEDICARE [facility] ([place]) Mar 01, 2010 [id number] DAVINA RODAS PATIENT Selected Encounter This section includes the information on record at [place] for the Encounter. Date/Time Encounter Type Encounter Description Reason Provider Source Sep 13, 2023 11:28 AM Outpatient Encounter TELEPHONE TRIAGE STACEY SWANSON [facility] Encounter Template Text not used by [place] Social History: Smoking Status (Most current) and Tobacco Use (All prior to encounter date) This section includes the most current, and the historical, smoking and tobacco- related health factors from the [place] facility where the Encounter took place. Current Smoking Status This section includes the most current smoking, or tobacco-related health factor, from the [place] facility where the Encounter took place. Date/Time Current Smoking Status Comment Facil ity Nov 08, 2019 12:00 PM VA-TOBACCO FORMER USER [facility] Tobacco Use History This section includes a history of the smoking, or tobacco-related health factors, that were collected on or before the date of the Encounter. The data comes from the [place] facility where the Encounter took place. Date/Time Smoking Status/Tobacco Use Comment F acility Nov 08, 2019 12:00 PM [place]-TO[place]AC[place] [address] [facility] Advance Directives: All historical and current Section Date Range: From patient's date of to the date document was created. This section includes ALL of a patient's completed or amended [place] Advance and Rescinded Directives. The entries below indicate that a directive exists for the patient, but an actual copy is not included with this document. The data comes from all [place] facilities. Date Advance Directives Provider Source Nov 27, 2021 ADVANCE DIRECTIVE SCARLETT HOPPER [facility] Nov 27, 2021 ADVANCE DIRECTIVE DISCUSSION ERNIE HOPPER [facility] Encounter Notes: All associated encounter notes This section contains the clinical notes associated to the Encounter. Date/Time Encounter Note(s) Provider Source Sep 20, 2023 09:43 AM ADDENDUM: LOCAL TITLE: Addendum STANDARD TITLE: ADDENDUM DATE OF NOTE: SEP 20, 2023@09:43:17 ENTRY DATE: SEP 20, 2023@09:43:18 AUTHOR: ZAFAR TRUJILLO COSIGNER: URGENCY: STATUS: COMPLETED Associate Professor Of Communication has attempted to return call to Enedelia Butts several times, no answer when called. Messages were left requesting a call back. I did call and later one evening and spoke with another nurse at the facility (Wilma had gone for the day), the nurse answering was not sure if pt was requesting to have medications filled through the [place] or if the facility was just needing a med list faxed. Will alert [facility] to please fax active medication list to pt's DANAE per original note. Thanks! LEONARD Dillon with [facility] Care. /es/ ZAFAR TRUJILLO RN REGISTERED NURSE Signed: 09/20/2023 09:50 Receipt Acknowledged By: 09/20/2023 11:13 /es/ KAY HERNANDEZ MSA [facility] --- Original Document --- 09/13/23 CCC: CLINICAL TRIAGE: Patient Demographics Patient Name: DAVINA ALEXIS STELLA Patient Primary Address: [address] [place] [address] Patient Primary Phone: [phone] Patient : 1945 Patient Age: 78 Caller/Recipient Relation to Patient: Other If Other Describe Relation to Patient: [facility] Caller Name: LEONARD Dillon Emergency Contact: MARSHALL DOUGLAS Nursing Plan and Disposition Other course(s) of action Generated msg to PACT/Provider Nurse Summary Nurse Summary: not available for this telephone call, triage assessment based on report of caller. Caller able to provide 3 identifiers. Caller is not listed as E-Contact or Next of kin. Caller is LEONARD Dillon with [facility]. CALLER CONCERN/DURATION/ONSET: LEONARD Dillon is needing signed medication list faxed back (faxed last week) for to save $100/month from [facility] pharmacy but also to know if can obtain medications from [place] pharmacy. Please follow up with her. HISTORY/PREVIOUS TREATMENT: WHAT IS CALER GOAL FOR THE CALL: LEONARD Dillon is needing follow up regarding 's medications. 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 Advised caller note placed and Message Managed Care Analyst sent to appropriate team for follow-up. Caller verbalized understanding through teach back method at time of call. This note was created by a [address] pharmacology associate. Please do not alert this nurse by adding as a signer for future communications. Alerts are not monitored by this user, please reach out to [facility] Leadership instead if indicated. Clinical Contact Center Codes Clinic/Location: [address] PHONE [facility] RN /bassem/ STACEY SWANSON RN, [address] Signed: 09/13/2023 11:28 09/20/2023 ADDENDUM STATUS: UNSIGNED You may not VIEW this UNSIGNED Addendum. ZAFAR TRUJILLO [facility] Sep 13, 2023 11:28 AM RN PROGRESS NOTE: LOCAL TITLE: CCC: CLINICAL TRIAGE STANDARD TITLE: RN PROGRESS NOTE DATE OF NOTE: SEP 13, 2023@11:28:06 ENTRY DATE: SEP 13, 2023@11:28:06 AUTHOR: STACEY SWANSON EXP COSIGNER: URGENCY: STATUS: COMPLETED CCC: CLINICAL TRIAGE Has ADDENDA Patient Demographics Patient Name: DAVINA DOUGLAS Patient Primary [address]: [address] [place] [id number] Patient Primary Phone: [phone] Patient : 1945 Patient Age: 78 Caller/Recipient Relation to Patient: Other If Other Describe Relation to Patient: [facility] Caller Name: LEONARD Dillon Emergency Contact: MARSHALL DOUGLAS Nursing Plan and Disposition Other course(s) of action Generated msg to PACT/Provider Nurse Summary Nurse Summary: Hawley not available for this telephone call, triage assessment based on report of caller. Caller able to provide 3 identifiers. Caller is not listed as E-Contact or Next of kin. Caller is LEONARD Dillon with [facility]. CALLER CONCERN/DURATION/ONSET: LEONARD Dillon is needing signed medication list faxed back (faxed last week) for to save $100/month from [facility] pharmacy but also to know if can obtain medications from [place] pharmacy. Please follow up with her. HISTORY/PREVIOUS TREATMENT: WHAT IS CALER GOAL FOR THE CALL: LEONARD Dillon is needing follow up regarding 's medications. 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 Advised caller note placed and Message Managed Care Analyst sent to appropriate team for follow-up. Caller verbalized understanding through teach back method at time of call. This note was created by a [address] [employer] pharmacology associate. Please do not alert this nurse by adding as a signer for future communications. Alerts are not monitored by this user, please reach out to [facility] Leadership instead if indicated. Clinical Contact Center Codes Clinic/Location: V23 [facility] PHONE [facility] RN /es/ STACEY SWANSON RN, V23 [facility] Signed: 09/13/2023 11:28 09/20/2023 ADDENDUM STATUS: COMPLETED Associate Professor Of Communication has attempted to return call to Enedelia Butts several times, no answer when called. Messages were left requesting a call back. I did call and later one evening and spoke with another nurse at the facility (Wilma had gone for the day), the nurse answering was not sure if pt was requesting to have medications filled through the [place] or if the facility was just needing a med list faxed. Will alert [facility] to please fax active medication list to pt's [facility] per original note. Thanks! LEONARD Dillon with [facility]. /bassem/ ZAFAR TRUJILLO RN REGISTERED NURSE Signed: 09/20/2023 09:50 Receipt Acknowledged By: 09/20/2023 11:13 /bassem/ [facility] 09/20/2023 ADDENDUM STATUS: COMPLETED Associate Professor Of Communication faxed current med rec to Wilma at [facility] /bassem/ [facility] Signed: 09/20/2023 11:15 10/19/2023 ADDENDUM STATUS: COMPLETED Associate Professor Of Communication talked to the RN From [facility], the facility the is living at. Nurse stated 's would like to have all his medication through [place] from now on. Associate Professor Of Communication received an updated med list from the facility and will alert pact pcp regarding this matter. /bassem/ TYLER HUERTA LPN LPN [facility] Signed: 10/19/2023 15:[address] [facility]
--- OUTSIDE RECORDS SUMMARY | 2023-10-21 17:24 | XMS_ITS | Clinical Summary ---
Author Organization [facility] Address [address] [address] Phone Care Team Providers Care Medical Staff Coordinator Name Role Phone Unavailable Primary Care Provider [...] Overview: Per 07/02/[address] Block. [id number] Anemia 08/04/2010 Seborrheic keratosis 08/04/2010 Hypothyroidism Resolved [...] 08/10/2011 Influenza Vaccine Seasonal (Standing Order) (#1) 2023 PERTUSSIS (Standing Order) Completed 08/10/2011 HPV [...] Puckett MD - 09/16/2012 11:[address] [facility] ADDENDED COPY Patient Name: MYKE DOUGLAS Date of Service: 09/16/2012 : 1945 Age: 67Y Sex: M DC Site MRN: Patient Loc/Room #: [facility]/ Provider: Jam Puckett MD, Gastroenterology GI PROCEDURE SITE: [facility] ORDERED BY: COLONOSCOPY DATE OF PROCEDURE: 09/16/2012. [...] results andrecommendations via letter. Jam Puckett MD [facility] Gastroenterology cc: Pérez Villafuerte MD /CASI Job ID: [id number] /ak/kendall(ord) Document ID: [id number] A: 09/21/2012 miguel(add) Jam Puckett MD EC PROCEDURES from Last 3 Months or Most Recently Relevant to Health Maintenance
--- OUTSIDE RECORDS SUMMARY | 2023-10-21 17:24 | XMS_ITS | Encounter Summary ---
Author Organization [facility] Address [address] [address] Phone Care Team Providers Care Forensic Materials Engineer Name Role Phone Pérez Villafuerte MD Primary Care Provider [phone] Leida Rooney RN Unavailable [phone] Encounter Details Date Type Department Care Team [...] on filedocumented in this encounter Care Teams Forensic Materials Engineer Relationship Specialty Start Date End Date Pé[place] [address] [place] [phone] PCP - General 07/30/10 03/07/15 Leida Rooney, RN [employer] Press Operator 08/06/11 06/16/15 documented as of this encounter
--- NOTE | 2023-10-21 17:40 | ED.GENADULT ---
HPI - General Adult General Date Seen: 10/21/23 Chief complaint: Shortness of Breath/Dyspnea Stated complaint: low oxygen Time Seen by Provider: 10/21/23 16:48 Source: family Mode of arrival: wheelchair Limitations: altered mental status History of Present Illness HPI narrative: Patient is an 78-year-old male who is a resident at [facility] and has fairly significant underlying dementia. His says he is minimally communicative at baseline and has been having a lot of problems with sundowning and wandering around at night, so a couple of days ago there were some adjustments made to his medications, specifically his olanzapine was adjusted to a higher dose. For the past couple of days she feels like he has been more sedated than usual, has been minimally interactive. She says he was little better yesterday at lunch time and was awakened sat at the lunch table and interactive with people, today however he has been sleepy all day. She did ask that they not give his noon dose of olanzapine that they were planning on giving. Looking through his medication records, it looks as if the olanzapine was given 3 times yesterday, and seemingly the intention was to give it 3 times again today, our nurse spoke with [facility] and the order is supposed to be for twice a day, so he may be overmedicated as far as that goes. Also, his is under the impression that sertraline was discontinued, however it is still being given daily at a slightly lower dose than he was on previously. Otherwise, she denies any focal neurologic symptoms, he has not had any falls or hit his head recently, he has not had fevers, cough, difficulty breathing, vomiting or diarrhea. He does not drink very much and she thinks he is probably dehydrated. Related Data Home Medications ?Medication ?Instructions ?Recorded ?Confirmed acetaminophen 325 mg tablet 650 mg PO QID 06/09/23 10/21/23 albuterol sulfate 90 mcg/actuation 2 inh inhalation Q6H PRN 06/09/23 10/21/23 aerosol inhaler cyanocobalamin (vitamin B-12) 500 1,000 mcg PO DAILY 06/09/23 10/21/23 mcg tablet (Vitamin B-12) olanzapine 5 mg disintegrating 5 mg PO HS 06/09/23 10/21/23 tablet sennosides 8.6 mg tablet (senna) 8.6 mg PO BID PRN 06/09/23 10/21/23 lidocaine 4 % topical patch patch topical 10/21/23 Previous Rx's ?Medication ?Instructions ?Recorded sertraline 100 mg tablet 100 mg PO DAILY #30 tabs 05/06/23 trazodone 50 mg tablet 25 mg (1/2 x 50 mg) PO HS PRN 05/06/23 insomnia #30 tabs levofloxacin 500 mg tablet 500 mg PO Q24H #7 tabs 06/11/23 levothyroxine 75 mcg tablet See Rx Instructions .Route 09/15/23 .COMPLEX #90 tabs Allergies Allergy/AdvReac Type Severity Reaction Status Date / Time No Known Drug Allergies Allergy Verified 10/21/23 16:59 Review of Systems Status of ROS: Reports: unobtainable due to mental status PFSH PFS Medical History COPD (chronic obstructive pulmonary disease) ?J44.9 - Chronic obstructive pulmonary disease, unspecified (ICD-10) Fall ?W19.XXXA - Unspecified fall, initial encounter (ICD-10) Anemia ?D64.9 - Anemia, unspecified (ICD-10) Alzheimer disease ?G30.9 - Alzheimer's disease, unspecified (ICD-10) ?F02.80 - Dementia in other diseases classified elsewhere, unspecified severity, without behavioral disturbance, psychotic disturbance, mood disturbance, and anxiety (ICD-10) Dysphagia ?R13.10 - Dysphagia, unspecified (ICD-10) Actinic keratosis ?L57.0 - Actinic keratosis (ICD-10) Asthma ?J45.909 - Unspecified asthma, uncomplicated (ICD-10) Anxiety ?F41.9 - Anxiety disorder, unspecified (ICD-10) Macrocytosis ?D75.89 - Other specified diseases of blood and blood-forming organs (ICD-10) Hearing loss ?H91.90 - Unspecified hearing loss, unspecified ear (ICD-10) 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 - Personal history of malignant neoplasm of other sites of lip, oral cavity, and pharynx (ICD-10) Hypothyroidism ?E03.9 - Hypothyroidism, unspecified (ICD-10) Health care directive on file (08/08/20) ?Z78.9 - Other specified health status (ICD-10) Surgical History Status post-operative repair of hip fracture (05/04/23) ?Z98.890 - Other specified postprocedural states (ICD-10) ?Z87.81 - Personal history of (healed) traumatic fracture (ICD-10) History of parotid gland removal ?Z90.49 - Acquired absence of other specified parts of digestive tract (ICD-10) History of cataract surgery ?Z98.49 - Cataract extraction status, unspecified eye (ICD-10) Social History Narrative: Moved to [facility] in January 2023. 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 He later worked in [employer]. He smoked less than a pack a day for 30 or 40 years, having quit 20 years ago. He quit alcohol altogether in 1979. His family would like him to be full code for the purpose of this hospital stay, and are considering DNR DNI after that. What is your current living situation?: I presently have a place to live Problems where you live: no known problems Problems where you live details: pt lives at [facility] in [place] In the past 12 months, utilities in danger of being shut off: no In past 12 months, lack of transportation kept you from medical appts, meetings, work, or getting things needed for daily living: no In the past 12 mos, have been you worried that your food would run out before you had money to buy more?: never true In the past 12 mos, the food you bought just didn't last and you didn't have money to buy more?: never true Smoking Status: Former smoker Do you use any of these nicotine containing products: None Nicotine containing products detail: unknown How often do you have a drink containing alcohol: never How often do you have six or more drinks on one occasion: Never AUDIT-C Alcohol total score: 0 Non-prescribed substance use: denies use How often does anyone, including family, friends and others, physically hurt you: never How often does anyone, including family, friends and others, insult or talk down to you: never How often does anyone, including family, friends and others, threaten you with harm: never How often does anyone, including family, friends and others, scream or curse at you: never Little interest or pleasure in doing things: more than half the days Feeling down, depressed, or hopeless: more than half the days Exam Narrative: Exam Narrative: Vital signs as noted above. In general, a somnolent elderly male. Breathing easily. Head: Normocephalic, atraumatic. Eyes: Pupils are equal reactive. Extraocular movements are full. Conjunctivae are normal. ENT: Mucous membranes are dry. Neck: Supple without lymphadenopathy. Heart: Regular rate and rhythm. No murmur or rub. Lungs: Clear bilaterally. No increased work of breathing, crackles or wheezes. Abdomen: Soft and nontender. No organomegaly. Extremities: Well perfused. No edema. No calf tenderness. Pulses intact. Neurologic: Patient is somnolent, arouses to voice, did open eyes to command. He is not particularly verbal which his says is not unusual. Seems to be moving all extremities a little bit spontaneously although he does not follow commands in terms of moving extremities. Affect: Somnolent. Skin: Warm and dry. Well perfused. Const: Vital Signs, click to edit/add: Vital Signs - 24 hr 10/21/23 16:45 10/21/23 17:56 10/21/23 18:00 Temperature 97.3 F L Pulse Rate 48 L 33 L Pulse Rate [Pulse Oximeter] 57 L Respiratory Rate 18 Blood Pressure Blood Pressure [Ri ght Upper Arm] 136/86 Pulse Oximetry 94 98 98 Oxygen Delivery Me thod Room Air 10/21/23 18:02 Temperature Pulse Rate 35 L Pulse Rate [Pulse Oximeter] Respiratory Rate Blood Pressure 161/88 H Blood Pressure [Ri ght Upper Arm] Pulse Oximetry 95 Oxygen Delivery Me thod Documenting provider has reviewed patient's vital signs: yes Course Course ED Course: Patient brought in by his for increased somnolence over the past couple of days which does correspond to this change in his olanzapine dosing and it looks as if this is perhaps being given differently than was intended. Will give him a little bit of IV fluid as does look as if he is fairly dry, check for UTI or other infection, electrolytes, etcetera. No focal findings to suggest he stroke. Patient became progressively more alert while here, he was sitting up in bed, eyes open and was conversing a little bit. He had an EKG which showed a sinus rhythm, ventricular rate of 67. He did have some brief periods of bradycardia into the 30s, but blood pressures were stable and bradycardia resolved without intervention. Labs showed a white blood cell count 9.5 and hemoglobin of 10, his baseline seems to run between 9 in 10 and he always has a macrocytosis. He did have a left shift with 85% neutrophils. Metabolic panel showed a sodium of 134, otherwise unremarkable. BUN 25 creatinine 0.8, lactate of 1 and blood sugar was 110. Magnesium 1.9. LFTs were unremarkable, CRP minimally elevated at 2.3, TSH was normal and COVID was negative. We did trying get a urine sample here, he had already voided into his depends and really did not want to do a straight cath today so they will return a urine sample after discharge. I do think it is reasonable to let him go home. We have confirmed that he got an extra dose of olanzapine yesterday, I think that is probably contributing to his increased somnolence. He did not get the dose they were going to give him at noon today and he seems to be becoming more alert. I have rewritten orders for [facility] so that he does not get any more p.r.n. olanzapine. Discussed with his there may be a little trial and error in trying to titrate the dose to manage the wandering behavior and agitation while still trying to avoid excessive somnolence, and I would recommend discussing this further with his primary care provider. Return any time for acute worsening. Vital Signs Vital signs: Initial Vital Signs Temperature 97.3 F L 10/21/23 16:45 Temperature Source Temporal Artery Scan 10/21/23 16:45 Pulse Rate 57 L 10/21/23 16:45 Respiratory Rate 18 10/21/23 16:45 Blood Pressure 136/86 10/21/23 16:45 Blood Pressure Mean 102 10/21/23 16:45 Blood Pressure Position Sitting 10/21/23 16:45 Pulse Oximetry 94 10/21/23 16:45 Oxygen Delivery Method Room Air 10/21/23 16:45 Vital Signs Temperature 97.3 F L 10/21/23 16:45 Pulse Rate 57 L 10/21/23 16:45 Respiratory Rate 18 10/21/23 16:45 Blood Pressure 136/86 10/21/23 16:45 Pulse Oximetry 94 10/21/23 16:45 Oxygen Delivery Method Room Air 10/21/23 16:45 Temperature 97.3 F L 10/21/23 16:45 Pulse Rate 35 L 10/21/23 18:02 Respiratory Rate 18 10/21/23 16:45 Blood Pressure 161/88 H 10/21/23 18:02 Pulse Oximetry 95 10/21/23 18:02 Oxygen Delivery Method Room Air 10/21/23 16:45 Medications Administered Medications: Discontinued Medications Generic Name Dose Route Start Last Admin Trade Name Freq PRN Reason Stop Dose Admin Sodium Chloride 1,000 mls @ 1,000 mls/hr 10/21/23 17:15 10/21/23 19:02 0.9 % Sodium Chloride 1000 Ml IV 10/21/23 18:14 1,000 mls/hr .Q1H KAMI Infusion Medical Decision Making Lab Data Labs: Lab Results 10/21/23 10/21/23 Range/Units 17:22 17:42 WBC 9.51 (4.50-11.00) K/uL RBC 2.97 L (4.30-5.90) m/uL Hgb 10.0 L (13.5-17.5) gm/dL Hct 32.0 L (37.0-53.0) % MCV 108 H (80-100) fL MCH 34 (26-34) pg MCHC 31 L (32-36) gm/dL RDW Coeff of Anthony 14.2 (11.5-15.5) % Plt Count 150 (140-440) K/uL Neut % (Auto) 84.5 H (42.0-72.0) % Lymph % (Auto) 4.6 L (20-44) % Assumption % (Auto) 9.3 (0.0-11.0) % Eos % (Auto) 0.8 (0.0-7.0) % Baso % (Auto) 0.2 (0.0-3.0) % Neut # (Auto) 8.00 H (1.7-7.0) K/uL Lymph # (Auto) 0.40 L (0.90-2.90) K/uL Assumption # (Auto) 0.90 (0.00-0.90) K/UL Eos # (Auto) 0.08 (0.00-0.50) K/uL Baso # (Auto) 0.02 (0.00-0.30) K/uL Abs Immat Gran (auto) 0.06 (0.00-0.30) K/uL Imm/Tot Granulo (auto) 0.6 % Sodium 134 L (135-149) mmol/L Potassium 3.9 (3.6-5.1) mmol/L Chloride 98 (96-114) mmol/L Carbon Dioxide 30 (20-32) mmol/L Anion Gap 6 L (7-15) mEq/L BUN 25 (7-30) mg/dL Creatinine 0.8 (0.5-1.5) mg/dL Estimated Creat Clear 55.94 Estimated GFR 89 ml/min Glucose 110 (60-115) mg/dL Lactate 1.0 (0.5-1.9) mmol/L Calcium 9.3 (8.4-10.6) mg/dL Magnesium 1.9 (1.5-2.6) mg/dL Total Bilirubin 0.5 (0.1-1.5) mg/dL Direct Bilirubin 0.2 (0.0-0.5) mg/dL AST 23 (12-35) U/L ALT 11 (4-50) U/L Alkaline Phosphatase 54 (40-150) U/L C-Reactive Protein 2.3 H (0.5-1.0) mg/dL Total Protein 7.3 (6.0-8.3) g/dL Albumin 4.0 (3.3-5.0) g/dL TSH 2.670 (0.270-4.200) uIU/mL SARS-CoV-2 (PCR) Negative SARS-CoV-2 (Negative) Influenza Type A (PCR) Negative PCR FLU A (Negative) Influenza Type B (PCR) Negative PCR FLU B (Negative) RSV (PCR) Negative PCR RSV (Negative) Discharge Plan Discharge Clinical Impression: Somnolence, Accidental medication error Patient Disposition: Xfer SNF Condition: Improved Additional Instructions: Return a urine sample at your convenience. Labs are otherwise reassuring here. There is nothing to suggest a significant infection or electrolyte disturbance. I suspect that his increased sleepiness is related to medication. We will adjust his dosing to discontinue the p.r.n. dose of olanzapine for now and use only the twice a day dosing. Please review this with his PA as further adjustments may be needed to titrate for adequate behavior control without excessive daytime sleepiness. Return as needed for new or worsening symptoms. Prescriptions: No Action olanzapine 5 mg tablet,disintegrating 5 mg PO HS acetaminophen 325 mg tablet 650 mg PO QID albuterol sulfate 90 mcg/actuation HFA aerosol inhaler 2 inh inhalation Q6H PRN Patient Comments: PT JUST KEEPS ON HAND - HAS NOT USED cyanocobalamin (vitamin B-12) [Vitamin B-12] 500 mcg tablet 1,000 mcg PO DAILY sennosides [senna] 8.6 mg tablet 8.6 mg PO BID PRN levofloxacin 500 mg Tablet 500 mg PO Q24H Qty: 7 0RF trazodone 50 mg Tablet 25 mg PO HS PRN (Reason: insomnia) Qty: 30 0RF Patient Comments: IF NEEDED FOR SLEEP/ANXIETY sertraline 100 mg Tablet 100 mg PO DAILY Qty: 30 0RF lidocaine 4 % adhesive patch,medicated TOPICAL Patient Comments: PLEASE SEE ATTACHED FOR DETAILED DIRECTIONS levothyroxine 75 mcg tablet See Rx Instructions .ROUTE .COMPLEX Qty: 90 0RF Dose Instruction: TAKE 1 TABLET BY MOUTH EVERY DAY Rx Instructions: TAKE 1 TABLET BY MOUTH EVERY DAY Stand Alone Forms: [employer] Info Instructions
[2023-10-21 17:49] LABS: Basophils Absolute Auto 0.02 K/uL (0.00-0.30); Basophils Percent Auto 0.2 % (0.0-3.0); Eosinophils Absolute Auto 0.08 K/uL (0.00-0.50); Eosinophils Percent Auto 0.8 % (0.0-7.0); Immature Granulocytes Abs Auto 0.06 K/uL (0.00-0.30); Immature Granulocytes Pct Auto 0.6 %; Lymphocytes Percent Auto 4.6 % (20-44); Mean Corpuscular HGB Conc 31 gm/dL (32-36); Mean Corpuscular Hemoglobin 34 pg (26-34); Mean Corpuscular Volume 108 fL (80-100); Monocytes Percent Auto 9.3 % (0.0-11.0); Neutrophils Percent Auto 84.5 % (42.0-72.0); Platelet Count* 150 K/uL (140-440); RDW Coefficient of Variation % 14.2 % (11.5-15.5); Red Blood Count 2.97 m/uL (4.30-5.90); White Blood Count* 9.51 K/uL (4.50-11.00)
[2023-10-21 17:56] VITALS: PULSE 48; O2SAT 98
[2023-10-21 18:00] VITALS: PULSE 33; O2SAT 98
[2023-10-21 18:02] VITALS: BP 161/88; PULSE 35; O2SAT 95
[2023-10-21] MEDS: 0.9 % SODIUM CHLORIDE 1000 ml 1,000 ML IV (18:03)
[2023-10-21 18:06] LABS: PCR FLU A Negative PCR FLU A (Negative); PCR FLU B Negative PCR FLU B (Negative); PCR RSV Negative PCR RSV (Negative); SARS PCR* Negative SARS-CoV-2 (Negative)
[2023-10-21 18:08] LABS: Slide Review Reflex No
[2023-10-21 18:10] LABS: Chloride* 98 mmol/L (96-114); Sodium* 134 mmol/L (135-149)
[2023-10-21 18:11] LABS: Potassium* 3.9 mmol/L (3.6-5.1)
[2023-10-21 18:12] LABS: Creatinine* 0.8 mg/dL (0.5-1.5); Est. Creatinine Clearance* 55.94; Estimated Glomerular Filt Rate 89 ml/min
[2023-10-21 18:13] LABS: Alkaline Phosphatase* 54 U/L (40-150); Anion Gap 6 mEq/L (7-15); Aspartate Amino Transferase* 23 U/L (12-35); Bilirubin Direct* 0.2 mg/dL (0.0-0.5); Bilirubin Total* 0.5 mg/dL (0.1-1.5); Carbon Dioxide* 30 mmol/L (20-32); Total Protein* 7.3 g/dL (6.0-8.3)
[2023-10-21 18:14] LABS: Alanine Aminotransferase* 11 U/L (4-50); Blood Urea Nitrogen* 25 mg/dL (7-30); Calcium* 9.3 mg/dL (8.4-10.6); Glucose* 110 mg/dL (60-115); Magnesium* 1.9 mg/dL (1.5-2.6)
[2023-10-21 18:16] LABS: C Reactive Protein* 2.3 mg/dL (0.5-1.0)
== END 2023-10-21 20:13 | disposition home or self-care (01) ==
PROVIDERS: Emergency Provider Emergency Medicine; PCP Internal Medicine
DX: R40.0 Somnolence (principal); T50.901A Poisoning by unspecified drugs, medicaments and biological substances, accidental (unintentional), initial encounter
CPT/HCPCS: 36415; 80048; 80076; 81001; 83605; 83735; 84443; 85025; 86140; 87631; 87635; 94761; 96360; 99284; 99285; J7030

== ENCOUNTER 2023-10-22 18:12 | Outpatient (REF) | payer MEDICARE, SELFPAY ==
--- OUTSIDE RECORDS SUMMARY | 2023-10-22 18:15 | XMS_ITS | Encounter Summary ---
Author Organization [facility] Address [address] [address] Phone Care Team Providers Care Manager Erp Name Role Phone Pérez Villafuerte MD Primary Care Provider [phone] Leida Rooney RN Unavailable [phone] Encounter Details Date Type Department Care Team [...] on filedocumented in this encounter Care Teams Manager Erp Relationship Specialty Start Date End Date [place] [address] [place] [id number] PCP - General 07/30/10 03/07/15 Leida Rooney, RN Skip Pitman 08/06/11 06/16/15 documented as of this encounter
--- OUTSIDE RECORDS SUMMARY | 2023-10-22 18:15 | XMS_ITS | Continuity of Care Document ---
Author Name [facility] Organization [facility] Care Team Providers Care Freight Unloader Name Role Phone [facility] Unavailable Unavailable Problems Combined list of problems from Department of Defense and Veterans Affairs facilities. It does not include entries that were removed or entered in error. Problem Status Onset Date Problem Type Date of Resolution Comments Source Exposure to potentially hazardous substance ([facility] [id number]) Active 05/07/19 24 Condition May 07, 2023 Entered By: ABHILASH PETER [facility]: [facility] Documentation Initiative [facility] Acquired hypothyroidism Active [facility] Anxiety Active Condition [facility] Bilateral metatarsalgia Active Condition [facility] Carcinoma of parotid gland Active Condition [facility] Chronic obstructive lung disease Active Condition [facility] Chronic Obstructive Pulmonary Disease Active Condition Oct 05 08 Entered By: IISDRA BYERS Comment: FEV1(L) % PRED= 88, FEV1/FVC% ACTUAL= 60 [facility] Chronic pain of left foot Active Condition [facility] Congestion of nasal sinus Active Condition [facility] Edema Active Condition Feb 14 08 Entered By: ISIDRA BYERS Comment: ideopathic-nml full w/u 2007 . [facility] Enthesopathy of left foot Active Condition [facility] Health maintenance alteration Active Condition [facility] Hypothyroidism * (ICD-9-CM 244.9) Active Condition [facility] Keratosis, seborrheic Active Condition [facility] Osteoarthritis of ankle Active Condition [facility] Osteopenia * (ICD-9-CM 733.90) Active Condition . [facility] Paraesthesia of foot Active Condition [facility] Personal History of Colonic Polyps (ICD-9-CM V12.72) Active Condition Oct 01 09 Entered By: ISIDRA BYERS Comment: scope 2008 nml-due 2012 [facility] Postsurgical Status of Cataract Extraction Active Condition [facility] Presbyopia Active Condition [facility] Primary degenerative dementia of the Alzheimer type, senile onset, with delusion Active Condition [facility] Rhinitis * (ICD-9-CM 472.0) Active Condition [facility] salivary cancer Active Condition Sep 27, 2007 Entered By: ISIDRA BYERS Comment: radical neck + radiation [facility] SENSORNEUR HEARING LOSS NOS Active Condition [facility] Wheezing Active Condition [facility] Tobacco Use Disorder * (ICD-9-CM 305.1) Inactive Condition 09/27/2007 [facility] Diagnosis: ICD-10-CM R53.1 Weakness Active Diagnosis [facility] Diagnosis: ICD-10-CM Z00.8 Encounter for other general examination Active Diagnosis [facility] Medications Combined list of outpatient medications [...] Oct 20, 2023 300 Oct 20, 2024 [id number] Oct 20, 2023 [facility] ORAL ACTIVE 10/20/2024 [id number] [facility] 2023 300 [facility] ASPIRIN TAB,EC ASPIRIN TAB,EC Non-VA TAKE BY MOUTH Oct 22, 2004 Non-VA Document ed by: Luis Fernando MARCUS Document ed at: [facility] ORAL ACTIVE SHEN SHRESTHA 2004 [facility] CYANOCOBALA MIN 1000MCG TAB CYANOCOB ALAMIN 1000MCG TAB Active TAKE ONE TABLET BY MOUTH EVERY DAY FOR VITAMIN B12, FOR RED BLOOD CELLS Nov 18, 2022 100 Nov 19, 2023 [id number] Nov 19, 2022 [facility] ORAL ACTIVE 11/19/2023 [id number] [facility] 2022 100 [facility] GUAIFENESIN TAB GUAIFENE SIN TAB Non-VA TAKE 600MG DM BY MOUTH DAILY Sep 07, 2012 Non-VA Document ed by: ISIDRA BYERS Document ed at: [facility] ORAL ACTIVE Giovanni BYERS 2012 [facility] LEVOTHYROXI NE NA 75MCG TAB (SYNTHROID) LEVOTHYR OXINE NA 75MCG TAB (SYNTHRO ID) Active TAKE ONE TABLET BY MOUTH EVERY DAY FOR THYROID FOR THYROID Oct 20, 2023 90 Oct 20, 2024 [id number] Oct 20, 2023 [facility] ORAL ACTIVE 10/20/2024 [id number] [facility] 2023 90 [facility] LEVOTHYROXI NE NA 75MCG TAB (SYNTHROID) LEVOTHYR OXINE NA 75MCG TAB (SYNTHRO ID) Non-VA TAKE ONE TABLET BY MOUTH Sep 19, 2012 Non-VA Document ed by: ISIDRA BYERS Document ed at: [facility] ORAL ACTIVE Giovanni BYERS 2012 [facility] LORAZEPAM 0.5MG TAB LORAZEPA M 0.5MG TAB Non-VA TAKE ONE TABLET BY MOUTH PRN Sep 29, 2007 Non-VA Document ed by: ISIDRA BYERS Document ed at: [facility] ORAL ACTIVE Giovanni BYERS 2007 [facility] MULTIVITAMI N/MINERALS SENIOR FORMULA TAB MULTIVIT BARTON/MIN ERALS SENIOR FORMULA TAB Non-VA TAKE ONE TABLET BY MOUTH Oct 22, 2004 Non-VA Document ed by: Luis Fernando MARCUS Document ed at: [facility] ORAL ACTIVE SHEN SHRESTHA 2004 [facility] OLANZAPINE 2.5MG TAB OLANZAPI NE 2.5MG TAB Active TAKE ONE AND ONE-HALF TABLETS (3.75MG) BY MOUTH TWICE A DAY AND TAKE ONE TABLET THREE TIMES A DAY NEEDED FOR AGITATIO N FOR AGITATIO N Oct 20, 2023 180 Oct 20, 2024 [id number] Oct 20, 2023 [facility] ORAL ACTIVE 10/20/2024 [id number] MASSI[facility] NGUYEN 2023 180 [facility] OLANZAPINE 2.5MG TAB OLANZAPI NE 2.5MG TAB Disconti nued TAKE ONE TABLET BY MOUTH THREE TIMES A DAY NEEDED FOR AGITATIO N FOR AGITATIO N Oct 20, 2023 90 Oct 20, 2024 [id number] Oct 20, 2023 [facility] ORAL DISCONT INUED 10/20/2024 [id number] MASSIEL NGUYEN 2023 90 [facility] SENNOSIDES 8.6MG TAB SENNOSID ES 8.6MG TAB Active TAKE ONE TABLET BY MOUTH TWICE A DAY FOR CONSTIPA TION FOR CONSTIPA TION Oct 20, 2023 200 Oct 20, 2024 [id number] Oct 20, 2023 [facility] ORAL ACTIVE 10/20/2024 [id number] MASSIEL NGUYEN 2023 200 [facility] SERTRALINE HCL 100MG TAB SERTRALI NE HCL 100MG TAB Active TAKE ONE TABLET BY MOUTH EVERY DAY FOR ANXIETY FOR ANXIETY Oct 20, 2023 90 Oct 20, 2024 [id number] Oct 20, 2023 [facility] ORAL ACTIVE 10/20/2024 [id number] MASSIEL NGUYEN 2023 90 [facility] Immunizations Combined list of available immunizations from the Department of Defense and Veterans Affairs facilities. Immunization Series Date Given Administered By Site Reaction Lot Number CVX Code Drug Cataloging Assistant Status Comments Source TDAP 2022 115 complet ed [facility] COVID-19, MRNA, LNP-S, BIVALENT BOOSTER, PF, 30 MCG/0.3 ML DOSE 1 2021 300 complet ed [facility] INFLUENZA, UNSPECIFIED FORMULATION 2021 88 complet ed [facility] COVID-19 (PFIZER), MRNA, LNP-S, PF, 30 MCG/0.3 ML DOSE 2 2021 208 complet ed [facility] COVID-19 (PFIZER), MRNA, LNP-S, PF, 30 MCG/0.3 ML DOSE, SHANTELL-SUCROSE (AGES 12+ YEARS) 2021 217 complet ed [facility] ZOSTER RECOMBINANT 2 2021 187 complet ed [facility] ZOSTER RECOMBINANT 1 2020 187 complet ed [facility] COVID-19 (PFIZER), MRNA, LNP-S, PF, 30 MCG/0.3 ML DOSE 3 2020 208 complet ed [facility] INFLUENZA, INJECTABLE, QUADRIVALENT, PRESERVATIVE FREE 2020 150 complet ed [facility] COVID-19 (SumAll), MRNA, LNP-S, PF, 30 MCG/0.3 ML DOSE 2 2020 208 complet ed [facility] COVID-19 (PFIZER), MRNA, LNP-S, PF, 30 MCG/0.3 ML DOSE 1 2020 208 complet ed [facility] INFLUENZA, RECOMBINANT, QUADRIVALENT, INJECTABLE, PRESERVATIVE FREE 2019 185 complet ed [facility] INFLUENZA, HIGH DOSE SEASONAL 2018 135 complet ed [facility] INFLUENZA, HIGH DOSE SEASONAL 2016 135 complet ed [facility] INFLUENZA, HIGH DOSE SEASONAL 2015 135 complet ed [facility] INFLUENZA, HIGH DOSE SEASONAL 2014 135 complet ed [facility] PNEUMOCOCCAL CONJUGATE PCV 13 2014 133 complet ed [facility] Lot# [id number] Exp 03/2016 [facility] PNEUMOCOCCAL CONJUGATE PCV 13 2014 133 complet ed [facility] INFLUENZA, SEASONAL, INJECTABLE 2013 141 complet ed [facility] INFLUENZA, SEASONAL, INJECTABLE 2013 141 complet ed [facility] TDAP 2012 115 complet ed [facility] INFLUENZA, UNSPECIFIED FORMULATION 2012 88 complet ed [facility] ZOSTER LIVE 2012 121 complet ed [facility] PNEUMOCOCCAL POLYSACCHARID E PPV23 2012 33 complet ed [facility] PNEUMOCOCCAL, UNSPECIFIED FORMULATION 2012 109 complet ed [facility] ZOSTER LIVE 2012 121 complet ed [facility] INFLUENZA, UNSPECIFIED FORMULATION 2011 88 complet ed [facility] ZOSTER LIVE 2011 121 complet ed [employer] #[id number] exp 05-13-12 [facility] PNEUMOCOCCAL POLYSACCHARID E PPV23 2011 33 complet ed [facility] TDAP 2011 115 complet ed [facility] TDAP 2010 115 complet ed [facility] PNEUMOCOCCAL POLYSACCHARID E PPV23 2009 33 complet ed [facility] NOVEL INFLUENZA-H1N 1-09, ALL FORMULATIONS 2008 128 complet ed [employer] [facility] INFLUENZA (HISTORICAL) 2008 88 complet ed [facility] INFLUENZA, SEASONAL, INJECTABLE 2008 141 complet ed [facility] INFLUENZA, UNSPECIFIED FORMULATION 2007 88 complet ed [employer], Lot #[id number], exp 2008 JL [facility] INFLUENZA, UNSPECIFIED FORMULATION 2006 88 complet ed lot# [id number] exp 08/29/07 [employer] [facility] INFLUENZA, UNSPECIFIED FORMULATION 2006 88 complet ed [facility] INFLUENZA, UNSPECIFIED FORMULATION 2005 88 complet ed [facility] PNEUMOCOCCAL POLYSACCHARID E PPV23 2005 33 complet ed [facility] INFLUENZA, UNSPECIFIED FORMULATION 2004 88 complet ed [employer] [id number] [facility] PNEUMOCOCCAL, UNSPECIFIED FORMULATION 2004 109 complet ed [facility] TD(ADULT) UNSPECIFIED FORMULATION 2004 139 complet ed [facility] INFLUENZA, UNSPECIFIED FORMULATION 2003 88 complet ed [facility] INFLUENZA, UNSPECIFIED FORMULATION 2003 88 complet ed [facility] Results Combined list of recent chemistry, [...] Jan 14, 2022 08:41 AM Reporting Lab: [facility] [address] Performing Lab: [facility] [address] [facility] FOLATE FOLATE [MASS/VOLU ME] IN SERUM OR PLASMA 8.6 ng/mL 7.0 11/18 Specimen Type: SERUM No comment entered. Ordering Provider: KEELY NGUYEN Report Released Date/Time: Jan 14, 2022 08:41 AM Reporting Lab: [facility] [address] Performing Lab: [facility] [address] [facility] CBC & DIFF LEUKOCYTES [#/VOLUME] IN BLOOD BY AUTOMATED COUNT 4.77 10*3/uL 4.0 - 11.0 11/18 Specimen Type: BLOOD Comment: Automated Differentia l Performed Ordering Provider: KEELY NGUYEN Report Released Date/Time: Jan 14, 2022 08:41 AM Reporting Lab: [facility] [address] Performing Lab: [facility] [address] [facility] CBC & DIFF ERYTHROCYT ES [#/VOLUME] IN BLOOD BY AUTOMATED COUNT 3.06 10*6/uL 4.6 - 6.2 11/18 L Specimen Type: BLOOD Comment: Automated Differentia l Performed Ordering Provider: KEELY NGUYEN Report Released Date/Time: Jan 14, 2022 08:41 AM Reporting Lab: [facility] [address] Performing Lab: [facility] [address] [facility] CBC & DIFF HEMOGLOBIN [MASS/VOLU ME] IN BLOOD 10.5 g/dL 13.5 - 17.9 11/18 L Specimen Type: BLOOD Comment: Automated Differentia l Performed Ordering Provider: KEELY NGUYEN Report Released Date/Time: Jan 14, 2022 08:41 AM Reporting Lab: [facility] [address] Performing Lab: [facility] [address] [facility] CBC & DIFF HEMATOCRIT [VOLUME FRACTION] OF BLOOD BY AUTOMATED COUNT 33.3 41 - 54 11/18 L Specimen Type: BLOOD Comment: Automated Differentia l Performed Ordering Provider: KEELY NGUYEN Report Released Date/Time: Jan 14, 2022 08:41 AM Reporting Lab: [facility] [address] Performing Lab: [facility] [address] [facility] CBC & DIFF MCV [ENTITIC VOLUME] BY AUTOMATED COUNT 108.8 fL 80 - 100 11/18 H Specimen Type: BLOOD Comment: Automated Differentia l Performed Ordering Provider: KEELY NGUYEN Report Released Date/Time: Jan 14, 2022 08:41 AM Reporting Lab: [facility] [address] Performing Lab: [facility] [address] [facility] CBC & DIFF MCH [ENTITIC MASS] BY AUTOMATED COUNT 34.3 pg 27 - 33 11/18 H Specimen Type: BLOOD Comment: Automated Differentia l Performed Ordering Provider: KEELY NGUYEN Report Released Date/Time: Jan 14, 2022 08:41 AM Reporting Lab: [facility] [address] Performing Lab: [facility] [address] [facility] CBC & DIFF MCHC [MASS/VOLU ME] BY AUTOMATED COUNT 31.5 g/dL 32.0 - 37.5 11/18 L Specimen Type: BLOOD Comment: Automated Differentia l Performed Ordering Provider: KEELY NGUYEN Report Released Date/Time: Jan 14, 2022 08:41 AM Reporting Lab: [facility] [address] Performing Lab: [facility] [address] [facility] CBC & DIFF PLATELETS [#/VOLUME] IN BLOOD BY AUTOMATED COUNT 134 10*3/uL 150 - 400 11/18 L Specimen Type: BLOOD Comment: Automated Differentia l Performed Ordering Provider: KEELY NGUYEN Report Released Date/Time: Jan 14, 2022 08:41 AM Reporting Lab: [facility] [address] Performing Lab: [facility] [address] [facility] CBC & DIFF PLATELET MEAN VOLUME [ENTITIC VOLUME] IN BLOOD BY AUTOMATED COUNT 10.5 fL 7.4 - 10.4 11/18 H Specimen Type: BLOOD Comment: Automated Differentia l Performed Ordering Provider: KEELY NGUYEN Report Released Date/Time: Jan 14, 2022 08:41 AM Reporting Lab: [facility] [address] Performing Lab: [facility] [address] [facility] CBC & DIFF NEUTROPHIL S/100 LEUKOCYTES IN BLOOD BY MANUAL COUNT 70.1 40.0 - 80.0 11/18 Specimen Type: BLOOD Comment: Automated Differentia l Performed Ordering Provider: KEELY NGUYEN Report Released Date/Time: Jan 14, 2022 08:41 AM Reporting Lab: [facility] [address] Performing Lab: [facility] [address] [facility] CBC & DIFF LYMPHOCYTE S/100 LEUKOCYTES IN BLOOD BY MANUAL COUNT 15.3 15.0 - 45.0 11/18 Specimen Type: BLOOD Comment: Automated Differentia l Performed Ordering Provider: KEELY NGUYEN Report Released Date/Time: Jan 14, 2022 08:41 AM Reporting Lab: [facility] [address] Performing Lab: [facility] [address] [facility] CBC & DIFF MONOCYTES/ 100 LEUKOCYTES IN BLOOD BY AUTOMATED COUNT 10.9 2.0 - 12.0 11/18 Specimen Type: BLOOD Comment: Automated Differentia l Performed Ordering Provider: KEELY NGUYEN Report Released Date/Time: Jan 14, 2022 08:41 AM Reporting Lab: [facility] [address] Performing Lab: [facility] [address] [facility] CBC & DIFF EOSINOPHIL S/100 LEUKOCYTES IN BLOOD BY AUTOMATED COUNT 2.1 0.0 - 6.0 11/18 Specimen Type: BLOOD Comment: Automated Differentia l Performed Ordering Provider: KEELY NGUYEN Report Released Date/Time: Jan 14, 2022 08:41 AM Reporting Lab: [facility] [address] Performing Lab: [facility] [address] [facility] CBC & DIFF BASOPHILS/ 100 LEUKOCYTES IN BLOOD BY MANUAL COUNT 0.6 0.0 - 2.0 11/18 Specimen Type: BLOOD Comment: Automated Differentia l Performed Ordering Provider: KEELY NGUYEN Report Released Date/Time: Jan 14, 2022 08:41 AM Reporting Lab: [facility] [address] Performing Lab: [facility] [address] [facility] CBC & DIFF ERYTHROCYT E DISTRIBUTI ON WIDTH [RATIO] BY AUTOMATED COUNT 13.8 11.5 - 14.5 11/18 Specimen Type: BLOOD Comment: Automated Differentia l Performed Ordering Provider: KEELY NGUYEN Report Released Date/Time: Jan 14, 2022 08:41 AM Reporting Lab: [facility] [address] Performing Lab: [facility] [address] [facility] CBC & DIFF LYMPHOCYTE S [#/VOLUME] IN BLOOD BY AUTOMATED COUNT 0.73 10*3/uL 1.0 - 4.0 11/18 L Specimen Type: BLOOD Comment: Automated Differentia l Performed Ordering Provider: KEELY NGUYEN Report Released Date/Time: Jan 14, 2022 08:41 AM Reporting Lab: [facility] [address] Performing Lab: [facility] [address] [facility] CBC & DIFF MONOCYTES [#/VOLUME] IN BLOOD BY AUTOMATED COUNT 0.52 10*3/uL 0.1 - 1.0 11/18 Specimen Type: BLOOD Comment: Automated Differentia l Performed Ordering Provider: KEELY NGUYEN Report Released Date/Time: Jan 14, 2022 08:41 AM Reporting Lab: [facility] [address] Performing Lab: [facility] [address] [facility] CBC & DIFF NEUTROPHIL S [#/VOLUME] IN BLOOD BY AUTOMATED COUNT 3.34 10*3/uL 2.0 - 7.7 11/18 Specimen Type: BLOOD Comment: Automated Differentia l Performed Ordering Provider: KEELY NGUYEN Report Released Date/Time: Jan 14, 2022 08:41 AM Reporting Lab: [facility] [address] Performing Lab: [facility] [address] [facility] CBC & DIFF EOSINOPHIL S [#/VOLUME] IN BLOOD BY AUTOMATED COUNT 0.10 10*3/uL 0 - 0.5 11/18 Specimen Type: BLOOD Comment: Automated Differentia l Performed Ordering Provider: KEELY NGUYEN Report Released Date/Time: Jan 14, 2022 08:41 AM Reporting Lab: [facility] [address] Performing Lab: [facility] [address] [facility] CBC & DIFF BASOPHILS [#/VOLUME] IN BLOOD BY AUTOMATED COUNT 0.03 10*3/uL 0 - 0.2 11/18 Specimen Type: BLOOD Comment: Automated Differentia l Performed Ordering Provider: KEELY NGUYEN Report Released Date/Time: Jan 14, 2022 08:41 AM Reporting Lab: [facility] [address] Performing Lab: [facility] [address] [facility] CBC & DIFF IG(META,MY MAYA,PRO) 1.0 11/18 Specimen Type: BLOOD Comment: Automated Differentia l Performed Ordering Provider: KEELY NGUYEN Report Released Date/Time: Jan 14, 2022 08:41 AM Reporting Lab: [facility] [address] Performing Lab: [facility] [address] [facility] CBC & DIFF IMMATURE GRANULOCYT ES [PRESENCE] IN BLOOD BY AUTOMATED COUNT 0.05 10*3/uL 0 - 0.1 11/18 Specimen Type: BLOOD Comment: Automated Differentia l Performed Ordering Provider: KEELY NGUYEN Report Released Date/Time: Jan 14, 2022 08:41 AM Reporting Lab: [facility] [address] Performing Lab: [facility] [address] [facility] CBC & DIFF LEUKOCYTES [#/VOLUME] IN BLOOD BY AUTOMATED COUNT 4.72 10*3/uL 4.0 - 11.0 11/18 Specimen Type: BLOOD Comment: Automated Differentia l Performed Ordering Provider: KEELY NGUYEN Report Released Date/Time: Nov 18, 2022 02:10 PM Reporting Lab: [facility] [address] Performing Lab: [facility] [address] [facility] CBC & DIFF ERYTHROCYT ES [#/VOLUME] IN BLOOD BY AUTOMATED COUNT 3.07 10*6/uL 4.6 - 6.2 11/18 L Specimen Type: BLOOD Comment: Automated Differentia l Performed Ordering Provider: KEELY NGUYEN Report Released Date/Time: Nov 18, 2022 02:10 PM Reporting Lab: [facility] [address] Performing Lab: [facility] [address] [facility] CBC & DIFF HEMOGLOBIN [MASS/VOLU ME] IN BLOOD 10.7 g/dL 13.5 - 17.9 11/18 L Specimen Type: BLOOD Comment: Automated Differentia l Performed Ordering Provider: KEELY NGUYEN Report Released Date/Time: Nov 18, 2022 02:10 PM Reporting Lab: [facility] [address] Performing Lab: [facility] [address] [facility] CBC & DIFF HEMATOCRIT [VOLUME FRACTION] OF BLOOD BY AUTOMATED COUNT 33.0 41 - 54 11/18 L Specimen Type: BLOOD Comment: Automated Differentia l Performed Ordering Provider: KEELY NGUYEN Report Released Date/Time: Nov 18, 2022 02:10 PM Reporting Lab: [facility] [address] Performing Lab: [facility] [address] [facility] CBC & DIFF MCV [ENTITIC VOLUME] BY AUTOMATED COUNT 107.5 fL 80 - 100 11/18 H Specimen Type: BLOOD Comment: Automated Differentia l Performed Ordering Provider: KEELY NGUYEN Report Released Date/Time: Nov 18, 2022 02:10 PM Reporting Lab: [facility] [address] Performing Lab: [facility] [address] [facility] CBC & DIFF MCH [ENTITIC MASS] BY AUTOMATED COUNT 34.9 pg 27 - 33 11/18 H Specimen Type: BLOOD Comment: Automated Differentia l Performed Ordering Provider: KEELY NGUYEN Report Released Date/Time: Nov 18, 2022 02:10 PM Reporting Lab: [facility] [address] Performing Lab: [facility] [address] [facility] CBC & DIFF MCHC [MASS/VOLU ME] BY AUTOMATED COUNT 32.4 g/dL 32.0 - 37.5 11/18 Specimen Type: BLOOD Comment: Automated Differentia l Performed Ordering Provider: KEELY NGUYEN Report Released Date/Time: Nov 18, 2022 02:10 PM Reporting Lab: [facility] [address] Performing Lab: [facility] [address] [facility] CBC & DIFF PLATELETS [#/VOLUME] IN BLOOD BY AUTOMATED COUNT 139 10*3/uL 150 - 400 11/18 L Specimen Type: BLOOD Comment: Automated Differentia l Performed Ordering Provider: KEELY NGUYEN Report Released Date/Time: Nov 18, 2022 02:10 PM Reporting Lab: [facility] [address] Performing Lab: [facility] [address] [facility] CBC & DIFF PLATELET MEAN VOLUME [ENTITIC VOLUME] IN BLOOD BY AUTOMATED COUNT 10.3 fL 7.4 - 10.4 11/18 Specimen Type: BLOOD Comment: Automated Differentia l Performed Ordering Provider: KEELY NGUYEN Report Released Date/Time: Nov 18, 2022 02:10 PM Reporting Lab: [facility] [address] Performing Lab: [facility] [address] [facility] CBC & DIFF NEUTROPHIL S/100 LEUKOCYTES IN BLOOD BY MANUAL COUNT 70.8 40.0 - 80.0 11/18 Specimen Type: BLOOD Comment: Automated Differentia l Performed Ordering Provider: KEELY NGUYEN Report Released Date/Time: Nov 18, 2022 02:10 PM Reporting Lab: [facility] [address] Performing Lab: [facility] [address] [facility] CBC & DIFF LYMPHOCYTE S/100 LEUKOCYTES IN BLOOD BY MANUAL COUNT 14.6 15.0 - 45.0 11/18 L Specimen Type: BLOOD Comment: Automated Differentia l Performed Ordering Provider: KEELY NGUYEN Report Released Date/Time: Nov 18, 2022 02:10 PM Reporting Lab: [facility] [address] Performing Lab: [facility] [address] [facility] CBC & DIFF MONOCYTES/ 100 LEUKOCYTES IN BLOOD BY AUTOMATED COUNT 11.9 2.0 - 12.0 11/18 Specimen Type: BLOOD Comment: Automated Differentia l Performed Ordering Provider: KEELY NGUYEN Report Released Date/Time: Nov 18, 2022 02:10 PM Reporting Lab: [facility] [address] Performing Lab: [facility] [address] [facility] CBC & DIFF EOSINOPHIL S/100 LEUKOCYTES IN BLOOD BY AUTOMATED COUNT 1.5 0.0 - 6.0 11/18 Specimen Type: BLOOD Comment: Automated Differentia l Performed Ordering Provider: KEEYL NGUYEN Report Released Date/Time: Nov 18, 2022 02:10 PM Reporting Lab: [facility] [address] Performing Lab: [facility] [address] [facility] CBC & DIFF BASOPHILS/ 100 LEUKOCYTES IN BLOOD BY MANUAL COUNT 0.6 0.0 - 2.0 11/18 Specimen Type: BLOOD Comment: Automated Differentia l Performed Ordering Provider: KEELY NGUYEN Report Released Date/Time: Nov 18, 2022 02:10 PM Reporting Lab: [facility] [address] Performing Lab: [facility] [address] [facility] CBC & DIFF ERYTHROCYT E DISTRIBUTI ON WIDTH [RATIO] BY AUTOMATED COUNT 13.9 11.5 - 14.5 11/18 Specimen Type: BLOOD Comment: Automated Differentia l Performed Ordering Provider: KEELY NGUYEN Report Released Date/Time: Nov 18, 2022 02:10 PM Reporting Lab: [facility] [id number] Performing Lab: [facility] [id number] [facility] CBC & DIFF LYMPHOCYTE S [#/VOLUME] IN BLOOD BY AUTOMATED COUNT 0.69 10*3/uL 1.0 - 4.0 11/18 L Specimen Type: BLOOD Comment: Automated Differentia l Performed Ordering Provider: KEELY NGUYEN Report Released Date/Time: Nov 18, 2022 02:10 PM Reporting Lab: [facility] [id number] Performing Lab: [facility] [id number] [facility] CBC & DIFF MONOCYTES [#/VOLUME] IN BLOOD BY AUTOMATED COUNT 0.56 10*3/uL 0.1 - 1.0 11/18 Specimen Type: BLOOD Comment: Automated Differentia l Performed Ordering Provider: KEELY NGUYEN Report Released Date/Time: Nov 18, 2022 02:10 PM Reporting Lab: [facility] [phone] Performing Lab: [facility] [id number] [facility] CBC & DIFF NEUTROPHIL S [#/VOLUME] IN BLOOD BY AUTOMATED COUNT 3.34 10*3/uL 2.0 - 7.7 11/18 Specimen Type: BLOOD Comment: Automated Differentia l Performed Ordering Provider: KEELY NGUYEN Report Released Date/Time: Nov 18, 2022 02:10 PM Reporting Lab: [facility] [address] Performing Lab: [facility] [address] [facility] CBC & DIFF EOSINOPHIL S [#/VOLUME] IN BLOOD BY AUTOMATED COUNT 0.07 10*3/uL 0 - 0.5 11/18 Specimen Type: BLOOD Comment: Automated Differentia l Performed Ordering Provider: KEELY NGUYEN Report Released Date/Time: Nov 18, 2022 02:10 PM Reporting Lab: [facility] [address] Performing Lab: [facility] [address] [facility] CBC & DIFF BASOPHILS [#/VOLUME] IN BLOOD BY AUTOMATED COUNT 0.03 10*3/uL 0 - 0.2 11/18 Specimen Type: BLOOD Comment: Automated Differentia l Performed Ordering Provider: KEELY NGUYEN Report Released Date/Time: Nov 18, 2022 02:10 PM Reporting Lab: [facility] [address] Performing Lab: [facility] [address] [facility] CBC & DIFF IG(META,MY MAYA,PRO) 0.6 11/18 Specimen Type: BLOOD Comment: Automated Differentia l Performed Ordering Provider: KEELY NGUYEN Report Released Date/Time: Nov 18, 2022 02:10 PM Reporting Lab: [facility] [address] Performing Lab: [facility] [address] [facility] CBC & DIFF IMMATURE GRANULOCYT ES [PRESENCE] IN BLOOD BY AUTOMATED COUNT 0.03 10*3/uL 0 - 0.1 11/18 Specimen Type: BLOOD Comment: Automated Differentia l Performed Ordering Provider: KEELY NGUYEN Report Released Date/Time: Nov 18, 2022 02:10 PM Reporting Lab: [facility] [address] Performing Lab: [facility] [address] [facility] TSH W/REFLEX TO FREE T4 THYROTROPI N [UNITS/VOL UME] IN SERUM OR PLASMA 1.85 u[IU]/m L 0.35 - 4.94 11/18 Specimen Type: PLASMA No comment entered. Ordering Provider: KEELY NGUYEN Report Released Date/Time: Nov 18, 2022 02:10 PM Reporting Lab: [facility] [address] Performing Lab: [facility] [address] [facility] COMPREHEN SIVE METABOLIC PANEL+MG CREATININE [MASS/VOLU ME] IN SERUM OR PLASMA 1.4 mg/dL 0.7 - 1.2 11/18 H Specimen Type: PLASMA Comment: Automated Differentia l Performed Ordering Provider: KEELY NGUYEN Report Released Date/Time: Nov 18, 2022 02:10 PM Reporting Lab: [facility] [address] Performing Lab: [facility] [address] [facility] COMPREHEN SIVE METABOLIC PANEL+MG UREA NITROGEN [MASS/VOLU ME] IN SERUM OR PLASMA 29 mg/dL 8 - 26 11/18 H Specimen Type: PLASMA Comment: Automated Differentia l Performed Ordering Provider: KEELY NGUYEN Report Released Date/Time: Nov 18, 2022 02:10 PM Reporting Lab: [facility] [address] Performing Lab: [facility] [address] [facility] COMPREHEN SIVE METABOLIC PANEL+MG GLUCOSE [MASS/VOLU ME] IN SERUM OR PLASMA 79 mg/dL 70 - 100 11/18 Specimen Type: PLASMA Comment: Automated Differentia l Performed Ordering Provider: KEELY NGUYEN Report Released Date/Time: Nov 18, 2022 02:10 PM Reporting Lab: [facility] [address] Performing Lab: [facility] [address] [facility] COMPREHEN SIVE METABOLIC PANEL+MG SODIUM [MOLES/VOL UME] IN SERUM OR PLASMA 138 mmol/L 136 - 145 11/18 Specimen Type: PLASMA Comment: Automated Differentia l Performed Ordering Provider: KEELY NGUYEN Report Released Date/Time: Nov 18, 2022 02:10 PM Reporting Lab: [facility] [address] Performing Lab: [facility] [address] [facility] COMPREHEN SIVE METABOLIC PANEL+MG POTASSIUM [MOLES/VOL UME] IN SERUM OR PLASMA 4.8 mmol/L 3.5 - 5.1 11/18 Specimen Type: PLASMA Comment: Automated Differentia l Performed Ordering Provider: KEELY NGUYEN Report Released Date/Time: Nov 18, 2022 02:10 PM Reporting Lab: [facility] [address] Performing Lab: [facility] [address] [facility] COMPREHEN SIVE METABOLIC PANEL+MG CHLORIDE [MOLES/VOL UME] IN SERUM OR PLASMA 105 mmol/L 98 - 107 11/18 Specimen Type: PLASMA Comment: Automated Differentia l Performed Ordering Provider: KEELY NGUYEN Report Released Date/Time: Nov 18, 2022 02:10 PM Reporting Lab: [facility] [address] Performing Lab: [facility] [address] [facility] COMPREHEN SIVE METABOLIC PANEL+MG CARBON DIOXIDE, TOTAL [MOLES/VOL UME] IN SERUM OR PLASMA 30 mmol/L 22 - 29 11/18 H Specimen Type: PLASMA Comment: Automated Differentia l Performed Ordering Provider: KEELY NGUYEN Report Released Date/Time: Nov 18, 2022 02:10 PM Reporting Lab: [facility] [address] Performing Lab: [facility] [address] [facility] COMPREHEN SIVE METABOLIC PANEL+MG CALCIUM [MASS/VOLU ME] IN SERUM OR PLASMA 9.5 mg/dL 8.4 - 10.2 11/18 Specimen Type: PLASMA Comment: Automated Differentia l Performed Ordering Provider: KEELY NGUYEN Report Released Date/Time: Nov 18, 2022 02:10 PM Reporting Lab: [facility] [address] Performing Lab: [facility] [address] [facility] COMPREHEN SIVE METABOLIC PANEL+MG PROTEIN [MASS/VOLU ME] IN SERUM OR PLASMA 7.2 g/dL 6.0 - 8.3 11/18 Specimen Type: PLASMA Comment: Automated Differentia l Performed Ordering Provider: KEELY NGUYEN Report Released Date/Time: Nov 18, 2022 02:10 PM Reporting Lab: [facility] [address] Performing Lab: [facility] [address] [facility] COMPREHEN SIVE METABOLIC PANEL+MG ALBUMIN [MASS/VOLU ME] IN SERUM OR PLASMA 4.0 g/dL 3.5 - 5.2 11/18 Specimen Type: PLASMA Comment: Automated Differentia l Performed Ordering Provider: KEELY NGUYEN Report Released Date/Time: Nov 18, 2022 02:10 PM Reporting Lab: [facility] [address] Performing Lab: [facility] [address] [facility] COMPREHEN SIVE METABOLIC PANEL+MG BILIRUBIN. TOTAL [MASS/VOLU ME] IN SERUM OR PLASMA 0.4 mg/dL 0.2 - 1.2 11/18 Specimen Type: PLASMA Comment: Automated Differentia l Performed Ordering Provider: KEELY NGUYEN Report Released Date/Time: Nov 18, 2022 02:10 PM Reporting Lab: [facility] [address] Performing Lab: [facility] [address] [facility] COMPREHEN SIVE METABOLIC PANEL+MG MAGNESIUM [MASS/VOLU ME] IN SERUM OR PLASMA 2.0 mg/dL 1.6 - 2.6 11/18 Specimen Type: PLASMA Comment: Automated Differentia l Performed Ordering Provider: KEELY NGUYEN Report Released Date/Time: Nov 18, 2022 02:10 PM Reporting Lab: [facility] [address] Performing Lab: [facility] [address] [facility] COMPREHEN SIVE METABOLIC PANEL+MG ANION GAP IN SERUM OR PLASMA 3 mmol/L 5 - 15 11/18 L Specimen Type: PLASMA Comment: Automated Differentia l Performed Ordering Provider: KEELY NGUYEN Report Released Date/Time: Nov 18, 2022 02:10 PM Reporting Lab: [facility] [address] Performing Lab: [facility] [address] [facility] COMPREHEN SIVE METABOLIC PANEL+MG ALKALINE PHOSPHATAS E [ENZYMATIC ACTIVITY/V OLUME] IN SERUM OR PLASMA 54 U/L 40 - 150 11/18 Specimen Type: PLASMA Comment: Automated Differentia l Performed Ordering Provider: KEELY NGUYEN Report Released Date/Time: Nov 18, 2022 02:10 PM Reporting Lab: [facility] [address] Performing Lab: [facility] [address] [facility] COMPREHEN SIVE METABOLIC PANEL+MG ALANINE AMINOTRANS FERASE [ENZYMATIC ACTIVITY/V OLUME] IN SERUM OR PLASMA 14 U/L <55 - 55 11/18 Specimen Type: PLASMA Comment: Automated Differentia l Performed Ordering Provider: KEELY NGUYEN Report Released Date/Time: Nov 18, 2022 02:10 PM Reporting Lab: [facility] [address] Performing Lab: [facility] [address] [facility] COMPREHEN SIVE METABOLIC PANEL+MG ASPARTATE AMINOTRANS FERASE [ENZYMATIC ACTIVITY/V OLUME] IN SERUM OR PLASMA 20 U/L <34 - 34 11/18 Specimen Type: PLASMA Comment: Automated Differentia l Performed Ordering Provider: KEELY NGUYEN Report Released Date/Time: Nov 18, 2022 02:10 PM Reporting Lab: [facility] [address] Performing Lab: [facility] [address] [facility] COMPREHEN SIVE METABOLIC PANEL+MG GLOMERULAR FILTRATION RATE/1.73 SQ M.PREDICTE D [VOLUME RATE/AREA] IN SERUM, PLASMA OR BLOOD BY CREATININE -BASED FORMULA (CKD-EPI 2020) 51 60 11/18 L Specimen Type: PLASMA Comment: Automated Differentia l Performed Ordering Provider: KEELY NGUYEN Report Released Date/Time: Nov 18, 2022 02:10 PM Reporting Lab: [facility] [address] Performing Lab: [facility] [address] ARLINE MORANOC PERIPHERA L SMEAR PATHOLOGI ST REVIEW ERYTHROCYT E MORPHOLOGY FINDING [IDENTIFIE R] IN BLOOD SLIDES MADE 01/13 Specimen Type: BLOOD No comment entered. Ordering Provider: KEELY NGUYEN Report Released Date/Time: Nov 27, 2021 09:58 AM Reporting Lab: [facility] [address] Performing Lab: [facility] [address] [facility] CBC & DIFF LEUKOCYTES [#/VOLUME] IN BLOOD BY AUTOMATED COUNT 4.85 10*3/uL 4.0 - 11.0 01/13 Specimen Type: BLOOD Comment: Automated Differentia l Performed Ordering Provider: KEELY NGUYEN Report Released Date/Time: Nov 27, 2021 09:58 AM Reporting Lab: [facility] [address] Performing Lab: [facility] [address] [facility] CBC & DIFF ERYTHROCYT ES [#/VOLUME] IN BLOOD BY AUTOMATED COUNT 3.32 10*6/uL 4.6 - 6.2 01/13 L Specimen Type: BLOOD Comment: Automated Differentia l Performed Ordering Provider: KEELY NGUYEN Report Released Date/Time: Nov 27, 2021 09:58 AM Reporting Lab: [facility] [address] Performing Lab: [facility] [address] [facility] CBC & DIFF HEMOGLOBIN [MASS/VOLU ME] IN BLOOD 11.7 g/dL 13.5 - 17.9 01/13 L Specimen Type: BLOOD Comment: Automated Differentia l Performed Ordering Provider: KEELY NGUYEN Report Released Date/Time: Nov 27, 2021 09:58 AM Reporting Lab: [facility] [address] Performing Lab: [facility] [address] [facility] CBC & DIFF HEMATOCRIT [VOLUME FRACTION] OF BLOOD BY AUTOMATED COUNT 35.7 41 - 54 01/13 L Specimen Type: BLOOD Comment: Automated Differentia l Performed Ordering Provider: KEELY NGUYEN Report Released Date/Time: Nov 27, 2021 09:58 AM Reporting Lab: [facility] [address] Performing Lab: [facility] [address] [facility] CBC & DIFF MCV [ENTITIC VOLUME] BY AUTOMATED COUNT 107.5 fL 80 - 100 01/13 H Specimen Type: BLOOD Comment: Automated Differentia l Performed Ordering Provider: KEELY NGUYEN Report Released Date/Time: Nov 27, 2021 09:58 AM Reporting Lab: [facility] [address] Performing Lab: [facility] [address] [facility] CBC & DIFF MCH [ENTITIC MASS] BY AUTOMATED COUNT 35.2 pg 27 - 33 01/13 H Specimen Type: BLOOD Comment: Automated Differentia l Performed Ordering Provider: KEELY NGUYEN Report Released Date/Time: Nov 27, 2021 09:58 AM Reporting Lab: [facility] [address] Performing Lab: [facility] [address] [facility] CBC & DIFF MCHC [MASS/VOLU ME] BY AUTOMATED COUNT 32.8 g/dL 32.0 - 37.5 01/13 Specimen Type: BLOOD Comment: Automated Differentia l Performed Ordering Provider: KEELY NGUYEN Report Released Date/Time: Nov 27, 2021 09:58 AM Reporting Lab: [facility] [address] Performing Lab: [facility] [address] [facility] CBC & DIFF PLATELETS [#/VOLUME] IN BLOOD BY AUTOMATED COUNT 142 10*3/uL 150 - 400 01/13 L Specimen Type: BLOOD Comment: Automated Differentia l Performed Ordering Provider: KEELY NGUYEN Report Released Date/Time: Nov 27, 2021 09:58 AM Reporting Lab: [facility] [address] Performing Lab: [facility] [address] [facility] CBC & DIFF PLATELET MEAN VOLUME [ENTITIC VOLUME] IN BLOOD BY AUTOMATED COUNT 10.0 fL 7.4 - 10.4 01/13 Specimen Type: BLOOD Comment: Automated Differentia l Performed Ordering Provider: KEELY NGUYEN Report Released Date/Time: Nov 27, 2021 09:58 AM Reporting Lab: [facility] [address] Performing Lab: [facility] [address] [facility] CBC & DIFF NEUTROPHIL S/100 LEUKOCYTES IN BLOOD BY MANUAL COUNT 72.5 01/13 Specimen Type: BLOOD Comment: Automated Differentia l Performed Ordering Provider: KEELY NGUYEN Report Released Date/Time: Nov 27, 2021 09:58 AM Reporting Lab: [facility] [address] Performing Lab: [facility] [address] [facility] CBC & DIFF LYMPHOCYTE S/100 LEUKOCYTES IN BLOOD BY MANUAL COUNT 10.9 01/13 Specimen Type: BLOOD Comment: Automated Differentia l Performed Ordering Provider: KEELY NGUYEN Report Released Date/Time: Nov 27, 2021 09:58 AM Reporting Lab: [facility] [address] Performing Lab: [facility] [address] [facility] CBC & DIFF MONOCYTES/ 100 LEUKOCYTES IN BLOOD BY AUTOMATED COUNT 13.4 01/13 Specimen Type: BLOOD Comment: Automated Differentia l Performed Ordering Provider: KEELY NGUYEN Report Released Date/Time: Nov 27, 2021 09:58 AM Reporting Lab: [facility] [address] Performing Lab: [facility] [address] [facility] CBC & DIFF EOSINOPHIL S/100 LEUKOCYTES IN BLOOD BY AUTOMATED COUNT 1.4 01/13 Specimen Type: BLOOD Comment: Automated Differentia l Performed Ordering Provider: KEELY NGUYEN Report Released Date/Time: Nov 27, 2021 09:58 AM Reporting Lab: [facility] [address] Performing Lab: [facility] [address] [facility] CBC & DIFF BASOPHILS/ 100 LEUKOCYTES IN BLOOD BY MANUAL COUNT 0.8 01/13 Specimen Type: BLOOD Comment: Automated Differentia l Performed Ordering Provider: KEELY NGUYEN Report Released Date/Time: Nov 27, 2021 09:58 AM Reporting Lab: [facility] [address] Performing Lab: [facility] [address] [facility] CBC & DIFF ERYTHROCYT E DISTRIBUTI ON WIDTH [RATIO] BY AUTOMATED COUNT 13.5 11.5 - 14.5 01/13 Specimen Type: BLOOD Comment: Automated Differentia l Performed Ordering Provider: KEELY NGUYEN Report Released Date/Time: Nov 27, 2021 09:58 AM Reporting Lab: [facility] [address] Performing Lab: [facility] [address] [facility] CBC & DIFF LYMPHOCYTE S [#/VOLUME] IN BLOOD BY AUTOMATED COUNT 0.53 10*3/uL 1.0 - 4.0 01/13 L Specimen Type: BLOOD Comment: Automated Differentia l Performed Ordering Provider: KEELY NGUYEN Report Released Date/Time: Nov 27, 2021 09:58 AM Reporting Lab: [facility] [address] Performing Lab: [facility] [address] [facility] CBC & DIFF MONOCYTES [#/VOLUME] IN BLOOD BY AUTOMATED COUNT 0.65 10*3/uL 0.1 - 1.0 01/13 Specimen Type: BLOOD Comment: Automated Differentia l Performed Ordering Provider: KEELY NGUYEN Report Released Date/Time: Nov 27, 2021 09:58 AM Reporting Lab: [facility] [address] Performing Lab: [facility] [address] [facility] CBC & DIFF NEUTROPHIL S [#/VOLUME] IN BLOOD BY AUTOMATED COUNT 3.51 10*3/uL 2.0 - 7.7 01/13 Specimen Type: BLOOD Comment: Automated Differentia l Performed Ordering Provider: KEELY NGUYEN Report Released Date/Time: Nov 27, 2021 09:58 AM Reporting Lab: [facility] [address] Performing Lab: [facility] [address] [facility] CBC & DIFF EOSINOPHIL S [#/VOLUME] IN BLOOD BY AUTOMATED COUNT 0.07 10*3/uL 0 - 0.5 01/13 Specimen Type: BLOOD Comment: Automated Differentia l Performed Ordering Provider: KEELY NGUYEN Report Released Date/Time: Nov 27, 2021 09:58 AM Reporting Lab: [facility] [address] Performing Lab: [facility] [address] [facility] CBC & DIFF BASOPHILS [#/VOLUME] IN BLOOD BY AUTOMATED COUNT 0.04 10*3/uL 0 - 0.2 01/13 Specimen Type: BLOOD Comment: Automated Differentia l Performed Ordering Provider: KEELY NGUYEN Report Released Date/Time: Nov 27, 2021 09:58 AM Reporting Lab: [facility] [address] Performing Lab: [facility] [address] [facility] CBC & DIFF IG(META,MY MAYA,PRO) 1.0 01/13 Specimen Type: BLOOD Comment: Automated Differentia l Performed Ordering Provider: KEELY NGUYEN Report Released Date/Time: Nov 27, 2021 09:58 AM Reporting Lab: [facility] [address] Performing Lab: [facility] [address] [facility] CBC & DIFF IMMATURE GRANULOCYT ES [PRESENCE] IN BLOOD BY AUTOMATED COUNT 0.05 10*3/uL 0 - 0.1 01/13 Specimen Type: BLOOD Comment: Automated Differentia l Performed Ordering Provider: KEELY NGUYEN Report Released Date/Time: Nov 27, 2021 09:58 AM Reporting Lab: [facility] [address] Performing Lab: [facility] [address] [facility] PERIPHERA L SMEAR PATHOLOGI ST REVIEW ERYTHROCYT E MORPHOLOGY FINDING [IDENTIFIE R] IN BLOOD SLIDES MADE 11/25 Specimen Type: BLOOD No comment entered. Ordering Provider: KEELY NGUYEN Report Released Date/Time: Nov 18, 2021 10:19 AM Reporting Lab: [facility] [address] Performing Lab: [facility] [address] [facility] B 12 COBALAMIN (VITAMIN B12) [MASS/VOLU ME] IN SERUM OR PLASMA 311 pg/mL 213 - 816 11/25 Specimen Type: SERUM No comment entered. Ordering Provider: KEELY NGUYEN Report Released Date/Time: Nov 18, 2021 10:19 AM Reporting Lab: [facility] [address] Performing Lab: [facility] [address] [facility] Vital Signs Combined list of inpatient and outpatient Vital Signs from Department of [facility] and [facility], ranging from 12 months to all [...] DC Date Status Disposition Source [place] [facility] Outpatient Encounter [id number] 07/23 [facility] [place] [facility] Outpatient Encounter [id number] 07/23 [facility] OFFICE O/P EST MOD 30-39 MIN [id number] Diagnos is: ICD-10- CM Z00.8 Encount er for other general examina tion
Stuart NGUYEN 11/18 [facility] [place] [facility] Outpatient Encounter [id number] 12/15 [facility] [place] [facility] Outpatient [facility]counter [id number] 01/15 [facility] [place] [facility] Outpatient [facility]counter [id number] 01/29 [facility] [place] [facility] Out[place] Encounter [id number] 02/02 [facility] [place] [facility] Outpatient Encounter [id number] 02/03 [facility] [place] [facility] Outpatient Encounter [id number] SCARLETT HOPPER 02/[address] [place] [facility] [place] [facility] Outpatient Encounter [id number] [facility]ARLETT HOPPER [facility] [place] [facility] Out[facility] Encounter [id number] 03/09 [facility] [place] [facility] Outpatient Encounter [id number] 03/[address] [place] [facility] [place] [facility] Outpatient Encounter [id number] 05/11 [place] [facility] [place] [facility] CASE MANAGEMENT [id number] Diagnos is: ICD-10- CM R53.1 Lucretia del cid
YONISANTHOSH 05/[address] [place] [address] [place] [facility] Outpatient Encounter [id number] CAELB SWANSON 09/12 [facility] Social History Combined list of available smoking, tobacco, and other social history from Department of Defense and Veterans Affairs facilities. Social History Type Response Date Comment Source Tobacco smoking status [facility] FORMER USER 11/18/2022 [facility] History of tobacco use AR-TOBACCO QUIT 15 YRS OR MORE 11/18/2022 [facility] History of tobacco use AR-TOBACCO FORMER USER 11/17/2021 [facility] History of tobacco use AR-TOBACCO QUIT 15 YRS OR MORE 11/14/2020 [facility] History of tobacco use AR-TOBACCO FORMER USER 11/08/2019 [facility] History of tobacco use AR-TOBACCO FORMER USER 10/07/2018 [facility] History of tobacco use FORMER TOBACCO USER 7Y OR GREATER 09/29/2017 [facility] History of tobacco use FORMER TOBACCO USER 7Y OR GREATER 11/13/2016 [facility] History of tobacco use FORMER TOBACCO USER 7Y OR GREATER 10/16/2015 [facility] History of tobacco use FORMER TOBACCO USER 7Y OR GREATER 10/19/2014 [facility] History of tobacco use FORMER TOBACCO USER 7Y OR GREATER 10/11/2013 [facility] History of tobacco use FORMER TOBACCO [...]
--- OUTSIDE RECORDS SUMMARY | 2023-10-22 18:15 | XMS_ITS | Clinical Summary ---
Author Organization [facility] Address [address] [address] Phone Care Team Providers Care Delivery Man Name Role Phone Unavailable Primary Care Provider [...] Overview: Per 07/02/[address] Block. [id number] Anemia 08/04/2010 Seborrheic keratosis 08/04/2010 Hypothyroidism Resolved [...] Puckett MD - 09/16/2012 11:34 AM CDT [facility] ADDENDED COPY Patient Name: MYKE DOUGLAS Date of Service: 09/16/2012 : 1945 Age: 67Y Sex: M DC Site MRN: Patient Loc/Room #: [facility]/ Provider: Jam Puckett MD, Gastroenterology GI PROCEDURE SITE: [facility] ORDERED BY: COLONOSCOPY DATE OF PROCEDURE: [...] results andrecommendations via letter. Jam Puckett MD [facility] Gastroenterology cc: Pérez Villafuerte MD /CASI Job ID: [id number] /ak/kendall(ord) Document ID: [id number] A: 09/21/2012 miguel(add) Jam Puckett MD [facility] PROCEDURES from Last 3 Months or Most Recently Relevant to Health Maintenance
[2023-10-22 18:28] LABS: Bilirubin Urine 1+ (Negative); Blood Urine Trace-lysed (Negative); Glucose Urine Negative (Negative); Ketones Urine Trace (Negative); Leukocyte Esterase Urine 1+ (Negative); Nitrite Urine Negative (Negative); Protein Urine 1+ (Negative); Specific Gravity Urine >= 1.030 (1.000-1.030); Urobilinogen Urine 0.2 (0.2-1.0); pH Urine 5.5 (5.0-8.5)
[2023-10-22 18:33] LABS: Appearance Urine Clear (Clear); Color Urine Yellow (Yellow)
[2023-10-22 19:01] LABS: RBC Urine 0-2 (0-2); Squamous Epithelial Cell Urine Few (None-Few)
[2023-10-22 19:02] LABS: Bacteria Urine Moderate
== END 2023-10-22 18:13 | disposition home or self-care (01) ==
LOC: NPINS 18:12
PROVIDERS: PCP Internal Medicine; Visit Provider Nurse Practitioner Gerontology
DX: R40.0 Somnolence (principal); R82.90 Unspecified abnormal findings in urine; R00.1 Bradycardia, unspecified
CPT/HCPCS: 81001; 87086; 87186

== ENCOUNTER 2023-11-07 15:39 | Outpatient (REF) | payer MEDICARE, SELFPAY ==
--- OUTSIDE RECORDS SUMMARY | 2023-11-07 15:48 | XMS_ITS | Continuity of Care Document ---
Author Name [facility] Organization [facility] Care Team Providers Care Interactive Designer Name Role Phone [facility] Unavailable Unavailable Problems Combined list of problems from Department of Defense and Veterans Affairs facilities. It does not include entries that were removed or entered in error. Problem Status Onset Date Problem Type Date of Resolution Comments Source Exposure to potentially hazardous substance ([facility] [id number]) Active 05/07/19 24 Condition May 07, 2023 Entered By: ABHILASH PETER Comment: [facility] HAKAN Documentation Initiative [facility] Acquired hypothyroidism Active Condition [facility] Anxiety Active Condition [facility] Bilateral metatarsalgia Active Condition [facility] Carcinoma of parotid gland Active Condition [facility] Chronic obstructive lung disease Active Condition [facility] Chronic Obstructive Pulmonary Disease Active Condition Oct 05 08 Entered By: ISIDRA BYERS Comment: FEV1(L) % PRED= 88, FEV1/FVC% ACTUAL= 60 [facility] Chronic pain of left foot Active Condition [facility] Congestion of nasal sinus Active Condition [facility] Edema Active Condition Feb 14 08 Entered By: ISIDRA BYERS Comment: ideopathic-nml full w/u 2007 . [facility] Enthesopathy of left foot Active Condition [facility] Health maintenance alteration Active Condition [facility] Hypothyroidism * (ICD-9-CM 244.9) Active Condition [facility] Keratosis, seborrheic Active Condition [facility] Osteoarthritis of ankle Active Condition [facility] Osteopenia * (ICD-9-CM 733.90) Active Condition . [facility] Paraesthesia of foot Active Condition [facility] Personal History of Colonic Polyps (ICD-9-CM V12.72) Active Condition Oct 01 09 Entered By: ISIDRA BYERS Comment: scope 2008 nml-due 2012 [facility] Postsurgical Status of Cataract Extraction Active Condition [facility] Presbyopia Active Condition [facility] Primary degenerative dementia of the Alzheimer type, senile onset, with delusion Active Condition [facility] Rhinitis * (ICD-9-CM 472.0) Active Condition [facility] salivary cancer Active Condition Sep 27, 2007 Entered By: ISIDRA BYERS Comment: radical neck + radiation [facility] SENSORNEUR HEARING LOSS NOS Active Condition [facility] Wheezing Active Condition [facility] Tobacco Use Disorder * (ICD-9-CM 305.1) Inactive Condition 09/27/2007 [facility] Diagnosis: ICD-10-CM R53.1 Weakness Active Diagnosis [facility] Diagnosis: ICD-10-CM Z00.8 Encounter for other general examination Active Diagnosis [facility] Medications Combined list of outpatient medications [...] Oct 20, 2023 300 Oct 20, 2024 [id number] Oct 20, 2023 [facility] ORAL ACTIVE 10/20/2024 [id number] [facility] 2023 300 [facility] ASPIRIN TAB,EC ASPIRIN TAB,EC Non-VA TAKE BY MOUTH Oct 22, 2004 Non-VA Document ed by: Luis Fernando MARCUS Document ed at: [facility] ORAL ACTIVE SHEN SHRESTHA 2004 [facility] CYANOCOBALA MIN 1000MCG TAB CYANOCOB ALAMIN 1000MCG TAB Active TAKE ONE TABLET BY MOUTH EVERY DAY FOR VITAMIN B12, FOR RED BLOOD CELLS Nov 18, 2022 100 Nov 19, 2023 [id number] Nov 19, 2022 [facility] ORAL ACTIVE 11/19/2023 [id number] [facility] 2022 100 [facility] GUAIFENESIN TAB GUAIFENE SIN TAB Non-VA TAKE 600MG DM BY MOUTH DAILY Sep 07, 2012 Non-VA Document ed by: ISIDRA BYRES Document ed at: [facility] ORAL ACTIVE Giovanni BYERS 2012 [facility] LEVOTHYROXI NE NA 75MCG TAB (SYNTHROID) LEVOTHYR OXINE NA 75MCG TAB (SYNTHRO ID) Active TAKE ONE TABLET BY MOUTH EVERY DAY FOR THYROID FOR THYROID Oct 20, 2023 90 Oct 20, 2024 [id number] Oct 20, 2023 [facility] ORAL ACTIVE 10/20/2024 [id number] [facility] 2023 90 [facility] LEVOTHYROXI NE NA 75MCG TAB (SYNTHROID) LEVOTHYR OXINE NA 75MCG TAB (SYNTHRO ID) Non-VA TAKE ONE TABLET BY MOUTH Sep 19, 2012 Non-VA Document ed by: ISIDRA BYERS Document ed at: [facility] ORAL ACTIVE Giovanni BYERS 2012 [facility] LORAZEPAM 0.5MG TAB LORAZEPA M 0.5MG TAB Non-VA TAKE ONE TABLET BY MOUTH PRN Sep 29, 2007 Non-VA Document ed by: ISIDRA BYERS Document ed at: [facility] ORAL ACTIVE Giovanni BYERS 2007 [facility] MULTIVITAMI N/MINERALS SENIOR FORMULA TAB MULTIVIT BARTON/MIN ERALS SENIOR FORMULA TAB Non-VA TAKE ONE TABLET BY MOUTH Oct 22, 2004 Non-VA Document ed by: Luis Fernando MARCUS Document ed at: [facility] ORAL ACTIVE SHEN SHRESTHA 2004 [facility] OLANZAPINE 2.5MG TAB OLANZAPI NE 2.5MG TAB Active TAKE ONE AND ONE-HALF TABLETS (3.75MG) BY MOUTH TWICE A DAY AND TAKE ONE TABLET THREE TIMES A DAY NEEDED FOR AGITATIO N FOR AGITATIO N Oct 20, 2023 180 Oct 20, 2024 [id number] Nov 09, 2023 [facility] ORAL ACTIVE 10/20/2024 [id number] [facility] 2023 180 [facility] OLANZAPINE 2.5MG TAB OLANZAPI NE 2.5MG TAB Disconti nued TAKE ONE TABLET BY MOUTH THREE TIMES A DAY NEEDED FOR AGITATIO N FOR AGITATIO N Oct 20, 2023 90 Oct 20, 2024 [id number] Oct 20, 2023 [facility] ORAL DISCONT INUED 10/20/2024 [id number] MASSI[facility] N[facility] 2023 90 [facility] SENNOSIDES 8.6MG TAB SENNOSID ES 8.6MG TAB Active TAKE ONE TABLET BY MOUTH TWICE A DAY FOR CONSTIPA TION FOR CONSTIPA TION Oct 20, 2023 200 Oct 20, 2024 [id number] Oct 20, 2023 [facility] ORAL ACTIVE 10/20/2024 [id number] MASSIEL NGUYEN 2023 200 [facility] SERTRALINE HCL 100MG TAB SERTRALI NE HCL 100MG TAB Active TAKE ONE TABLET BY MOUTH EVERY DAY FOR ANXIETY FOR ANXIETY Oct 20, 2023 90 Oct 20, 2024 [id number] Oct 20, 2023 [facility] ORAL ACTIVE 10/20/2024 [id number] MASSIEL NGUYEN 2023 90 [facility] Immunizations Combined list of available immunizations from the Department of Defense and Veterans Affairs facilities. Immunization Series Date Given Administered By Site Reaction Lot Number CVX Code Drug Integrated Circuits Inspector Status Comments Source TDAP 2022 115 complet ed [facility] COVID-19, MRNA, LNP-S, BIVALENT BOOSTER, PF, 30 MCG/0.3 ML DOSE 1 2021 300 complet ed [facility] INFLUENZA, UNSPECIFIED FORMULATION 2021 88 complet ed [facility] COVID-19 (PFIZER), MRNA, LNP-S, PF, 30 MCG/0.3 ML DOSE 2 2021 208 complet ed [facility] COVID-19 (PFIZER), MRNA, LNP-S, PF, 30 MCG/0.3 ML DOSE, SHANTELL-SUCROSE (AGES 12+ YEARS) 2021 217 complet ed [facility] ZOSTER RECOMBINANT 2 2021 187 complet ed [facility] ZOSTER RECOMBINANT 1 2020 187 complet ed [facility] COVID-19 (PFIZER), MRNA, LNP-S, PF, 30 MCG/0.3 ML DOSE 3 2020 208 complet ed [facility] INFLUENZA, INJECTABLE, QUADRIVALENT, PRESERVATIVE FREE 2020 150 complet ed [facility] COVID-19 ([employer]), MRNA, LNP-S, PF, 30 MCG/0.3 ML DOSE 2 2020 208 complet ed [facility] COVID-19 (PFIZER), MRNA, LNP-S, PF, 30 MCG/0.3 ML DOSE 1 2020 208 complet ed [facility] INFLUENZA, RECOMBINANT, QUADRIVALENT, INJECTABLE, PRESERVATIVE FREE 2019 185 complet ed [facility] INFLUENZA, HIGH DOSE SEASONAL 2018 135 complet ed [facility] INFLUENZA, HIGH DOSE SEASONAL 2016 135 complet ed [facility] INFLUENZA, HIGH DOSE SEASONAL 2015 135 complet ed [facility] INFLUENZA, HIGH DOSE SEASONAL 2014 135 complet ed [facility] PNEUMOCOCCAL CONJUGATE PCV 13 2014 133 complet ed [facility] Lot# [id number] Exp 03/2016 [facility] PNEUMOCOCCAL CONJUGATE PCV 13 2014 133 complet ed [facility] INFLUENZA, SEASONAL, INJECTABLE 2013 141 complet ed [facility] INFLUENZA, SEASONAL, INJECTABLE 2013 141 complet ed [facility] TDAP 2012 115 complet ed [facility] INFLUENZA, UNSPECIFIED FORMULATION 2012 88 complet ed [facility] ZOSTER LIVE 2012 121 complet ed [facility] PNEUMOCOCCAL POLYSACCHARID E PPV23 2012 33 complet ed [facility] PNEUMOCOCCAL, UNSPECIFIED FORMULATION 2012 109 complet ed [facility] ZOSTER LIVE 2012 121 complet ed [facility] INFLUENZA, UNSPECIFIED FORMULATION 2011 88 complet ed [facility] ZOSTER LIVE 2011 121 complet ed [employer] #[id number] exp 05-13-12 [facility] PNEUMOCOCCAL POLYSACCHARID E PPV23 2011 33 complet ed [facility] TDAP 2011 115 complet ed [facility] TDAP 2010 115 complet ed [facility] PNEUMOCOCCAL POLYSACCHARID E PPV23 2009 33 complet ed [facility] NOVEL INFLUENZA-H1N 1-09, ALL FORMULATIONS 2008 128 complet ed [employer] [facility] INFLUENZA (HISTORICAL) 2008 88 complet ed [facility] INFLUENZA, SEASONAL, INJECTABLE 2008 141 complet ed [facility] INFLUENZA, UNSPECIFIED FORMULATION 2007 88 complet ed [employer]line, Lot #[id number] AA, exp 2008 [employer] [facility] INFLUENZA, UNSPECIFIED FORMULATION 2006 88 complet ed lot# [id number] exp 08/29/07 [employer] [facility] INFLUENZA, UNSPECIFIED FORMULATION 2006 88 complet ed [facility] INFLUENZA, UNSPECIFIED FORMULATION 2005 88 complet ed [facility] PNEUMOCOCCAL POLYSACCHARID E PPV23 2005 33 complet ed [facility] INFLUENZA, UNSPECIFIED FORMULATION 2004 88 complet ed [employer] [id number] [facility] PNEUMOCOCCAL, UNSPECIFIED FORMULATION 2004 109 complet ed [facility] TD(ADULT) UNSPECIFIED FORMULATION 2004 139 complet ed [facility] INFLUENZA, UNSPECIFIED FORMULATION 2003 88 complet ed [facility] INFLUENZA, UNSPECIFIED FORMULATION 2003 88 complet ed [facility] Results Combined list of recent chemistry, [...] 14, 2022 08:41 AM Reporting Lab: [facility] [address] Performing Lab: [facility] [address] [facility] FOLATE FOLATE [MASS/VOLU ME] IN SERUM OR PLASMA 8.6 ng/mL 7.0 11/18 Specimen Type: SERUM No comment entered. Ordering Provider: KEELY NGUYEN Report Released Date/Time: Jan 14, 2022 08:41 AM Reporting Lab: [facility] [address] Performing Lab: [facility] [address] [facility] CBC & DIFF LEUKOCYTES [#/VOLUME] IN BLOOD BY AUTOMATED COUNT 4.77 10*3/uL 4.0 - 11.0 11/18 Specimen Type: BLOOD Comment: Automated Differentia l Performed Ordering Provider: KEELY NGUYEN Report Released Date/Time: Jan 14, 2022 08:41 AM Reporting Lab: [facility] [address] Performing Lab: [facility] [address] [facility] CBC & DIFF ERYTHROCYT ES [#/VOLUME] IN BLOOD BY AUTOMATED COUNT 3.06 10*6/uL 4.6 - 6.2 11/18 L Specimen Type: BLOOD Comment: Automated Differentia l Performed Ordering Provider: KEELY NGUYEN Report Released Date/Time: Jan 14, 2022 08:41 AM Reporting Lab: [facility] [address] Performing Lab: [facility] [address] [facility] CBC & DIFF HEMOGLOBIN [MASS/VOLU ME] IN BLOOD 10.5 g/dL 13.5 - 17.9 11/18 L Specimen Type: BLOOD Comment: Automated Differentia l Performed Ordering Provider: KEELY NGUYEN Report Released Date/Time: Jan 14, 2022 08:41 AM Reporting Lab: [facility] [address] Performing Lab: [facility] [address] [facility] CBC & DIFF HEMATOCRIT [VOLUME FRACTION] OF BLOOD BY AUTOMATED COUNT 33.3 41 - 54 11/18 L Specimen Type: BLOOD Comment: Automated Differentia l Performed Ordering Provider: KEELY NGUYEN Report Released Date/Time: Jan 14, 2022 08:41 AM Reporting Lab: [facility] [address] Performing Lab: [facility] [address] [facility] CBC & DIFF MCV [ENTITIC VOLUME] BY AUTOMATED COUNT 108.8 fL 80 - 100 11/18 H Specimen Type: BLOOD Comment: Automated Differentia l Performed Ordering Provider: KEELY NGUYEN Report Released Date/Time: Jan 14, 2022 08:41 AM Reporting Lab: [facility] [phone] Performing Lab: [facility] [address] [facility] CBC & DIFF MCH [ENTITIC MASS] BY AUTOMATED COUNT 34.3 pg 27 - 33 11/18 H Specimen Type: BLOOD Comment: Automated Differentia l Performed Ordering Provider: KEELY NGUYEN Report Released Date/Time: Jan 14, 2022 08:41 AM Reporting Lab: [facility] [address] Performing Lab: [facility] [address] [facility] CBC & DIFF MCHC [MASS/VOLU ME] BY AUTOMATED COUNT 31.5 g/dL 32.0 - 37.5 11/18 L Specimen Type: BLOOD Comment: Automated Differentia l Performed Ordering Provider: KEELY NGUYEN Report Released Date/Time: Jan 14, 2022 08:41 AM Reporting Lab: [facility] [address] Performing Lab: [facility] [address] [facility] CBC & DIFF PLATELETS [#/VOLUME] IN BLOOD BY AUTOMATED COUNT 134 10*3/uL 150 - 400 11/18 L Specimen Type: BLOOD Comment: Automated Differentia l Performed Ordering Provider: KEELY NGUYEN Report Released Date/Time: Jan 14, 2022 08:41 AM Reporting Lab: [facility] [address] Performing Lab: [facility] [address] [facility] CBC & DIFF PLATELET MEAN VOLUME [ENTITIC VOLUME] IN BLOOD BY AUTOMATED COUNT 10.5 fL 7.4 - 10.4 11/18 H Specimen Type: BLOOD Comment: Automated Differentia l Performed Ordering Provider: KEELY NGUYEN Report Released Date/Time: Jan 14, 2022 08:41 AM Reporting Lab: [facility] [address] Performing Lab: [facility] [address] [facility] CBC & DIFF NEUTROPHIL S/100 LEUKOCYTES IN BLOOD BY MANUAL COUNT 70.1 40.0 - 80.0 11/18 Specimen Type: BLOOD Comment: Automated Differentia l Performed Ordering Provider: KEELY NGUYEN Report Released Date/Time: Jan 14, 2022 08:41 AM Reporting Lab: [facility] [address] Performing Lab: [facility] [address] [facility] CBC & DIFF LYMPHOCYTE S/100 LEUKOCYTES IN BLOOD BY MANUAL COUNT 15.3 15.0 - 45.0 11/18 Specimen Type: BLOOD Comment: Automated Differentia l Performed Ordering Provider: KEELY NGUYEN Report Released Date/Time: Jan 14, 2022 08:41 AM Reporting Lab: [facility] [address] Performing Lab: [facility] [address] [facility] CBC & DIFF MONOCYTES/ 100 LEUKOCYTES IN BLOOD BY AUTOMATED COUNT 10.9 2.0 - 12.0 11/18 Specimen Type: BLOOD Comment: Automated Differentia l Performed Ordering Provider: KEELY NGUYEN Report Released Date/Time: Jan 14, 2022 08:41 AM Reporting Lab: [facility] [address] Performing Lab: [facility] [address] [facility] CBC & DIFF EOSINOPHIL S/100 LEUKOCYTES IN BLOOD BY AUTOMATED COUNT 2.1 0.0 - 6.0 11/18 Specimen Type: BLOOD Comment: Automated Differentia l Performed Ordering Provider: KEELY NGUYEN Report Released Date/Time: Jan 14, 2022 08:41 AM Reporting Lab: [facility] [address] Performing Lab: [facility] [address] [facility] CBC & DIFF BASOPHILS/ 100 LEUKOCYTES IN BLOOD BY MANUAL COUNT 0.6 0.0 - 2.0 11/18 Specimen Type: BLOOD Comment: Automated Differentia l Performed Ordering Provider: KEELY NGUYEN Report Released Date/Time: Jan 14, 2022 08:41 AM Reporting Lab: [facility] [address] Performing Lab: [facility] [address] [facility] CBC & DIFF ERYTHROCYT E DISTRIBUTI ON WIDTH [RATIO] BY AUTOMATED COUNT 13.8 11.5 - 14.5 11/18 Specimen Type: BLOOD Comment: Automated Differentia l Performed Ordering Provider: KEELY NGUEYN Report Released Date/Time: Jan 14, 2022 08:41 AM Reporting Lab: [facility] [address] Performing Lab: [facility] [address] [facility] CBC & DIFF LYMPHOCYTE S [#/VOLUME] IN BLOOD BY AUTOMATED COUNT 0.73 10*3/uL 1.0 - 4.0 11/18 L Specimen Type: BLOOD Comment: Automated Differentia l Performed Ordering Provider: KEELY NGUYEN Report Released Date/Time: Jan 14, 2022 08:41 AM Reporting Lab: [facility] [address] Performing Lab: [facility] [address] [facility] CBC & DIFF MONOCYTES [#/VOLUME] IN BLOOD BY AUTOMATED COUNT 0.52 10*3/uL 0.1 - 1.0 11/18 Specimen Type: BLOOD Comment: Automated Differentia l Performed Ordering Provider: KEELY NGUYEN Report Released Date/Time: Jan 14, 2022 08:41 AM Reporting Lab: [facility] [address] Performing Lab: [facility] [address] [facility] CBC & DIFF NEUTROPHIL S [#/VOLUME] IN BLOOD BY AUTOMATED COUNT 3.34 10*3/uL 2.0 - 7.7 11/18 Specimen Type: BLOOD Comment: Automated Differentia l Performed Ordering Provider: KEELY NGUYEN Report Released Date/Time: Jan 14, 2022 08:41 AM Reporting Lab: [facility] [address] Performing Lab: [facility] [address] [facility] CBC & DIFF EOSINOPHIL S [#/VOLUME] IN BLOOD BY AUTOMATED COUNT 0.10 10*3/uL 0 - 0.5 11/18 Specimen Type: BLOOD Comment: Automated Differentia l Performed Ordering Provider: KEELY NGUYEN Report Released Date/Time: Jan 14, 2022 08:41 AM Reporting Lab: [facility] [address] Performing Lab: [facility] [address] [facility] CBC & DIFF BASOPHILS [#/VOLUME] IN BLOOD BY AUTOMATED COUNT 0.03 10*3/uL 0 - 0.2 11/18 Specimen Type: BLOOD Comment: Automated Differentia l Performed Ordering Provider: KEELY NGUYEN Report Released Date/Time: Jan 14, 2022 08:41 AM Reporting Lab: [facility] [address] Performing Lab: [facility] [address] [facility] CBC & DIFF IG(META,MY MAYA,PRO) 1.0 11/18 Specimen Type: BLOOD Comment: Automated Differentia l Performed Ordering Provider: KEELY NGUYEN Report Released Date/Time: Jan 14, 2022 08:41 AM Reporting Lab: [facility] [address] Performing Lab: [facility] [address] [facility] CBC & DIFF IMMATURE GRANULOCYT ES [PRESENCE] IN BLOOD BY AUTOMATED COUNT 0.05 10*3/uL 0 - 0.1 11/18 Specimen Type: BLOOD Comment: Automated Differentia l Performed Ordering Provider: KEELY NGUYEN Report Released Date/Time: Jan 14, 2022 08:41 AM Reporting Lab: [facility] [address] Performing Lab: [facility] [address] [facility] CBC & DIFF LEUKOCYTES [#/VOLUME] IN BLOOD BY AUTOMATED COUNT 4.72 10*3/uL 4.0 - 11.0 11/18 Specimen Type: BLOOD Comment: Automated Differentia l Performed Ordering Provider: KEELY NGUYEN Report Released Date/Time: Nov 18, 2022 02:10 PM Reporting Lab: [facility] [address] Performing Lab: [facility] [address] [facility] CBC & DIFF ERYTHROCYT ES [#/VOLUME] IN BLOOD BY AUTOMATED COUNT 3.07 10*6/uL 4.6 - 6.2 11/18 L Specimen Type: BLOOD Comment: Automated Differentia l Performed Ordering Provider: KEELY NGUYEN Report Released Date/Time: Nov 18, 2022 02:10 PM Reporting Lab: [facility] [address] Performing Lab: [facility] [address] [facility] CBC & DIFF HEMOGLOBIN [MASS/VOLU ME] IN BLOOD 10.7 g/dL 13.5 - 17.9 11/18 L Specimen Type: BLOOD Comment: Automated Differentia l Performed Ordering Provider: KEELY NGUYEN Report Released Date/Time: Nov 18, 2022 02:10 PM Reporting Lab: [facility] [address] Performing Lab: [facility] [address] [facility] CBC & DIFF HEMATOCRIT [VOLUME FRACTION] OF BLOOD BY AUTOMATED COUNT 33.0 41 - 54 11/18 L Specimen Type: BLOOD Comment: Automated Differentia l Performed Ordering Provider: KEELY NGUYEN Report Released Date/Time: Nov 18, 2022 02:10 PM Reporting Lab: [facility] [address] Performing Lab: [facility] [address] [facility] CBC & DIFF MCV [ENTITIC VOLUME] BY AUTOMATED COUNT 107.5 fL 80 - 100 11/18 H Specimen Type: BLOOD Comment: Automated Differentia l Performed Ordering Provider: KEELY NGUYEN Report Released Date/Time: Nov 18, 2022 02:10 PM Reporting Lab: [facility] [address] Performing Lab: [facility] [address] [facility] CBC & DIFF MCH [ENTITIC MASS] BY AUTOMATED COUNT 34.9 pg 27 - 33 11/18 H Specimen Type: BLOOD Comment: Automated Differentia l Performed Ordering Provider: KEELY NUGYEN Report Released Date/Time: Nov 18, 2022 02:10 PM Reporting Lab: [facility] [address] Performing Lab: [facility] [address] [facility] CBC & DIFF MCHC [MASS/VOLU ME] BY AUTOMATED COUNT 32.4 g/dL 32.0 - 37.5 11/18 Specimen Type: BLOOD Comment: Automated Differentia l Performed Ordering Provider: KEELY NGUYEN Report Released Date/Time: Nov 18, 2022 02:10 PM Reporting Lab: [facility] [address] Performing Lab: [facility] [address] [facility] CBC & DIFF PLATELETS [#/VOLUME] IN BLOOD BY AUTOMATED COUNT 139 10*3/uL 150 - 400 11/18 L Specimen Type: BLOOD Comment: Automated Differentia l Performed Ordering Provider: KEELY NGUYEN Report Released Date/Time: Nov 18, 2022 02:10 PM Reporting Lab: [facility] [address] Performing Lab: [facility] [address] [facility] CBC & DIFF PLATELET MEAN VOLUME [ENTITIC VOLUME] IN BLOOD BY AUTOMATED COUNT 10.3 fL 7.4 - 10.4 11/18 Specimen Type: BLOOD Comment: Automated Differentia l Performed Ordering Provider: KEELY NGUYEN Report Released Date/Time: Nov 18, 2022 02:10 PM Reporting Lab: [facility] [address] Performing Lab: [facility] [address] [facility] CBC & DIFF NEUTROPHIL S/100 LEUKOCYTES IN BLOOD BY MANUAL COUNT 70.8 40.0 - 80.0 11/18 Specimen Type: BLOOD Comment: Automated Differentia l Performed Ordering Provider: KEELY NGUYEN Report Released Date/Time: Nov 18, 2022 02:10 PM Reporting Lab: [facility] [address] Performing Lab: [facility] [address] [facility] CBC & DIFF LYMPHOCYTE S/100 LEUKOCYTES IN BLOOD BY MANUAL COUNT 14.6 15.0 - 45.0 11/18 L Specimen Type: BLOOD Comment: Automated Differentia l Performed Ordering Provider: KEELY NGUYEN Report Released Date/Time: Nov 18, 2022 02:10 PM Reporting Lab: [facility] [address] Performing Lab: [facility] [address] [facility] CBC & DIFF MONOCYTES/ 100 LEUKOCYTES IN BLOOD BY AUTOMATED COUNT 11.9 2.0 - 12.0 11/18 Specimen Type: BLOOD Comment: Automated Differentia l Performed Ordering Provider: KEELY NGUYEN Report Released Date/Time: Nov 18, 2022 02:10 PM Reporting Lab: [facility] [address] Performing Lab: [facility] [address] [facility] CBC & DIFF EOSINOPHIL S/100 LEUKOCYTES IN BLOOD BY AUTOMATED COUNT 1.5 0.0 - 6.0 11/18 Specimen Type: BLOOD Comment: Automated Differentia l Performed Ordering Provider: KEELY NGUYEN Report Released Date/Time: Nov 18, 2022 02:10 PM Reporting Lab: [facility] [address] Performing Lab: [facility] [address] [facility] CBC & DIFF BASOPHILS/ 100 LEUKOCYTES IN BLOOD BY MANUAL COUNT 0.6 0.0 - 2.0 11/18 Specimen Type: BLOOD Comment: Automated Differentia l Performed Ordering Provider: KEELY NGUYEN Report Released Date/Time: Nov 18, 2022 02:10 PM Reporting Lab: [facility] [address] Performing Lab: [facility] [address] [facility] CBC & DIFF ERYTHROCYT E DISTRIBUTI ON WIDTH [RATIO] BY AUTOMATED COUNT 13.9 11.5 - 14.5 11/18 Specimen Type: BLOOD Comment: Automated Differentia l Performed Ordering Provider: KEELY NGUYEN Report Released Date/Time: Nov 18, 2022 02:10 PM Reporting Lab: [facility] [address] Performing Lab: [facility] [address] [facility] CBC & DIFF LYMPHOCYTE S [#/VOLUME] IN BLOOD BY AUTOMATED COUNT 0.69 10*3/uL 1.0 - 4.0 11/18 L Specimen Type: BLOOD Comment: Automated Differentia l Performed Ordering Provider: KEELY NGUYEN Report Released Date/Time: Nov 18, 2022 02:10 PM Reporting Lab: [facility] [phone] Performing Lab: [facility] [id number] [place] [facility] CBC & DIFF MONOCYTES [#/VOLUME] IN BLOOD BY AUTOMATED COUNT 0.56 10*3/uL 0.1 - 1.0 11/18 Specimen Type: BLOOD Comment: Automated Differentia l Performed Ordering Provider: KEELY NGUYEN Report Released Date/Time: Nov 18, 2022 02:10 PM Reporting Lab: [facility] [phone] Performing Lab: [facility] [phone] [facility] [facility] CBC & DIFF NEUTROPHIL S [#/VOLUME] IN BLOOD BY AUTOMATED COUNT 3.34 10*3/uL 2.0 - 7.7 11/18 Specimen Type: BLOOD Comment: Automated Differentia l Performed Ordering Provider: KEELY NGUYEN Report Released Date/Time: Nov 18, 2022 02:10 PM Reporting Lab: [facility] [id number] Performing Lab: [facility] [phone] [facility] [facility] CBC & DIFF EOSINOPHIL S [#/VOLUME] IN BLOOD BY AUTOMATED COUNT 0.07 10*3/uL 0 - 0.5 11/18 Specimen Type: BLOOD Comment: Automated Differentia l Performed Ordering Provider: KEELY NGUYEN Report Released Date/Time: Nov 18, 2022 02:10 PM Reporting Lab: [facility] [address] Performing Lab: [facility] [address] [facility] CBC & DIFF BASOPHILS [#/VOLUME] IN BLOOD BY AUTOMATED COUNT 0.03 10*3/uL 0 - 0.2 11/18 Specimen Type: BLOOD Comment: Automated Differentia l Performed Ordering Provider: KEELY NGUYEN Report Released Date/Time: Nov 18, 2022 02:10 PM Reporting Lab: [facility] [address] Performing Lab: [facility] [address] [facility] CBC & DIFF IG(META,MY MAYA,PRO) 0.6 11/18 Specimen Type: BLOOD Comment: Automated Differentia l Performed Ordering Provider: KEELY NGUYEN Report Released Date/Time: Nov 18, 2022 02:10 PM Reporting Lab: [facility] [address] Performing Lab: [facility] [address] [facility] CBC & DIFF IMMATURE GRANULOCYT ES [PRESENCE] IN BLOOD BY AUTOMATED COUNT 0.03 10*3/uL 0 - 0.1 11/18 Specimen Type: BLOOD Comment: Automated Differentia l Performed Ordering Provider: KEELY NGUYEN Report Released Date/Time: Nov 18, 2022 02:10 PM Reporting Lab: [facility] [address] Performing Lab: [facility] [address] [facility] TSH W/REFLEX TO FREE T4 THYROTROPI N [UNITS/VOL UME] IN SERUM OR PLASMA 1.85 u[IU]/m L 0.35 - 4.94 11/18 Specimen Type: PLASMA No comment entered. Ordering Provider: KEELY NGUYEN Report Released Date/Time: Nov 18, 2022 02:10 PM Reporting Lab: [facility] [address] Performing Lab: [facility] [address] [facility] COMPREHEN SIVE METABOLIC PANEL+MG CREATININE [MASS/VOLU ME] IN SERUM OR PLASMA 1.4 mg/dL 0.7 - 1.2 11/18 H Specimen Type: PLASMA Comment: Automated Differentia l Performed Ordering Provider: KEELY NGUYEN Report Released Date/Time: Nov 18, 2022 02:10 PM Reporting Lab: [facility] [address] Performing Lab: [facility] [address] [facility] COMPREHEN SIVE METABOLIC PANEL+MG UREA NITROGEN [MASS/VOLU ME] IN SERUM OR PLASMA 29 mg/dL 8 - 26 11/18 H Specimen Type: PLASMA Comment: Automated Differentia l Performed Ordering Provider: KEELY NGUYEN Report Released Date/Time: Nov 18, 2022 02:10 PM Reporting Lab: [facility] [address] Performing Lab: [facility] [address] [facility] COMPREHEN SIVE METABOLIC PANEL+MG GLUCOSE [MASS/VOLU ME] IN SERUM OR PLASMA 79 mg/dL 70 - 100 11/18 Specimen Type: PLASMA Comment: Automated Differentia l Performed Ordering Provider: KEELY NGUYEN Report Released Date/Time: Nov 18, 2022 02:10 PM Reporting Lab: [facility] [address] Performing Lab: [facility] [address] [facility] COMPREHEN SIVE METABOLIC PANEL+MG SODIUM [MOLES/VOL UME] IN SERUM OR PLASMA 138 mmol/L 136 - 145 11/18 Specimen Type: PLASMA Comment: Automated Differentia l Performed Ordering Provider: KEELY NGUYEN Report Released Date/Time: Nov 18, 2022 02:10 PM Reporting Lab: [facility] [address] Performing Lab: [facility] [address] [facility] COMPREHEN SIVE METABOLIC PANEL+MG POTASSIUM [MOLES/VOL UME] IN SERUM OR PLASMA 4.8 mmol/L 3.5 - 5.1 11/18 Specimen Type: PLASMA Comment: Automated Differentia l Performed Ordering Provider: KEELY NGUYEN Report Released Date/Time: Nov 18, 2022 02:10 PM Reporting Lab: [facility] [address] Performing Lab: [facility] [address] [facility] COMPREHEN SIVE METABOLIC PANEL+MG CHLORIDE [MOLES/VOL UME] IN SERUM OR PLASMA 105 mmol/L 98 - 107 11/18 Specimen Type: PLASMA Comment: Automated Differentia l Performed Ordering Provider: KEELY NGUYEN Report Released Date/Time: Nov 18, 2022 02:10 PM Reporting Lab: [facility] [address] Performing Lab: [facility] [address] [facility] COMPREHEN SIVE METABOLIC PANEL+MG CARBON DIOXIDE, TOTAL [MOLES/VOL UME] IN SERUM OR PLASMA 30 mmol/L 22 - 29 11/18 H Specimen Type: PLASMA Comment: Automated Differentia l Performed Ordering Provider: KEELY NGUYEN Report Released Date/Time: Nov 18, 2022 02:10 PM Reporting Lab: [facility] [address] Performing Lab: [facility] [address] [facility] COMPREHEN SIVE METABOLIC PANEL+MG CALCIUM [MASS/VOLU ME] IN SERUM OR PLASMA 9.5 mg/dL 8.4 - 10.2 11/18 Specimen Type: PLASMA Comment: Automated Differentia l Performed Ordering Provider: KEELY NGUYEN Report Released Date/Time: Nov 18, 2022 02:10 PM Reporting Lab: [facility] [address] Performing Lab: [facility] [address] [facility] COMPREHEN SIVE METABOLIC PANEL+MG PROTEIN [MASS/VOLU ME] IN SERUM OR PLASMA 7.2 g/dL 6.0 - 8.3 11/18 Specimen Type: PLASMA Comment: Automated Differentia l Performed Ordering Provider: KEELY NGUYEN Report Released Date/Time: Nov 18, 2022 02:10 PM Reporting Lab: [facility] [address] Performing Lab: [facility] [address] [facility] COMPREHEN SIVE METABOLIC PANEL+MG ALBUMIN [MASS/VOLU ME] IN SERUM OR PLASMA 4.0 g/dL 3.5 - 5.2 11/18 Specimen Type: PLASMA Comment: Automated Differentia l Performed Ordering Provider: KEELY NGUYEN Report Released Date/Time: Nov 18, 2022 02:10 PM Reporting Lab: [facility] [address] Performing Lab: [facility] [address] [facility] COMPREHEN SIVE METABOLIC PANEL+MG BILIRUBIN. TOTAL [MASS/VOLU ME] IN SERUM OR PLASMA 0.4 mg/dL 0.2 - 1.2 11/18 Specimen Type: PLASMA Comment: Automated Differentia l Performed Ordering Provider: KEELY NGUYEN Report Released Date/Time: Nov 18, 2022 02:10 PM Reporting Lab: [facility] [address] Performing Lab: [facility] [address] [facility] COMPREHEN SIVE METABOLIC PANEL+MG MAGNESIUM [MASS/VOLU ME] IN SERUM OR PLASMA 2.0 mg/dL 1.6 - 2.6 11/18 Specimen Type: PLASMA Comment: Automated Differentia l Performed Ordering Provider: KEELY NGUYEN Report Released Date/Time: Nov 18, 2022 02:10 PM Reporting Lab: [facility] [address] Performing Lab: [facility] [address] [facility] COMPREHEN SIVE METABOLIC PANEL+MG ANION GAP IN SERUM OR PLASMA 3 mmol/L 5 - 15 11/18 L Specimen Type: PLASMA Comment: Automated Differentia l Performed Ordering Provider: KEELY NGUYEN Report Released Date/Time: Nov 18, 2022 02:10 PM Reporting Lab: [facility] [address] Performing Lab: [facility] [address] [facility] COMPREHEN SIVE METABOLIC PANEL+MG ALKALINE PHOSPHATAS E [ENZYMATIC ACTIVITY/V OLUME] IN SERUM OR PLASMA 54 U/L 40 - 150 11/18 Specimen Type: PLASMA Comment: Automated Differentia l Performed Ordering Provider: KEELY NGUYEN Report Released Date/Time: Nov 18, 2022 02:10 PM Reporting Lab: [facility] [address] Performing Lab: [facility] [address] [facility] COMPREHEN SIVE METABOLIC PANEL+MG ALANINE AMINOTRANS FERASE [ENZYMATIC ACTIVITY/V OLUME] IN SERUM OR PLASMA 14 U/L <55 - 55 11/18 Specimen Type: PLASMA Comment: Automated Differentia l Performed Ordering Provider: KEELY NGUYEN Report Released Date/Time: Nov 18, 2022 02:10 PM Reporting Lab: [facility] [address] Performing Lab: [facility] [address] [facility] COMPREHEN SIVE METABOLIC PANEL+MG ASPARTATE AMINOTRANS FERASE [ENZYMATIC ACTIVITY/V OLUME] IN SERUM OR PLASMA 20 U/L <34 - 34 11/18 Specimen Type: PLASMA Comment: Automated Differentia l Performed Ordering Provider: KEELY NGUYEN Report Released Date/Time: Nov 18, 2022 02:10 PM Reporting Lab: [facility] [address] Performing Lab: [facility] [address] [facility] COMPREHEN SIVE METABOLIC PANEL+MG GLOMERULAR FILTRATION RATE/1.73 SQ M.PREDICTE D [VOLUME RATE/AREA] IN SERUM, PLASMA OR BLOOD BY CREATININE -BASED FORMULA (CKD-EPI 2020) 51 60 11/18 L Specimen Type: PLASMA Comment: Automated Differentia l Performed Ordering Provider: KEELY NGUYEN Report Released Date/Time: Nov 18, 2022 02:10 PM Reporting Lab: [facility] [address] Performing Lab: [facility] [address] [facility] PERIPHERA L SMEAR PATHOLOGI ST REVIEW ERYTHROCYT E MORPHOLOGY FINDING [IDENTIFIE R] IN BLOOD SLIDES MADE 01/13 Specimen Type: BLOOD No comment entered. Ordering Provider: KEELY NGUYEN Report Released Date/Time: Nov 27, 2021 09:58 AM Reporting Lab: [facility] [address] Performing Lab: [facility] [address] [facility] CBC & DIFF LEUKOCYTES [#/VOLUME] IN BLOOD BY AUTOMATED COUNT 4.85 10*3/uL 4.0 - 11.0 01/13 Specimen Type: BLOOD Comment: Automated Differentia l Performed Ordering Provider: KEELY NGUYEN Report Released Date/Time: Nov 27, 2021 09:58 AM Reporting Lab: [facility] [address] Performing Lab: [facility] [address] [facility] CBC & DIFF ERYTHROCYT ES [#/VOLUME] IN BLOOD BY AUTOMATED COUNT 3.32 10*6/uL 4.6 - 6.2 01/13 L Specimen Type: BLOOD Comment: Automated Differentia l Performed Ordering Provider: KEELY NGUYEN Report Released Date/Time: Nov 27, 2021 09:58 AM Reporting Lab: [facility] [address] Performing Lab: [facility] [address] [facility] CBC & DIFF HEMOGLOBIN [MASS/VOLU ME] IN BLOOD 11.7 g/dL 13.5 - 17.9 01/13 L Specimen Type: BLOOD Comment: Automated Differentia l Performed Ordering Provider: KEELY NGUYEN Report Released Date/Time: Nov 27, 2021 09:58 AM Reporting Lab: [facility] [address] Performing Lab: [facility] [address] [facility] CBC & DIFF HEMATOCRIT [VOLUME FRACTION] OF BLOOD BY AUTOMATED COUNT 35.7 41 - 54 01/13 L Specimen Type: BLOOD Comment: Automated Differentia l Performed Ordering Provider: KEELY NGUYEN Report Released Date/Time: Nov 27, 2021 09:58 AM Reporting Lab: [facility] [address] Performing Lab: [facility] [address] [facility] CBC & DIFF MCV [ENTITIC VOLUME] BY AUTOMATED COUNT 107.5 fL 80 - 100 01/13 H Specimen Type: BLOOD Comment: Automated Differentia l Performed Ordering Provider: KEELY NGUYEN Report Released Date/Time: Nov 27, 2021 09:58 AM Reporting Lab: [facility] [address] Performing Lab: [facility] [address] [facility] CBC & DIFF MCH [ENTITIC MASS] BY AUTOMATED COUNT 35.2 pg 27 - 33 01/13 H Specimen Type: BLOOD Comment: Automated Differentia l Performed Ordering Provider: KEELY NGUYEN Report Released Date/Time: Nov 27, 2021 09:58 AM Reporting Lab: [facility] [address] Performing Lab: [facility] [address] [facility] CBC & DIFF MCHC [MASS/VOLU ME] BY AUTOMATED COUNT 32.8 g/dL 32.0 - 37.5 01/13 Specimen Type: BLOOD Comment: Automated Differentia l Performed Ordering Provider: KEELY NGUYEN Report Released Date/Time: Nov 27, 2021 09:58 AM Reporting Lab: [facility] [address] Performing Lab: [facility] [address] [facility] CBC & DIFF PLATELETS [#/VOLUME] IN BLOOD BY AUTOMATED COUNT 142 10*3/uL 150 - 400 01/13 L Specimen Type: BLOOD Comment: Automated Differentia l Performed Ordering Provider: KEELY NGUYEN Report Released Date/Time: Nov 27, 2021 09:58 AM Reporting Lab: [facility] [address] Performing Lab: [facility] [address] [facility] CBC & DIFF PLATELET MEAN VOLUME [ENTITIC VOLUME] IN BLOOD BY AUTOMATED COUNT 10.0 fL 7.4 - 10.4 01/13 Specimen Type: BLOOD Comment: Automated Differentia l Performed Ordering Provider: KEELY NGUYEN Report Released Date/Time: Nov 27, 2021 09:58 AM Reporting Lab: [facility] [address] Performing Lab: [facility] [address] [facility] CBC & DIFF NEUTROPHIL S/100 LEUKOCYTES IN BLOOD BY MANUAL COUNT 72.5 01/13 Specimen Type: BLOOD Comment: Automated Differentia l Performed Ordering Provider: KEELY NGUYEN Report Released Date/Time: Nov 27, 2021 09:58 AM Reporting Lab: [facility] [address] Performing Lab: [facility] [address] [facility] CBC & DIFF LYMPHOCYTE S/100 LEUKOCYTES IN BLOOD BY MANUAL COUNT 10.9 01/13 Specimen Type: BLOOD Comment: Automated Differentia l Performed Ordering Provider: KEEYL NGUYEN Report Released Date/Time: Nov 27, 2021 09:58 AM Reporting Lab: [facility] [address] Performing Lab: [facility] [address] [facility] CBC & DIFF MONOCYTES/ 100 LEUKOCYTES IN BLOOD BY AUTOMATED COUNT 13.4 01/13 Specimen Type: BLOOD Comment: Automated Differentia l Performed Ordering Provider: KEELY NGUYEN Report Released Date/Time: Nov 27, 2021 09:58 AM Reporting Lab: [facility] [address] Performing Lab: [facility] [address] [facility] CBC & DIFF EOSINOPHIL S/100 LEUKOCYTES IN BLOOD BY AUTOMATED COUNT 1.4 01/13 Specimen Type: BLOOD Comment: Automated Differentia l Performed Ordering Provider: KEELY NGUYEN Report Released Date/Time: Nov 27, 2021 09:58 AM Reporting Lab: [facility] [address] Performing Lab: [facility] [address] [facility] CBC & DIFF BASOPHILS/ 100 LEUKOCYTES IN BLOOD BY MANUAL COUNT 0.8 01/13 Specimen Type: BLOOD Comment: Automated Differentia l Performed Ordering Provider: KEELY NGUYEN Report Released Date/Time: Nov 27, 2021 09:58 AM Reporting Lab: [facility] [address] Performing Lab: [facility] [address] [facility] CBC & DIFF ERYTHROCYT E DISTRIBUTI ON WIDTH [RATIO] BY AUTOMATED COUNT 13.5 11.5 - 14.5 01/13 Specimen Type: BLOOD Comment: Automated Differentia l Performed Ordering Provider: KEELY NGUYEN Report Released Date/Time: Nov 27, 2021 09:58 AM Reporting Lab: [facility] [address] Performing Lab: [facility] [address] [facility] CBC & DIFF LYMPHOCYTE S [#/VOLUME] IN BLOOD BY AUTOMATED COUNT 0.53 10*3/uL 1.0 - 4.0 01/13 L Specimen Type: BLOOD Comment: Automated Differentia l Performed Ordering Provider: KEELY NGUYEN Report Released Date/Time: Nov 27, 2021 09:58 AM Reporting Lab: [facility] [address] Performing Lab: [facility] [address] [facility] CBC & DIFF MONOCYTES [#/VOLUME] IN BLOOD BY AUTOMATED COUNT 0.65 10*3/uL 0.1 - 1.0 01/13 Specimen Type: BLOOD Comment: Automated Differentia l Performed Ordering Provider: KEELY NGUYEN Report Released Date/Time: Nov 27, 2021 09:58 AM Reporting Lab: [facility] [address] Performing Lab: [facility] [address] [facility] CBC & DIFF NEUTROPHIL S [#/VOLUME] IN BLOOD BY AUTOMATED COUNT 3.51 10*3/uL 2.0 - 7.7 01/13 Specimen Type: BLOOD Comment: Automated Differentia l Performed Ordering Provider: KEELY NGUYEN Report Released Date/Time: Nov 27, 2021 09:58 AM Reporting Lab: [facility] [address] Performing Lab: [facility] [address] [facility] CBC & DIFF EOSINOPHIL S [#/VOLUME] IN BLOOD BY AUTOMATED COUNT 0.07 10*3/uL 0 - 0.5 01/13 Specimen Type: BLOOD Comment: Automated Differentia l Performed Ordering Provider: KEELY NGUYEN Report Released Date/Time: Nov 27, 2021 09:58 AM Reporting Lab: [facility] [address] Performing Lab: [facility] [address] [facility] CBC & DIFF BASOPHILS [#/VOLUME] IN BLOOD BY AUTOMATED COUNT 0.04 10*3/uL 0 - 0.2 01/13 Specimen Type: BLOOD Comment: Automated Differentia l Performed Ordering Provider: KEELY NGUYEN Report Released Date/Time: Nov 27, 2021 09:58 AM Reporting Lab: [facility] [address] Performing Lab: [facility] [address] [facility] CBC & DIFF IG(META,MY MAYA,PRO) 1.0 01/13 Specimen Type: BLOOD Comment: Automated Differentia l Performed Ordering Provider: KEELY NGUYEN Report Released Date/Time: Nov 27, 2021 09:58 AM Reporting Lab: [facility] [address] Performing Lab: [facility] [address] [facility] CBC & DIFF IMMATURE GRANULOCYT ES [PRESENCE] IN BLOOD BY AUTOMATED COUNT 0.05 10*3/uL 0 - 0.1 01/13 Specimen Type: BLOOD Comment: Automated Differentia l Performed Ordering Provider: KEELY NGUYEN Report Released Date/Time: Nov 27, 2021 09:58 AM Reporting Lab: [facility] [address] Performing Lab: [facility] [address] [facility] PERIPHERA L SMEAR PATHOLOGI ST REVIEW ERYTHROCYT E MORPHOLOGY FINDING [IDENTIFIE R] IN BLOOD SLIDES MADE 11/25 Specimen Type: BLOOD No comment entered. Ordering Provider: KEELY NGUYEN Report Released Date/Time: Nov 18, 2021 10:19 AM Reporting Lab: [facility] [address] Performing Lab: [facility] [address] [facility] B 12 COBALAMIN (VITAMIN B12) [MASS/VOLU ME] IN SERUM OR PLASMA 311 pg/mL 213 - 816 11/25 Specimen Type: SERUM No comment entered. Ordering Provider: KEELY NGUYEN Report Released Date/Time: Nov 18, 2021 10:19 AM Reporting Lab: [facility] [address] Performing Lab: [facility] [address] [facility] Vital Signs Combined list of inpatient and outpatient Vital Signs from [facility], ranging from 12 months to all on record, depending upon the facility. 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 2) Encounters from the Department of [facility] facilities going back up to 280 months. Location Location Details Encounter Type Encounter Number Reason For Visit Attending Provider ADM Date DC Date Status Disposition Source [place] [facility] Outpatient Encounter [id number] 07/23 [facility] [place] [facility] Outpatient Encounter [id number] 07/23 [facility] OFFICE O/P EST MOD 30-39 MIN [id number] Diagnos is: ICD-10- CM Z00.8 Encount er for other general examina tion
Stuart NGUYEN 11/18 [facility] [place] [facility] Outpatient Encounter [id number] 12[facility] [place] [facility]counter [id number] 01/15 [facility] [place] [facility] Encounter [id number] 01/29 [facility] [place] [facility] Outpatient Encounter [id number] 02/02 [facility] [place] [facility] Out[facility] Encounter [id number] 02/03 [facility] [place] [facility] Outpatient Encounter [id number] SCARLETT HOPPER 02/03 [place] [facility] [place] [facility] Outpatient Encounter [id number] [facility] HOPPER 02/[facility] [place] [facility] [place] Encounter [id number] 03/09 [place] [facility] [place] [facility] Out[place] Encounter [id number] 03/11 [place] [facility] [place] [facility] Out[place] Encounter [id number] 05/11 [place] [facility] [place] [facility] CASE MANAGEMENT [id number] Diagnos is: ICD-10- CM R53.1 Lucretia del cid
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 Social History Type Response Date Comment Source Tobacco smoking status [facility] VA-TOBACCO FORMER USER 11/18/2022 [facility] History of tobacco use NE-TOBACCO QUIT 15 YRS OR MORE 11/18/2022 [facility] History of tobacco use VA-TOBACCO FORMER USER 11/17/2021 [facility] History of tobacco use NE-TOBACCO QUIT 15 YRS OR MORE 11/14/2020 [facility] History of tobacco use NE-TOBACCO QUIT 15 YRS OR MORE 11/08/2019 [facility] History of tobacco use NE-TOBACCO QUIT 15 YRS OR MORE 10/07/2018 [facility] History of tobacco use FORMER TOBACCO USER 7Y OR GREATER 09/29/2017 [facility] History of tobacco use FORMER TOBACCO USER 7Y OR GREATER 11/13/2016 [facility] History of tobacco use FORMER TOBACCO USER 7Y OR GREATER 10/16/2015 [facility] History of tobacco use FORMER TOBACCO USER 7Y OR GREATER 10/19/2014 [facility] History of tobacco use FORMER TOBACCO USER 7Y OR GREATER 10/11/2013 [facility] History of tobacco use FORMER TOBACCO [...] smokes 5 cigarettes per day [facility] Plan of Care List of future care activities from [facility] facilities. Additional future care activities may be listed in the Assessment and Plan section. Date/Time Care Activity Care Activity Detail Facili ty 11/18/2023 AMBULATORY - MEDICINE AMBULATORY - MEDICI JERILYN NUNN [facility] Advance Directives List of completed, amended, or rescinded Advance Directives on record at [facility] facilities. An actual copy of the Directive is not included. Date Advance Directive Provider Source 11/27/2021 ADVANCE DIRECTIVE [facility]
--- OUTSIDE RECORDS SUMMARY | 2023-11-07 15:49 | XMS_ITS | Encounter Summary ---
Author Name [facility] [place] Address [address] [place] [address] Care Team Providers Care Contact Center Director Name Role Phone WENDY MASSIEL Primary Care Provider Unavaila ble Insurance Providers: [...] PART D Mar 01, 2010 PART D [id number] [phone] DAVINA RODAS PATIENT U-CARE OF [facility]ATH[facility] (WNR) MEDICARE ADVANTAGE [facility] (WNR) Mar 01, 2019 [id number] ALLEN COLLAZODAVINA PATIENT U-[place]ARE OF [place] [facility] (WNR) MEDICARE ADVANTAGE [facility] (WNR) Mar 01, 2015 RIESMT [id number] [phone] ALLEN COLLAZODAVINA PATIENT UCARE [facility] (WNR) MEDICARE ADVANTAGE [facility] (WNR) Mar 01, 2010 RICLAB [id number] DAVINA RODAS PATIENT Selected Encounter This section includes the information on record at [place] for the Encounter. Date/Time Encounter Type Encounter Description Reason Provider Source Sep 13, 2023 11:28 AM Outpatient Encounter TELEPHONE TRIAGE STACEY SWANSON Tig[facility] Kin Encounter Template Text not used by [place] Plan of Treatment: Future Appointments (+ 6 months) and Future Tests (+/- 45 days) The Plan of Treatment section includes future care activities for the patient from all [place] treatmentfacilities. This section includes future appointments and future orders which are active, pending or scheduled. Future Appointments This section includes appointments that were scheduled to occur 6 months from the date of the Encounter, up to a maximum of 20 appointments. The data comes from all [place] treatment facilities. Appointment Date/Time Appointment Type Appointme nt Facility Name Nov 18, 2023 11:00 AM AMBULATORY - MEDICINE [facility] Social History: Smoking Status (Most current) and Tobacco Use (All prior to encounter date) This section includes the most current, and the historical, smoking and tobacco- related health factors from the [place] facility where the Encounter took place. Current Smoking Status This section includes the most current smoking, or tobacco-related health factor, from the [place] facility where the Encounter took place. Date/Time Current Smoking Status Comment Facil ity Nov 08, 2019 12:00 PM VA-TOBACCO FORMER USER [facility] Tobacco Use History This section includes a history of the smoking, or tobacco-related health factors, that were collected on or before the date of the Encounter. The data comes from the [place] facility where the Encounter took place. Date/Time Smoking Status/Tobacco Use Comment F acility Nov 08, 2019 12:00 PM [place]-TOBACCO QUIT 15 YRS OR MORE [facility] Advance Directives: All historical and current Section Date Range: From patient's date of to the date document was created. This section includes ALL of a patient's completed or amended [place] Advance and Rescinded Directives. The entries below indicate that a directive exists for the patient, but an actual copy is not included with this document. The data comes from all [facility]. Date Advance Directives Provider Source Nov 27, 2021 ADVANCE DIRECTIVE SCARLETT HOPPER Nov 27, 2021 ADVANCE DIRECTIVE DISCUSSION ERNIE HOPPER [facility] Encounter Notes: All associated encounter notes This section contains the clinical notes associated to the Encounter. Date/Time Encounter Note(s) Provider Source Sep 20, 2023 09:43 AM ADDENDUM: LOCAL TITLE: Addendum STANDARD TITLE: ADDENDUM DATE OF NOTE: SEP 20, 2023@09:43:17 ENTRY DATE: SEP 20, 2023@09:43:18 AUTHOR: ZAFAR TRUJILLO COSIGNER: URGENCY: STATUS: COMPLETED Beach Attendant has attempted to return call to Enedelia Butts several times, no answer when called. Messages were left requesting a call back. I did call and later one evening and spoke with another nurse at the facility (Wilma had gone for the day), the nurse answering was not sure if pt was requesting to have medications filled through the [place] or if the facility was just needing a med list faxed. Will alert [facility] to please fax active medication list to pt's DANAE per original note. Thanks! LEONARD Dillon with [facility]. /es/ ZAFAR TRUJILLO RN REGISTERED NURSE Signed: 09/20/2023 09:50 Receipt Acknowledged By: 09/20/2023 11:13 /es/ KAY HERNANDEZ [facility] --- Original Document --- 09/13/23 CCC: CLINICAL TRIAGE: Patient Demographics Patient Name: DAVINA ALEXIS STELLA Patient Primary Address: [address] [place] [id number] Patient Primary Phone: [phone] Patient : 1945 Patient Age: 78 Caller/Recipient Relation to Patient: Other If Other Describe Relation to Patient: [facility] Caller Name: LEONARD Dillon Emergency Contact: MARSHALL DOUGLAS Nursing Plan and Disposition Other course(s) of action Generated msg to PACT/Provider Nurse Summary Nurse Summary: [place] not available for this telephone call, triage assessment based on report of caller. Caller able to provide 3 identifiers. Caller is not listed as E-Contact or Next of kin. Caller is LEONARD Dillon with [facility]. CALLER CONCERN/DURATION/ONSET: LEONARD Dillon is needing signed medication list faxed back (faxed last week) for to save $100/month from [facility] pharmacy but also to know if can obtain medications from [place] pharmacy. Please follow up with her. HISTORY/PREVIOUS TREATMENT: WHAT IS CALER GOAL FOR THE CALL: LEONARD Dillon is needing follow up regarding 's medications. COURT MESSENGER DISPOSITION: Triage not completed at time of call as caller is following up on medications from fax sent last week. Advised caller note placed and Message Track Production Engineer sent to appropriate team for follow-up. Caller verbalized understanding through teach back method at time of call. This note was created by a [address] director education. Please do not alert this nurse by adding as a signer for future communications. Alerts are not monitored by this user, please reach out to [facility] instead if indicated. Clinical Contact Center Codes Clinic/Location: [address] PHONE CCC RN /bassem/ STACEY SWANSON RN, [address] Signed: 09/13/2023 11:28 09/20/2023 ADDENDUM STATUS: UNSIGNED You may not VIEW this UNSIGNED Addendum. ZAFAR TRUJILLO [facility] Sep 13, 2023 11:28 AM RN PROGRESS NOTE: LOCAL TITLE: CCC: CLINICAL TRIAGE STANDARD TITLE: RN PROGRESS NOTE DATE OF NOTE: SEP 13, 2023@11:28:06 ENTRY DATE: SEP 13, 2023@11:28:06 AUTHOR: STACEY SWANSON COSIGNER: URGENCY: STATUS: COMPLETED CCC: CLINICAL TRIAGE Has ADDENDA Patient Demographics Patient Name: DAVINA ALEXIS FLORESADAABBIE Patient Primary Address: [address] [place] [address] Patient Primary Phone: [phone] Patient : 1945 Patient Age: 78 Caller/Recipient Relation to Patient: Other If Other Describe Relation to Patient: [facility] Caller Name: LEONARD Dillon Emergency Contact: MARSHALL DOUGLAS Nursing Plan and Disposition Other course(s) of action Generated msg to PACT/Provider Nurse Summary Nurse Summary: not available for this telephone call, triage assessment based on report of caller. Caller able to provide 3 identifiers. Caller is not listed as E-Contact or Next of kin. Caller is LEONARD Dillon with [facility]. CALLER CONCERN/DURATION/ONSET: LEONARD Dillon is needing signed medication list faxed back (faxed last week) for to save $100/month from [facility] pharmacy but also to know if can obtain medications from [place] pharmacy. Please follow up with her. HISTORY/PREVIOUS TREATMENT: WHAT IS CALER GOAL FOR THE CALL: LEONARD Dillon is needing follow up regarding 's medications. COURT MESSENGER DISPOSITION: Triage not completed at time of call as caller is following up on medications from fax sent last week. Advised caller note placed and Message Track Production Engineer sent to appropriate team for follow-up. Caller verbalized understanding through teach back method at time of call. This note was created by a [address] director education. Please do not alert this nurse by adding as a signer for future communications. Alerts are not monitored by this user, please reach out to [facility] instead if indicated. Clinical Contact Center Codes Clinic/Location: [address] PHONE [facility] RN /es/ STACEY SWANSON RN, [address] Signed: 09/13/2023 11:28 09/20/2023 ADDENDUM STATUS: COMPLETED Beach Attendant has attempted to return call to Enedelia Butts several times, no answer when called. Messages were left requesting a call back. I did call and later one evening and spoke with another nurse at the facility (Wilma had gone for the day), the nurse answering was not sure if pt was requesting to have medications filled through the [place] or if the facility was just needing a med list faxed. Will alert [facility] to please fax active medication list to pt's [facility] per original note. Thanks! LEONARD Dillon with [facility]. /bassem/ ZAFAR TRUJILLO RN REGISTERED NURSE Signed: 09/20/2023 09:50 Receipt Acknowledged By: 09/20/2023 11:13 /abssem/ KAY HERNANDEZ [facility] 09/20/2023 ADDENDUM STATUS: COMPLETED Beach Attendant faxed current med rec to Wilma at [facility] // KAY HERNANDEZ [facility] Signed: 09/20/2023 11:15 10/19/2023 ADDENDUM STATUS: COMPLETED Beach Attendant talked to the RN From [facility], the facility the is living at. Nurse stated 's would like to have all his medication through [place] from now on. Beach Attendant received an updated med list from the facility and will alert pact pcp regarding this matter. /bassem/ TYLER HUERTA LPN INSURANCE PROFESSIONAL [facility] Signed: 10/19/2023 15:02 STACEY SWANSON [facility]
--- OUTSIDE RECORDS SUMMARY | 2023-11-07 15:49 | XMS_ITS | Clinical Summary ---
Author Organization [facility] Address [address] [address] Phone Care Team Providers Care Clear Coat Sprayer Name Role Phone Unavailable Primary Care Provider [...] Overview: Per 07/02/[address] Block. [id number] Anemia 08/04/2010 Seborrheic keratosis 08/04/2010 Hypothyroidism Resolved [...] Puckett MD - 09/16/2012 11:34 AM CDT [facility] ADDENDED COPY Patient Name: MYKE DOUGLAS Date of Service: 09/16/2012 : 1945 Age: 67Y Sex: M [place] Site MRN: Patient Loc/Room #: [facility]/ Provider: Jam Puckett MD, Gastroenterology GI PROCEDURE SITE: [facility] ORDERED BY: COLONOSCOPY DATE OF PROCEDURE: [...] cc: Pérez Villafuerte MD /CASI Job ID: [id number] /ak/kendall(ord) Document ID: [id number] A: 09/21/2012 miguel(add) Jam Puckett MD EC PROCEDURES from Last 3 Months or Most Recently Relevant to Health Maintenance
--- OUTSIDE RECORDS SUMMARY | 2023-11-07 15:49 | XMS_ITS | Encounter Summary ---
Author Organization [facility] Address [address] [address] Phone Care Team Providers Care Manager Interface Name Role Phone Pérez Villafuerte MD Primary Care Provider [phone] Leida Rooney RN Unavailable [phone] Encounter Details Date Type Department Care Team [...] filedocumented in this encounter Care Teams Manager Interface Relationship Specialty Start Date End Date Pé[place] [address] [place] [phone] PCP - General 07/30/10 03/07/15 Leida Rooney, RN Battery Container Finishing Hand 08/06/11 06/16/15 documented as of this encounter
--- OUTSIDE RECORDS SUMMARY | 2023-11-07 15:49 | XMS_ITS | Encounter Summary ---
Author Name [facility] [place] [facility] [place] Address [address] [place] [address] Care Team Providers Care Budget Engineer Name Role Phone MASSIEL NGUYEN Primary Care [...] PART D Mar 01, 2010 PART D [id number] [phone] DAVINA RODAS PATIENT U-CARE OF [facility]ATHI [facility] (WNR) MEDICARE ADVANTAGE [facility] (WNR) Mar 01, 2019 [id number] [phone] ALLEN COLLAZODAVINA PATIENT U-CARE OF [facility]ATHI [facility] (WNR) MEDICARE ADVANTAGE [facility] (WNR) Mar 01, 2015 RIESMT [id number] ALLEN COLLAZODAVINA PATIENT UCARE [facility] (WNR) MEDICARE ADVANTAGE [facility] (WNR) Mar 01, 2010 RICLAB [id number] DAVINA RODAS PATIENT Selected Encounter This section includes the information on record at [place] for the Encounter. Date/Time Encounter Type Encounter Description Reason Pro vider Source Oct 28, 2023 10:00 AM Outpatient Encounter PRIMARY CARE/MEDICINE IHE Encounter Template Text not used by [place] Plan of Treatment: Future Appointments (+ 6 months) and Future Tests (+/- 45 days) The Plan of Treatment section includes future care activities for the patient from all [place] treatmentfacilities. This section includes future appointments and future orders which are active, pending or scheduled. Future Appointments This section includes appointments that were scheduled to occur 6 months from the date of the Encounter, up to a maximum of 20 appointments. The data comes from all [place] treatment facilities. Appointment Date/Time Appointment Type Appointme [...] 08, 2019 12:00 PM VA-TOBACCO FORMER USER [facility] Tobacco Use History This section includes a history of the smoking, or tobacco-related health factors, that were collected on or before the date of the Encounter. The data comes from the [place] facility where the Encounter took place. Date/Time Smoking Status/Tobacco Use Comment F acility Nov 08, 2019 12:00 PM [place]-TOBACCO QUIT 15 YRS OR MORE [facility] Advance Directives: All historical and current Section Date Range: From patient's date of to the date document was created. This section includes ALL of a patient's completed or amended [place] Advance and Rescinded Directives. The entries below indicate that a directive exists for the patient, but an actual copy is not included with this document. The data comes from all [facility]. Date Advance Directives Provider Source Nov 27, 2021 ADVANCE DIRECTIVE SCARLETT HOPPER Nov 27, 2021 ADVANCE DIRECTIVE DISCUSSION [facility]IE HOPPER [facility] Encounter Notes: All associated encounter notes This section contains the clinical notes associated to the Encounter. Date/Time Encounter Note(s) Provider Source Oct 28, 2023 02:15 PM ADDENDUM: LOCAL TITLE: Addendum STANDARD TITLE: ADDENDUM DATE OF NOTE: OCT 28, 2023@14:15:58 ENTRY DATE: OCT 28, 2023@14:15:59 AUTHOR: ZAFAR TRUJILLO COSIGNER: URGENCY: STATUS: COMPLETED Narcotics And Vice Detective called and spoke with pt's who stated she received a letter regarding scheduling an annual appt for pt. Pt's stated pt currently resides on a dementia unit (memory care) and she has a difficult time with transporting pt. She also inquired about getting pt's medications from the [place]. Pt's was informed I will alert PACT MSA to please contact pt's and assist with [facility] appt for annual exam. PCP can assist with medications and also determine if pt may qualify for HBPC or possible special modes transportation to and from appts. Pt's verbilized agreement and understanding. Alerting MSA to please call and assist as noted above. Thank you! Also, pt's would like to speak with YAZAN Peres regarding VA benefits and if the VA will assist with placement, or if pt qualifies for a state 's home. Alerting AUDIO PRODUCTION MANAGER to please call to assist. /bassem/ ZAFAR TRUJILLO RN REGISTERED NURSE Signed: 10/29/2023 15:04 Receipt Acknowledged By: 10/29/2023 15:36 /es/ MUKUND Abrams, [facility] Primary Care Social Work for SCARLETT HOPPER 10/29/2023 15:15 /es/ Dario NEWMAN [facility] --- Original Document --- 10/28/23 PATIENT CONTACT NOTE: Patient contact Name of [place]: DAVINA DOUGLAS Name/Relationship of Contact if other than : Aury () [phone] Date & Time of Contact: Sep@10:03 Type of Contact: Telephone Reason for Contact: 's called and left a VM stating needs to speak with PCP in regards to medications. 's also stated she would also like to speak to the pediatric social worker Scarlett /bassem/ ZEINA GOLDBERG [facility] Signed: 10/28/2023 10:04 Receipt Acknowledged By: 10/28/2023 10:35 // [facility] Primary Care Churn Operator for SCARLETT HOPPER 10/28/2023 14:03 /bassem/ ZAFAR TRUJILLORN REGISTERED NURSE 10/29/2023 ADDENDUM STATUS: COMPLETED is scheduled via vvc with pcp on 11/18/23 at 11am /bassem/ [facility] Signed: 10/29/2023 15:20 ZAFAR TRUJILLO [facility] Oct 28, 2023 10:00 AM REPORT OF CONTACT: LOCAL TITLE: PATIENT CONTACT NOTE STANDARD TITLE: REPORT OF CONTACT DATE OF NOTE: OCT 28, 2023@10:00 ENTRY DATE: OCT 28, 2023@10:03:13 AUTHOR: ZEINA GOLDBERG COSIGNER: URGENCY: STATUS: COMPLETED PATIENT CONTACT NOTE Has ADDENDA Patient contact Name of : DAVINA DOUGLAS Name/Relationship of Contact if other than : Aury () [phone] Date & Time of Contact: Sep@10:03 Type of Contact: Telephone Reason for Contact: [place]'s called and left a VM stating needs to speak with PCP in regards to medications. [place]'s also stated she would also like to speak to the pediatric social worker Scarlett /bassem/ [facility] Signed: 10/28/2023 10:04 Receipt Acknowledged By: 10/28/2023 10:35 /es/ [facility] Primary Care Churn Operator for SCARLETT HOPPER 10/28/2023 14:03 /bassem/ ZAFAR TRUJILLORN REGISTERED NURSE 10/28/2023 ADDENDUM STATUS: COMPLETED Narcotics And Vice Detective called and spoke with pt's who stated she received a letter regarding scheduling an annual appt for pt. Pt's stated pt currently resides on a dementia unit (memory care) and she has a difficult time with transporting pt. She also inquired about getting pt's medications from the [place]. Pt's was informed I will alert PACT MSA to please contact pt's and assist with scheudling VVC appt for annual exam. PCP can assist with medications and also determine if pt may qualify for HBPC or possible special modes transportation to and from appts. Pt's verbilized agreement and understanding. Alerting MSA to please call and assist as noted above. Thank you! Also, pt's would like to speak with YAZNA Peres regarding VA benefits and if the VA will assist with placement, or if pt qualifies for a state 's home. Alerting AUDIO PRODUCTION MANAGER to please call to assist. /bassem/ ZAFAR TRUJILLO RN REGISTERED NURSE Signed: 10/29/2023 15:04 Receipt Acknowledged By: * AWAITING SIGNATURE * SCARLETT HOPPER 10/29/2023 15:15 /es/ Dario NEWMAN 10/29/2023 ADDENDUM STATUS: COMPLETED [place] is scheduled via vvc with pcp on 11/18/23 at 11am /bassem/ Dario NEWMAN Clinic Signed: 10/29/2023 15:20 ZEINA GOLDBERG [facility]
--- OUTSIDE RECORDS SUMMARY | 2023-11-07 15:49 | XMS_ITS | Encounter Summary ---
Author Name [facility] [place] Address [address] [place] [address] Care Team Providers Care Bead Picker Name Role Phone WENDYKEEGANMASSIEL Primary Care Provider Unavaila ble Insurance Providers: [...] PART D Mar 01, 2010 PART D [id number] DAVINA RODAS PATIENT U-CARE OF SWATHI [facility] (WNR) MEDICARE ADVANTAGE [facility] (WNR) Mar 01, 2019 [id number] ALLEN COLLAZODAVINA PATIENT U-CARE OF SWATHI [facility] (WNR) MEDICARE ADVANTAGE [facility] (WNR) Mar 01, 2015 RIESMT [id number] ALLEN COLLAZODAVINA PATIENT UCARE [facility] (WNR) MEDICARE ADVANTAGE [facility] (WNR) Mar 01, 2010 RICLAB [id number] DAVINA RODAS PATIENT Selected Encounter This section includes the information on record at [place] for the Encounter. Date/Time Encounter Type Encounter Description Reason Pro vider Source Nov 02, 2023 10:46 AM Outpatient Encounter TELEPHONE PRIMARY CARE IHE Encounter Template Text not used by [place] Plan of Treatment: Future Appointments (+ 6 months) and Future Tests (+/- 45 days) The Plan of Treatment section includes future care activities for the patient from all [place] treatmentfacilities. This section includes future appointments and future orders which are active, pending or scheduled. Future Appointments This section includes appointments that were scheduled to occur 6 months from the date of the Encounter, up to a maximum of 20 appointments. The data comes from all [place] treatment facilities. Appointment Date/Time Appointment Type Appointme [...] PM ME-TOBACCO QUIT 15 YRS OR MORE [facility] Tobacco Use History This section includes a history of the smoking, or tobacco-related health factors, that were collected on or before the date of the Encounter. The data comes from the [place] facility where the Encounter took place. Date/Time Smoking Status/Tobacco Use Comment F acility Nov 08, 2019 12:00 PM ME-TOBACCO QUIT 15 YRS OR MORE [facility] Advance Directives: All historical and [...] Encounter. Date/Time Encounter Note(s) Provider Source Nov 02, 2023 10:46 AM SOCIAL WORK NOTE: LOCAL TITLE: SOCIAL WORK PROGRESS NOTE STANDARD TITLE: SOCIAL WORK NOTE DATE OF NOTE: NOV 02, 2023@10:46 ENTRY DATE: NOV 02, 2023@10:46:48 AUTHOR: ENRIQUE DREW EXP COSIGNER: URGENCY: STATUS: COMPLETED PCSW received alert that Veterans is requesting Social Work follow up regrading VA benefits and [facility] Home. This sports book writer placed call to Marshall- 's spouse on this day (11/02/23) and spoke with her. She stated [place] is in Memory Care at [facility] and has dx Alzheimer's and she was inuring if ' would qualify for catastrophic disability. Mixing And Dispensing Supervisor stated I would place a request and she would be followed up with via letter, she verbalized understanding. She also inquired about the wait list status at the [place], sports book writer sent the following email with their phone number: Renetta Loyola about the technology glitch this morning. Here is the phone number for the [place] [facility] as discussed: [phone] Thank you, Enrique Marshall had no further questions at the time of visit. PCSW placed CAT DIS request via encrypted email. PCSW to remain available. /bassem/ VINAY Wiley Primary Care Sample Hand Signed: 11/02/2023 10:52 ENRIQUE DREW [facility]
--- OUTSIDE RECORDS SUMMARY | 2023-11-07 15:49 | XMS_ITS | Encounter Summary ---
Author Name [facility] [facility] [place] [facility] [place] [facility] [place] Address [address] [place] [address] Care Team Providers Care Axle Polisher Name Role Phone MASSIEL NGUYEN Primary Care Provider Sam dean Insurance Providers: All historical and current Section [...] PART D Mar 01, 2010 PART D [id number] DAVINA RODAS PATIENT [facility] [place] [facility] (WNR) MEDICARE ADVANTAGE [facility] (WNR) Mar 01, 2019 [id number] [phone] ALLEN COLLAZODAVINA PATIENT [facility] [place] [facility] (WNR) MEDICARE ADVANTAGE [facility] (WNR) Mar 01, 2015 [facility] [id number] ALLEN COLLAZODAVINA PATIENT [facility] (WNR) MEDICARE ADVANTAGE [facility] (WNR) Mar 01, 2010 [facility] [id number] DAVINA RODAS PATIENT Selected Encounter This section includes the information on record at [place] for the Encounter. Date/Time Encounter Type Encounter Description Reason Provider Source Nov 18, 2022 01:30 PM OFFICE O/P EST MOD 30-39 MIN PRIMARY CARE/MEDICINE ICD-10-CM Z00.8 Encounter for other general examination KARI NGUYEN E Encounter Template Text not used by [facility] Assessments - Encounter Diagnoses This section includes the primary and secondary diagnoses documented for the Encounter. Date/Time Primary/Secondary Diagnosis Diagnosis Name Provider Source Nov 18, 2022 02:27 PM PRIMARY Encounter for other general examination KARI NGUYEN [facility] Nov 18, 2022 02:27 PM SECONDARY Alzheimer's disease, unspecified KARI NGUYEN [facility] Nov 18, 2022 02:27 PM SECONDARY Contact with and exposure to other hazardous substances [facility] Nov 18, 2022 02:27 PM SECONDARY Malignant neoplasm of parotid gland KARI NGUYEN [facility] Nov 18, 2022 02:27 PM SECONDARY Other specified hypothyroidism KARI NGUYEN [facility] Plan of Treatment: Future Appointments (+ 6 months) and Future Tests (+/- 45 days) The Plan of Treatment section includes future care activities for the patient from all [place] treatmentfacilities. This section includes future appointments and future orders which are active, pending or scheduled. Future Appointments This section includes appointments that were scheduled to occur 6 months from the date of the Encounter, up to a maximum of 20 appointments. The data comes from all [place] treatment facilities. Appointment Date/Time Appointment Type Appointme nt Facility Name Feb 08, 2023 07:00 AM AMBULATORY - NONE [facility] Lab Results: +/- 30 days of the encounter This section includes the Chemistry and Hematology Lab Results on record with [place] for the patient. Radiology Reports and Pathology Reports are provided separately, in subsequent sections. Lab Results This section contains the Chemistry/Hematology Results that were resulted 30 days before or 30 daysafter the date of the Encounter. Date/Time Source Result Type Result - Unit Interpretation Reference Range Comment Nov 18, 2022 02:25 PM [facility] B 12 Specimen Type: SERUM No comment entered. Ordering Provider: KARI NGUYEN Report Released Date/Time: Jan 14, 2022 08:41 AM Reporting Lab: [facility] [id number] Performing Lab: [facility] [id number] B 12 >2000 pg/mL H [id number] Nov 18, 2022 02:25 PM [facility] FOLATE Specimen Type: SERUM No comment entered. Ordering Provider: KARI NGUYEN Report Released Date/Time: Jan 14, 2022 08:41 AM Reporting Lab: [facility] [id number] Performing Lab: [place] [id number] FOLATE 8.6 ng/mL >7.0 Nov 18, 2022 02:25 PM [facility] CBC & DIFF Specimen Type: BLOOD Comment: Automated Differential Performed Ordering Provider: KARI NGUYEN Report Released Date/Time: Jan 14, 2022 08:41 AM Reporting Lab: [facility] [id number] Performing Lab: [facility] [phone] WBC 4.77 10*3/uL 4.0-11.0 RBC 3.06 10*6/uL [...] 10*3/uL 0-0.1 Nov 18, 2022 02:25 PM [facility] CBC & DIFF Specimen Type: BLOOD Comment: Automated Differential Performed Ordering Provider: KARI NGUYEN Report Released Date/Time: Nov 18, 2022 02:10 PM Reporting Lab: [facility] [id number] Performing Lab: [facility] [phone] WBC 4.72 10*3/uL 4.0-11.0 RBC 3.07 10*6/uL [...] 10*3/uL 0-0.1 Nov 18, 2022 02:25 PM [facility] TSH W/REFLEX TO FREE T4 Specimen Type: PLASMA No comment entered. Ordering Provider: KARI NGUYEN Report Released Date/Time: Nov 18, 2022 02:10 PM Reporting Lab: [facility] [id number] Performing Lab: [facility] [id number] TSH 1.85 u[IU]/mL 0.35-4.94 Nov 18, 2022 02:25 PM [facility] COMPREHENSIVE METABOLIC PANEL+MG Specimen Type: PLASMA Comment: Automated Differential Performed Ordering Provider: KARI NGUYEN Report Released Date/Time: Nov 18, 2022 02:10 PM Reporting Lab: [facility] [id number] Performing Lab: [facility] [phone] CREATININE 1.4 mg/dL H 0.7-1.2 UREA NITROGEN [...] and tobacco- related health factors from the [place] facility where the Encounter took place. Current Smoking Status This section includes the most current smoking, or tobacco-related health factor, from the [place] facility where the Encounter took place. Date/Time Current Smoking Status Comment Facil ity Nov 18, 2022 01:30 PM VA-TOBACCO FORMER USER [facility] Tobacco Use History This section includes a history of the smoking, or tobacco-related health factors, that were collected on or before the date of the Encounter. The data comes from the [place] facility where the Encounter took place. Date/Time Smoking Status/Tobacco Use Comment F acility Nov 18, 2022 01:30 PM VA-TOBACCO QUIT 15 YRS OR MORE [facility] Nov 17, 2021 10:00 AM VA-TOBACCO FORMER USER [facility] Nov 17, 2021 10:00 AM VA-TOBACCO QUIT 5 TO < 15 YRS [facility] Nov 14, 2020 10:00 AM VA-TOBACCO FORMER USER [facility] Nov 14, 2020 10:00 AM VA-TOBACCO QUIT 15 YRS OR MORE [facility] Oct 07, 2018 12:13 PM VA-TOBACCO FORMER USER [facility] Oct 07, 2018 12:13 PM VA-TOBACCO QUIT 15 YRS OR MORE [facility] Sep 29, 2017 02:26 PM FORMER TOBACCO USER 7Y OR GREATE R [facility] Nov 13, 2016 12:58 PM FORMER TOBACCO USER 7Y OR GREATE R [facility] Oct 16, 2015 05:00 AM FORMER TOBACCO USER 7Y OR GREATE R [facility] Oct 19, 2014 06:19 AM FORMER TOBACCO USER 7Y OR GREATE R [facility] Oct 11, 2013 01:36 PM FORMER TOBACCO USER 7Y OR GREATE R [facility] Advance Directives: All historical and current Section Date Range: From patient's date of to the date document was created. This section includes ALL of a patient's completed or amended VA Advance and Rescinded Directives. The entries below indicate that a directive exists for the patient, but an actual copy is not included with this document. The data comes from all [place] facilities. Date Advance Directives Provider Source Nov 27, 2021 ADVANCE DIRECTIVE SCARLETT HOPPER [facility] Nov 27, 2021 ADVANCE DIRECTIVE DISCUSSION ERNIE HOPPER [facility] Encounter Notes: All associated encounter notes This section contains the clinical notes associated to the Encounter. Date/Time Encounter Note(s) Provider Source Nov 19, 2022 09:45 AM LETTERS: LOCAL TITLE: FOLLOW UP RESULTS LETTER STANDARD TITLE: LETTERS DATE OF NOTE: NOV 19, 2022@09:45 ENTRY DATE: NOV 19, 2022@09:45:43 AUTHOR: MASSIEL NGUYEN COSIGNER: URGENCY: STATUS: COMPLETED [facility] [address] [place] [address] Oct DAVINA TORRESLAS STELLA [address] [facility] [address] Dear : I am writing to inform you of the results of testing that you had done recently at the [facility]. - Complete Blood Count (red/white blood [...] If you would like to see a constitutional law professor ( blood specialist) about this we can arange that. Please let my nurse know if you are intrested. yor creatiine is little higher than it has been . You should drink more flis every day to bring it down. Everything else looks good. If you have any further questions or problems, please contact our nursing staff or provider at the following number: [phone]. Sincerely, MASSIEL NGUYEN PHYSICIAN [facility] Nov 18, 2022 02:27 PM MEDICATION MGT [...] STATUS: COMPLETED Annual visit Non VA Providers: [facility] Chief complaint: Patient is here for a routine annual visit. HPI:Since we last saw patient hs has completed his work up at [facility] and was diagnosed with alzheimers. keeps him active and i in charge of his medication. Right now they have not had too many issues at home but woudl like to speak with the social service assistant. 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 He had the cancer many years aago and it was treated at [place]. So I suggested the speak with the [...] 11/18/2022 Health/Medical Questions - Toxic Exposure Concern [place]/care[place] has health or medical concerns related to their concern of environmental exposure. 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 OF SERVICE: [employer] [place] [employer]% [place] [employer] OF FOOT [...] Pharma* 3 11/22/2020 [employer]* 2 05/04/2020 [facility] 1 04/10/2020 [facility] COVID-19 (PFIZER), MRNA, LNP-S, P* 06/21/2021 [facility] [facility] INFLUENZA, HIGH DOSE SEASONAL 11/29/2018 [facility] [facility] 11/25/2016 [facility] [facility] 11/26/2015 [facility] [facility] 12/04/2014 [facility] [facility] INFLUENZA, INJECTABLE, QUADRIVALE* 11/14/2020 [facility]* INFLUENZA, RECOMBINANT, QUADRIVAL* 12/05/2019 [facility] [facility] INFLUENZA, SEASONAL, INJECTABLE 12/03/2013 [facility] [facility] [place] 11/14/2008 [facility] [facility] INFLUENZA, UNSPECIFIED FORMULATIO* 11/14/2021 [employer]* [facility]* PNEUMOCOCCAL CONJUGATE PCV 13 10/19/2014 [facility]* <C> 07/24/2014 [facility] [facility] PNEUMOCOCCAL POLYSACCHARIDE [...] 18, 2022 01:46 PM PRIMARY CARE NURSI MARTHA NOTE: LOCAL TITLE: [facility] NURSING PROGRESS NOTE [...] treatment. 2. Complete a durable power of custodial aide for health care. 3. Complete a living will. ADVANCE DIRECTIVE SCREENING: Does patient have an Advance Directive? The patient has an Advance Directive. Does the patient wish to make any changes or revoke their current Advance Directive? No changes requested at this time. Toxic Exposure Screening: The [place]/caregiver was asked if they believe the experienced any toxic exposure(s), such as Airborne Hazards and Open [place], [place] War related exposures, Agent [place], Radiation, contaminated water at [place] or other such exposures, while serving in the [employer]. [place]/caregiver believes the was exposed to the following while serving in the [employer]: [place] contaminated water exposure: [place]/caregiver was made aware of educational resources that includes information on presumptive conditions and how to file a claim. Printed information was offered and provided if desired. Health/Medical Questions All patients who report a health/medical concern will receive follow-up from a clinician. For urgent or emergent concerns, they were advised to follow local facility policy. Contact information for local resources: - [employer] for claims submission: Have the call or have them visit the following web address for online scheduling: [email or web address] - [place] Healthcare Enrollment: [phone] ([phone]) - Find a [place] Coil Wrapper (VSO): Have the call [phone] or look up their VSO at: [email or web address] - [facility] Navigators: Dr. Logan Saez: [phone] Dr. Cj De La Garza: [phone] Toxic Exposure Screening Follow-Up reminder is needed. Name of person notified: pact pcp Suicide Screen: C-SSRS Screening [place] Suicide Severity Rating Scale (C-SSRS) screener 1. [...] ulcers, or a wound from a medical csr or Patient is bed-confined or a wheelchair-user or Patient requires assistance to transfer/change position No, Skin Screen is Negative Home Abuse/Violence Screen Is your home free of abuse and violence? Yes MOVE! Program Screen Body Mass Index (BMI)= 23.2 [place]: Collection DT Specimen Test Name Result Units Ref Range 11/14/2020 10:59 BLOOD HEMOGLOBIN A1C 5.2 % 4.0 - 6.0 [place] Hgb A1C: No data available [place] Hgb A1C: No data available Point of Care Hgb A1C: POC HGB A1C____ Outpatient Nutrition Screen Body Mass Index (BMI)= 23.2 [place]: Collection DT Specimen Test Name Result Units Ref Range 11/14/2020 10:59 BLOOD HEMOGLOBIN A1C 5.2 % 4.0 - 6.0 [place] Hgb A1C: No data available [place] Hgb A1C: No data available Point of [...] wait on Flu at this time per /es/ MURTAZA ROPER LPN [facility] Signed: 11/18/2022 16:01 TYLER HUERTA [facility]
[2023-11-07 16:20] LABS: Appearance Urine Cloudy (Clear); Bilirubin Urine 3+ (Negative); Blood Urine 3+ (Negative); Color Urine Brown (Yellow); Glucose Urine Negative (Negative); Ketones Urine 1+ (Negative); Leukocyte Esterase Urine 3+ (Negative); Nitrite Urine Positive (Negative); Protein Urine 3+ (Negative); Specific Gravity Urine 1.025 (1.000-1.030)
[2023-11-07 16:37] LABS: Bacteria Urine Moderate; RBC Urine >100 (0-2); Squamous Epithelial Cell Urine Few (None-Few); WBC Urine >100 (0-5)
== END 2023-11-07 15:40 | disposition home or self-care (01) ==
LOC: NPINS 15:39
PROVIDERS: PCP Internal Medicine; Visit Provider Nurse Practitioner Gerontology
DX: R31.9 Hematuria, unspecified (principal)
CPT/HCPCS: 81001; 87086; 87186

== ENCOUNTER 2023-11-18 21:26 | Outpatient (CLI) | payer MEDICARE, SELFPAY ==
--- OUTSIDE RECORDS SUMMARY | 2023-11-21 07:31 | XMS_ITS | Encounter Summary ---
Author Organization [facility] Address [address] [address] Phone Care Team Providers Care Campground Cleaning Attendant Name Role Phone Pérez Villafuerte MD Primary Care Provider [phone] Leida Rooney RN Unavailable [phone] Encounter Details Date Type Department Care Team [...] on filedocumented in this encounter Care Teams Campground Cleaning Attendant Relationship Specialty Start Date End Date Pé[place] [address] [place] [phone] PCP - General 07/30/10 03/07/15 Leida Rooney, RN Nonprofit Fundraiser 08/06/11 06/16/15 documented as of this encounter
--- OUTSIDE RECORDS SUMMARY | 2023-11-21 07:31 | XMS_ITS | Clinical Summary ---
Author Organization [facility] Address [address] [address] Phone Care Team Providers Care Solar Sales Specialist Name Role Phone Unavailable Primary Care Provider [...] Overview: Per 07/02/[address] Block. [id number] Anemia 08/04/2010 Seborrheic keratosis 08/04/2010 Hypothyroidism Resolved [...] M DC Site MRN: Patient Loc/Room #: [facility]/ Provider: Jam Puckett MD, Gastroenterology GI PROCEDURE SITE: [facility] ORDERED BY: COLONOSCOPY DATE OF [...] andrecommendations via letter. Jam Puckett MD [facility] Gastroenterology cc: Pérez Villafuerte MD /CASI Job ID: [id number] /nichol/kendall(ord) Document ID: [id number] A: 09/21/2012 miguel(add) Jam Puckett MD EC PROCEDURES from Last 3 Months or Most Recently Relevant to Health Maintenance
== END 2023-11-18 21:27 | disposition home or self-care (01) ==
LOC: AMB 11-21 07:29
PROVIDERS: PCP Internal Medicine; Visit Provider Family Medicine
DX: R41.82 Altered mental status, unspecified (principal); R00.1 Bradycardia, unspecified
CPT/HCPCS: A0425; A0427

== ENCOUNTER 2023-11-18 21:43 | Emergency (ER) | payer MEDICARE, SELFPAY ==
[2023-11-18 21:55] VITALS: BP 122/74; PULSE 47; RESP 16; TEMP 36.4; O2SAT 93
--- NOTE | 2023-11-18 22:08 | ED_ITS ---
HPI - Arrhythmia/Palpitations General Chief Complaint: Arrhythmia/Palpitations Stated Complaint: slow heart rate Time Seen by Provider: 11/18/23 21:56 History of Present Illness HPI narrative: Patient is a 78-year-old gentleman with a history of bradycardia who happens to my clinic patient prior to his developing dementia and being placed at assisted living who presents with a pulse of roughly 50. Patient is otherwise asymptomatic. His blood pressure was low by reports at the assisted living but now is normal. Patient states he feels fine has no chest pain shortness a breath orthopnea no PND. His who is also my patient is present and is stating that Myke looks like his normal self. We did have a nice visit and Myke's been coping well with moving to assisted living for his dementia. They wished no aggressive treatment done andfeel like he is in his normal state of h ealth currently. Related Data Home Medications ?Medication ?Instructions ?Recorded ?Confirmed acetaminophen 325 mg tablet 650 mg PO QID 06/09/23 10/21/23 albuterol sulfate 90 mcg/actuation 2 inh inhalation Q6H PRN 06/09/23 10/21/23 aerosol inhaler cyanocobalamin (vitamin B-12) 500 1,000 mcg PO DAILY 06/09/23 10/21/23 mcg tablet (Vitamin B-12) olanzapine 5 mg disintegrating 5 mg PO HS 06/09/23 10/21/23 tablet sennosides 8.6 mg tablet (senna) 8.6 mg PO BID PRN 06/09/23 10/21/23 lidocaine 4 % topical patch patch topical 10/21/23 Previous Rx's ?Medication ?Instructions ?Recorded sertraline 100 mg tablet 100 mg PO DAILY #30 tabs 05/06/23 trazodone 50 mg tablet 25 mg (1/2 x 50 mg) PO HS PRN 05/06/23 insomnia #30 tabs levofloxacin 500 mg tablet 500 mg PO Q24H #7 tabs 06/11/23 levothyroxine 75 mcg tablet See Rx Instructions .Route 09/15/23 .COMPLEX #90 tabs Allergies Allergy/AdvReac Type Severity Reaction Status Date / Time No Known Drug Allergies Allergy Verified 10/21/23 16:59 Review of Systems Status of ROS: Reports: 10 or more systems reviewed and unremarkable except as noted in History and below PFSH PFSH Medical History COPD (chronic obstructive pulmonary disease) ?J44.9 - Chronic obstructive pulmonary disease, unspecified (ICD-10) Fall ?W19.XXXA - Unspecified fall, initial encounter (ICD-10) Anemia ?D64.9 - Anemia, unspecified (ICD-10) Alzheimer disease ?G30.9 - Alzheimer's disease, unspecified (ICD-10) ?F02.80 - Dementia in other diseases classified elsewhere, unspecified severity, without behavioral disturbance, psychotic disturbance, mood disturbance, and anxiety (ICD-10) Dysphagia ?R13.10 - Dysphagia, unspecified (ICD-10) Actinic keratosis ?L57.0 - Actinic keratosis (ICD-10) Asthma ?J45.909 - Unspecified asthma, uncomplicated (ICD-10) Anxiety ?F41.9 - Anxiety disorder, unspecified (ICD-10) Macrocytosis ?D75.89 - Other specified diseases of blood and blood-forming organs (ICD-10) Hearing loss ?H91.90 - Unspecified hearing loss, unspecified ear (ICD-10) 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 - Personal history of malignant neoplasm of other sites of lip, oral cavity, and pharynx (ICD-10) Hypothyroidism ?E03.9 - Hypothyroidism, unspecified (ICD-10) Health care directive on file (08/08/20) ?Z78.9 - Other specified health status (ICD-10) Surgical History Status post-operative repair of hip fracture (05/04/23) ?Z98.890 - Other specified postprocedural states (ICD-10) ?Z87.81 - Personal history of (healed) traumatic fracture (ICD-10) History of parotid gland removal ?Z90.49 - Acquired absence of other specified parts of digestive tract (ICD- 10) History of cataract surgery ?Z98.49 - Cataract extraction status, unspecified eye (ICD-10) Social History Narrative: Moved to [facility] in January 2023. 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 He later worked in [employer]. He smoked less than a pack a day for 30 or 40 years, having quit 20 years ago. He quit alcohol altogether in 1979. His family would like him to be full code for the purpose of this hospital stay, and are considering DNR DNI after that. What is your current living situation?: I presently have a place to live Problems where you live: no known problems Problems where you live details: pt lives at [facility] in [place] In the past 12 months, utilities in danger of being shut off: no In past 12 months, lack of transportation kept you from medical appts, meetings, work, or getting things needed for daily living: no In the past 12 mos, have been you worried that your food would run out before you had money to buy more?: never true In the past 12 mos, the food you bought just didn't last and you didn't have money to buy more?: never true Smoking Status: Former smoker Do you use any of these nicotine containing products: None Nicotine containing products detail: unknown How often do you have a drink containing alcohol: never How often do you have six or more drinks on one occasion: Never AUDIT-C Alcohol total score: 0 Non-prescribed substance use: denies use How often does anyone, including family, friends and others, physically hurt you : never How often does anyone, including family, friends and others, insult or talk down to you: never How often does anyone, including family, friends and others, threaten you with harm: never How often does anyone, including family, friends and others, scream or curse at you: never Little interest or pleasure in doing things: more than half the days Feeling down, depressed, or hopeless: more than half the days Exam Narrative: Exam Narrative: EXAM GENERAL: Patient appears comfortable and well. EYES: No scleral icterus. LYMPH: No supraclavicular or cervical lymphadenopathy. SKIN: Visible skin seen during exam normal or with benign process only. EXT: No dependent lower extremity pedal edema. HEART: Regular rate and rhythm with no murmurs, rubs, or gallops. LUNGS: Clear to auscultation bilaterally with no crackles or wheezes. ABD: Soft, non tender, non distended. PSYCH: Good eye contact, speech is not pressured. Const: Vital Signs, click to edit/add: Vital Signs - 24 hr 11/18/23 21:55 Temperature 97.6 F Pulse Rate [Pulse Oximeter] 47 L Respiratory Rate 16 Blood Pressure [Ri ght Upper Arm] 122/74 Pulse Oximetry 93 Oxygen Delivery Me thod Room Air Course Course ED Course: Patient is resting comfortably. Will obtain basic labs and watch him on telemetry. Vital Signs Vital signs: Initial Vital Signs Temperature 97.6 F 11/18/23 21:55 Temperature Source Temporal Artery Scan 11/18/23 21:55 Pulse Rate 47 L 11/18/23 21:55 Respiratory Rate 16 11/18/23 21:55 Blood Pressure 122/74 11/18/23 21:55 Blood Pressure Mean 90 11/18/23 21:55 Blood Pressure Position Supine 11/18/23 21:55 Pulse Oximetry 93 11/18/23 21:55 Oxygen Delivery Method Room Air 11/18/23 21:55 Vital Signs Temperature 97.6 F 11/18/23 21:55 Pulse Rate 47 L 11/18/23 21:55 Respiratory Rate 16 11/18/23 21:55 Blood Pressure 122/74 11/18/23 21:55 Pulse Oximetry 93 11/18/23 21:55 Oxygen Delivery Method Room Air 11/18/23 21:55 Temperature 97.6 F 11/18/23 21:55 Pulse Rate 47 L 11/18/23 21:55 Respiratory Rate 16 11/18/23 21:55 Blood Pressure 122/74 11/18/23 21:55 Pulse Oximetry 93 11/18/23 21:55 Oxygen Delivery Method Room Air 11/18/23 21:55 MDM - Arrhythmia/Palpitations MDM Narrative Medical decision making narrative: Patient is an 78-year-old gentleman who was noted to be bradycardic tonight at the assisted living. He is currently being treated with Bactrim for UTI and that seems to be going well. Patient is otherwise asymptomatic. He did try to explain that his blood pressure is often low. He is brought in by ambulance where his pulse is 50 which is fairly typical for him EKG shows sinus bradycardia. Labs are reassuring although does have chronic anemia. I did inform his of the anemia and they do need to follow-up with their [place] [facility] provider. I believe there is any further intervention that needs to be done tonight. Lab Data Labs: Lab Results 11/18/23 Range/Units 22:08 WBC 4.01 L (4.50-11.00) K/uL RBC 2.78 L (4.30-5.90) m/uL Hgb 9.3 L (13.5-17.5) gm/dL Hct 30.4 L (37.0-53.0) % MCV 109 H (80-100) fL MCH 34 (26-34) pg MCHC 31 L (32-36) gm/dL RDW Coeff of Anthony 15.2 (11.5-15.5) % Plt Count 158 (140-440) K/uL Neut % (Auto) 68.1 (42.0-72.0) % Lymph % (Auto) 14.5 L (20-44) % Sac % (Auto) 11.0 (0.0-11.0) % Eos % (Auto) 2.5 (0.0-7.0) % Baso % (Auto) 1.2 (0.0-3.0) % Neut # (Auto) 2.70 (1.7-7.0) K/uL Lymph # (Auto) 0.60 L (0.90-2.90) K/uL Sac # (Auto) 0.40 (0.00-0.90) K/UL Eos # (Auto) 0.10 (0.00-0.50) K/uL Baso # (Auto) 0.00 (0.00-0.30) K/uL Abs Immat Gran (auto) 0.10 (0.00-0.30) K/uL Imm/Tot Granulo (auto) 2.7 % Sodium 136 (135-149) mmol/L Potassium 4.4 (3.6-5.1) mmol/L Chloride 101 (96-114) mmol/L Carbon Dioxide 29 (20-32) mmol/L Anion Gap 6 L (7-15) mEq/L BUN 24 (7-30) mg/dL Creatinine 1.2 (0.5-1.5) mg/dL Estimated GFR 61 ml/min Glucose 78 (60-115) mg/dL Calcium 9.1 (8.4-10.6) mg/dL Troponin I < 0.01 L (0.01-0.04) ng/mL Discharge Plan Discharge Clinical Impression: Bradycardia Patient Disposition: Home w/ Parent or Adult Condition: Stable Instructions: Bradycardia (ED) Additional Instructions: No changes to chronic medical management. Please inform your recommending provider that her hemoglobin is 9. Keep outpatient appointments. Activity Level: No Restrictions Discharge Diet: Regular Prescriptions: No Action olanzapine 5 mg tablet,disintegrating 5 mg PO HS acetaminophen 325 mg tablet 650 mg PO QID albuterol sulfate 90 mcg/actuation HFA aerosol inhaler 2 inh inhalation Q6H PRN Patient Comments: PT JUST KEEPS ON HAND - HAS NOT USED cyanocobalamin (vitamin B-12) [Vitamin B-12] 500 mcg tablet 1,000 mcg PO DAILY sennosides [senna] 8.6 mg tablet 8.6 mg PO BID PRN levofloxacin 500 mg Tablet 500 mg PO Q24H Qty: 7 0RF trazodone 50 mg Tablet 25 mg PO HS PRN (Reason: insomnia) Qty: 30 0RF Patient Comments: IF NEEDED FOR SLEEP/ANXIETY sertraline 100 mg Tablet 100 mg PO DAILY Qty: 30 0RF lidocaine 4 % adhesive patch,medicated TOPICAL Patient Comments: PLEASE SEE ATTACHED FOR DETAILED DIRECTIONS levothyroxine 75 mcg tablet See Rx Instructions .ROUTE .COMPLEX Qty: 90 0RF Dose Instruction: TAKE 1 TABLET BY MOUTH EVERY DAY Rx Instructions: TAKE 1 TABLET BY MOUTH EVERY DAY Follow Up/Referrals: Ed Blair MD [Primary Care Provider] - Stand Alone Forms: [employer] Info Instructions
[2023-11-18 22:11] LABS: Basophils Percent Auto 1.2 % (0.0-3.0); Eosinophils Percent Auto 2.5 % (0.0-7.0); Hematocrit 30.4 % (37.0-53.0); Hemoglobin* 9.3 gm/dL (13.5-17.5); Immature Granulocytes Pct Auto 2.7 %; Lymphocytes Percent Auto 14.5 % (20-44); Mean Corpuscular HGB Conc 31 gm/dL (32-36); Mean Corpuscular Hemoglobin 34 pg (26-34); Mean Corpuscular Volume 109 fL (80-100); Neutrophils Percent Auto 68.1 % (42.0-72.0); Platelet Count* 158 K/uL (140-440); RDW Coefficient of Variation % 15.2 % (11.5-15.5); Red Blood Count 2.78 m/uL (4.30-5.90); White Blood Count* 4.01 K/uL (4.50-11.00)
[2023-11-18 22:13] LABS: Slide Review Reflex No
[2023-11-18 22:26] LABS: Chloride* 101 mmol/L (96-114); Potassium* 4.4 mmol/L (3.6-5.1); Sodium* 136 mmol/L (135-149)
[2023-11-18 22:29] LABS: Anion Gap 6 mEq/L (7-15); Blood Urea Nitrogen* 24 mg/dL (7-30); Carbon Dioxide* 29 mmol/L (20-32); Creatinine* 1.2 mg/dL (0.5-1.5); Estimated Glomerular Filt Rate 61 ml/min; Glucose* 78 mg/dL (60-115)
[2023-11-18 22:30] LABS: Calcium* 9.1 mg/dL (8.4-10.6)
--- OUTSIDE RECORDS SUMMARY | 2023-11-18 22:32 | XMS_ITS | Continuity of Care Document ---
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 It does not include entries that were removed or entered in error. Problem Status Onset Date Problem Type Date of Resolution Comments Source Exposure to potentially hazardous substance ([facility] [id number]) Active 05/07/19 24 Condition May 07, 2023 Entered By: ABHILASH PETER [facility]: [facility] Documentation Initiative [facility] Acquired hypothyroidism Active Condition [facility] Anxiety Active Condition [facility] Bilateral metatarsalgia Active Condition [facility] Carcinoma of parotid gland Active Condition [facility] Chronic obstructive lung disease Active Condition [facility] Chronic Obstructive Pulmonary Disease Active Condition Oct 05 08 Entered By: ISIDRA BYERS Comment: FEV1(L) % PRED= 88, FEV1/FVC% ACTUAL= 60 [facility] Chronic pain of left foot Active Condition [facility] Congestion of nasal sinus Active Condition [facility] Edema Active Condition Feb 14 08 Entered By: ISIDRA BYERS Comment: ideopathic-nml full w/u 2007 . [facility] Enthesopathy of left foot Active Condition [facility] Health maintenance alteration Active Condition [facility] Hypothyroidism * (ICD-9-CM 244.9) Active Condition [facility] Keratosis, seborrheic Active Condition [facility] Osteoarthritis of ankle Active Condition [facility] Osteopenia * (ICD-9-CM 733.90) Active Condition [facility] Paraesthesia of foot Active Condition [facility] Personal History of Colonic Polyps (ICD-9-CM V12.72) Active Condition Oct 01 09 Entered By: ISIDRA BYERS Comment: scope 2008 nml-due 2012 [facility] Postsurgical Status of Cataract Extraction Active Condition [facility] Presbyopia Active Condition [facility] Primary degenerative dementia of the Alzheimer type, senile onset, with delusion Active Condition [facility] Rhinitis * (ICD-9-CM 472.0) Active Condition [facility] salivary cancer Active Condition Sep 27, 2007 Entered By: ISIDRA BYERS Comment: radical neck + radiation [facility] SENSORNEUR HEARING LOSS NOS Active Condition [facility] Wheezing Active Condition [facility] Tobacco Use Disorder * (ICD-9-CM 305.1) Inactive Condition 09/27/2007 [facility] Diagnosis: ICD-10-CM Z00.8 Encounter for other general examination Active Diagnosis [facility] Diagnosis: ICD-10-CM R53.1 Weakness Active Diagnosis [facility] Medications Combined list of outpatient medications from [...] Oct 20, 2023 300 Oct 20, 2024 [id number] Oct 20, 2023 [facility] ORAL ACTIVE 10/20/2024 [id number] [facility] 2023 300 [facility] ASPIRIN TAB,EC ASPIRIN TAB,EC Non-VA TAKE BY MOUTH Oct 22, 2004 Non-VA Document ed by: Luis Fernando MARCUS Document ed at: [facility] ORAL ACTIVE SHEN SHRESTHA 2004 [facility] CYANOCOBALA MIN 1000MCG TAB CYANOCOB ALAMIN 1000MCG TAB Active TAKE ONE TABLET BY MOUTH EVERY DAY FOR VITAMIN B12, FOR RED BLOOD CELLS Nov 18, 2022 100 Nov 19, 2023 [id number] Nov 19, 2022 [facility] ORAL ACTIVE 11/19/2023 [id number] [facility] 2022 100 [facility] GUAIFENESIN TAB GUAIFENE SIN TAB Non-VA TAKE 600MG DM BY MOUTH DAILY Sep 07, 2012 Non-VA Document ed by: ISIDRA BYERS Document ed at: [facility] ORAL ACTIVE Giovanni BYERS 2012 [facility] LEVOTHYROXI NE NA 75MCG TAB (SYNTHROID) LEVOTHYR OXINE NA 75MCG TAB (SYNTHRO ID) Active TAKE ONE TABLET BY MOUTH EVERY DAY FOR THYROID FOR THYROID Oct 20, 2023 90 Oct 20, 2024 [id number] Oct 20, 2023 [facility] ORAL ACTIVE 10/20/2024 [id number] [facility] 2023 90 [facility] LEVOTHYROXI NE NA 75MCG TAB (SYNTHROID) LEVOTHYR OXINE NA 75MCG TAB (SYNTHRO ID) Non-VA TAKE ONE TABLET BY MOUTH Sep 19, 2012 Non-VA Document ed by: ISIDRA BYERS Document ed at: [facility] ORAL ACTIVE Giovanni BYERS 2012 [facility] LORAZEPAM 0.5MG TAB LORAZEPA M 0.5MG TAB Non-VA TAKE ONE TABLET BY MOUTH PRN Sep 29, 2007 Non-VA Document ed by: ISIDRA BYERS Document ed at: [facility] ORAL ACTIVE Giovanni BYERS 2007 [facility] MULTIVITAMI N/MINERALS SENIOR FORMULA TAB MULTIVIT BARTON/MIN ERALS SENIOR FORMULA TAB Non-VA TAKE ONE TABLET BY MOUTH Oct 22, 2004 Non-VA Document ed by: Luis Fernando MARCUS Document ed at: [facility] ORAL ACTIVE SHEN SHRESTHA 2004 [facility] OLANZAPINE 2.5MG TAB OLANZAPI NE 2.5MG TAB Active TAKE ONE AND ONE-HALF TABLETS (3.75MG) BY MOUTH TWICE A DAY AND TAKE ONE TABLET THREE TIMES A DAY NEEDED FOR AGITATIO N FOR AGITATIO N Oct 20, 2023 180 Oct 20, 2024 [id number] Nov 09, 2023 [facility] ORAL ACTIVE 10/20/2024 [id number] [facility] 2023 180 [facility] OLANZAPINE 2.5MG TAB OLANZAPI NE 2.5MG TAB Disconti nued TAKE ONE TABLET BY MOUTH THREE TIMES A DAY NEEDED FOR AGITATIO N FOR AGITATIO N Oct 20, 2023 90 Oct 20, 2024 [id number] Oct 20, 2023 [facility] ORAL DISCONT INUED 10/20/2024 [id number] MASSI[facility] 2023 90 [facility] SENNOSIDES 8.6MG TAB SENNOSID ES 8.6MG TAB Active TAKE ONE TABLET BY MOUTH TWICE A DAY FOR CONSTIPA TION FOR CONSTIPA TION Oct 20, 2023 200 Oct 20, 2024 [id number] Oct 20, 2023 [facility] ORAL ACTIVE 10/20/2024 [id number] MASSI[facility] N[facility] 2023 200 [facility] SERTRALINE HCL 100MG TAB SERTRALI NE HCL 100MG TAB Active TAKE ONE TABLET BY MOUTH EVERY DAY FOR ANXIETY FOR ANXIETY Oct 20, 2023 90 Oct 20, 2024 [id number] Oct 20, 2023 [facility] ORAL ACTIVE 10/20/2024 [id number] [facility] 2023 90 [facility] Immunizations Combined list of available immunizations from the Department of Defense and Veterans Affairs facilities. 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 Status Comments Source RSV, RECOMBINANT, PROTEIN SUBUNIT RSVPREF, ADJUVANT RECONSTITUTED , 0.5 ML, PF 2022 303 complet ed [facility] COVID-19 (PFIZER), MRNA, LNP-S, PF, SHANTELL-SUCROSE, 30 MCG/0.3 ML (AGES 12+ YEARS) 2022 309 complet ed [facility] INFLUENZA, HIGH-DOSE, QUADRIVALENT, PF 2022 197 complet ed [facility] TDAP 2022 115 complet ed [facility] COVID-19, MRNA, LNP-S, BIVALENT BOOSTER, PF, 30 MCG/0.3 ML DOSE 1 2021 300 complet ed [facility] INFLUENZA, UNSPECIFIED FORMULATION 2021 88 complet [facility] COVID-19 (PFIZER), MRNA, LNP-S, PF, 30 MCG/0.3 ML DOSE 2 2021 208 complet ed [facility] COVID-19 (PFIZER), MRNA, LNP-S, PF, 30 MCG/0.3 ML DOSE, SHANTELL-SUCROSE (AGES 12+ YEARS) 2021 217 complet [facility] ZOSTER RECOMBINANT [address] [facility] ZOSTER RECOMBINANT 1 [address] [facility] COVID-19 (PFIZER), MRNA, LNP-S, PF, 30 MCG/0.3 ML DOSE 3 2020 208 complet ed [facility] INFLUENZA, INJECTABLE, QUADRIVALENT, PRESERVATIVE FREE 2020 150 complet ed [facility] COVID-19 (PFIZER), MRNA, LNP-S, PF, 30 MCG/0.3 ML DOSE 2 2020 208 complet [facility] COVID-19 (PFIZER), MRNA, LNP-S, PF, 30 MCG/0.3 ML DOSE 1 2020 208 complet [facility] INFLUENZA, RECOMBINANT, QUADRIVALENT, INJECTABLE, PRESERVATIVE FREE 2019 185 complet ed [facility] INFLUENZA, HIGH DOSE SEASONAL 2018 135 complet ed [facility] INFLUENZA, HIGH DOSE SEASONAL 2016 135 complet ed [facility] INFLUENZA, HIGH DOSE SEASONAL 2015 135 complet ed [facility] INFLUENZA, HIGH DOSE SEASONAL 2014 135 complet [facility] PNEUMOCOCCAL CONJUGATE PCV 13 2014 133 complet ed [employer] Lot# [id number] Exp 03/2016 [facility] PNEUMOCOCCAL CONJUGATE PCV 13 2014 133 complet ed [facility] INFLUENZA, SEASONAL, INJECTABLE 2013 141 complet ed [facility] INFLUENZA, SEASONAL, INJECTABLE 2013 141 complet ed [facility] TDAP 2012 115 complet ed [facility] INFLUENZA, UNSPECIFIED FORMULATION 2012 88 complet ed [facility] ZOSTER LIVE 2012 121 complet ed [facility] PNEUMOCOCCAL POLYSACCHARID E PPV23 2012 33 complet ed [facility] PNEUMOCOCCAL, UNSPECIFIED FORMULATION 2012 109 complet ed [facility] ZOSTER LIVE 2012 121 complet ed [facility] INFLUENZA, UNSPECIFIED FORMULATION 2011 88 complet ed [facility] ZOSTER LIVE 2011 121 complet ed [employer] #[id number] exp 05-13-12 [facility] PNEUMOCOCCAL POLYSACCHARID E PPV23 2011 33 complet ed [facility] TDAP 2011 115 complet ed [facility] TDAP 2010 115 complet ed [facility] PNEUMOCOCCAL POLYSACCHARID E PPV23 2009 33 complet ed [facility] NOVEL INFLUENZA-H1N 1-09, ALL FORMULATIONS 2008 128 complet ed [employer] [facility] INFLUENZA (HISTORICAL) 2008 88 complet ed [facility] INFLUENZA, SEASONAL, INJECTABLE 2008 141 complet ed [facility] INFLUENZA, UNSPECIFIED FORMULATION 2007 88 complet ed [employer], Lot #[id number], exp 2008 [facility] [facility] INFLUENZA, UNSPECIFIED FORMULATION 2006 88 complet ed lot# [id number] exp 08/29/07 [employer] [facility] INFLUENZA, UNSPECIFIED FORMULATION 2006 88 complet ed [facility] INFLUENZA, UNSPECIFIED FORMULATION 2005 88 complet ed [facility] PNEUMOCOCCAL POLYSACCHARID E PPV23 2005 33 complet ed [facility] INFLUENZA, UNSPECIFIED FORMULATION 2004 88 complet ed [employer] [id number] [facility] PNEUMOCOCCAL, UNSPECIFIED FORMULATION 2004 109 complet ed [facility] TD(ADULT) UNSPECIFIED FORMULATION 2004 139 complet ed [facility] INFLUENZA, UNSPECIFIED FORMULATION 2003 88 complet ed [facility] INFLUENZA, UNSPECIFIED FORMULATION 2003 88 complet ed [facility] Results Combined list of recent chemistry, hematology [...] Jan 14, 2022 08:41 AM Reporting Lab: [facility] [phone] Performing Lab: [facility] [address] [facility] FOLATE FOLATE [MASS/VOLU ME] IN SERUM OR PLASMA 8.6 ng/mL 7.0 11/18 Specimen Type: SERUM No comment entered. Ordering Provider: KEELY NGUYEN Report Released Date/Time: Jan 14, 2022 08:41 AM Reporting Lab: [facility] [address] Performing Lab: [facility] [address] [facility] CBC & DIFF LEUKOCYTES [#/VOLUME] IN BLOOD BY AUTOMATED COUNT 4.77 10*3/uL 4.0 - 11.0 11/18 Specimen Type: BLOOD Comment: Automated Differentia l Performed Ordering Provider: KEELY NGUYEN Report Released Date/Time: Jan 14, 2022 08:41 AM Reporting Lab: [facility] [address] Performing Lab: [facility] [address] [facility] CBC & DIFF ERYTHROCYT ES [#/VOLUME] IN BLOOD BY AUTOMATED COUNT 3.06 10*6/uL 4.6 - 6.2 11/18 L Specimen Type: BLOOD Comment: Automated Differentia l Performed Ordering Provider: KEELY NGUYEN Report Released Date/Time: Jan 14, 2022 08:41 AM Reporting Lab: [facility] [address] Performing Lab: [facility] [address] [facility] CBC & DIFF HEMOGLOBIN [MASS/VOLU ME] IN BLOOD 10.5 g/dL 13.5 - 17.9 11/18 L Specimen Type: BLOOD Comment: Automated Differentia l Performed Ordering Provider: KEELY NGUYEN Report Released Date/Time: Jan 14, 2022 08:41 AM Reporting Lab: [facility] [address] Performing Lab: [facility] [address] [facility] CBC & DIFF HEMATOCRIT [VOLUME FRACTION] OF BLOOD BY AUTOMATED COUNT 33.3 41 - 54 11/18 L Specimen Type: BLOOD Comment: Automated Differentia l Performed Ordering Provider: KEELY NGUYEN Report Released Date/Time: Jan 14, 2022 08:41 AM Reporting Lab: [facility] [address] Performing Lab: [facility] [address] [facility] CBC & DIFF MCV [ENTITIC VOLUME] BY AUTOMATED COUNT 108.8 fL 80 - 100 11/18 H Specimen Type: BLOOD Comment: Automated Differentia l Performed Ordering Provider: KEELY NGUYEN Report Released Date/Time: Jan 14, 2022 08:41 AM Reporting Lab: [facility] [address] Performing Lab: [facility] [address] [facility] CBC & DIFF MCH [ENTITIC MASS] BY AUTOMATED COUNT 34.3 pg 27 - 33 11/18 H Specimen Type: BLOOD Comment: Automated Differentia l Performed Ordering Provider: KEELY NGUYEN Report Released Date/Time: Jan 14, 2022 08:41 AM Reporting Lab: [facility] [address] Performing Lab: [facility] [address] [facility] CBC & DIFF MCHC [MASS/VOLU ME] BY AUTOMATED COUNT 31.5 g/dL 32.0 - 37.5 11/18 L Specimen Type: BLOOD Comment: Automated Differentia l Performed Ordering Provider: KEELY NGUYEN Report Released Date/Time: Jan 14, 2022 08:41 AM Reporting Lab: [facility] [address] Performing Lab: [facility] [address] [facility] CBC & DIFF PLATELETS [#/VOLUME] IN BLOOD BY AUTOMATED COUNT 134 10*3/uL 150 - 400 11/18 L Specimen Type: BLOOD Comment: Automated Differentia l Performed Ordering Provider: KEELY NGUYEN Report Released Date/Time: Jan 14, 2022 08:41 AM Reporting Lab: [facility] [address] Performing Lab: [facility] [address] [facility] CBC & DIFF PLATELET MEAN VOLUME [ENTITIC VOLUME] IN BLOOD BY AUTOMATED COUNT 10.5 fL 7.4 - 10.4 11/18 H Specimen Type: BLOOD Comment: Automated Differentia l Performed Ordering Provider: KEELY NGUYEN Report Released Date/Time: Jan 14, 2022 08:41 AM Reporting Lab: [facility] [address] Performing Lab: [facility] [address] [facility] CBC & DIFF NEUTROPHIL S/100 LEUKOCYTES IN BLOOD BY MANUAL COUNT 70.1 40.0 - 80.0 11/18 Specimen Type: BLOOD Comment: Automated Differentia l Performed Ordering Provider: KEELY NGUYEN Report Released Date/Time: Jan 14, 2022 08:41 AM Reporting Lab: [facility] [address] Performing Lab: [facility] [address] [facility] CBC & DIFF LYMPHOCYTE S/100 LEUKOCYTES IN BLOOD BY MANUAL COUNT 15.3 15.0 - 45.0 11/18 Specimen Type: BLOOD Comment: Automated Differentia l Performed Ordering Provider: KEELY NGUYEN Report Released Date/Time: Jan 14, 2022 08:41 AM Reporting Lab: [facility] [address] Performing Lab: [facility] [address] [facility] CBC & DIFF MONOCYTES/ 100 LEUKOCYTES IN BLOOD BY AUTOMATED COUNT 10.9 2.0 - 12.0 11/18 Specimen Type: BLOOD Comment: Automated Differentia l Performed Ordering Provider: KEELY NGUYEN Report Released Date/Time: Jan 14, 2022 08:41 AM Reporting Lab: [facility] [address] Performing Lab: [facility] [address] [facility] CBC & DIFF EOSINOPHIL S/100 LEUKOCYTES IN BLOOD BY AUTOMATED COUNT 2.1 0.0 - 6.0 11/18 Specimen Type: BLOOD Comment: Automated Differentia l Performed Ordering Provider: KEELY NGUYEN Report Released Date/Time: Jan 14, 2022 08:41 AM Reporting Lab: [facility] [address] Performing Lab: [facility] [address] [facility] CBC & DIFF BASOPHILS/ 100 LEUKOCYTES IN BLOOD BY MANUAL COUNT 0.6 0.0 - 2.0 11/18 Specimen Type: BLOOD Comment: Automated Differentia l Performed Ordering Provider: KEELY NGUYEN Report Released Date/Time: Jan 14, 2022 08:41 AM Reporting Lab: [facility] [address] Performing Lab: [facility] [address] [facility] CBC & DIFF ERYTHROCYT E DISTRIBUTI ON WIDTH [RATIO] BY AUTOMATED COUNT 13.8 11.5 - 14.5 11/18 Specimen Type: BLOOD Comment: Automated Differentia l Performed Ordering Provider: KEELY NGUYEN Report Released Date/Time: Jan 14, 2022 08:41 AM Reporting Lab: [facility] [address] Performing Lab: [facility] [address] [facility] CBC & DIFF LYMPHOCYTE S [#/VOLUME] IN BLOOD BY AUTOMATED COUNT 0.73 10*3/uL 1.0 - 4.0 11/18 L Specimen Type: BLOOD Comment: Automated Differentia l Performed Ordering Provider: KEELY NGUYEN Report Released Date/Time: Jan 14, 2022 08:41 AM Reporting Lab: [facility] [address] Performing Lab: [facility] [address] [facility] CBC & DIFF MONOCYTES [#/VOLUME] IN BLOOD BY AUTOMATED COUNT 0.52 10*3/uL 0.1 - 1.0 11/18 Specimen Type: BLOOD Comment: Automated Differentia l Performed Ordering Provider: KEELY NGUYEN Report Released Date/Time: Jan 14, 2022 08:41 AM Reporting Lab: [facility] [address] Performing Lab: [facility] [address] [facility] CBC & DIFF NEUTROPHIL S [#/VOLUME] IN BLOOD BY AUTOMATED COUNT 3.34 10*3/uL 2.0 - 7.7 11/18 Specimen Type: BLOOD Comment: Automated Differentia l Performed Ordering Provider: KEELY NGUYEN Report Released Date/Time: Jan 14, 2022 08:41 AM Reporting Lab: [facility] [address] Performing Lab: [facility] [address] [facility] CBC & DIFF EOSINOPHIL S [#/VOLUME] IN BLOOD BY AUTOMATED COUNT 0.10 10*3/uL 0 - 0.5 11/18 Specimen Type: BLOOD Comment: Automated Differentia l Performed Ordering Provider: KEELY NGUYEN Report Released Date/Time: Jan 14, 2022 08:41 AM Reporting Lab: [facility] [address] Performing Lab: [facility] [address] [facility] CBC & DIFF BASOPHILS [#/VOLUME] IN BLOOD BY AUTOMATED COUNT 0.03 10*3/uL 0 - 0.2 11/18 Specimen Type: BLOOD Comment: Automated Differentia l Performed Ordering Provider: KEELY NGUYEN Report Released Date/Time: Jan 14, 2022 08:41 AM Reporting Lab: [facility] [address] Performing Lab: [facility] [address] [facility] CBC & DIFF IG(META,MY MAYA,PRO) 1.0 11/18 Specimen Type: BLOOD Comment: Automated Differentia l Performed Ordering Provider: KEELY NGUYEN Report Released Date/Time: Jan 14, 2022 08:41 AM Reporting Lab: [facility] [address] Performing Lab: [facility] [address] [facility] CBC & DIFF IMMATURE GRANULOCYT ES [PRESENCE] IN BLOOD BY AUTOMATED COUNT 0.05 10*3/uL 0 - 0.1 11/18 Specimen Type: BLOOD Comment: Automated Differentia l Performed Ordering Provider: KEELY NGUYEN Report Released Date/Time: Jan 14, 2022 08:41 AM Reporting Lab: [facility] [address] Performing Lab: [facility] [address] [facility] CBC & DIFF LEUKOCYTES [#/VOLUME] IN BLOOD BY AUTOMATED COUNT 4.72 10*3/uL 4.0 - 11.0 11/18 Specimen Type: BLOOD Comment: Automated Differentia l Performed Ordering Provider: KEELY NGUYEN Report Released Date/Time: Nov 18, 2022 02:10 PM Reporting Lab: [facility] [address] Performing Lab: [facility] [address] [facility] CBC & DIFF ERYTHROCYT ES [#/VOLUME] IN BLOOD BY AUTOMATED COUNT 3.07 10*6/uL 4.6 - 6.2 11/18 L Specimen Type: BLOOD Comment: Automated Differentia l Performed Ordering Provider: KEELY NGUYEN Report Released Date/Time: Nov 18, 2022 02:10 PM Reporting Lab: [facility] [address] Performing Lab: [facility] [address] [facility] CBC & DIFF HEMOGLOBIN [MASS/VOLU ME] IN BLOOD 10.7 g/dL 13.5 - 17.9 11/18 L Specimen Type: BLOOD Comment: Automated Differentia l Performed Ordering Provider: KEELY NGUYEN Report Released Date/Time: Nov 18, 2022 02:10 PM Reporting Lab: [facility] [address] Performing Lab: [facility] [address] [facility] CBC & DIFF HEMATOCRIT [VOLUME FRACTION] OF BLOOD BY AUTOMATED COUNT 33.0 41 - 54 11/18 L Specimen Type: BLOOD Comment: Automated Differentia l Performed Ordering Provider: KEELY NGUYEN Report Released Date/Time: Nov 18, 2022 02:10 PM Reporting Lab: [facility] [address] Performing Lab: [facility] [address] [facility] CBC & DIFF MCV [ENTITIC VOLUME] BY AUTOMATED COUNT 107.5 fL 80 - 100 11/18 H Specimen Type: BLOOD Comment: Automated Differentia l Performed Ordering Provider: KEELY NGUYEN Report Released Date/Time: Nov 18, 2022 02:10 PM Reporting Lab: [facility] [address] Performing Lab: [facility] [address] [facility] CBC & DIFF MCH [ENTITIC MASS] BY AUTOMATED COUNT 34.9 pg 27 - 33 11/18 H Specimen Type: BLOOD Comment: Automated Differentia l Performed Ordering Provider: KEELY NGUYEN Report Released Date/Time: Nov 18, 2022 02:10 PM Reporting Lab: [facility] [address] Performing Lab: [facility] [address] [facility] CBC & DIFF MCHC [MASS/VOLU ME] BY AUTOMATED COUNT 32.4 g/dL 32.0 - 37.5 11/18 Specimen Type: BLOOD Comment: Automated Differentia l Performed Ordering Provider: KEELY NGUYEN Report Released Date/Time: Nov 18, 2022 02:10 PM Reporting Lab: [facility] [address] Performing Lab: [facility] [address] [facility] CBC & DIFF PLATELETS [#/VOLUME] IN BLOOD BY AUTOMATED COUNT 139 10*3/uL 150 - 400 11/18 L Specimen Type: BLOOD Comment: Automated Differentia l Performed Ordering Provider: KEELY NGUYEN Report Released Date/Time: Nov 18, 2022 02:10 PM Reporting Lab: [facility] [address] Performing Lab: [facility] [address] [facility] CBC & DIFF PLATELET MEAN VOLUME [ENTITIC VOLUME] IN BLOOD BY AUTOMATED COUNT 10.3 fL 7.4 - 10.4 11/18 Specimen Type: BLOOD Comment: Automated Differentia l Performed Ordering Provider: KEELY NGUYEN Report Released Date/Time: Nov 18, 2022 02:10 PM Reporting Lab: [facility] [address] Performing Lab: [facility] [address] [facility] CBC & DIFF NEUTROPHIL S/100 LEUKOCYTES IN BLOOD BY MANUAL COUNT 70.8 40.0 - 80.0 11/18 Specimen Type: BLOOD Comment: Automated Differentia l Performed Ordering Provider: KEELY NGUYEN Report Released Date/Time: Nov 18, 2022 02:10 PM Reporting Lab: [facility] [id number] Performing Lab: [facility] [id number] [facility] CBC & DIFF LYMPHOCYTE S/100 LEUKOCYTES IN BLOOD BY MANUAL COUNT 14.6 15.0 - 45.0 11/18 L Specimen Type: BLOOD Comment: Automated Differentia l Performed Ordering Provider: KEELY NGUYEN Report Released Date/Time: Nov 18, 2022 02:10 PM Reporting Lab: [facility] [id number] Performing Lab: [facility] [address] [facility] CBC & DIFF MONOCYTES/ 100 LEUKOCYTES IN BLOOD BY AUTOMATED COUNT 11.9 2.0 - 12.0 11/18 Specimen Type: BLOOD Comment: Automated Differentia l Performed Ordering Provider: KEELY NGUYEN Report Released Date/Time: Nov 18, 2022 02:10 PM Reporting Lab: [facility] [address] Performing Lab: [facility] [address] [facility] CBC & DIFF EOSINOPHIL S/100 LEUKOCYTES IN BLOOD BY AUTOMATED COUNT 1.5 0.0 - 6.0 11/18 Specimen Type: BLOOD Comment: Automated Differentia l Performed Ordering Provider: KEELY NGUYEN Report Released Date/Time: Nov 18, 2022 02:10 PM Reporting Lab: [facility] [address] Performing Lab: [facility] [address] [facility] CBC & DIFF BASOPHILS/ 100 LEUKOCYTES IN BLOOD BY MANUAL COUNT 0.6 0.0 - 2.0 11/18 Specimen Type: BLOOD Comment: Automated Differentia l Performed Ordering Provider: KEELY NGUYEN Report Released Date/Time: Nov 18, 2022 02:10 PM Reporting Lab: [facility] [address] Performing Lab: [facility] [address] [facility] CBC & DIFF ERYTHROCYT E DISTRIBUTI ON WIDTH [RATIO] BY AUTOMATED COUNT 13.9 11.5 - 14.5 11/18 Specimen Type: BLOOD Comment: Automated Differentia l Performed Ordering Provider: KEELY NGUYEN Report Released Date/Time: Nov 18, 2022 02:10 PM Reporting Lab: [facility] [address] Performing Lab: [facility] [address] [facility] CBC & DIFF LYMPHOCYTE S [#/VOLUME] IN BLOOD BY AUTOMATED COUNT 0.69 10*3/uL 1.0 - 4.0 11/18 L Specimen Type: BLOOD Comment: Automated Differentia l Performed Ordering Provider: KEELY NGUYEN Report Released Date/Time: Nov 18, 2022 02:10 PM Reporting Lab: [facility] [address] Performing Lab: [facility] [address] [facility] CBC & DIFF MONOCYTES [#/VOLUME] IN BLOOD BY AUTOMATED COUNT 0.56 10*3/uL 0.1 - 1.0 11/18 Specimen Type: BLOOD Comment: Automated Differentia l Performed Ordering Provider: KEELY NGUYEN Report Released Date/Time: Nov 18, 2022 02:10 PM Reporting Lab: [facility] [address] Performing Lab: [facility] [address] [facility] CBC & DIFF NEUTROPHIL S [#/VOLUME] IN BLOOD BY AUTOMATED COUNT 3.34 10*3/uL 2.0 - 7.7 11/18 Specimen Type: BLOOD Comment: Automated Differentia l Performed Ordering Provider: KEELY NGUYEN Report Released Date/Time: Nov 18, 2022 02:10 PM Reporting Lab: [facility] [address] Performing Lab: [facility] [address] [facility] CBC & DIFF EOSINOPHIL S [#/VOLUME] IN BLOOD BY AUTOMATED COUNT 0.07 10*3/uL 0 - 0.5 11/18 Specimen Type: BLOOD Comment: Automated Differentia l Performed Ordering Provider: KEELY NGUYEN Report Released Date/Time: Nov 18, 2022 02:10 PM Reporting Lab: [facility] [address] Performing Lab: [facility] [address] [facility] CBC & DIFF BASOPHILS [#/VOLUME] IN BLOOD BY AUTOMATED COUNT 0.03 10*3/uL 0 - 0.2 11/18 Specimen Type: BLOOD Comment: Automated Differentia l Performed Ordering Provider: KEELY NGUYEN Report Released Date/Time: Nov 18, 2022 02:10 PM Reporting Lab: [facility] [address] Performing Lab: [facility] [address] [facility] CBC & DIFF IG(META,MY MAYA,PRO) 0.6 11/18 Specimen Type: BLOOD Comment: Automated Differentia l Performed Ordering Provider: KEELY NGUYEN Report Released Date/Time: Nov 18, 2022 02:10 PM Reporting Lab: [facility] [address] Performing Lab: [facility] [address] [facility] CBC & DIFF IMMATURE GRANULOCYT ES [PRESENCE] IN BLOOD BY AUTOMATED COUNT 0.03 10*3/uL 0 - 0.1 11/18 Specimen Type: BLOOD Comment: Automated Differentia l Performed Ordering Provider: KEELY NGUYEN Report Released Date/Time: Nov 18, 2022 02:10 PM Reporting Lab: [facility] [address] Performing Lab: [facility] [address] [facility] TSH W/REFLEX TO FREE T4 THYROTROPI N [UNITS/VOL UME] IN SERUM OR PLASMA 1.85 u[IU]/m L 0.35 - 4.94 11/18 Specimen Type: PLASMA No comment entered. Ordering Provider: KEELY NGUYEN Report Released Date/Time: Nov 18, 2022 02:10 PM Reporting Lab: [facility] [address] Performing Lab: [facility] [address] [facility] COMPREHEN SIVE METABOLIC PANEL+MG CREATININE [MASS/VOLU ME] IN SERUM OR PLASMA 1.4 mg/dL 0.7 - 1.2 11/18 H Specimen Type: PLASMA Comment: Automated Differentia l Performed Ordering Provider: KEELY NGUYEN Report Released Date/Time: Nov 18, 2022 02:10 PM Reporting Lab: [facility] [address] Performing Lab: [facility] [address] [facility] COMPREHEN SIVE METABOLIC PANEL+MG UREA NITROGEN [MASS/VOLU ME] IN SERUM OR PLASMA 29 mg/dL 8 - 26 11/18 H Specimen Type: PLASMA Comment: Automated Differentia l Performed Ordering Provider: KEELY NGUYEN Report Released Date/Time: Nov 18, 2022 02:10 PM Reporting Lab: [facility] [address] Performing Lab: [facility] [address] [facility] COMPREHEN SIVE METABOLIC PANEL+MG GLUCOSE [MASS/VOLU ME] IN SERUM OR PLASMA 79 mg/dL 70 - 100 11/18 Specimen Type: PLASMA Comment: Automated Differentia l Performed Ordering Provider: KEELY NGUYEN Report Released Date/Time: Nov 18, 2022 02:10 PM Reporting Lab: [facility] [address] Performing Lab: [facility] [address] [facility] COMPREHEN SIVE METABOLIC PANEL+MG SODIUM [MOLES/VOL UME] IN SERUM OR PLASMA 138 mmol/L 136 - 145 11/18 Specimen Type: PLASMA Comment: Automated Differentia l Performed Ordering Provider: KEELY NGUYEN Report Released Date/Time: Nov 18, 2022 02:10 PM Reporting Lab: [facility] [address] Performing Lab: [facility] [address] [facility] COMPREHEN SIVE METABOLIC PANEL+MG POTASSIUM [MOLES/VOL UME] IN SERUM OR PLASMA 4.8 mmol/L 3.5 - 5.1 11/18 Specimen Type: PLASMA Comment: Automated Differentia l Performed Ordering Provider: KEELY NGUYEN Report Released Date/Time: Nov 18, 2022 02:10 PM Reporting Lab: [facility] [address] Performing Lab: [facility] [address] [facility] COMPREHEN SIVE METABOLIC PANEL+MG CHLORIDE [MOLES/VOL UME] IN SERUM OR PLASMA 105 mmol/L 98 - 107 11/18 Specimen Type: PLASMA Comment: Automated Differentia l Performed Ordering Provider: KEELY NGUYEN Report Released Date/Time: Nov 18, 2022 02:10 PM Reporting Lab: [facility] [address] Performing Lab: [facility] [address] [facility] COMPREHEN SIVE METABOLIC PANEL+MG CARBON DIOXIDE, TOTAL [MOLES/VOL UME] IN SERUM OR PLASMA 30 mmol/L 22 - 29 11/18 H Specimen Type: PLASMA Comment: Automated Differentia l Performed Ordering Provider: KEELY NGUYEN Report Released Date/Time: Nov 18, 2022 02:10 PM Reporting Lab: [facility] [address] Performing Lab: [facility] [address] [facility] COMPREHEN SIVE METABOLIC PANEL+MG CALCIUM [MASS/VOLU ME] IN SERUM OR PLASMA 9.5 mg/dL 8.4 - 10.2 11/18 Specimen Type: PLASMA Comment: Automated Differentia l Performed Ordering Provider: KEELY NGUYEN Report Released Date/Time: Nov 18, 2022 02:10 PM Reporting Lab: [facility] [address] Performing Lab: [facility] [address] [facility] COMPREHEN SIVE METABOLIC PANEL+MG PROTEIN [MASS/VOLU ME] IN SERUM OR PLASMA 7.2 g/dL 6.0 - 8.3 11/18 Specimen Type: PLASMA Comment: Automated Differentia l Performed Ordering Provider: KEELY NGUYEN Report Released Date/Time: Nov 18, 2022 02:10 PM Reporting Lab: [facility] [address] Performing Lab: [facility] [address] [facility] COMPREHEN SIVE METABOLIC PANEL+MG ALBUMIN [MASS/VOLU ME] IN SERUM OR PLASMA 4.0 g/dL 3.5 - 5.2 11/18 Specimen Type: PLASMA Comment: Automated Differentia l Performed Ordering Provider: KEELY NGUYEN Report Released Date/Time: Nov 18, 2022 02:10 PM Reporting Lab: [facility] [address] Performing Lab: [facility] [address] [facility] COMPREHEN SIVE METABOLIC PANEL+MG BILIRUBIN. TOTAL [MASS/VOLU ME] IN SERUM OR PLASMA 0.4 mg/dL 0.2 - 1.2 11/18 Specimen Type: PLASMA Comment: Automated Differentia l Performed Ordering Provider: KEELY NGUYEN Report Released Date/Time: Nov 18, 2022 02:10 PM Reporting Lab: [facility] [address] Performing Lab: [facility] [address] [facility] COMPREHEN SIVE METABOLIC PANEL+MG MAGNESIUM [MASS/VOLU ME] IN SERUM OR PLASMA 2.0 mg/dL 1.6 - 2.6 11/18 Specimen Type: PLASMA Comment: Automated Differentia l Performed Ordering Provider: KEELY NGUYEN Report Released Date/Time: Nov 18, 2022 02:10 PM Reporting Lab: [facility] [address] Performing Lab: [facility] [address] [facility] COMPREHEN SIVE METABOLIC PANEL+MG ANION GAP IN SERUM OR PLASMA 3 mmol/L 5 - 15 11/18 L Specimen Type: PLASMA Comment: Automated Differentia l Performed Ordering Provider: KEELY NGUYEN Report Released Date/Time: Nov 18, 2022 02:10 PM Reporting Lab: [facility] [address] Performing Lab: [facility] [address] [facility] COMPREHEN SIVE METABOLIC PANEL+MG ALKALINE PHOSPHATAS E [ENZYMATIC ACTIVITY/V OLUME] IN SERUM OR PLASMA 54 U/L 40 - 150 11/18 Specimen Type: PLASMA Comment: Automated Differentia l Performed Ordering Provider: KEELY NGUYEN Report Released Date/Time: Nov 18, 2022 02:10 PM Reporting Lab: [facility] [address] Performing Lab: [facility] [address] [facility] COMPREHEN SIVE METABOLIC PANEL+MG ALANINE AMINOTRANS FERASE [ENZYMATIC ACTIVITY/V OLUME] IN SERUM OR PLASMA 14 U/L <55 - 55 11/18 Specimen Type: PLASMA Comment: Automated Differentia l Performed Ordering Provider: KEELY NGUYEN Report Released Date/Time: Nov 18, 2022 02:10 PM Reporting Lab: [facility] [address] Performing Lab: [facility] [address] [facility] COMPREHEN SIVE METABOLIC PANEL+MG ASPARTATE AMINOTRANS FERASE [ENZYMATIC ACTIVITY/V OLUME] IN SERUM OR PLASMA 20 U/L <34 - 34 11/18 Specimen Type: PLASMA Comment: Automated Differentia l Performed Ordering Provider: KEELY NGUYEN Report Released Date/Time: Nov 18, 2022 02:10 PM Reporting Lab: [facility] [address] Performing Lab: [facility] [address] [facility] COMPREHEN SIVE METABOLIC PANEL+MG GLOMERULAR FILTRATION RATE/1.73 SQ M.PREDICTE D [VOLUME RATE/AREA] IN SERUM, PLASMA OR BLOOD BY CREATININE -BASED FORMULA (CKD-EPI 2020) 51 60 11/18 L Specimen Type: PLASMA Comment: Automated Differentia l Performed Ordering Provider: KEELY NGUYEN Report Released Date/Time: Nov 18, 2022 02:10 PM Reporting Lab: [facility] [address] Performing Lab: [facility] [address] [facility] PERIPHERA L SMEAR PATHOLOGI ST REVIEW ERYTHROCYT E MORPHOLOGY FINDING [IDENTIFIE R] IN BLOOD SLIDES MADE 01/13 Specimen Type: BLOOD No comment entered. Ordering Provider: KEELY NGUYEN Report Released Date/Time: Nov 27, 2021 09:58 AM Reporting Lab: [facility] [address] Performing Lab: [facility] [address] [facility] CBC & DIFF LEUKOCYTES [#/VOLUME] IN BLOOD BY AUTOMATED COUNT 4.85 10*3/uL 4.0 - 11.0 01/13 Specimen Type: BLOOD Comment: Automated Differentia l Performed Ordering Provider: KEELY NGUYEN Report Released Date/Time: Nov 27, 2021 09:58 AM Reporting Lab: [facility] [address] Performing Lab: [facility] [address] [facility] CBC & DIFF ERYTHROCYT ES [#/VOLUME] IN BLOOD BY AUTOMATED COUNT 3.32 10*6/uL 4.6 - 6.2 01/13 L Specimen Type: BLOOD Comment: Automated Differentia l Performed Ordering Provider: KEELY NGUYEN Report Released Date/Time: Nov 27, 2021 09:58 AM Reporting Lab: [facility] [address] Performing Lab: [facility] [address] [facility] CBC & DIFF HEMOGLOBIN [MASS/VOLU ME] IN BLOOD 11.7 g/dL 13.5 - 17.9 01/13 L Specimen Type: BLOOD Comment: Automated Differentia l Performed Ordering Provider: KEELY NGUYEN Report Released Date/Time: Nov 27, 2021 09:58 AM Reporting Lab: [facility] [address] Performing Lab: [facility] [address] [facility] CBC & DIFF HEMATOCRIT [VOLUME FRACTION] OF BLOOD BY AUTOMATED COUNT 35.7 41 - 54 01/13 L Specimen Type: BLOOD Comment: Automated Differentia l Performed Ordering Provider: KEELY NGUYEN Report Released Date/Time: Nov 27, 2021 09:58 AM Reporting Lab: [facility] [address] Performing Lab: [facility] [address] [facility] CBC & DIFF MCV [ENTITIC VOLUME] BY AUTOMATED COUNT 107.5 fL 80 - 100 01/13 H Specimen Type: BLOOD Comment: Automated Differentia l Performed Ordering Provider: KEELY NGUYEN Report Released Date/Time: Nov 27, 2021 09:58 AM Reporting Lab: [facility] [address] Performing Lab: [facility] [address] [facility] CBC & DIFF MCH [ENTITIC MASS] BY AUTOMATED COUNT 35.2 pg 27 - 33 01/13 H Specimen Type: BLOOD Comment: Automated Differentia l Performed Ordering Provider: KEELY NGUYEN Report Released Date/Time: Nov 27, 2021 09:58 AM Reporting Lab: [facility] [address] Performing Lab: [facility] [address] [facility] CBC & DIFF MCHC [MASS/VOLU ME] BY AUTOMATED COUNT 32.8 g/dL 32.0 - 37.5 01/13 Specimen Type: BLOOD Comment: Automated Differentia l Performed Ordering Provider: KEELY NGUYEN Report Released Date/Time: Nov 27, 2021 09:58 AM Reporting Lab: [facility] [address] Performing Lab: [facility] [address] [facility] CBC & DIFF PLATELETS [#/VOLUME] IN BLOOD BY AUTOMATED COUNT 142 10*3/uL 150 - 400 01/13 L Specimen Type: BLOOD Comment: Automated Differentia l Performed Ordering Provider: KEELY NGUYEN Report Released Date/Time: Nov 27, 2021 09:58 AM Reporting Lab: [facility] [address] Performing Lab: [facility] [address] [facility] CBC & DIFF PLATELET MEAN VOLUME [ENTITIC VOLUME] IN BLOOD BY AUTOMATED COUNT 10.0 fL 7.4 - 10.4 01/13 Specimen Type: BLOOD Comment: Automated Differentia l Performed Ordering Provider: KEELY NGUYEN Report Released Date/Time: Nov 27, 2021 09:58 AM Reporting Lab: [facility] [address] Performing Lab: [facility] [address] [facility] CBC & DIFF NEUTROPHIL S/100 LEUKOCYTES IN BLOOD BY MANUAL COUNT 72.5 01/13 Specimen Type: BLOOD Comment: Automated Differentia l Performed Ordering Provider: KEELY NGUYEN Report Released Date/Time: Nov 27, 2021 09:58 AM Reporting Lab: [facility] [address] Performing Lab: [facility] [address] [facility] CBC & DIFF LYMPHOCYTE S/100 LEUKOCYTES IN BLOOD BY MANUAL COUNT 10.9 01/13 Specimen Type: BLOOD Comment: Automated Differentia l Performed Ordering Provider: KEELY NGUYEN Report Released Date/Time: Nov 27, 2021 09:58 AM Reporting Lab: [facility] [address] Performing Lab: [facility] [address] [facility] CBC & DIFF MONOCYTES/ 100 LEUKOCYTES IN BLOOD BY AUTOMATED COUNT 13.4 01/13 Specimen Type: BLOOD Comment: Automated Differentia l Performed Ordering Provider: KEELY NGUYEN Report Released Date/Time: Nov 27, 2021 09:58 AM Reporting Lab: [facility] [address] Performing Lab: [facility] [address] [facility] CBC & DIFF EOSINOPHIL S/100 LEUKOCYTES IN BLOOD BY AUTOMATED COUNT 1.4 01/13 Specimen Type: BLOOD Comment: Automated Differentia l Performed Ordering Provider: KEELY NGUYEN Report Released Date/Time: Nov 27, 2021 09:58 AM Reporting Lab: [facility] [address] Performing Lab: [facility] [address] [facility] CBC & DIFF BASOPHILS/ 100 LEUKOCYTES IN BLOOD BY MANUAL COUNT 0.8 01/13 Specimen Type: BLOOD Comment: Automated Differentia l Performed Ordering Provider: KEELY NGUYEN Report Released Date/Time: Nov 27, 2021 09:58 AM Reporting Lab: [facility] [address] Performing Lab: [facility] [address] [facility] CBC & DIFF ERYTHROCYT E DISTRIBUTI ON WIDTH [RATIO] BY AUTOMATED COUNT 13.5 11.5 - 14.5 01/13 Specimen Type: BLOOD Comment: Automated Differentia l Performed Ordering Provider: KEELY NGUYEN Report Released Date/Time: Nov 27, 2021 09:58 AM Reporting Lab: [facility] [address] Performing Lab: [facility] [address] [facility] CBC & DIFF LYMPHOCYTE S [#/VOLUME] IN BLOOD BY AUTOMATED COUNT 0.53 10*3/uL 1.0 - 4.0 01/13 L Specimen Type: BLOOD Comment: Automated Differentia l Performed Ordering Provider: KEELY NGUYEN Report Released Date/Time: Nov 27, 2021 09:58 AM Reporting Lab: [facility] [address] Performing Lab: [facility] [address] [facility] CBC & DIFF MONOCYTES [#/VOLUME] IN BLOOD BY AUTOMATED COUNT 0.65 10*3/uL 0.1 - 1.0 01/13 Specimen Type: BLOOD Comment: Automated Differentia l Performed Ordering Provider: KEELY NGUYEN Report Released Date/Time: Nov 27, 2021 09:58 AM Reporting Lab: [facility] [address] Performing Lab: [facility] [address] [facility] CBC & DIFF NEUTROPHIL S [#/VOLUME] IN BLOOD BY AUTOMATED COUNT 3.51 10*3/uL 2.0 - 7.7 01/13 Specimen Type: BLOOD Comment: Automated Differentia l Performed Ordering Provider: KEELY NGUYEN Report Released Date/Time: Nov 27, 2021 09:58 AM Reporting Lab: [facility] [address] Performing Lab: [facility] [address] [facility] CBC & DIFF EOSINOPHIL S [#/VOLUME] IN BLOOD BY AUTOMATED COUNT 0.07 10*3/uL 0 - 0.5 01/13 Specimen Type: BLOOD Comment: Automated Differentia l Performed Ordering Provider: KEELY NGUYEN Report Released Date/Time: Nov 27, 2021 09:58 AM Reporting Lab: [facility] [address] Performing Lab: [facility] [address] [facility] CBC & DIFF BASOPHILS [#/VOLUME] IN BLOOD BY AUTOMATED COUNT 0.04 10*3/uL 0 - 0.2 01/13 Specimen Type: BLOOD Comment: Automated Differentia l Performed Ordering Provider: KEELY NGUYEN Report Released Date/Time: Nov 27, 2021 09:58 AM Reporting Lab: [facility] [address] Performing Lab: [facility] [address] [facility] CBC & DIFF IG(META,MY MAYA,PRO) 1.0 01/13 Specimen Type: BLOOD Comment: Automated Differentia l Performed Ordering Provider: KEELY NGUYEN Report Released Date/Time: Nov 27, 2021 09:58 AM Reporting Lab: [facility] [address] Performing Lab: [facility] [address] [facility] CBC & DIFF IMMATURE GRANULOCYT ES [PRESENCE] IN BLOOD BY AUTOMATED COUNT 0.05 10*3/uL 0 - 0.1 01/13 Specimen Type: BLOOD Comment: Automated Differentia l Performed Ordering Provider: KEELY NGUYEN Report Released Date/Time: Nov 27, 2021 09:58 AM Reporting Lab: [facility] [address] Performing Lab: [facility] [address] [facility] PERIPHERA L SMEAR PATHOLOGI ST REVIEW ERYTHROCYT E MORPHOLOGY FINDING [IDENTIFIE R] IN BLOOD SLIDES MADE 11/25 Specimen Type: BLOOD No comment entered. Ordering Provider: KEELY NGUYEN Report Released Date/Time: Nov 18, 2021 10:19 AM Reporting Lab: [facility] [address] Performing Lab: [facility] [address] [facility] B 12 COBALAMIN (VITAMIN B12) [MASS/VOLU ME] IN SERUM OR PLASMA 311 pg/mL 213 - 816 11/25 Specimen Type: SERUM No comment entered. Ordering Provider: KEELY NGUYEN Report Released Date/Time: Nov 18, 2021 10:19 AM Reporting Lab: [facility] [address] Performing Lab: [facility] [address] [facility] Vital Signs Combined list of inpatient and outpatient Vital Signs from Department of [facility] and [facility], ranging from 12 months to all [...] months. 2) Encounters from the Department of [facility] facilities going back up to 280 months. Location Location Details Encounter Type Encounter Number Reason For Visit Attending Provider ADM Date DC Date Status Disposition Source [place] [facility] Outpatient Encounter [id number] 07/23 [facility] [place] [facility] Outpatient Encounter [id number] 07/23 [facility] OFFICE O/P EST MOD 30-39 MIN [id number] Diagnos is: ICD-10- CM Z00.8 Encount er for other general examina tion
Stuart NGUYEN 11/18 [facility] [place] [facility] En[place] [id number] 12/03 [place] [facility] [place] [facility] [place] [facility] [id number] 12/15 [place] [facility] [place] [facility] [place] [facility] [id number] 12/23 [place] [facility] [place] [facility] [place] [facility] [id number] 01/15 [place] [facility] [place] [facility] [place] [facility] [id number] 01/29 [place] [facility] [place] [facility] [id number] 02/02 [place] [facility] [place] [facility] [place] [facility] [id number] 02/03 [place] [facility] [facility] [place] [facility] Out[place] Encounter [id number] [place] 02/03 [place] [facility] [place] [facility] Outpatient Encounter [id number] [facility] 02/03 [place] [facility] [place] [facility] Outpatient Encounter [id number] 03/09 [place] [facility] [place] [facility] [place] [facility] Outpatient Encounter [id number] 03/11 [place] [facility] [facility] [place] [facility] Outpatient Encounter [id number] 05/11 [place] [facility] [place] [facility] CASE MANAGEMENT [id number] Diagnos is: ICD-10- CM R53.1 Lucretia del cid
SANTHOSH VALLEJO 05/24 [place] [facility] [place] [facility] Outpatient Encounter [id number] CALEB SWANSON 09[facility]12 [place] [facility] [place] [facility] Out[place] Encounter [id number] 10/27 [place] [facility] [facility] [place] [facility] Outpatient Encounter [id number] 11/01 [place] [facility] [place] [facility] Outpatient Encounter [id number] JUDITH HUSAIN 11/16 [place] [facility] [place] [facility] Outpatient Encounter [id number] ERICKSON HUERTA RALF 11/17 [place] [facility] Outpatient Encounter [id number] Diagnos is: ICD-10- CM Z00.8 Encount er for other general examina tion
Stuart NGUYEN 11/17 [facility] [place] [facility] Outpatient Encounter [id number] 11/17 [place] [facility] Social History Combined list of available smoking, tobacco, and other social history from Department of Defense and Veterans Affairs facilities. Social History Type Response Date Comment Source Tobacco smoking status [facility] VA-TOBACCO FORMER USER 11/18/2022 [facility] History of tobacco use [place]-TO[place] QU[place] 15 YRS OR MORE 11/18/2022 [facility] History of tobacco use VA-TOBACCO FORMER USER 11/17/2021 [facility] History of tobacco use VA-TOBACCO FORMER USER 11/14/2020 [facility] History of tobacco use [place]-TO[place]CO FORMER USER 11/08/2019 [facility] History of tobacco use [place]-TOBACCO QUIT 15 YRS OR MORE 10/07/2018 [facility] History of tobacco use FORMER TOBACCO USER 7Y OR GREATER 09/29/2017 [facility] History of tobacco use FORMER TOBACCO USER 7Y OR GREATER 11/13/2016 [facility] History of tobacco use FORMER TOBACCO USER 7Y OR GREATER 10/16/2015 [facility] History of tobacco use FORMER TOBACCO USER 7Y OR GREATER 10/19/2014 [facility] History of tobacco use FORMER TOBACCO USER 7Y OR GREATER 10/11/2013 [facility] History of tobacco use FORMER TOBACCO [...] future care activities from Department of Veterans [facility] facilities. Additional future care activities may be listed in the Assessment and Plan section. Date/Time Care Activity Care Activity Detail Facili ty 11/18/2023 AMBULATORY - MEDICINE AMBULATORY - MEDICI [facility] Advance Directives List of completed, amended, or rescinded Advance Directives on record at [facility] facilities. An actual copy of the Directive is not included. Date Advance Directive Provider Source 11/27/2021 ADVANCE DIRECTIVE SCARLETT HOPPER [facility]
--- OUTSIDE RECORDS SUMMARY | 2023-11-18 22:32 | XMS_ITS | Encounter Summary ---
Author Name [facility] [place] [facility] [place] Address [address] [place] [address] Care Team Providers Care Waterproof Material Folder Name Role Phone MASSIEL NGUYEN Primary Care Provider Unavailondina dean Insurance Providers: All historical and current [...] PART D Mar 01, 2010 PART D [id number] DAVINA RODAS PATIENT [facility] (WNR) MEDICARE ADVANTAGE [facility] (WNR) Mar 01, 2019 [id number] 00 ALLEN COLLAZODAVINA PATIENT [facility] (WNR) MEDICARE ADVANTAGE [facility] (WNR) Mar 01, 2015 [facility] [id number] ALLEN COLLAZODAVINA PATIENT [facility] (WNR) MEDICARE ADVANTAGE [facility] (WNR) Mar 01, 2010 [facility] [id number] [place] DAVINA COLLAZO PATIENT Selected Encounter This section includes the information on record at [place] for the Encounter. Date/Time Encounter Type Encounter Description Reason Provider Source Nov 17, 2023 02:02 PM Outpatient Encounter ADMIN PAT ACTIVTIES (MASNONCT) JUDITH HUSAIN Kin Encounter Template Text not used by [place] Plan of Treatment: Future Appointments (+ 6 months) and Future Tests (+/- 45 days) The Plan of Treatment section includes future care activities for the patient from all [place] treatmentfacilities. This section includes future appointments and future orders which are active, pending or scheduled. Future Appointments This section includes appointments that were scheduled to occur 6 months from the date of the Encounter, up to a maximum of 20 appointments. The data comes from all [place] treatment facilities. Appointment Date/Time Appointment Type Appointme nt Facility Name Nov 18, 2023 11:00 AM AMBULATORY - MEDICINE [facility] Social History: Smoking Status (Most current) and Tobacco Use (All prior to encounter date) This section includes the most current, and the historical, smoking and tobacco- related health factors from the [place] facility where the Encounter took place. Current Smoking Status This section includes the most current smoking, or tobacco-related health factor, from the [place] facility where the Encounter took place. Date/Time Current Smoking Status Comment Facil ity Nov 08, 2019 12:00 PM VA-TOBACCO FORMER USER [facility] Tobacco Use History This section includes a history of the smoking, or tobacco-related health factors, that were collected on or before the date of the Encounter. The data comes from the [place] facility where the Encounter took place. Date/Time Smoking Status/Tobacco Use Comment F acility Nov 08, 2019 12:00 PM VA-TOBACCO QUIT 15 YRS OR MORE [facility] Advance Directives: All historical and current Section Date Range: From patient's date of to the date document was created. This section includes ALL of a patient's completed or amended [place] Advance and Rescinded Directives. The entries below indicate that a directive exists for the patient, but an actual copy is not included with this document. The data comes from all [place] facilities. Date Advance Directives Provider Source Nov 27, 2021 ADVANCE DIRECTIVE SCARLETT HOPPER Nov 27, 2021 ADVANCE DIRECTIVE DISCUSSION [facility] Encounter Notes: All associated encounter notes This section contains the clinical notes associated to the Encounter. Date/Time Encounter Note(s) Provider Source Nov 17, 2023 02:02 PM TELEHEALTH NOTE: LOCAL TITLE: TELEHEALTH TECHNOLOGY SCREENING (TTS) STANDARD TITLE: TELEHEALTH NOTE DATE OF NOTE: NOV 17, 2023@14:02 ENTRY DATE: NOV 17, 2023@14:02:41 AUTHOR: JUDITH HUSAIN EXP COSIGNER: URGENCY: STATUS: COMPLETED agrees to [place] Video Connect (VVC) and has capability to complete a VVC visit. has completed a test call or a VVC visit on his/her personal device. 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
--- OUTSIDE RECORDS SUMMARY | 2023-11-18 22:33 | XMS_ITS | Encounter Summary ---
Author Name [facility] [place] [facility] [place] [facility] [place] Address [address] [place] [address] Care Team Providers Care Chemical Treatment Operator Name Role Phone MASSIEL NGUYEN Primary Care [...] PART D Mar 01, 2010 PART D [id number] DAVINA RODAS PATIENT [facility] (WNR) MEDICARE ADVANTAGE [facility] (WNR) Mar 01, 2019 [id number] 00 ALLEN CLOLAZODAVINA PATIENT [place] [facility] ([place]NR) MEDICARE ADVANTAGE [facility] (WNR) Mar 01, 2015 [facility] [id number] ALLEN COLLAZODAVINA PATIENT [facility] (WNR) MEDICARE ADVANTAGE [facility] (WNR) Mar 01, 2010 [facility] [id number] DAVINA RODAS PATIENT Selected Encounter This section includes the information on record at [place] for the Encounter. Date/Time Encounter Type Encounter Description Reason Provider Source Nov 18, 2023 10:21 AM Outpatient Encounter PRIMARY CARE/MEDICINE TYLER HUERTA Encounter Template Text not used by [place] Social History: Smoking Status (Most current) and Tobacco Use (All prior to encounter date) This section includes the most current, and the historical, smoking and tobacco- related health factors from the [place] facility where the Encounter took place. Current Smoking Status This section includes the most current smoking, or tobacco-related health factor, from the [place] facility where the Encounter took place. Date/Time Current Smoking Status Comment Facil ity Nov 08, 2019 12:00 PM VA-TOBACCO FORMER USER [facility] Tobacco Use History This section includes a history of the smoking, or tobacco-related health factors, that were collected on or before the date of the Encounter. The data comes from the [place] facility where the Encounter took place. Date/Time Smoking Status/Tobacco Use Comment F acility Nov 08, 2019 12:00 PM VA-TOBACCO QUIT 15 YRS OR MORE [facility] Advance Directives: All historical and current Section Date Range: From patient's date of to the date document was created. This section includes ALL of a patient's completed or amended [place] Advance and Rescinded Directives. The entries below indicate that a directive exists for the patient, but an actual copy is not included with this document. The data comes from all [place] facilities. Date Advance Directives Provider Source Nov 27, 2021 ADVANCE DIRECTIVE SCARLETT HOPPER [facility] Nov 27, 2021 ADVANCE DIRECTIVE DISCUSSION ERNIE HOPPER [facility] Encounter Notes: All associated encounter notes This section contains the clinical notes associated to the Encounter. Date/Time Encounter Note(s) Provider Source Nov 18, 2023 10:21 AM PACT NOTE: LOCAL TITLE: MEDICINE CLINIC NON-PROVIDER TELEPHONE NOTE STANDARD TITLE: PACT NOTE DATE OF NOTE: NOV 18, 2023@10:21 ENTRY DATE: NOV 18, 2023@10:21:55 AUTHOR: TYLER HUERTA EXP COSIGNER: URGENCY: STATUS: COMPLETED History: (Required) Annual Objective: VVC Annual Evaluation/Assessment: (Required) to resolve the reminders Education/Counseling: Plan (Next Steps in Care): (Required)called pt. 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 Fall History Screen During the past 12 months, have you had any falls? Patient reports one fall with injury requiring treatment in the past 12 months. Few falls. L hip injury, skin tear MEDICATIONS: Patient is on one of the following medication classes: Antihypertensives, Antidepressants, Antipsychotics, Diuretics, or Controlled substance medication used for pain. Memory care nurses and help with meds Script Talk Screen Are you able to read your prescription bottles with your glasses, magnifiers or other aids? Memory care nurses and help with meds Skin Screen Patient reports any current pressure ulcers, a history of pressure ulcers, or a wound from a medical transcription radiology or Patient is bed-confined or a wheelchair-user or Patient requires assistance to transfer/change position He is in [facility] care, Mostly in wheel chair. uses walker at times Frequent faals, L hip injuey, skin tear head/hand Home Abuse/Violence Screen Is your home free of abuse and violence? Yes MOVE! Program Screen Body Mass Index (BMI)= 23.2 [place]: Collection DT Specimen Test Name Result Units Ref Range 11/14/2020 10:59 BLOOD HEMOGLOBIN A1C 5.2 % 4.0 - 6.0 [place] Hgb A1C: No data available [place] Hgb A1C: No data available Point of Care Hgb A1C: POC HGB A1C____ Outpatient Nutrition Screen Body Mass Index (BMI)= 23.2 [place]: Collection DT Specimen Test Name Result Units Ref Range 11/14/2020 10:59 BLOOD HEMOGLOBIN A1C 5.2 % 4.0 - 6.0 [place] Hgb A1C: No data available [place] Hgb A1C: No data available Point of Care Hgb A1C: POC HGB A1C____ Is patient's BMI less than 18.5? No Does patient have swallowing, coughing, or chewing problems affecting oral intake? sawlowing problem, vedio test done, Chewing problem due to teeth issues Has patient experienced unplanned weight loss or gain greater than 10 pounds over the last 2 months? No Is patient's Hgb A1C (Glycosylated Hemoglobin) greater than 9.5? Information not available Is patient receiving Total Parenteral Nutrition (TPN) or Tube Feedings? No Patient Health Education Screen BARRIERS/SPECIAL NEEDS: Hearing limitations, phisical limitation, congnitive limitation In Memory care and helps Other limitations: Mostly in wheel chair for weakness, uses walker PREFERRED STYLE OF LEARNING: Unable, in memory care Client Assistive Service (PHILLIP) Screen Does the patient require assistance with outpatient visit? No Homelessness/Food Insecurity Screen: In the past 2 months, have you been living in stable housing that you own, rent, or stay in as part of a household? Yes - Living in stable housing. Are you worried or concerned that in the next 2 months you may NOT have stable housing that you own, rent, or stay in as part of a household? No - Not worried about housing near future The reports the following: Within the past 12 months, you worried whether your food would run out before you got money to buy more. Never true Within the past 12 months, the food you bought just didn't last and you didn't have money to get more. Never true Food Assistance Programs [facility] Food Assistance Programs [facility] ADV DIR Notification and Screening: ADVANCE DIRECTIVE NOTIFICATION: Patient was given written notification of the following rights: 1. Accept or refuse any medical treatment. 2. Complete a durable power of copy chaser for health care. 3. Complete a living will. ADVANCE DIRECTIVE SCREENING: Does patient have an Advance Directive? The patient has an Advance Directive. Does the patient wish to make any changes or revoke their current Advance Directive? No changes requested at this time. WHOLE HEALTH QUESTIONS: Whole Health Screening Why is addressing your overall health important to you? What do you want your health for (why do you want to be healthy)? 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 /bassem/ TYLER HUERTA LPN LPN [facility] Signed: 11/18/2023 11:56 TYLER HUERTA [facility]
--- OUTSIDE RECORDS SUMMARY | 2023-11-18 22:35 | XMS_ITS | Clinical Summary ---
Author Organization [facility] Address [address] [address] Phone Care Team Providers Care Willower Name Role Phone Unavailable Primary Care Provider [...] Overview: Per 07/02/[address] Block. [id number] Anemia 08/04/2010 Seborrheic keratosis 08/04/2010 Hypothyroidism Resolved [...] 08/09/2021 08/10/2011 COVID-19 Vaccine (2022-2 4 season) 2023 Influenza Vaccine Seasonal (Standing Order) (#1) 2023 [...] Puckett MD - 09/16/2012 11:34 AM CDT [facility] ADDENDED COPY Patient Name: MYKE DOUGLAS Date of Service: 09/16/2012 : 1945 Age: 67Y Sex: M [place] Site MRN: Patient Loc/Room #: [facility]/ Provider: Jam Puckett MD, Gastroenterology GI PROCEDURE SITE: [facility] ORDERED BY: COLONOSCOPY DATE OF PROCEDURE: 09/16/2012. [...] results andrecommendations via letter. Jam Puckett MD [facility] Gastroenterology cc: Pérez Villafuerte MD /CASI Job ID: [id number] /nichol/kendall(ord) Document ID: [id number] A: 09/21/2012 miguel(add) Jam Puckett MD EC PROCEDURES from Last 3 Months or Most Recently Relevant to Health Maintenance
--- OUTSIDE RECORDS SUMMARY | 2023-11-18 22:35 | XMS_ITS | Encounter Summary ---
Author Organization [facility] Address [address] [address] Phone Care Team Providers Care Drum Sealer Name Role Phone Pérez Villafuerte MD Primary Care Provider [phone] Leida Rooney RN Unavailable [phone] Encounter Details Date Type Department Care Team [...] on filedocumented in this encounter Care Teams Drum Sealer Relationship Specialty Start Date End Date Pé[place] [address] [place] [phone] PCP - General 07/30/10 03/07/15 Leida Rooney, RN Operations Dispatcher 08/06/11 06/16/15 documented as of this encounter
--- OUTSIDE RECORDS SUMMARY | 2023-11-18 22:35 | XMS_ITS | Encounter Summary ---
Author Name [facility] [place] [facility] [place] Address [address] [place] [address] Care Team Providers Care Information Strategist Name Role Phone WENDYKEEGANMASSIEL Primary Care Provider [...] PART D Mar 01, 2010 PART D [id number] DAVINA RODAS PATIENT [facility]-CARE OF [facility] (WNR) MEDICARE ADVANTAGE [facility] (WNR) Mar 01, 2019 [id number] 00 ALLEN COLLAZODAVINA PATIENT [facility]-CARE OF [facility] (WNR) MEDICARE ADVANTAGE [facility] (WNR) Mar 01, 2015 [facility] [id number] ALLEN COLLAZODAVINA PATIENT [facility] (WNR) MEDICARE ADVANTAGE [facility] (WNR) Mar 01, 2010 [facility] [id number] DAVINA RODAS PATIENT Selected Encounter This section includes the information on record at [place] for the Encounter. Date/Time Encounter Type Encounter Description Reason Pro vider Source Nov 18, 2023 03:55 PM Outpatient Encounter TELEPHONE PRIMARY CARE IHE Encounter Template Text not used by [place] Social History: Smoking Status (Most current) and [...] 08, 2019 12:00 PM VA-TOBACCO FORMER USER [facility] Tobacco Use History This section includes a history of the smoking, or tobacco-related health factors, that were collected on or before the date of the Encounter. The data comes from the [place] facility where the Encounter took place. Date/Time Smoking Status/Tobacco Use Comment F acility Nov 08, 2019 12:00 PM VA-TOBACCO QUIT 15 YRS OR MORE [facility] Advance Directives: All historical and current Section Date Range: From patient's date of to the date document was created. This section includes ALL of a patient's completed or amended [place] Advance and Rescinded Directives. The entries below indicate that a directive exists for the patient, but an actual copy is not included with this document. The data comes from all [place] facilities. Date Advance Directives Provider Source Nov 27, 2021 ADVANCE DIRECTIVE SCARLETT HOPPER [facility] Nov 27, 2021 ADVANCE DIRECTIVE DISCUSSION ERNIE HOPPER [facility] Encounter Notes: All associated encounter notes This section contains the clinical notes associated to the Encounter. Date/Time Encounter Note(s) Provider Source Nov 18, 2023 03:55 PM SOCIAL WORK NOTE: LOCAL TITLE: SOCIAL WORK PROGRESS NOTE STANDARD TITLE: SOCIAL WORK NOTE DATE OF NOTE: NOV 18, 2023@15:55 ENTRY DATE: NOV 18, 2023@16:08:01 AUTHOR: SCARLETT HOPPER COSIGNER: URGENCY: STATUS: COMPLETED Referral Source: PACT BILINGUAL INSTRUCTOR Presenting Issue: benefits Brief Summary: Spouse inquiring about status of Catastrophic Disability. Social Work Intervention and Plan: CPRS reviewed. Catastrophically Disabled Review Date: Nov 02, 2023 Medication Copayment Exemption Status: EXEMPT Contacted spouse. Informed of the above. Spouse inquired about any other possible resources to assist with paying for 's care. is currently in an [facility] and cost is about $9000/month. Spouse reports she has contacted [facility] to inquire about VA A&A and they are over assets. Educated about Elder Law Attorneys. Spouse states she has met with an corporate attorney, but not sure if he specialized in Medicaid Planning. Spouse plans to call the corporate attorney. Registered Radiographer agreed to email listing of Elder Law Attorneys to spouse. Spouse appreciative. PCSW remains available. Call Time: 11 minutes /bassem/ VINAY VELASQUEZ Sulfide Head Operator Signed: 11/18/2023 16:13 SCARLETT HOPPER
[2023-11-18 22:43] LABS: Troponin I* < 0.01 ng/mL (0.01-0.04)
[2023-11-18 23:02] VITALS: PULSE 48; O2SAT 97
[2023-11-18 23:04] VITALS: BP 121/82; O2SAT 96
[2023-11-18 23:15] VITALS: PULSE 48; O2SAT 82
== END 2023-11-18 23:35 | disposition home or self-care (01) ==
PROVIDERS: Emergency Provider Internal Medicine; PCP Internal Medicine
DX: R00.1 Bradycardia, unspecified (principal)
CPT/HCPCS: 36415; 80048; 84484; 85025; 99283